=== PATIENT | male | born 1940 | race Caucasian/White ===

== ENCOUNTER → 2021-09-09 06:36 | Outpatient (CLI) | payer MEDICARE, SELFPAY ==
[2021-09-08 18:48] LABS: Basophils # 0.1 K/mm3 (0-0.2); Basophils % 1.6 % (0.1-2.0); Eosinophils # 0.3 K/mm3 (0.0-0.4); Eosinophils % 3.2 % (0.1-12.0); Lymphocytes # 2.8 K/mm3 (0.7-4.5); Lymphocytes % 32.1 % (10-50); Mean Corpuscular HGB Conc 32.6 g/dL (31.8-35.4); Mean Corpuscular Hemoglobin 31.3 pg (27.0-31.2); Mean Platelet Volume 7.9 fl (7.4-10.4); Monocytes # 0.9 K/mm3 (0.1-1.0); Monocytes % 9.8 % (1.7-9.3); Neutrophils # 4.7 K/mm3 (1.8-7.8); Neutrophils % 53.1 % (37.0-80.0); Platelet Count 384 K/mm3 (142-424); Red Blood Count 4.79 M/mm3 (4.60-6.20); Red Cell Distribution Width 13.7 % (11.5-17.5); White Blood Count 8.8 K/mm3 (4.8-10.8)
[2021-09-08 19:00] LABS: Alanine Aminotransferase 22 U/L (12-78); Albumin Level 3.9 g/dl (3.5-5.0); Albumin/Globulin Ratio 1.7 (1.1-1.8); Alkaline Phosphatase 87 U/L (38-126); Anion Gap 8.8 mEq/L (5-15); Aspartate Amino Transferase 36 U/L (17-59); Bilirubin,Total 0.4 mg/dl (0.2-1.3); Blood Urea Nitrogen 15 mg/dl (9-20); Calcium 8.6 mg/dl (8.4-10.2); Carbon Dioxide 29 mmol/L (22.0-30.0); Chloride 104 mmol/L (98-107); Chol/HDL Ratio 2.9 (1-3.5); Cholesterol 136 mg/dl (140-200); Estimated Glomerular Filt Rate 65 ml/min (>60); GFR (African American) 78 ML/MIN (>60); Globulin 2.3 g/dL (1.3-3.2); Glucose 100 mg/dl (74-100); HDL Cholesterol 47 mg/dl (40-60); Potassium 3.8 mmoL/L (3.5-5.1); Sodium 138 mmol/L (136-145); Total Protein,Serum 6.2 g/dl (6.3-8.2); Triglycerides 169 mg/dl (30-150); VLDL Cholesterol 34 mg/dL (0-40)
[2021-09-08 19:11] LABS: Direct LDL Cholesterol 52.68 mg/dL (100-129)
[2021-09-08 19:34] LABS: Prostate Specific Ag Screen 2.3 ng/ml (0.0-4.0); Thyroid Stimulating Hormone 1.28 uIU/mL (0.465-4.68)
== END ==
PROVIDERS: PCP Family Medicine; Visit Provider Family Medicine
DX: E78.5 Hyperlipidemia, unspecified (principal); Z12.5 Encounter for screening for malignant neoplasm of prostate; Z92.89 Personal history of other medical treatment
CPT/HCPCS: 80053; 80061; 84443; 85025; G0103

== ENCOUNTER → 2021-09-26 09:27 | Outpatient (CLI) | payer MEDICARE, SELFPAY ==
--- NOTE | 2021-09-26 09:28 | CT_ITS ---
FINAL REPORT TECHNIQUE: Axial CT images of the abdomen were obtained without contrast. Coronal reformatted images were also obtained.This study was performed with techniques to keep radiation doses as low as reasonably achievable (ALARA). Individualized dose reduction techniques using automated exposure control or adjustment of mA and/or kV according to the patient''s size were employed. CLINICAL HISTORY: right flank pain FINDINGS: There is moderate emphysema. There is an 8 mm nodule in the left lung base which may represent a granuloma versus neoplasm. The liver has an unremarkable appearance, without evidence of mass. There are multiple stones in the gallbladder. There is no evidence of biliary ductal dilatation. The pancreas appears normal. The spleen size is within normal limits. The patient is status post right nephrectomy. There are no left renal stones or hydronephrosis. There are several borderline sized mediastinal lymph nodes. No abnormal fluid collection is seen. There is diverticulosis with no evidence of diverticulitis. IMPRESSION: 8 mm nodule in the left lung base may represent a granuloma versus neoplasm. Further evaluation with PET-CT or [address] follow-up is recommended. Cholelithiasis. Diverticulosis with no evidence of diverticulitis. Reviewed, Interpreted and Dictated by Maximus Horton III, MD Transcribed by Blanche Miller Authenticated and . [facility]
== END ==
PROVIDERS: PCP Family Medicine; Visit Provider Family Medicine
DX: R10.9 Unspecified abdominal pain (principal)
CPT/HCPCS: 74150

== ENCOUNTER → 2021-10-20 07:34 | Outpatient (CLI) | payer MEDICARE, SELFPAY ==
--- NOTE | 2021-10-20 07:40 | US_ITS ---
FINAL REPORT CLINICAL HISTORY: RUQ pain - rt kidney surgical absent FINDINGS: Sonographic images of the right upper quadrant were obtained. The pancreas is partially obscured.The liver has an unremarkable appearance. There are gallstones without gallbladder wall thickening. There is no evidence of biliary ductal dilatation.The common duct measures 3 mm. Right kidney is absent. IMPRESSION: Cholelithiasis. Reviewed, Interpreted and Dictated by Maximus Horton III, MD Transcribed by Noreen Rodriguez Authenticated and [facility]
[2021-10-20 09:04] LABS: Basophils # 0.1 K/mm3 (0-0.2); Basophils % 0.9 % (0.1-2.0); Eosinophils # 0.3 K/mm3 (0.0-0.4); Eosinophils % 3.3 % (0.1-12.0); Hematocrit 47.5 % (42.0-52.0); Hemoglobin 14.7 g/dL (14.1-18.0); Lymphocytes # 2.5 K/mm3 (0.7-4.5); Lymphocytes % 31.1 % (10-50); Mean Corpuscular Hemoglobin 30.2 pg (27.0-31.2); Mean Corpuscular Volume 97.6 fl (80-94); Mean Platelet Volume 7.2 fl (7.4-10.4); Monocytes # 0.7 K/mm3 (0.1-1.0); Monocytes % 8.5 % (1.7-9.3); Neutrophils # 4.4 K/mm3 (1.8-7.8); Neutrophils % 56.1 % (37.0-80.0); Platelet Count 337 K/mm3 (142-424); Red Blood Count 4.87 M/mm3 (4.60-6.20); Red Cell Distribution Width 13.2 % (11.5-17.5); White Blood Count 7.9 K/mm3 (4.8-10.8)
[2021-10-20 09:36] LABS: Chloride 106 mmol/L (98-107)
[2021-10-20 09:39] LABS: Alanine Aminotransferase 18 U/L (12-78); Amylase 36 U/L (30-110); Aspartate Amino Transferase 30 U/L (17-59); Blood Urea Nitrogen 19 mg/dl (9-20); Carbon Dioxide 27 mmol/L (22.0-30.0); Estimated Glomerular Filt Rate 72 ml/min (>60); GFR (African American) 87 ML/MIN (>60); Glucose 98 mg/dl (74-100); Sodium 140 mmol/L (136-145)
[2021-10-20 09:40] LABS: Albumin/Globulin Ratio 1.7 (1.1-1.8); Alkaline Phosphatase 65 U/L (38-126); Bilirubin,Total 0.6 mg/dl (0.2-1.3); Globulin 2.3 g/dL (1.3-3.2); Lipase 35 U/L (23-300); Total Protein,Serum 6.3 g/dl (6.3-8.2)
== END ==
PROVIDERS: PCP Family Medicine; Visit Provider Surgery
DX: I25.10 Atherosclerotic heart disease of native coronary artery without angina pectoris; R10.11 Right upper quadrant pain
CPT/HCPCS: 36415; 76705; 80053; 82150; 83690; 85025

== ENCOUNTER → 2022-02-06 09:50 | Outpatient (CLI) | payer MEDICARE, SELFPAY ==
[2022-02-06 14:15] LABS: Adenovirus,PCR Not Detected (NotDetected); Bordetella Pertussis Not Detected (NotDetected); Chlamydophila Pneumoniae, PCR Not Detected (NotDetected); Coronavirus 19, PCR Not Detected (NotDetected); Coronavirus 229E Not Detected (NotDetected); Coronavirus NL63 Not Detected (NotDetected); Coronavirus OC43 Not Detected (NotDetected); Coronovirus HKU1,PCR Not Detected (NotDetected); Human Metapneumovirus Not Detected (NotDetected); Influenza A, PCR Not Detected (NotDetected); Influenza AH1, 2009 Not Detected (NotDetected); Influenza AH1, PCR Not Detected (NotDetected); Influenza AH3,PCR Not Detected (NotDetected); Influenza B, PCR Not Detected (NotDetected); Mycoplasma Pneumoniae, PCR Not Detected (NotDetected); Parainfluenza 1, PCR Not Detected (NotDetected); Parainfluenza 2, PCR Not Detected (NotDetected); Parainfluenza 3, PCR Not Detected (NotDetected); Parainfluenza 4, PCR Not Detected (NotDetected); Rhinovirus/Enterovirus Not Detected (NotDetected)
[2022-02-06 22:43] LABS: Respiratory Syncytial Virus Detected (NotDetected)
== END ==
PROVIDERS: PCP Emergency Medicine; Visit Provider Emergency Medicine
DX: R09.89 Other specified symptoms and signs involving the circulatory and respiratory systems (principal)
CPT/HCPCS: 87581; 87632; 87798; C9803; U0003; U0005

== ENCOUNTER 2022-02-06 10:41 | Emergency (ER) | payer MEDICARE, SELFPAY ==
[2022-02-06 10:43] VITALS: BP 184/90; PULSE 78; RESP 18; TEMP 36.6; O2SAT 98; BMI 24.9
--- NOTE | 2022-02-06 10:54 | PC.NURSE ---
DR. CROWDER AT BEDSIDE
--- NOTE | 2022-02-06 10:54 | PC.NURSE ---
LAM GONZALEZ at
[2022-02-06 11:01] VITALS: BP 169/82; PULSE 77; O2SAT 95
--- NOTE | 2022-02-06 11:03 | XR_ITS ---
PROCEDURE INFORMATION: Exam: XR Chest Exam date and time: 02/06/2022 11:35 AM Age: 81 years old Clinical indication: Shortness of breath; Additional info: Soa/copd TECHNIQUE: Imaging protocol: Radiologic exam of the chest. Views: 1 view. COMPARISON: CT ABDOMEN WO CON 09/26/2021 9:44 AM FINDINGS: Lungs: There are upper lobe emphysematous changes contributing to crowding of bronchovascular markings in the lower lung zones. Superimposed lower lobe airway disease (bronchitis) cannot be excluded. There are no infiltrates or overt CHF. Pleural spaces: Unremarkable. No pleural effusion. No pneumothorax. Heart/Mediastinum: Unremarkable. No cardiomegaly. Bones/joints: Patient has undergone prior median sternotomy. Mild degenerative changes noted in both shoulder joints. IMPRESSION: COPD with questionable lower lobe airway disease. Negative for pneumonia.
--- NOTE | 2022-02-06 11:08 | HMH.EDGENADL ---
Discharge Plan Disposition Patient Disposition: Home, Self-Care Condition: Good Prescriptions Prescriptions: New prednisone 50 mg tablet 50 mg PO DAILY 3 Days Qty: 3 0RF azithromycin 250 mg tablet See Rx Instructions .ROUTE .COMPLEX Qty: 6 0RF Rx Instructions: For 250 mg dose pack: take 500 mg today (day 1), then 250 mg for 4 days (days 2-5). Do not combine with other azithromycin No Action aspirin 81 mg tablet,delayed release (DR/EC) 81 mg PO DAILY amlodipine 10 mg tablet 10 mg PO DAILY Qty: 10 10RF albuterol sulfate 90 mcg/actuation HFA aerosol inhaler 2 puff inhalation QID PRN (Reason: shortness of breath or wheezing) Qty: 8.5 12RF diclofenac sodium 1 % gel 2 g topical QID Qty: 100 10RF Rx Instructions: apply to single elbow, wrist or hand; for hand includes palm/fingers/back of hand isosorbide mononitrate 30 mg tablet extended release 24 hr PO furosemide 40 mg tablet 40 mg PO Repatha SureClick 140 mg/mL pen injector SQ clopidogrel 75 mg tablet 75 mg PO potassium chloride 10 mEq tablet,ER particles/crystals PO metoprolol succinate 25 mg tablet extended release 24 hr PO losartan 100 mg tablet 100 mg PO levothyroxine 75 mcg tablet 75 mcg PO Referrals Follow up/Referrals: Saurabh Soto MD [Primary Care Provider] - See instructions Activity Restrictions/Add. Instructions Additional Instructions/Restrictions: At this time was felt you are safe to be discharged home. If new or worsening symptoms please do not hesitate to return for continued evaluation. Please take your medications as prescribed. Please use your breathing machine every 4 hours as needed for shortness of breath and wheezing. Clinical Impressions Clinical Impression: Asthma exacerbation in COPD Instructions Patient Instructions: DI for Chronic Obstructive Pulmonary Disease Discharge ED Provider: Bert Greco General Adult HPI General Chief complaint: Shortness of Breath/Dyspnea Stated complaint: SOA Time Seen by Provider: 02/06/22 11:08 Mode of Arrival: Ambulatory Limitations: No Limitations Description of Symptoms (Recalled from ER Triage Doc. by RN): PT SENT FROM DR. KOEHLER'S OFFICE. PT REPORTS SHORTNESS OF BREATH SINCE SUNDAY WITH PRODUCTIVE COUGH. PT PLACED ON O2 AT 2L/NC IN OFFICE. PT STATES SAT AT HOME WAS IN THE 70'S. DOES NOT WEAR HOME O2 History of Present Illness HPI narrative: Patient is a 81-year-old male with past medical history of COPD not on home oxygen who presents emergency department for evaluation of shortness of breath. For the last week patient has had progressive shortness of breath, cough, dyspnea on exertion. Patient has a history of a CABG and is on Lasix at home for which she has been compliant. Patient has taken 3 days of oral prednisone left over from previous prescription. Patient is 5 pounds down from his dry weight and presented to clinic today after home oxygen was in the 70s with some response to breathing treatment at home. Due to persistent hypoxia clinic patient was placed on 2 L nasal cannula with resolution was transported here for continued evaluation. Patient denies chest pain at this time. Related Data Home Medications Medication Instructions Recorded Confirmed clopidogrel 75 mg tablet 75 mg PO 10/12/21 02/06/22 evolocumab 140 mg/mL subcutaneous mg SQ 10/12/21 02/06/22 pen injector (Apollo Lr) furosemide 40 mg tablet 40 mg PO 10/12/21 02/06/22 isosorbide mononitrate 30 mg mg PO 10/12/21 02/06/22 tablet,extended release 24 hr levothyroxine 75 mcg tablet 75 mcg PO 10/12/21 02/06/22 losartan 100 mg tablet 100 mg PO 10/12/21 02/06/22 metoprolol succinate 25 mg mg PO 10/12/21 02/06/22 tablet,extended release 24 hr potassium chloride 10 mEq meq PO 10/12/21 02/06/22 tablet,extended release(part/cryst) aspirin 81 mg tablet,delayed 81 mg PO DAILY 01/30/22
[2022-02-06 11:14] LABS: Coronavirus 19, PCR Not Detected (NotDetected); Influenza A, PCR Not Detected (NotDetected); Influenza B, PCR Not Detected (NotDetected)
--- NOTE | 2022-02-06 11:17 | ECG_ITS ---
APPROVED REPORT Exam: Resting ECG HR:67 bpm ECG Measurements Heart Rate 67 AXES IN 134 P 56 QRSd 141 QRS 87 QT 461 T -11 QTc 476 Conclusion SINUS RHYTHM INTRAVENTRICULAR CONDUCTION DELAY [130+ ms QRS DURATION] ABNORMAL ECG UNCONFIRMED REPORT Electronically signed by : Jesus Garcia MD 02/07/2022 20:12:38
[2022-02-06 11:21] LABS: Chloride 95 mmol/L (98-107)
[2022-02-06 11:22] LABS: Potassium 3.3 mmoL/L (3.5-5.1); Sodium 137 mmol/L (136-145)
[2022-02-06 11:24] LABS: Alanine Aminotransferase 41 U/L (12-78); Alkaline Phosphatase 75 U/L (38-126); Aspartate Amino Transferase 60 U/L (17-59); Basophils # 0.2 K/mm3 (0-0.2); Blood Urea Nitrogen 23 mg/dl (9-20); Creatinine Clearance Estimated 59 mL/min (50-200); Eosinophils % 0.2 % (0.1-12.0); Estimated Glomerular Filt Rate 58 ml/min (>60); GFR (African American) 71 ML/MIN (>60); Hematocrit 49.6 % (42.0-52.0); Hemoglobin 16.7 g/dL (14.1-18.0); Lymphocytes # 1.5 K/mm3 (0.7-4.5); Lymphocytes % 10.3 % (10-50); Mean Corpuscular HGB Conc 33.7 g/dL (31.8-35.4); Mean Corpuscular Hemoglobin 31.5 pg (27.0-31.2); Mean Corpuscular Volume 93.4 fl (80-94); Mean Platelet Volume 7.8 fl (7.4-10.4); Monocytes # 0.5 K/mm3 (0.1-1.0); Monocytes % 3.6 % (1.7-9.3); Neutrophils # 12.1 K/mm3 (1.8-7.8); Neutrophils % 84.9 % (37.0-80.0); Platelet Count 449 K/mm3 (142-424); Red Blood Count 5.31 M/mm3 (4.60-6.20); Red Cell Distribution Width 13.1 % (11.5-17.5); White Blood Count 14.2 K/mm3 (4.8-10.8)
[2022-02-06 11:25] LABS: Albumin Level 4.5 g/dl (3.5-5.0); Albumin/Globulin Ratio 1.7 (1.1-1.8); Anion Gap 13.3 mEq/L (5-15); Calcium 8.9 mg/dl (8.4-10.2); Carbon Dioxide 32 mmol/L (22.0-30.0); Globulin 2.7 g/dL (1.3-3.2); Glucose 111 mg/dl (74-100); Lactic Acid 1.8 mmol/L (0.7-2.1); Total Protein,Serum 7.2 g/dl (6.3-8.2)
[2022-02-06 11:30] VITALS: BP 152/80; PULSE 74; O2SAT 96
[2022-02-06 11:34] LABS: NT Pro Brain Natriuretic Pep. 288 pg/mL (0-450)
[2022-02-06 11:38] LABS: Troponin I < 0.01 ng/ml (0.00-0.034)
[2022-02-06 12:00] VITALS: BP 147/88; PULSE 74; PULSE 76; O2SAT 96
--- NOTE | 2022-02-06 12:00 | PC.NURSE ---
Respiratory at BS
[2022-02-06 12:20] LABS: ABG Base Excess -0.1 mmol/L (-2.4-2.3); ABG HCO3 23.5 mmhg (22.0-26.0); ABG Oxygen Saturation 95 % (90-100); ABG PCO2 32.8 mmhg (35.0-45.0); ABG PH 7.47 mmol/L (7.35-7.45); ABG PO2 67.8 mmhg (80-100); ABG TCO2 24.5 mmhg (23-27)
[2022-02-06 12:21] LABS: Allen's Test ACCEPTABLE; Oxygen 2 lpm %
[2022-02-06 12:22] LABS: Source Left Radial
--- NOTE | 2022-02-06 13:27 | PC.NURSE ---
ROUNDED ON PT, UPDATED ON POC. FAMILY AT BEDSIDE. NO NEEDS AT THIS TIME DIETARY NOTIFIED, WILL BRING PT LUNCH TRAY
--- NOTE | 2022-02-06 13:32 | PC.NURSE ---
pt given a dietary tray
--- NOTE | 2022-02-06 13:47 | PC.NURSE ---
Oxygen d/c'd at this time.
--- NOTE | 2022-02-06 14:34 | PC.NURSE ---
PT AMBULATING TO BR WITHOUT O2
--- NOTE | 2022-02-06 14:41 | PC.NURSE ---
PT AMBULATED TO BR. O2 88-90 ON ROOM AIR
[2022-02-06 15:16] LABS: Troponin I < 0.01 ng/ml (0.00-0.034)
--- NOTE | 2022-02-06 15:29 | PC.NURSE ---
LAM GONZALEZ at for update on POC
[2022-02-06 16:04] VITALS: BP 156/90; PULSE 86; RESP 17; TEMP 36.7; O2SAT 90
== END 2022-02-06 16:05 | disposition home or self-care (01) ==
PROVIDERS: Emergency Provider Emergency Medicine; PCP Family Medicine
DX: R09.02 Hypoxemia (principal); J44.9 Chronic obstructive pulmonary disease, unspecified; R05.9 Cough, unspecified; D72.829 Elevated white blood cell count, unspecified; Z20.822 Contact with and (suspected) exposure to COVID-19; I25.10 Atherosclerotic heart disease of native coronary artery without angina pectoris; Z79.02 Long term (current) use of antithrombotics/antiplatelets; Z79.51 Long term (current) use of inhaled steroids; Z79.52 Long term (current) use of systemic steroids; Z79.82 Long term (current) use of aspirin; Z79.899 Other long term (current) drug therapy; Z88.8 Allergy status to other drugs, medicaments and biological substances; Z87.891 Personal history of nicotine dependence
CPT/HCPCS: 71045; 80053; 82803; 83605; 83880; 84484; 85025; 87581; 87632; 87798; 93005; 96374; 99285; C9803; J0456; U0003; U0005

== ENCOUNTER → 2022-03-07 10:40 | Outpatient (CLI) | payer MEDICARE, SELFPAY ==
[2022-03-07 15:25] LABS: Chol/HDL Ratio 2.2 (1-3.5); Cholesterol 165 mg/dl (140-200); HDL Cholesterol 76 mg/dl (40-60); Triglycerides 174 mg/dl (30-150); VLDL Cholesterol 35 mg/dL (0-40)
[2022-03-07 15:36] LABS: Direct LDL Cholesterol 59.67 mg/dL (100-129)
== END ==
PROVIDERS: PCP Family Medicine; Visit Provider Family Medicine
DX: I25.10 Atherosclerotic heart disease of native coronary artery without angina pectoris (principal)
CPT/HCPCS: 80061

== ENCOUNTER → 2022-06-23 15:23 | Outpatient (CLI) | payer MEDICARE, SELFPAY | PROVIDERS: PCP Family Medicine; Visit Provider Family Medicine | DX: M54.50 Low back pain, unspecified (principal); M25.551 Pain in right hip; M25.552 Pain in left hip | CPT/HCPCS: 72100; 73521 ==

== ENCOUNTER → 2022-07-05 13:07 | Outpatient (CLI) | payer MEDICARE, SELFPAY ==
[2022-07-05 14:42] LABS: Anion Gap 16.5 mEq/L (5-15); Blood Urea Nitrogen 15 mg/dl (9-20); Carbon Dioxide 26 mmol/L (22.0-30.0); Chloride 98 mmol/L (98-107); Estimated Glomerular Filt Rate 65 ml/min (>60); GFR (African American) 78 ML/MIN (>60); Glucose 174 mg/dl (74-100); Potassium 3.5 mmoL/L (3.5-5.1); Sodium 137 mmol/L (136-145)
== END ==
PROVIDERS: PCP Family Medicine; Visit Provider Family Medicine
DX: N28.9 Disorder of kidney and ureter, unspecified (principal)
CPT/HCPCS: 36415; 80048

== ENCOUNTER → 2022-07-12 15:09 | Outpatient (CLI) | payer MEDICARE, SELFPAY ==
--- NOTE | 2022-07-12 15:09 | MR_ITS ---
FINAL REPORT CLINICAL HISTORY: hip / scaitic pain right leg pain x 3-4 months FINDINGS: Multi planar MR imaging of the pelvis was obtained without contrast. There is moderate hip joint space narrowing bilaterally. Fluid and edema is seen overlying the right greater trochanter, probably due to greater trochanteric bursitis. Findings are best seen on images 20 and 21 of series 5 and 28 through 36 of series 3. The urinary bladder is distended and has an unusual lobular configuration, may be related to neurogenic bladder. There is no intrapelvic inflammation. IMPRESSION: Fluid and edema overlying the right greater trochanter, probably related to greater trochanteric bursitis. Urinary bladder is distended with an unusual lobular configuration, may be related to neurogenic bladder. Reviewed, Interpreted and Dictated by Geoffrey Carlos MD Transcribed by Cathleen Kathleen Authenticated and [facility]
== END ==
PROVIDERS: PCP Family Medicine; Visit Provider Family Medicine
DX: M25.551 Pain in right hip (principal); M79.604 Pain in right leg
CPT/HCPCS: 72195

== ENCOUNTER → 2022-11-16 16:55 | Outpatient (CLI) | payer MEDICARE, SELFPAY ==
--- NOTE | 2022-11-16 16:56 | MR_ITS ---
PROCEDURE INFORMATION: Exam: MR Lumbar Spine Without Contrast Exam date and time: 11/16/2022 4:54 PM Age: 82 years old Clinical indication: Low back pain; Additional info: Low back pain w/ rle radicular pain TECHNIQUE: Imaging protocol: Magnetic resonance imaging of the lumbar spine without contrast. COMPARISON: CR XR LUMBAR SPINE 2-3V 06/23/2022 3:30 PM FINDINGS: Bones/joints: There is 3 mm of retrolisthesis of L5 on S1 which is unchanged. Spinal alignment is otherwise near anatomic. There is mild superior endplate height loss at L2 which is chronic and unchanged. The other vertebral body heights are maintained. No suspicious marrow signal. L1 intraosseous hemangioma. Spinal cord: Visualized cord, conus medullaris and cauda equina are unremarkable without compression. T12-L1: T12-L1 minimal diffuse disc bulging is seen without stenosis. L1-L2: L1-L2 there is mild diffuse disc bulging and degenerative facet arthrosis causing mild narrowing of the spinal canal. The right neural foramina is also mildly narrowed. L2-L3: L2-L3 diffuse disc bulging and degenerative facet arthrosis is present with mild narrowing of the spinal canal and both neural foramina. L3-L4: L3-L4 diffuse disc bulging and degenerative facet arthrosis moderately narrows the spinal canal and both neural foramen. L4-L5: L4-L5 diffuse disc bulging and degenerative facet arthrosis is seen with moderate stenosis of the spinal canal. The right neural foramina is severely narrowed and the left is mildly narrowed. L5-S1: L5-S1 diffuse disc bulging eccentric to the left with degenerative facet arthrosis causes moderate narrowing of the spinal canal. There is compression of the descending left S1 nerve root as it enters the lateral recess by disc material. The left neural foramina is also moderately narrowed. Soft tissues: Unremarkable. Liver: Small cyst or hemangioma inferior right lobe of the liver. Gallbladder and bile ducts: Gallstones. Kidneys and ureters: Subcentimeter left renal cysts. Stable right nephrectomy change. IMPRESSION: Degenerative disc disease with moderate narrowing of the spinal canal L3-S1, as described. There is also severe compression of the left S1 descending nerve root in the lateral recess by disc material.
== END ==
PROVIDERS: PCP Family Medicine; Visit Provider Family Medicine
DX: M54.9 Dorsalgia, unspecified (principal); M54.50 Low back pain, unspecified; M54.10 Radiculopathy, site unspecified
CPT/HCPCS: 72148; 76376

== ENCOUNTER 2024-08-22 10:36 | Outpatient (CLI) | payer MEDICARE, SELFPAY ==
--- OUTSIDE RECORDS SUMMARY | 2024-08-13 04:35 | XMS_ITS | Continuity of Care Document ---
Author Name [facility] Organization [facility] Care Team Providers Care Police Dispatcher Name Role Phone [facility] Unavailable Unavailable Problems Combined list of problems from [facility] and [email or web address] facilities. It does not include entries that were removed or entered in error. Problem Status Onset Date Problem Type Date of Resolution Comments Source Diagnosis: ICD-10-CM Z00.00 Encntr for general adult medical exam w/o abnormal findings Active Diagnosis ANGEL YANG Medications Combined list of outpatient medications from [facility] [employer] and [email or web address] facilities.Medications provided include 1) outpatient medications from the last 15 months, and 2) patient-reported medications. Medication Details Route Status Patient Instructions Prescription Expires Prescription Number Last Dispense Date Ordering Provider Order Date Order Qty Source CICLESONIDE 160MCG/SPRA Y IN[facility],ORAL,6 .1GM INHALE 1 PUFF BY MOUTH TWICE A DAY FOR COPD RINSE MOUTH AFTER USE RESPIR ATORY (INHAL ATION) 07/02/2024 [id number] KENDALL GOMEZ E 2023 3 SIMON YANG OLODATEROL 2.5MCG/TIOT ROPIUM 2.5MCG/ACTU AT [facility]HL,ORAL,6 0D,4GM INHALE 2 PUFFS BY MOUTH ONCE DAILY FOR COPD (NOT FOR EMERGENC Y USE) RESPIR ATORY (INHAL ATION) 07/02/2024 [id number] 5 KENDALL GOMEZ E 2023 3 SIMON E [facility] Allergies, Adverse Reactions, Alerts Combined list of allergies from [facility] [employer] and [facility] facilities. It does not include entries that were removed or entered in error. Substance Category Reaction Severity Reaction type Status Date Reported Comments Source ATORVASTATIN Propensity to adverse reactions to drug (finding) active [place] LISINOPRIL Propensity to adverse reactions to drug (finding) Cough MODERATE active 4 [place] Results Combined list of recent chemistry, hematology and other laboratory results from [facility], ranging from 15 months to all on record, depending upon the facility. Order Name Results Value Reference Range Date Interpretation Specimen Comments Source COMPREHEN SIVE METABOLIC PANEL UREA NITROGEN [MASS/VOLUM E] IN SERUM OR PLASMA 16 mg/dL 9.0 - 23.0 07/01 Specimen Type: PLASMA Comment: Standardize d eGFR Interpretat ion Estimated Glomerular Filtration Rate (eGFR) calculated using the 2020 Chronic Kidney Disease-Epi demiology (CKD-EPI) Collaborati on creatinine equation; units of measure are mL/min/1.73 m2. Results are only valid for adults (?18 years) whose serum creatinine is in a steady state. eGFR calculation s are not valid for patients with acute kidney injury and for patients on dialysis. Creatinine- based estimates of kidney function may also be inaccurate in patients with reduced creatinine generation due to decreased muscle mass (e.g., malnutritio n, severe hypoalbumin emia, sarcopenia, chronic neuromuscul ar disease, amputations , severe heart failure or liver disease) and in patients with increased creatinine generation due to increased muscle mass (e.g., muscle builders, anabolic steroids) or increased dietary intake. As drug clearance is proportiona l to total GFR and not GFR indexed to body surface area (BSA), in individuals with a BSA substantial ly different than 1.73 m2, drug dosing should be based the reported eGFR value de-indexed from BSA by multiplying by the individual' s BSA and dividing by 1.73. CKD is diagnosed based on abnormaliti es of kidney structure or function, present for >3 months, with implication s for health and disease. CKD is classified and staged based on cause, eGFR and albuminuria (quantified as urine albumin to creatinine ratio). An eGFR >60 mL/min/1.73 m2 in the absence of increased urine albumin excretion or structural abnormaliti es does not represent CKD. eGFR CKD stage Interpretat ion (mL/min/1.7 3 m2) >=90 G1 Normal 60-89 G2 Mild decrease 45-59 G3A Mild to moderate decrease 30-44 G3B Moderate to severe decrease 15-29 G4 Severe decrease <15 G5 Kidney failure Ordering Provider: ABA GOMEZ Report Released Date/Time: July 02, 2023 02:34 PM Reporting Lab: [address] [address] Performing Lab: [facility] [employer] [facility] [address] [facility] Delaney [facility] METABOLIC PANEL GLUCOSE [MASS/VOLUM E] IN SERUM OR PLASMA 113 mg/dL 74 - 106 07/01 H Specimen Type: PLASMA Comment: Standardize d eGFR Interpretat ion Estimated Glomerular Filtration Rate (eGFR) calculated using the 2020 Chronic Kidney Disease-Epi demiology (CKD-EPI) Collaborati on creatinine equation; units of measure are mL/min/1.73 m2. Results are only valid for adults (?18 years) whose serum creatinine is in a steady state. eGFR calculation s are not valid for patients with acute kidney injury and for patients on dialysis. Creatinine- based estimates of kidney function may also be inaccurate in patients with reduced creatinine generation due to decreased muscle mass (e.g., malnutritio n, severe hypoalbumin emia, sarcopenia, chronic neuromuscul ar disease, amputations , severe heart failure or liver disease) and in patients with increased creatinine generation due to increased muscle mass (e.g., muscle builders, anabolic steroids) or increased dietary intake. As drug clearance is proportiona l to total GFR and not GFR indexed to body surface area (BSA), in individuals with a BSA substantial ly different than 1.73 m2, drug dosing should be based the reported eGFR value de-indexed from BSA by multiplying by the individual' s BSA and dividing by 1.73. CKD is diagnosed based on abnormaliti es of kidney structure or function, present for >3 months, with implication s for health and disease. CKD is classified and staged based on cause, eGFR and albuminuria (quantified as urine albumin to creatinine ratio). An eGFR >60 mL/min/1.73 m2 in the absence of increased urine albumin excretion or structural abnormaliti es does not represent CKD. eGFR CKD stage Interpretat ion (mL/min/1.7 3 m2) >=90 G1 Normal 60-89 G2 Mild decrease 45-59 G3A Mild to moderate decrease 30-44 G3B Moderate to severe decrease 15-29 G4 Severe decrease <15 G5 Kidney failure Ordering Provider: ABA GOMEZ Report Released Date/Time: July 02, 2023 02:34 PM Reporting Lab: [facility] [employer] [facility] [id number] Performing Lab: [facility] [employer] [facility] [address] [facility] Delaney QUEZADA METABOLIC PANEL SODIUM [MOLES/VOLU ME] IN SERUM OR PLASMA 142 mmol/L 136 - 145 07/01 Specimen Type: PLASMA Comment: Standardize d eGFR Interpretat ion Estimated Glomerular Filtration Rate (eGFR) calculated using the 2020 Chronic Kidney Disease-Epi demiology (CKD-EPI) Collaborati on creatinine equation; units of measure are mL/min/1.73 m2. Results are only valid for adults (?18 years) whose serum creatinine is in a steady state. eGFR calculation s are not valid for patients with acute kidney injury and for patients on dialysis. Creatinine- based estimates of kidney function may also be inaccurate in patients with reduced creatinine generation due to decreased muscle mass (e.g., malnutritio n, severe hypoalbumin emia, sarcopenia, chronic neuromuscul ar disease, amputations , severe heart failure or liver disease) and in patients with increased creatinine generation due to increased muscle mass (e.g., muscle builders, anabolic steroids) or increased dietary intake. As drug clearance is proportiona l to total GFR and not GFR indexed to body surface area (BSA), in individuals with a BSA substantial ly different than 1.73 m2, drug dosing should be based the reported eGFR value de-indexed from BSA by multiplying by the individual' s BSA and dividing by 1.73. CKD is diagnosed based on abnormaliti es of kidney structure or function, present for >3 months, with implication s for health and disease. CKD is classified and staged based on cause, eGFR and albuminuria (quantified as urine albumin to creatinine ratio). An eGFR >60 mL/min/1.73 m2 in the absence of increased urine albumin excretion or structural abnormaliti es does not represent CKD. eGFR CKD stage Interpretat ion (mL/min/1.7 3 m2) >=90 G1 Normal 60-89 G2 Mild decrease 45-59 G3A Mild to moderate decrease 30-44 G3B Moderate to severe decrease 15-29 G4 Severe decrease <15 G5 Kidney failure Ordering Provider: ABA GOMEZ Report Released Date/Time: July 02, 2023 02:34 PM Reporting Lab: [facility] [employer] [facility] [phone] Performing Lab: [facility] [employer] [facility] [address] [facility] GREY [employer] METABOLIC PANEL POTASSIUM [MOLES/VOLU ME] IN SERUM OR PLASMA 3.7 mmol/L 3.4 - 5.1 07/01 Specimen Type: PLASMA Comment: Standardize d eGFR Interpretat ion Estimated Glomerular Filtration Rate (eGFR) calculated using the 2020 Chronic Kidney Disease-Epi demiology (CKD-EPI) Collaborati on creatinine equation; units of measure are mL/min/1.73 m2. Results are only valid for adults (?18 years) whose serum creatinine is in a steady state. eGFR calculation s are not valid for patients with acute kidney injury and for patients on dialysis. Creatinine- based estimates of kidney function may also be inaccurate in patients with reduced creatinine generation due to decreased muscle mass (e.g., malnutritio n, severe hypoalbumin emia, sarcopenia, chronic neuromuscul ar disease, amputations , severe heart failure or liver disease) and in patients with increased creatinine generation due to increased muscle mass (e.g., muscle builders, anabolic steroids) or increased dietary intake. As drug clearance is proportiona l to total GFR and not GFR indexed to body surface area (BSA), in individuals with a BSA substantial ly different than 1.73 m2, drug dosing should be based the reported eGFR value de-indexed from BSA by multiplying by the individual' s BSA and dividing by 1.73. CKD is diagnosed based on abnormaliti es of kidney structure or function, present for >3 months, with implication s for health and disease. CKD is classified and staged based on cause, eGFR and albuminuria (quantified as urine albumin to creatinine ratio). An eGFR >60 mL/min/1.73 m2 in the absence of increased urine albumin excretion or structural abnormaliti es does not represent CKD. eGFR CKD stage Interpretat ion (mL/min/1.7 3 m2) >=90 G1 Normal 60-89 G2 Mild decrease 45-59 G3A Mild to moderate decrease 30-44 G3B Moderate to severe decrease 15-29 G4 Severe decrease <15 G5 Kidney failure Ordering Provider: ABA GOMEZ Report Released Date/Time: July 02, 2023 02:34 PM Reporting Lab: [facility] [employer] [facility] [address] Performing Lab: [facility] [employer] [facility] [address] [facility] COMPREHEN SIVE METABOLIC PANEL CHLORIDE [MOLES/VOLU ME] IN SERUM OR PLASMA 107 mmol/L 98 - 107 07/01 Specimen Type: PLASMA Comment: Standardize d eGFR Interpretat ion Estimated Glomerular Filtration Rate (eGFR) calculated using the 2020 Chronic Kidney Disease-Epi demiology (CKD-EPI) Collaborati on creatinine equation; units of measure are mL/min/1.73 m2. Results are only valid for adults (?18 years) whose serum creatinine is in a steady state. eGFR calculation s are not valid for patients with acute kidney injury and for patients on dialysis. Creatinine- based estimates of kidney function may also be inaccurate in patients with reduced creatinine generation due to decreased muscle mass (e.g., malnutritio n, severe hypoalbumin emia, sarcopenia, chronic neuromuscul ar disease, amputations , severe heart failure or liver disease) and in patients with increased creatinine generation due to increased muscle mass (e.g., muscle builders, anabolic steroids) or increased dietary intake. As drug clearance is proportiona l to total GFR and not GFR indexed to body surface area (BSA), in individuals with a BSA substantial ly different than 1.73 m2, drug dosing should be based the reported eGFR value de-indexed from BSA by multiplying by the individual' s BSA and dividing by 1.73. CKD is diagnosed based on abnormaliti es of kidney structure or function, present for >3 months, with implication s for health and disease. CKD is classified and staged based on cause, eGFR and albuminuria (quantified as urine albumin to creatinine ratio). An eGFR >60 mL/min/1.73 m2 in the absence of increased urine albumin excretion or structural abnormaliti es does not represent CKD. eGFR CKD stage Interpretat ion (mL/min/1.7 3 m2) >=90 G1 Normal 60-89 G2 Mild decrease 45-59 G3A Mild to moderate decrease 30-44 G3B Moderate to severe decrease 15-29 G4 Severe decrease <15 G5 Kidney failure Ordering Provider: ABA GOMEZ Report Released Date/Time: July 02, 2023 02:34 PM Reporting Lab: [place] [id number] [facility]AY[facility] [address] Performing Lab: [address] [address] [facility] COMPREHEN SIVE METABOLIC PANEL CARBON DIOXIDE, TOTAL [MOLES/VOLU ME] IN SERUM OR PLASMA 28 mmol/L 20 - 31 07/01 Specimen Type: PLASMA Comment: Standardize d eGFR Interpretat ion Estimated Glomerular Filtration Rate (eGFR) calculated using the 2020 Chronic Kidney Disease-Epi demiology (CKD-EPI) Collaborati on creatinine equation; units of measure are mL/min/1.73 m2. Results are only valid for adults (?18 years) whose serum creatinine is in a steady state. eGFR calculation s are not valid for patients with acute kidney injury and for patients on dialysis. Creatinine- based estimates of kidney function may also be inaccurate in patients with reduced creatinine generation due to decreased muscle mass (e.g., malnutritio n, severe hypoalbumin emia, sarcopenia, chronic neuromuscul ar disease, amputations , severe heart failure or liver disease) and in patients with increased creatinine generation due to increased muscle mass (e.g., muscle builders, anabolic steroids) or increased dietary intake. As drug clearance is proportiona l to total GFR and not GFR indexed to body surface area (BSA), in individuals with a BSA substantial ly different than 1.73 m2, drug dosing should be based the reported eGFR value de-indexed from BSA by multiplying by the individual' s BSA and dividing by 1.73. CKD is diagnosed based on abnormaliti es of kidney structure or function, present for >3 months, with implication s for health and disease. CKD is classified and staged based on cause, eGFR and albuminuria (quantified as urine albumin to creatinine ratio). An eGFR >60 mL/min/1.73 m2 in the absence of increased urine albumin excretion or structural abnormaliti es does not represent CKD. eGFR CKD stage Interpretat ion (mL/min/1.7 3 m2) >=90 G1 Normal 60-89 G2 Mild decrease 45-59 G3A Mild to moderate decrease 30-44 G3B Moderate to severe decrease 15-29 G4 Severe decrease <15 G5 Kidney failure Ordering Provider: ABA GOMEZ Report Released Date/Time: July 02, 2023 02:34 PM Reporting Lab: [facility] [employer] [facility] [phone] Performing Lab: [facility] [employer] [facility] [address] MANINDER QUEZADA METABOLIC PANEL CALCIUM [MASS/VOLUM E] IN SERUM OR PLASMA 9.1 mg/dL 8.7 - 10.4 07/01 Specimen Type: PLASMA Comment: Standardize d eGFR Interpretat ion Estimated Glomerular Filtration Rate (eGFR) calculated using the 2020 Chronic Kidney Disease-Epi demiology (CKD-EPI) Collaborati on creatinine equation; units of measure are mL/min/1.73 m2. Results are only valid for adults (?18 years) whose serum creatinine is in a steady state. eGFR calculation s are not valid for patients with acute kidney injury and for patients on dialysis. Creatinine- based estimates of kidney function may also be inaccurate in patients with reduced creatinine generation due to decreased muscle mass (e.g., malnutritio n, severe hypoalbumin emia, sarcopenia, chronic neuromuscul ar disease, amputations , severe heart failure or liver disease) and in patients with increased creatinine generation due to increased muscle mass (e.g., muscle builders, anabolic steroids) or increased dietary intake. As drug clearance is proportiona l to total GFR and not GFR indexed to body surface area (BSA), in individuals with a BSA substantial ly different than 1.73 m2, drug dosing should be based the reported eGFR value de-indexed from BSA by multiplying by the individual' s BSA and dividing by 1.73. CKD is diagnosed based on abnormaliti es of kidney structure or function, present for >3 months, with implication s for health and disease. CKD is classified and staged based on cause, eGFR and albuminuria (quantified as urine albumin to creatinine ratio). An eGFR >60 mL/min/1.73 m2 in the absence of increased urine albumin excretion or structural abnormaliti es does not represent CKD. eGFR CKD stage Interpretat ion (mL/min/1.7 3 m2) >=90 G1 Normal 60-89 G2 Mild decrease 45-59 G3A Mild to moderate decrease 30-44 G3B Moderate to severe decrease 15-29 G4 Severe decrease <15 G5 Kidney failure Ordering Provider: ABA GOMEZ Report Released Date/Time: July 02, 2023 02:34 PM Reporting Lab: [facility] [employer] [facility] [phone] Performing Lab: [facility] [employer] [facility] [address] [place] I GREYEN SIVE METABOLIC PANEL ALBUMIN [MASS/VOLUM E] IN SERUM OR PLASMA 3.6 g/dL 3.4 - 5.0 07/01 Specimen Type: PLASMA Comment: Standardize d eGFR Interpretat ion Estimated Glomerular Filtration Rate (eGFR) calculated using the 2020 Chronic Kidney Disease-Epi demiology (CKD-EPI) Collaborati on creatinine equation; units of measure are mL/min/1.73 m2. Results are only valid for adults (?18 years) whose serum creatinine is in a steady state. eGFR calculation s are not valid for patients with acute kidney injury and for patients on dialysis. Creatinine- based estimates of kidney function may also be inaccurate in patients with reduced creatinine generation due to decreased muscle mass (e.g., malnutritio n, severe hypoalbumin emia, sarcopenia, chronic neuromuscul ar disease, amputations , severe heart failure or liver disease) and in patients with increased creatinine generation due to increased muscle mass (e.g., muscle builders, anabolic steroids) or increased dietary intake. As drug clearance is proportiona l to total GFR and not GFR indexed to body surface area (BSA), in individuals with a BSA substantial ly different than 1.73 m2, drug dosing should be based the reported eGFR value de-indexed from BSA by multiplying by the individual' s BSA and dividing by 1.73. CKD is diagnosed based on abnormaliti es of kidney structure or function, present for >3 months, with implication s for health and disease. CKD is classified and staged based on cause, eGFR and albuminuria (quantified as urine albumin to creatinine ratio). An eGFR >60 mL/min/1.73 m2 in the absence of increased urine albumin excretion or structural abnormaliti es does not represent CKD. eGFR CKD stage Interpretat ion (mL/min/1.7 3 m2) >=90 G1 Normal 60-89 G2 Mild decrease 45-59 G3A Mild to moderate decrease 30-44 G3B Moderate to severe decrease 15-29 G4 Severe decrease <15 G5 Kidney failure Ordering Provider: ABA GOMEZ Report Released Date/Time: July 02, 2023 02:34 PM Reporting Lab: [facility] [employer] [facility] [address] Performing Lab: [place] [address] [facility] [address] [facility] COMPREHEN SIVE METABOLIC PANEL BILIRUBIN.T OTAL [MASS/VOLUM E] IN SERUM OR PLASMA 0.5 mg/dL 0.3 - 1.2 07/01 Specimen Type: PLASMA Comment: Standardize d eGFR Interpretat ion Estimated Glomerular Filtration Rate (eGFR) calculated using the 2020 Chronic Kidney Disease-Epi demiology (CKD-EPI) Collaborati on creatinine equation; units of measure are mL/min/1.73 m2. Results are only valid for adults (?18 years) whose serum creatinine is in a steady state. eGFR calculation s are not valid for patients with acute kidney injury and for patients on dialysis. Creatinine- based estimates of kidney function may also be inaccurate in patients with reduced creatinine generation due to decreased muscle mass (e.g., malnutritio n, severe hypoalbumin emia, sarcopenia, chronic neuromuscul ar disease, amputations , severe heart failure or liver disease) and in patients with increased creatinine generation due to increased muscle mass (e.g., muscle builders, anabolic steroids) or increased dietary intake. As drug clearance is proportiona l to total GFR and not GFR indexed to body surface area (BSA), in individuals with a BSA substantial ly different than 1.73 m2, drug dosing should be based the reported eGFR value de-indexed from BSA by multiplying by the individual' s BSA and dividing by 1.73. CKD is diagnosed based on abnormaliti es of kidney structure or function, present for >3 months, with implication s for health and disease. CKD is classified and staged based on cause, eGFR and albuminuria (quantified as urine albumin to creatinine ratio). An eGFR >60 mL/min/1.73 m2 in the absence of increased urine albumin excretion or structural abnormaliti es does not represent CKD. eGFR CKD stage Interpretat ion (mL/min/1.7 3 m2) >=90 G1 Normal 60-89 G2 Mild decrease 45-59 G3A Mild to moderate decrease 30-44 G3B Moderate to severe decrease 15-29 G4 Severe decrease <15 G5 Kidney failure Ordering Provider: ABA GOMEZ Report Released Date/Time: July 02, 2023 02:34 PM Reporting Lab: [facility] [employer] [facility] [phone] Performing Lab: [address] [address] [place] COMPREHEN SIVE METABOLIC PANEL ASPARTATE AMINOTRANSF ERASE [ENZYMATIC ACTIVITY/VO LUME] IN SERUM OR PLASMA 20 U/L 0 - 33.9 07/01 Specimen Type: PLASMA Comment: Standardize d eGFR Interpretat ion Estimated Glomerular Filtration Rate (eGFR) calculated using the 2020 Chronic Kidney Disease-Epi demiology (CKD-EPI) Collaborati on creatinine equation; units of measure are mL/min/1.73 m2. Results are only valid for adults (?18 years) whose serum creatinine is in a steady state. eGFR calculation s are not valid for patients with acute kidney injury and for patients on dialysis. Creatinine- based estimates of kidney function may also be inaccurate in patients with reduced creatinine generation due to decreased muscle mass (e.g., malnutritio n, severe hypoalbumin emia, sarcopenia, chronic neuromuscul ar disease, amputations , severe heart failure or liver disease) and in patients with increased creatinine generation due to increased muscle mass (e.g., muscle builders, anabolic steroids) or increased dietary intake. As drug clearance is proportiona l to total GFR and not GFR indexed to body surface area (BSA), in individuals with a BSA substantial ly different than 1.73 m2, drug dosing should be based the reported eGFR value de-indexed from BSA by multiplying by the individual' s BSA and dividing by 1.73. CKD is diagnosed based on abnormaliti es of kidney structure or function, present for >3 months, with implication s for health and disease. CKD is classified and staged based on cause, eGFR and albuminuria (quantified as urine albumin to creatinine ratio). An eGFR >60 mL/min/1.73 m2 in the absence of increased urine albumin excretion or structural abnormaliti es does not represent CKD. eGFR CKD stage Interpretat ion (mL/min/1.7 3 m2) >=90 G1 Normal 60-89 G2 Mild decrease 45-59 G3A Mild to moderate decrease 30-44 G3B Moderate to severe decrease 15-29 G4 Severe decrease <15 G5 Kidney failure Ordering Provider: ABA GOMEZ Report Released Date/Time: July 02, 2023 02:34 PM Reporting Lab: [facility] [employer] [facility] [phone] Performing Lab: [facility] [employer] [facility] [address] [facility] H[facility]ALSAMANTHA I GREYEN SIVE METABOLIC PANEL PROTEIN [MASS/VOLUM E] IN SERUM OR PLASMA 6.0 g/dL 6.0 - 8.0 07/01 Specimen Type: PLASMA Comment: Standardize d eGFR Interpretat ion Estimated Glomerular Filtration Rate (eGFR) calculated using the 2020 Chronic Kidney Disease-Epi demiology (CKD-EPI) Collaborati on creatinine equation; units of measure are mL/min/1.73 m2. Results are only valid for adults (?18 years) whose serum creatinine is in a steady state. eGFR calculation s are not valid for patients with acute kidney injury and for patients on dialysis. Creatinine- based estimates of kidney function may also be inaccurate in patients with reduced creatinine generation due to decreased muscle mass (e.g., malnutritio n, severe hypoalbumin emia, sarcopenia, chronic neuromuscul ar disease, amputations , severe heart failure or liver disease) and in patients with increased creatinine generation due to increased muscle mass (e.g., muscle builders, anabolic steroids) or increased dietary intake. As drug clearance is proportiona l to total GFR and not GFR indexed to body surface area (BSA), in individuals with a BSA substantial ly different than 1.73 m2, drug dosing should be based the reported eGFR value de-indexed from BSA by multiplying by the individual' s BSA and dividing by 1.73. CKD is diagnosed based on abnormaliti es of kidney structure or function, present for >3 months, with implication s for health and disease. CKD is classified and staged based on cause, eGFR and albuminuria (quantified as urine albumin to creatinine ratio). An eGFR >60 mL/min/1.73 m2 in the absence of increased urine albumin excretion or structural abnormaliti es does not represent CKD. eGFR CKD stage Interpretat ion (mL/min/1.7 3 m2) >=90 G1 Normal 60-89 G2 Mild decrease 45-59 G3A Mild to moderate decrease 30-44 G3B Moderate to severe decrease 15-29 G4 Severe decrease <15 G5 Kidney failure Ordering Provider: ABA GOMEZ Report Released Date/Time: July 02, 2023 02:34 PM Reporting Lab: [facility] [employer] [address] Performing Lab: [facility] [address] MANINDER QUEZADA METABOLIC PANEL ANION GAP IN SERUM OR PLASMA 11 mmol/L 10 - 20 07/01 Specimen Type: PLASMA Comment: Standardize d eGFR Interpretat ion Estimated Glomerular Filtration Rate (eGFR) calculated using the 2020 Chronic Kidney Disease-Epi demiology (CKD-EPI) Collaborati on creatinine equation; units of measure are mL/min/1.73 m2. Results are only valid for adults (?18 years) whose serum creatinine is in a steady state. eGFR calculation s are not valid for patients with acute kidney injury and for patients on dialysis. Creatinine- based estimates of kidney function may also be inaccurate in patients with reduced creatinine generation due to decreased muscle mass (e.g., malnutritio n, severe hypoalbumin emia, sarcopenia, chronic neuromuscul ar disease, amputations , severe heart failure or liver disease) and in patients with increased creatinine generation due to increased muscle mass (e.g., muscle builders, anabolic steroids) or increased dietary intake. As drug clearance is proportiona l to total GFR and not GFR indexed to body surface area (BSA), in individuals with a BSA substantial ly different than 1.73 m2, drug dosing should be based the reported eGFR value de-indexed from BSA by multiplying by the individual' s BSA and dividing by 1.73. CKD is diagnosed based on abnormaliti es of kidney structure or function, present for >3 months, with implication s for health and disease. CKD is classified and staged based on cause, eGFR and albuminuria (quantified as urine albumin to creatinine ratio). An eGFR >60 mL/min/1.73 m2 in the absence of increased urine albumin excretion or structural abnormaliti es does not represent CKD. eGFR CKD stage Interpretat ion (mL/min/1.7 3 m2) >=90 G1 Normal 60-89 G2 Mild decrease 45-59 G3A Mild to moderate decrease 30-44 G3B Moderate to severe decrease 15-29 G4 Severe decrease <15 G5 Kidney failure Ordering Provider: ABA GOMEZ Report Released Date/Time: July 02, 2023 02:34 PM Reporting Lab: [facility] [address] Performing Lab: [facility] [address] MANINDER QUEZADA METABOLIC PANEL ALKALINE PHOSPHATASE [ENZYMATIC ACTIVITY/VO LUME] IN SERUM OR PLASMA 60 U/L 46 - 116 07/01 Specimen Type: PLASMA Comment: Standardize d eGFR Interpretat ion Estimated Glomerular Filtration Rate (eGFR) calculated using the 2020 Chronic Kidney Disease-Epi demiology (CKD-EPI) Collaborati on creatinine equation; units of measure are mL/min/1.73 m2. Results are only valid for adults (?18 years) whose serum creatinine is in a steady state. eGFR calculation s are not valid for patients with acute kidney injury and for patients on dialysis. Creatinine- based estimates of kidney function may also be inaccurate in patients with reduced creatinine generation due to decreased muscle mass (e.g., malnutritio n, severe hypoalbumin emia, sarcopenia, chronic neuromuscul ar disease, amputations , severe heart failure or liver disease) and in patients with increased creatinine generation due to increased muscle mass (e.g., muscle builders, anabolic steroids) or increased dietary intake. As drug clearance is proportiona l to total GFR and not GFR indexed to body surface area (BSA), in individuals with a BSA substantial ly different than 1.73 m2, drug dosing should be based the reported eGFR value de-indexed from BSA by multiplying by the individual' s BSA and dividing by 1.73. CKD is diagnosed based on abnormaliti es of kidney structure or function, present for >3 months, with implication s for health and disease. CKD is classified and staged based on cause, eGFR and albuminuria (quantified as urine albumin to creatinine ratio). An eGFR >60 mL/min/1.73 m2 in the absence of increased urine albumin excretion or structural abnormaliti es does not represent CKD. eGFR CKD stage Interpretat ion (mL/min/1.7 3 m2) >=90 G1 Normal 60-89 G2 Mild decrease 45-59 G3A Mild to moderate decrease 30-44 G3B Moderate to severe decrease 15-29 G4 Severe decrease <15 G5 Kidney failure Ordering Provider: ABA GOMEZ Report Released Date/Time: July 02, 2023 02:34 PM Reporting Lab: [facility] [phone] Performing Lab: [facility] [address] [place] I COMPREHEN SIVE METABOLIC PANEL ALANINE AMINOTRANSF ERASE [ENZYMATIC ACTIVITY/VO LUME] IN SERUM OR PLASMA BY WITH P-5'-P 18 U/L 10 - 49 07/01 Specimen Type: PLASMA Comment: Standardize d eGFR Interpretat ion Estimated Glomerular Filtration Rate (eGFR) calculated using the 2020 Chronic Kidney Disease-Epi demiology (CKD-EPI) Collaborati on creatinine equation; units of measure are mL/min/1.73 m2. Results are only valid for adults (?18 years) whose serum creatinine is in a steady state. eGFR calculation s are not valid for patients with acute kidney injury and for patients on dialysis. Creatinine- based estimates of kidney function may also be inaccurate in patients with reduced creatinine generation due to decreased muscle mass (e.g., malnutritio n, severe hypoalbumin emia, sarcopenia, chronic neuromuscul ar disease, amputations , severe heart failure or liver disease) and in patients with increased creatinine generation due to increased muscle mass (e.g., muscle builders, anabolic steroids) or increased dietary intake. As drug clearance is proportiona l to total GFR and not GFR indexed to body surface area (BSA), in individuals with a BSA substantial ly different than 1.73 m2, drug dosing should be based the reported eGFR value de-indexed from BSA by multiplying by the individual' s BSA and dividing by 1.73. CKD is diagnosed based on abnormaliti es of kidney structure or function, present for >3 months, with implication s for health and disease. CKD is classified and staged based on cause, eGFR and albuminuria (quantified as urine albumin to creatinine ratio). An eGFR >60 mL/min/1.73 m2 in the absence of increased urine albumin excretion or structural abnormaliti es does not represent CKD. eGFR CKD stage Interpretat ion (mL/min/1.7 3 m2) >=90 G1 Normal 60-89 G2 Mild decrease 45-59 G3A Mild to moderate decrease 30-44 G3B Moderate to severe decrease 15-29 G4 Severe decrease <15 G5 Kidney failure Ordering Provider: ABA GOMEZ Report Released Date/Time: July 02, 2023 02:34 PM Reporting Lab: [facility] [employer] [facility] [address] Performing Lab: [facility] [address] MANINDER QUEZADA METABOLIC PANEL CREATININE [MASS/VOLUM E] IN SERUM OR PLASMA 1.16 mg/dL 0.5 - 1.10 07/01 H Specimen Type: PLASMA Comment: Standardize d eGFR Interpretat ion Estimated Glomerular Filtration Rate (eGFR) calculated using the 2020 Chronic Kidney Disease-Epi demiology (CKD-EPI) Collaborati on creatinine equation; units of measure are mL/min/1.73 m2. Results are only valid for adults (?18 years) whose serum creatinine is in a steady state. eGFR calculation s are not valid for patients with acute kidney injury and for patients on dialysis. Creatinine- based estimates of kidney function may also be inaccurate in patients with reduced creatinine generation due to decreased muscle mass (e.g., malnutritio n, severe hypoalbumin emia, sarcopenia, chronic neuromuscul ar disease, amputations , severe heart failure or liver disease) and in patients with increased creatinine generation due to increased muscle mass (e.g., muscle builders, anabolic steroids) or increased dietary intake. As drug clearance is proportiona l to total GFR and not GFR indexed to body surface area (BSA), in individuals with a BSA substantial ly different than 1.73 m2, drug dosing should be based the reported eGFR value de-indexed from BSA by multiplying by the individual' s BSA and dividing by 1.73. CKD is diagnosed based on abnormaliti es of kidney structure or function, present for >3 months, with implication s for health and disease. CKD is classified and staged based on cause, eGFR and albuminuria (quantified as urine albumin to creatinine ratio). An eGFR >60 mL/min/1.73 m2 in the absence of increased urine albumin excretion or structural abnormaliti es does not represent CKD. eGFR CKD stage Interpretat ion (mL/min/1.7 3 m2) >=90 G1 Normal 60-89 G2 Mild decrease 45-59 G3A Mild to moderate decrease 30-44 G3B Moderate to severe decrease 15-29 G4 Severe decrease <15 G5 Kidney failure Ordering Provider: ABA GOMEZ Report Released Date/Time: July 02, 2023 02:34 PM Reporting Lab: [facility] [address] Performing Lab: [facility] [address] MANINDER QUEZADA METABOLIC PANEL GLOMERULAR FILTRATION RATE/1.73 SQ M.PREDICTED [VOLUME RATE/AREA] IN SERUM, PLASMA OR BLOOD BY CREATININE- BASED FORMULA (CKD-EPI 2020) 64 90 07/01 Specimen Type: PLASMA Comment: Standardize d eGFR Interpretat ion Estimated Glomerular Filtration Rate (eGFR) calculated using the 2020 Chronic Kidney Disease-Epi demiology (CKD-EPI) Collaborati on creatinine equation; units of measure are mL/min/1.73 m2. Results are only valid for adults (?18 years) whose serum creatinine is in a steady state. eGFR calculation s are not valid for patients with acute kidney injury and for patients on dialysis. Creatinine- based estimates of kidney function may also be inaccurate in patients with reduced creatinine generation due to decreased muscle mass (e.g., malnutritio n, severe hypoalbumin emia, sarcopenia, chronic neuromuscul ar disease, amputations , severe heart failure or liver disease) and in patients with increased creatinine generation due to increased muscle mass (e.g., muscle builders, anabolic steroids) or increased dietary intake. As drug clearance is proportiona l to total GFR and not GFR indexed to body surface area (BSA), in individuals with a BSA substantial ly different than 1.73 m2, drug dosing should be based the reported eGFR value de-indexed from BSA by multiplying by the individual' s BSA and dividing by 1.73. CKD is diagnosed based on abnormaliti es of kidney structure or function, present for >3 months, with implication s for health and disease. CKD is classified and staged based on cause, eGFR and albuminuria (quantified as urine albumin to creatinine ratio). An eGFR >60 mL/min/1.73 m2 in the absence of increased urine albumin excretion or structural abnormaliti es does not represent CKD. eGFR CKD stage Interpretat ion (mL/min/1.7 3 m2) >=90 G1 Normal 60-89 G2 Mild decrease 45-59 G3A Mild to moderate decrease 30-44 G3B Moderate to severe decrease 15-29 G4 Severe decrease <15 G5 Kidney failure Ordering Provider: ABA GOMEZ Report Released Date/Time: July 02, 2023 02:34 PM Reporting Lab: [facility] [address] Performing Lab: [facility] [address] [facility] I LIPID PANEL CHOLESTEROL [MASS/VOLUM E] IN SERUM OR PLASMA 125 mg/dL 0 - 199 07/01 Specimen Type: PLASMA Comment: Standardize d eGFR Interpretat ion Estimated Glomerular Filtration Rate (eGFR) calculated using the 2020 Chronic Kidney Disease-Epi demiology (CKD-EPI) Collaborati on creatinine equation; units of measure are mL/min/1.73 m2. Results are only valid for adults (?18 years) whose serum creatinine is in a steady state. eGFR calculation s are not valid for patients with acute kidney injury and for patients on dialysis. Creatinine- based estimates of kidney function may also be inaccurate in patients with reduced creatinine generation due to decreased muscle mass (e.g., malnutritio n, severe hypoalbumin emia, sarcopenia, chronic neuromuscul ar disease, amputations , severe heart failure or liver disease) and in patients with increased creatinine generation due to increased muscle mass (e.g., muscle builders, anabolic steroids) or increased dietary intake. As drug clearance is proportiona l to total GFR and not GFR indexed to body surface area (BSA), in individuals with a BSA substantial ly different than 1.73 m2, drug dosing should be based the reported eGFR value de-indexed from BSA by multiplying by the individual' s BSA and dividing by 1.73. CKD is diagnosed based on abnormaliti es of kidney structure or function, present for >3 months, with implication s for health and disease. CKD is classified and staged based on cause, eGFR and albuminuria (quantified as urine albumin to creatinine ratio). An eGFR >60 mL/min/1.73 m2 in the absence of increased urine albumin excretion or structural abnormaliti es does not represent CKD. eGFR CKD stage Interpretat ion (mL/min/1.7 3 m2) >=90 G1 Normal 60-89 G2 Mild decrease 45-59 G3A Mild to moderate decrease 30-44 G3B Moderate to severe decrease 15-29 G4 Severe decrease <15 G5 Kidney failure Ordering Provider: ABA GOMEZ Report Released Date/Time: July 02, 2023 02:34 PM Reporting Lab: [facility] [address] Performing Lab: [facility] [address] [facility] LIPID PANEL TRIGLYCERID E [MASS/VOLUM E] IN SERUM OR PLASMA 245 mg/dL 0 - 150 07/01 H Specimen Type: PLASMA Comment: Standardize d eGFR Interpretat ion Estimated Glomerular Filtration Rate (eGFR) calculated using the 2020 Chronic Kidney Disease-Epi demiology (CKD-EPI) Collaborati on creatinine equation; units of measure are mL/min/1.73 m2. Results are only valid for adults (?18 years) whose serum creatinine is in a steady state. eGFR calculation s are not valid for patients with acute kidney injury and for patients on dialysis. Creatinine- based estimates of kidney function may also be inaccurate in patients with reduced creatinine generation due to decreased muscle mass (e.g., malnutritio n, severe hypoalbumin emia, sarcopenia, chronic neuromuscul ar disease, amputations , severe heart failure or liver disease) and in patients with increased creatinine generation due to increased muscle mass (e.g., muscle builders, anabolic steroids) or increased dietary intake. As drug clearance is proportiona l to total GFR and not GFR indexed to body surface area (BSA), in individuals with a BSA substantial ly different than 1.73 m2, drug dosing should be based the reported eGFR value de-indexed from BSA by multiplying by the individual' s BSA and dividing by 1.73. CKD is diagnosed based on abnormaliti es of kidney structure or function, present for >3 months, with implication s for health and disease. CKD is classified and staged based on cause, eGFR and albuminuria (quantified as urine albumin to creatinine ratio). An eGFR >60 mL/min/1.73 m2 in the absence of increased urine albumin excretion or structural abnormaliti es does not represent CKD. eGFR CKD stage Interpretat ion (mL/min/1.7 3 m2) >=90 G1 Normal 60-89 G2 Mild decrease 45-59 G3A Mild to moderate decrease 30-44 G3B Moderate to severe decrease 15-29 G4 Severe decrease <15 G5 Kidney failure Ordering Provider: ABA GOMEZ Report Released Date/Time: July 02, 2023 02:34 PM Reporting Lab: [facility] [address] Performing Lab: [facility] HOSPITALInotek Pharmaceuticals [facility] [address] [facility] I LIPID PANEL CHOLESTEROL IN HDL [MASS/VOLUM E] IN SERUM OR PLASMA 47 mg/dL 40 - 60 07/01 Specimen Type: PLASMA Comment: Standardize d eGFR Interpretat ion Estimated Glomerular Filtration Rate (eGFR) calculated using the 2020 Chronic Kidney Disease-Epi demiology (CKD-EPI) Collaborati on creatinine equation; units of measure are mL/min/1.73 m2. Results are only valid for adults (?18 years) whose serum creatinine is in a steady state. eGFR calculation s are not valid for patients with acute kidney injury and for patients on dialysis. Creatinine- based estimates of kidney function may also be inaccurate in patients with reduced creatinine generation due to decreased muscle mass (e.g., malnutritio n, severe hypoalbumin emia, sarcopenia, chronic neuromuscul ar disease, amputations , severe heart failure or liver disease) and in patients with increased creatinine generation due to increased muscle mass (e.g., muscle builders, anabolic steroids) or increased dietary intake. As drug clearance is proportiona l to total GFR and not GFR indexed to body surface area (BSA), in individuals with a BSA substantial ly different than 1.73 m2, drug dosing should be based the reported eGFR value de-indexed from BSA by multiplying by the individual' s BSA and dividing by 1.73. CKD is diagnosed based on abnormaliti es of kidney structure or function, present for >3 months, with implication s for health and disease. CKD is classified and staged based on cause, eGFR and albuminuria (quantified as urine albumin to creatinine ratio). An eGFR >60 mL/min/1.73 m2 in the absence of increased urine albumin excretion or structural abnormaliti es does not represent CKD. eGFR CKD stage Interpretat ion (mL/min/1.7 3 m2) >=90 G1 Normal 60-89 G2 Mild decrease 45-59 G3A Mild to moderate decrease 30-44 G3B Moderate to severe decrease 15-29 G4 Severe decrease <15 G5 Kidney failure Ordering Provider: ABA GOMEZ Report Released Date/Time: July 02, 2023 02:34 PM Reporting Lab: [facility] [employer] [facility] [phone] Performing Lab: [facility] [address] [facility] LIPID PANEL CHOLESTEROL IN LDL [MASS/VOLUM E] IN SERUM OR PLASMA BY CALCULATION cancmg /dL 07/01 Specimen Type: PLASMA Comment: Standardize d eGFR Interpretat ion Estimated Glomerular Filtration Rate (eGFR) calculated using the 2020 Chronic Kidney Disease-Epi demiology (CKD-EPI) Collaborati on creatinine equation; units of measure are mL/min/1.73 m2. Results are only valid for adults (?18 years) whose serum creatinine is in a steady state. eGFR calculation s are not valid for patients with acute kidney injury and for patients on dialysis. Creatinine- based estimates of kidney function may also be inaccurate in patients with reduced creatinine generation due to decreased muscle mass (e.g., malnutritio n, severe hypoalbumin emia, sarcopenia, chronic neuromuscul ar disease, amputations , severe heart failure or liver disease) and in patients with increased creatinine generation due to increased muscle mass (e.g., muscle builders, anabolic steroids) or increased dietary intake. As drug clearance is proportiona l to total GFR and not GFR indexed to body surface area (BSA), in individuals with a BSA substantial ly different than 1.73 m2, drug dosing should be based the reported eGFR value de-indexed from BSA by multiplying by the individual' s BSA and dividing by 1.73. CKD is diagnosed based on abnormaliti es of kidney structure or function, present for >3 months, with implication s for health and disease. CKD is classified and staged based on cause, eGFR and albuminuria (quantified as urine albumin to creatinine ratio). An eGFR >60 mL/min/1.73 m2 in the absence of increased urine albumin excretion or structural abnormaliti es does not represent CKD. eGFR CKD stage Interpretat ion (mL/min/1.7 3 m2) >=90 G1 Normal 60-89 G2 Mild decrease 45-59 G3A Mild to moderate decrease 30-44 G3B Moderate to severe decrease 15-29 G4 Severe decrease <15 G5 Kidney failure Ordering Provider: ABA GOMEZ Report Released Date/Time: July 02, 2023 02:34 PM Reporting Lab: [facility] [address] Performing Lab: [place] [id number] [facility] [address] [facility] LIPID PANEL CHOLESTEROL IN LDL [MASS/VOLUM E] IN SERUM OR PLASMA BY DIRECT ASSAY 59 mg/dL 5 - 189 07/01 Specimen Type: PLASMA Comment: Standardize d eGFR Interpretat ion Estimated Glomerular Filtration Rate (eGFR) calculated using the 2020 Chronic Kidney Disease-Epi demiology (CKD-EPI) Collaborati on creatinine equation; units of measure are mL/min/1.73 m2. Results are only valid for adults (?18 years) whose serum creatinine is in a steady state. eGFR calculation s are not valid for patients with acute kidney injury and for patients on dialysis. Creatinine- based estimates of kidney function may also be inaccurate in patients with reduced creatinine generation due to decreased muscle mass (e.g., malnutritio n, severe hypoalbumin emia, sarcopenia, chronic neuromuscul ar disease, amputations , severe heart failure or liver disease) and in patients with increased creatinine generation due to increased muscle mass (e.g., muscle builders, anabolic steroids) or increased dietary intake. As drug clearance is proportiona l to total GFR and not GFR indexed to body surface area (BSA), in individuals with a BSA substantial ly different than 1.73 m2, drug dosing should be based the reported eGFR value de-indexed from BSA by multiplying by the individual' s BSA and dividing by 1.73. CKD is diagnosed based on abnormaliti es of kidney structure or function, present for >3 months, with implication s for health and disease. CKD is classified and staged based on cause, eGFR and albuminuria (quantified as urine albumin to creatinine ratio). An eGFR >60 mL/min/1.73 m2 in the absence of increased urine albumin excretion or structural abnormaliti es does not represent CKD. eGFR CKD stage Interpretat ion (mL/min/1.7 3 m2) >=90 G1 Normal 60-89 G2 Mild decrease 45-59 G3A Mild to moderate decrease 30-44 G3B Moderate to severe decrease 15-29 G4 Severe decrease <15 G5 Kidney failure Ordering Provider: ABA GOMEZ Report Released Date/Time: July 02, 2023 02:34 PM Reporting Lab: [address] [address] Performing Lab: [address] [address] [place] TSH TSH 0.75 u[IU]/ mL 0.55 - 4.78 07/01 Specimen Type: PLASMA No comment entered. Ordering Provider: ABA GOMEZ Report Released Date/Time: July 02, 2023 02:34 PM Reporting Lab: [address] [address] Performing Lab: [address] [address] [place] PROSTATIC SPECIFIC AG PROSTATE SPECIFIC AG [MASS/VOLUM E] IN SERUM OR PLASMA 1.48 ng/mL 0 - 4.0 07/01 Specimen Type: SERUM No comment entered. Ordering Provider: ABA GOMEZ Report Released Date/Time: July 02, 2023 02:34 PM Reporting Lab: [place] [address] Performing Lab: [address] CBC WITH DIFF LEUKOCYTES [#/VOLUME] CORRECTED FOR NUCLEATED ERYTHROCYTE S IN BLOOD BY AUTOMATED COUNT 9.0 10*3/u L 4.7 - 11 07/01 Specimen Type: BLOOD No comment entered. Ordering Provider: ABA GOMEZ Report Released Date/Time: July 02, 2023 02:34 PM Reporting Lab: [place] [address] Performing Lab: [address] CBC WITH DIFF ERYTHROCYTE S [#/VOLUME] IN BLOOD BY AUTOMATED COUNT 4.61 10*6/u L 4.5 - 6 07/01 Specimen Type: BLOOD No comment entered. Ordering Provider: ABA GOMEZ Report Released Date/Time: July 02, 2023 02:34 PM Reporting Lab: [place] [address] Performing Lab: [address] CBC WITH DIFF HEMOGLOBIN [MASS/VOLUM E] IN BLOOD 14.6 g/dL 13.5 - 17.5 07/01 Specimen Type: BLOOD No comment entered. Ordering Provider: ABA GOMEZ Report Released Date/Time: July 02, 2023 02:34 PM Reporting Lab: [place] [address] Performing Lab: [address] [place] WITH DIFF HEMATOCRIT [VOLUME FRACTION] OF BLOOD BY AUTOMATED COUNT 42.6 42 - 52 07/01 Specimen Type: BLOOD No comment entered. Ordering Provider: ABA GOMEZ Report Released Date/Time: July 02, 2023 02:34 PM Reporting Lab: [place] [phone] Performing Lab: [place] [phone] [place] WITH DIFF MCV [ENTITIC VOLUME] BY AUTOMATED COUNT 92.4 fL 82 - 98 07/01 Specimen Type: BLOOD No comment entered. Ordering Provider: ABA GOMEZ Report Released Date/Time: July 02, 2023 02:34 PM Reporting Lab: [place] [phone] Performing Lab: [address] [address] [place] WITH DIFF MCH [ENTITIC MASS] BY AUTOMATED COUNT 31.6 pg 27 - 31 07/01 H Specimen Type: BLOOD No comment entered. Ordering Provider: ABA GOMEZ Report Released Date/Time: July 02, 2023 02:34 PM Reporting Lab: [place] [phone] Performing Lab: [address] [address] [facility] WITH DIFF MCHC [MASS/VOLUM E] BY AUTOMATED COUNT 34.2 g/dL 30 - 37 07/01 Specimen Type: BLOOD No comment entered. Ordering Provider: ABA GOMEZ Report Released Date/Time: July 02, 2023 02:34 PM Reporting Lab: [place] [phone] Performing Lab: [place] [phone] [place] WITH DIFF PLATELETS [#/VOLUME] IN BLOOD BY AUTOMATED COUNT 339 10*3/u L 140 - 400 07/01 Specimen Type: BLOOD No comment entered. Ordering Provider: ABA GOMEZ Report Released Date/Time: July 02, 2023 02:34 PM Reporting Lab: [address] [address] Performing Lab: [address] [address] [place] WITH DIFF PLATELET MEAN VOLUME [ENTITIC VOLUME] IN BLOOD BY AUTOMATED COUNT 8.7 fL 8 - 13 07/01 Specimen Type: BLOOD No comment entered. Ordering Provider: ABA GOMEZ Report Released Date/Time: July 02, 2023 02:34 PM Reporting Lab: [place] [phone] Performing Lab: [place] [phone] [place] WITH DIFF ERYTHROCYTE DISTRIBUTIO N WIDTH [RATIO] BY AUTOMATED COUNT 14.5 11 - 15 07/01 Specimen Type: BLOOD No comment entered. Ordering Provider: ABA GOMEZ Report Released Date/Time: July 02, 2023 02:34 PM Reporting Lab: [place] [phone] Performing Lab: [place] [phone] [facility] WITH DIFF NEUTROPHILS /100 LEUKOCYTES IN BLOOD BY AUTOMATED COUNT 62.6 45 - 72 07/01 Specimen Type: BLOOD No comment entered. Ordering Provider: ABA GOMEZ Report Released Date/Time: July 02, 2023 02:34 PM Reporting Lab: [place] [phone] Performing Lab: [place] [phone] [facility] WITH DIFF MONOCYTES/1 00 LEUKOCYTES IN BLOOD BY AUTOMATED COUNT 9.8 3 - 11 07/01 Specimen Type: BLOOD No comment entered. Ordering Provider: ABA GOMEZ Report Released Date/Time: July 02, 2023 02:34 PM Reporting Lab: [address] [address] Performing Lab: [address] [address] [place] WITH DIFF LYMPHOCYTES /100 LEUKOCYTES IN BLOOD BY AUTOMATED COUNT 22.8 17 - 45.0 07/01 Specimen Type: BLOOD No comment entered. Ordering Provider: ABA GOMEZ Report Released Date/Time: July 02, 2023 02:34 PM Reporting Lab: [address] [address] Performing Lab: [place] [phone] [place] WITH DIFF EOSINOPHILS /100 LEUKOCYTES IN BLOOD BY AUTOMATED COUNT 3.7 0 - 5 07/01 Specimen Type: BLOOD No comment entered. Ordering Provider: ABA GOMEZ Report Released Date/Time: July 02, 2023 02:34 PM Reporting Lab: [place] [id number] Performing Lab: [place] [phone] [facility] WITH DIFF BASOPHILS/1 00 LEUKOCYTES IN BLOOD BY AUTOMATED COUNT 1.1 0 - 2.0 07/01 Specimen Type: BLOOD No comment entered. Ordering Provider: ABA GOMEZ Report Released Date/Time: July 02, 2023 02:34 PM Reporting Lab: [place] [address] Performing Lab: [place] [address] [facility] WITH DIFF NEUTROPHILS [#/VOLUME] IN BLOOD BY AUTOMATED COUNT 5.6 10*3/u L 1.8 - 7.8 07/01 Specimen Type: BLOOD No comment entered. Ordering Provider: ABA GOMEZ Report Released Date/Time: July 02, 2023 02:34 PM Reporting Lab: [place] [address] Performing Lab: [place] [address] [facility] WITH DIFF EOSINOPHILS [#/VOLUME] IN BLOOD BY AUTOMATED COUNT 0.3 10*3/u L 0.00 - 0.50 07/01 Specimen Type: BLOOD No comment entered. Ordering Provider: ABA GOMEZ Report Released Date/Time: July 02, 2023 02:34 PM Reporting Lab: [place] [id number] Performing Lab: [place] [phone] [place] WITH DIFF BASOPHILS [#/VOLUME] IN BLOOD BY AUTOMATED COUNT 0.1 10*3/u L 0.0 - 0.20 07/01 Specimen Type: BLOOD No comment entered. Ordering Provider: ABA GOMEZ Report Released Date/Time: July 02, 2023 02:34 PM Reporting Lab: [address] Performing Lab: [address] CBC WITH DIFF MONOCYTES [#/VOLUME] IN BLOOD BY AUTOMATED COUNT 0.9 10*3/u L 0.20 - 0.80 07/01 H Specimen Type: BLOOD No comment entered. Ordering Provider: ABA GOMEZ Report Released Date/Time: July 02, 2023 02:34 PM Reporting Lab: [address] Performing Lab: [address] CBC WITH DIFF LYMPHOCYTES [#/VOLUME] IN BLOOD BY AUTOMATED COUNT 2.1 10*3/u L 1.00 - 4.00 07/01 Specimen Type: BLOOD No comment entered. Ordering Provider: ABA GOMEZ Report Released Date/Time: July 02, 2023 02:34 PM Reporting Lab: [place] [address] Performing Lab: [address] Encounters Combined list of: 1) Encounters from Department of Veterans Affairs facilities going backup to the last 18 months, not all VA inpatient encounters are included; 2) Encounters from the Department of Defense facilities going backup to 280 months. Location Location Details Encounter Type Encounter Number Reason For Visit Attending Provider ADM Date DC Date Status Disposition Source [facility] Outpatient Encounter [id number] Diagnos is: ICD-10- CM Z00.00 Encntr for general adult medical exam w/o abnorma l finding s KIZZY GOMEZ 07/01 SIMON [facility] En[facility] [id number] 10/07 [place]OME[place] [id number] [facility] Social History Combined list of available smoking, tobacco, and other social history from Department of Defense and Veterans Affairs facilities. 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
[2024-08-22 19:16] LABS: Anion Gap 17.6 mEq/L (5-15); Blood Urea Nitrogen 18 mg/dl (9-20); Calcium 8.8 mg/dl (8.4-10.2); Carbon Dioxide 25 mmol/L (22.0-30.0); Chloride 99 mmol/L (98-107); Creatinine,Serum 1.10 mg/dl (0.66-1.25); Estimated Glomerular Filt Rate 64 ml/min (>60); GFR (African American) 78 ML/MIN (>60); Glucose 107 mg/dl (74-100); Potassium 3.6 mmoL/L (3.5-5.1); Sodium 138 mmol/L (136-145)
--- OUTSIDE RECORDS SUMMARY | 2024-08-25 10:42 | XMS_ITS | Encounter Summary ---
Author Organization [place] [address] Care Team Providers Care Contact Representative Name Role Phone Saurabh Soto MD Primary Care Provider [phone] Encounter Details Date Type Department Care Team (Late st Contact Info) Description 08/20/2024 Orders Only [facility] [address] [place] [phone] Mahad Chavez MD [address] [place] [address] Vector Remote Device Social History Tobacco Use Types Packs/Day Years Used Date Smoking Tobacco: Former Cigarettes 2 30 0 [birth year]/12/1949 - 02/12/1979 Smokeless Tobacco: Never Comments:quite smoking in Alcohol Use Standard Drinks/Week Comments Yes 14 (1 standard drink = 0.6 oz pu re alcohol) couple of beers daily [facility] Utilities Answer Date Recorded In the past 12 months has e electric, gas, oil, or water company threatened to shut off services in your home? No 08/22/2023 Overall Financial Resource Strain (CARDIA) Answe r Date Recorded How hard is it for you to pa y for the very basics like food, housing, medical care, and heating? Not very hard 08/22/2023 PHQ-2 Answer Date Recorded PHQ-2 Total Score 0 08/22/2023 [facility] [place] [facility] Occupat ional [facility] - Occupational Stress Questionnaire Answer Date Recorded Do you feel stress - tense, restless, nervous, or anxious, or unable to sleep at night because your mind is troubled all the time - these days? Only a little 08/22/2023 Exercise Vital Sign Answer Date Recorde d On average, how many days pe r week do you engage in moderate to strenuous exercise (like a brisk walk)? 0 days 08/22/2023 On average, how many minutes do you engage in exercise at this level? 0 min 08/22/2023 Hunger Vital Sign Answer Date Recorded Within the past 12 months, y ou worried that your food would run out before you got the money to buy more. Never true 08/22/19 24 Within the past 12 months, t he food you bought just didn't last and you didn't have money to get more. Never true 08/22/2023 [facility] IP Transportation Answer D ate Recorded In the past 12 months, has l ack of reliable transportation kept you from medical appointments, meetings, work or from getting things needed for daily living? No 08/22/2023 Sexually Active Control Partners Comments Not Currently Sex and Gender Information Value Date Recorded Sex Assigned at Not on file Legal Sex Male 9:59 AM EDT Gender Identity Not on file Sexual Orientation Not on file documented as of this encounter Functional Status * Is the person deaf or does he/she have serious difficulty hearing? Answer Date of Assessment Author No 02/09/2015 3:53 PM Rahel Cerda RN * Is the person blind or does he/she have serious difficulty seeing even when wearing glasses? Answer Date of Assessment Author No 02/09/2015 3:53 PM Rahel Cerda RN * Does this person have serious difficulty walking or climbing stairs? Answer Date of Assessment Author No 02/09/2015 3:53 PM Rahel Cerda RN * Does this person have difficulty dressing or bathing? Answer Date of Assessment Author No 02/09/2015 3:53 PM Rahel Cerda RN * Because of a physical, mental or emotional condition, does this person have difficulty doing errands alone such as visiting a doctor's office or shopping? Answer Date of Assessment Author No 02/09/2015 3:53 PM Rahel Cerda RN documented as of this encounter Mental Status * Because of a physical, mental or emotional condition, does this person have serious difficulty concentrating, remembering or making decisions? Answer Entry Date Author No 02/09/2015 3:53 PM Rahel Cerda RN documented in this encounter Plan of Treatment Upcoming Encounters Date Type Department Care Team (Late st Contact Info) Description 08/25/2024 3:30 PM EDT Office Visit [facility] [address] [address] Khadijah West MD [address] [place] [id number] 12/22/2024 2:30 PM EST Office Visit [facility] [address] [place] [phone] 12/22/2024 3:00 PM EST Office Visit [facility] [address] [place] [phone] Emily Toscano APRN [address] [place] [phone] documented as of this encounter Procedures Procedure Name Priority Date/Time Associated Diagnosis Comments [place] REM INTERROG PM/LDLS PM <90 D PHYS/QHP Routine 08/20/2024 12:00 AM EDT Vector Remote Device documented in this encounter Results * VECTOR REMOTE DEVICE (08/20/2024 12:00 AM EDT) 08/20/[address] [facility] - 08/20/2024 12:00 AM EDT No significant episodes. Atrial Episodes: 4. AT/AF [place]: 1%. Longest atrial episode: 7h:33m:46s. Patient on AC. Mode: DDDR. AP: 34%. [facility] CONSULTANT: 36%. Normal device function. us Mahad Chavez MD [facility] C[facility] ORDERABLES Nancy l Result [facility] [address] [place] [address] documented in this encounter Visit Diagnoses Diagnosis Vector Remote Device documented in this encounter Additional Health Concerns Assessment Noted Time A fall risk assessment has been complete d for the patient 07/04/2023 11:16 AM EDT documented as of this encounter Care Teams Contact Representative Relationship Specialty Start Date End Date Saurabh Soto MD PCP - General Family Medicine 03/23/11 documented as of this encounter
--- OUTSIDE RECORDS SUMMARY | 2024-08-25 10:42 | XMS_ITS | Clinical Summary ---
Author Organization [facility] Address [address] [place] [address] Care Team Providers Care Inspector [employer]ies [employer] Installations Name Role Phone Saurabh Soto MD Primary Care Provider [phone] Allergies No known active allergies Medications hydrochlorothia zide (HYDRODIURIL) 25 mg PO tablet Take 25 mg by mouth daily. Active verapamil (VERELAN) 240 mg PO C24P Take by mouth daily. Active levothyroxine (SYNTHROID) 100 mcg PO tablet Take 100 mcg by mouth daily. Active lisinopril (PRINIVIL, ZESTRIL) 40 mg PO tablet Take 40 mg by mouth daily. Active potassium chloride (POTASSIUM CHLORIDE) 10 mEq PO tablet Take 10 mEq by mouth daily. Active pravastatin (PRAVACHOL) 40 mg PO tablet Take 40 mg by mouth every evening. Active lorazepam (ATIVAN) 2 mg PO tablet Take 2 mg by mouth give at bedtime as needed. Active Social History Tobacco Use Types Packs/Day Years Used Date Smoking Tobacco: Former Cigarettes 2 20 0 02/12/1961 - 02/12/1981 Alcohol Use Standard Drinks/Week Comments Yes 0 (1 standard drink = 0.6 oz pur e alcohol) states 2 drinks per day Sex and Gender Information Value Date Recorded Sex Assigned at Not on file Legal Sex Male 7:18 PM EST Gender Identity Not on file Sexual Orientation Not on file Last Filed Vital Signs Vital Sign Reading Time Taken Comments Blood Pressure 164/89 04/16/2012 1:13 PM EST Pulse 73 04/16/2012 1:13 PM EST Temperature 36.6 C (97.8 F) 04/16/2012 1:13 PM EST Respiratory Rate 18 04/16/2012 1:13 PM EST Oxygen Saturation - - Inhaled Oxygen Concentration - - Weight 86.4 kg (190 lb 6.4 oz) 04/16/2012 1:13 P M EST Height 181.6 cm (5' 11.5 ) 04/16/2012 1:13 PM ES T Body Mass Index 26.19 04/16/2012 1:13 PM EST Plan of Treatment Not on file Insurance [employer] MED[employer] Care Teams Inspector [employer]semblies [employer] Installations Relationship Specialty Start Date End Date Saurabh Soto MD PCP - General Family Medicine 05/12/11
--- OUTSIDE RECORDS SUMMARY | 2024-08-25 10:42 | XMS_ITS | Continuity of Care Document ---
Author Organization [facility] Address 20 [facility] [address] [place] [address] Phone Care Team Providers Care Civil Engineering Project Manager Name Role Phone Saurabh Soto MD Primary Care Provider Encounters Date Type Department Care Team Description 5 Orders Only [facility] [address] [facility] [place] [address] hSani Chavez MD Vector Remote Device 5 Telephone [facility] [address] [place] [address] Adriana Frank RN Results ([place] results) 5 Orders Only [facility] [place] [address] Shani Chavez MD Vector Remote Device 5 Refill [facility] [place] 711 [place], [place] [id number] Khadijah West MD Medication Refill 5 Orders Only [facility] 606 [facility] [place] [address] Shani Chavez MD Vector Remote Device 5 Orders Only [facility] [place] [address] Shani Chavez MD Vector Remote Device 4 Orders [place] [address] Vane Morrison MA 4 Orders Only [facility] [address] [place] [address] Shani Chavez MD Vector Remote Device 4 Telephone [facility] [address] [place] [phone] Smitha Enrique (ABT D PPM. Saman. 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 Please advise pt) 4 3:30 PM EDT Office Visit [facility] [address] [address] Khadijah West MD Mixed hyperlipidemia (Primary Dx); Hyperlipidemia, unspecified hyperlipidemia type; Dyslipidemia; LBBB (left bundle branch block); Hx of CABG 4 Orders Only [facility] [address] [place] [address] Shani Chavez MD Vector Remote Device 4 2:30 PM EDT Office Visit [facility] [address] [place] [address] Li Crisostomo MA PAF (paroxysmal atrial fibrillation) (HCC) (Primary Dx); dual chamber pacemaker; Mobitz type 2 second degree atrioventricular block; LBBB (left bundle branch block); Encounter for postoperative wound check; Adjustment and management of cardiac pacemaker 4 2:58 PM EDT - 4 12:29 PM EDT Hospital Encounter [facility] [place] [address] Dao Godinez MD Julien, Patricia, MD Bradycardia (Primary Dx) Discharge Disposition: Home or Self Care 4 12:58 PM EDT Anesthesia Event [facility] [place] [address] Sulaiman Lopez MD Trog, Lynnsey, SULEMAN 4 12:55 PM EDT - 4 2:15 PM EDT Surgery [facility] [place] [address] Shani Chavez MD PACEMAKER IMPLANT-MURAL ARTIST ONLY 4 Telephone [place] [address] Khadijah West MD Other 4 Orders [place] [address] Snow, Patrica Mixed hyperlipidemia; Hx of CABG 4 11:15 AM EDT Office Visit [facility] Pulmonology [facility] 651 [facility] [address] [place] [phone] Lebron Murguia MD Uncomplicated asthma, unspecified asthma severity, unspecified whether persistent (Primary Dx); Simple chronic bronchitis (HCC); Bronchiectasis without complication (HCC); Apical lung nodule 4 1:45 PM EDT Office Visit [facility] [address] Khadijah West MD Hx of CABG (Primary Dx); LBBB (left bundle branch block); Hyperlipidemia, unspecified hyperlipidemia type; Shortness of breath; 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); Essential hypertension; Dyslipidemia; LBBB (left bundle branch block); LV dysfunction Discharge Disposition: Home or Self Care 3 Refill [facility] [address] [address] Khadijah West MD Medication Refill 3 Refill [facility] [address] [address] Khadijah West MD Medication Refill 3 Refill [facility] [place] [address] [place] [address] Khadijah West MD Medication Refill 3 Refill [facility] [address] Khadijah West MD Medication Refill 3 Refill [facility] [address] Khadijah West MD Medication Refill 3 Refill [facility] [address] Khadijah West MD Medication Refill 3 3:15 PM EDT Office Visit [facility] [place] [phone] Lebron Murguia MD Bronchiectasis without complication (HCC) (Primary Dx); ORR (dyspnea on exertion); Lung nodule; Centrilobular emphysema (HCC) 3 Refill [facility] [address] Khadijah West MD Medication Refill 3 Telephone [facility] [address] Khadijah West MD Results 3 Telephone [facility] [address] Khadijah West MD Medication Refill 3 Refill [facility] [address] Khadijah West MD Medication Refill 3 Telephone [facility] [address] Khadijah West MD Patient Question 3 1:00 PM EST Office Visit [facility] [address] Khadijah West MD 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 Mixed hyperlipidemia; Hx of CABG 2 [place] [address] Khadijah West MD Medication Refill 2 Refill [facility] [place] [address] [place] [address] Khadijah West MD Medication Refill 2 Orders [place] [address] Tino Franco CCMA Mixed hyperlipidemia; Hx of CABG 2 Telephone [facility] [place] [address] [facility] [address] [place] [address] Khadijah West MD Prior Authorization (Oleg called has the pt had lab work done for the PA for Repatha call [phone]) 2 Refill [facility] [address] [address] Khadijah West MD Medication Refill 2 Telephone [facility] [place] [address] [facility] [address] [place] [address] Khadijah West MD Prior Authorization (Labs needed for PA renewal) 2 Specialty Pharmacy [facility] [address] [id number] Ernie Alvarado, [facility] Pharmacy Hyperlipidemia Management (Repatha) 2 Orders Only [facility] [address] [address] Tino Franco CCMA Hyperlipidemia, unspecified hyperlipidemia type 2 Orders Only [facility] [address] [address] Tino Franco CCMA Mixed hyperlipidemia; Hx of CABG 2 Refill [facility] [address] [id number] Khadijah West MD Medication Refill; Results ([facility] needs pts last office note lipids to approve pt taking Repatha call [phone] fax [phone]) 2 Orders Only [facility] [address] [id number] Tino Franco CCMA Mixed hyperlipidemia; Hx of CABG 2 Telephone [facility] [place] [address] [facility] [address] [place] [address] Khadijah West MD Medication Refill (Refill on Repatha 140 mg[facility] call [phone]) 2 Refill [facility] [address] [address] Khadijah West MD Medication Refill 2 [place] [address] Robin Nava MD Cardiology Clearance (gallbladder) 2 Telephone [facility] [address] [address] Lebron Murguia MD Paperwork/forms 2 [place] [address] Khadijah West MD Medication Refill 2 10:45 AM EDT Office Visit [facility] [address] [address] Lebron Murguia MD ORR (dyspnea on exertion) (Primary Dx); Lung nodule 2 [place] [address] Khadijah West MD Medication Refill 2 Telephone [facility] [address] [place] [address] Khadijah West MD Medication Refill (Refill 90 day supply on Evolocumab 140 mg pen [facility] needs a new RX call [phone]) 2 Orders [place] [address] [address] [facility] 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); Essential hypertension; Pure hypercholesterolemia; Carotid artery disease, unspecified laterality, unspecified type; Unsteadiness on feet Discharge Disposition: Home or Self Care 2 1:30 PM EDT Office Visit [facility] [place] [address] [place] [address] Smitha Martinez APRN 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 [address] Khadijah West MD RIGHT HEART CATHETERIZATION 2 10:40 AM EST - 2 6:27 PM EST Hospital Encounter [facility] CARD CATH REC [facility] 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); SOBOE (shortness of breath on exertion); Fatigue, unspecified type; Essential hypertension; LV dysfunction Discharge Disposition: Home or Self Care 2 Travel 2 9:29 AM EST - 2 11:59 PM EST Hospital Encounter [facility] [place] [address] Covid19, [facility] Pre-op testing; Encounter for laboratory testing for COVID-19 virus Discharge Disposition: Home or Self Care 2 Travel 2 10:00 AM EST Office Visit [facility] [place] [address] [place], [place] [phone] Khadijah West MD 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) (Primary Dx); SOBOE (shortness of breath on exertion); Fatigue, unspecified type; Essential hypertension; LV dysfunction 2 Refill [facility] [address] [place] [address] Khadijah West MD Medication Refill 1 Refill [facility] [address] [place] [address] Khadijah West MD Medication Refill 1 Travel 1 1:30 PM EDT Office Visit [facility] [address] [place] [address] Smitha Martinez APRN Coronary artery disease involving coronary bypass graft 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 angina pectoris (Primary Dx); Essential hypertension; Pure hypercholesterolemia; Fatigue, unspecified type; LV dysfunction 1 Travel 1 1:41 PM EDT - 1 11:59 PM EDT Hospital Encounter [facility] [address] [place] [address] Khadijah West MD Fatigue, unspecified type; SOBOE (shortness of breath on exertion); Coronary artery disease involving coronary bypass graft 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 angina pectoris; Essential hypertension; Pure hypercholesterolemia Discharge Disposition: Home or Self Care 1 Travel 1 9:50 AM EDT - 1 11:59 PM EDT Hospital Encounter [facility] [place] [address] Fatigue, unspecified type; SOBOE (shortness of breath on exertion); Coronary artery disease involving coronary bypass graft 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 angina pectoris; Essential hypertension; Pure hypercholesterolemia Discharge Disposition: Home or Self Care 1 Travel 1 1:00 PM EDT Office Visit [facility] [address] [place] [address] Khadijah West MD Fatigue, unspecified type (Primary Dx); SOBOE (shortness of breath on exertion); Coronary artery disease involving coronary bypass graft 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 angina pectoris; Essential hypertension; Pure hypercholesterolemia 1 Refill [facility] [address] [place] [address] Khadijah West MD Medication Refill 1 Refill [facility] [address] [place] [address] Khadijah West MD Medication Refill 1 Travel 1 7:30 AM EDT Office Visit [facility] [address] [address] Lebron Murguia MD Apical lung nodule (Primary Dx); Centrilobular emphysema (HCC); Simple chronic bronchitis (HCC); Gastroesophageal reflux disease without esophagitis 1 Travel 1 10:00 AM EDT - 1 11:59 PM EDT Hospital Encounter [facility] [place] [address] Lebron Murguia MD Bronchiectasis without complication (HCC) Discharge Disposition: Home or Self Care 1 Telephone [facility] [address] [address] Lebron Murguia MD Other 1 Orders Only [facility] [place] [address] [place] [address] Lacey Gonzales MA Bronchiectasis without complication (HCC) (Primary Dx) 1 Telephone [facility] 651 [facility] [place] [address] [place] [address] Lebron Murguia MD Other 1 Travel 1 3:15 PM EDT Office Visit [facility] 651 [facility] [place] [address] [place] [address] Lebron Murguia MD Bronchiectasis without complication (HCC) (Primary Dx); Simple chronic bronchitis (HCC); Uncomplicated asthma, unspecified asthma severity, unspecified whether persistent; Coronary artery disease involving sleetmute coronary artery 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 angina pectoris 1 Abstract [facility] [address] [place] [address] Lenore Almeida LPN 1 Refill [facility] [address] [place] [address] Khadijah West MD Medication Refill 1 Orders Only [facility] [address] [phone] Lenore Almeida, [place] Mixed hyperlipidemia; Hx of CABG 1 Travel 1 2:00 PM EST Office Visit [facility] [address] [place] [address] Khadijah West MD Coronary artery disease involving sleetmute coronary artery 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 angina pectoris (Primary Dx); PVC (premature ventricular contraction); Essential hypertension; Pure hypercholesterolemia; LBBB (left bundle branch block); LV dysfunction 1 Refill [facility] [address] [place] [address] Khadijah West MD Medication Refill 0 Refill [facility] [address] [place] [address] Khadijah West MD Medication Refill (Toprol XL 25 mg ) 0 9:05 AM EDT - 0 11:59 PM EDT Hospital Encounter [facility] [address] [place] [id number] Mixed hyperlipidemia; Coronary artery disease involving sleetmute coronary artery 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 angina pectoris; PVC (premature ventricular contraction); S/P CABG (coronary artery bypass graft); SOBOE (shortness of breath on exertion); Dyslipidemia Discharge Disposition: Home or Self Care 0 Travel 0 Travel 0 3:30 PM EDT Office Visit [facility] [address] [place] [address] Khadijah West MD Mixed hyperlipidemia (Primary Dx); Hx of CABG; Coronary artery disease involving sleetmute coronary artery 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 angina pectoris; PVC (premature ventricular contraction); S/P CABG (coronary artery bypass graft); SOBOE (shortness of breath on exertion); Dyslipidemia 0 Orders Only [facility] [address] [address] Lenore Almeida, 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 Mixed hyperlipidemia (Primary Dx); Hx of CABG 0 Telephone [facility] [place] [address] [facility] [address] [place] [address] Khadijah West MD Medication Refill (Please a new RX for Repatha to [facility] [phone]) 0 Refill [facility] [address] [place] [address] Khadijah West MD Medication Refill 0 Orders Only [facility] [place] [phone] Lenore Almeida LPN Coronary artery disease involving sleetmute coronary artery 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 angina pectoris 0 Refill [facility] [address] [place] [address] Khadijah West MD Medication Refill (Furosemide) 0 Travel 0 8:42 AM EST - 0 11:59 PM EST Hospital Encounter [facility] [address] [place] [address] Khadijah West MD Coronary artery disease involving sleetmute coronary artery 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 angina pectoris; PVC (premature ventricular contraction); LBBB (left bundle branch block); Chest pain due to myocardial ischemia, unspecified ischemic chest pain type Discharge Disposition: Home or Self Care 0 8:41 AM EST Hospital Encounter [facility] [address] [place] [address] Khadijah West MD Coronary artery disease involving sleetmute coronary artery 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 angina pectoris; PVC (premature ventricular contraction); LBBB (left bundle branch block); Encounter for screening for cardiovascular disorders; Chest pain due to myocardial ischemia, unspecified ischemic chest pain type Discharge Disposition: Home or Self Care 0 Telephone [facility] [address] [place] [address] Khadijah West MD Other 0 Orders Only [facility] [address] [address] Lenore Almeida LPN 0 1:30 PM EST - 0 11:59 PM EST Hospital Encounter [facility] [address], [place] [address] Coronary artery disease involving sleetmute coronary artery 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 angina pectoris; PVC (premature ventricular contraction); LBBB (left bundle branch block); Chest pain due to myocardial ischemia, unspecified ischemic chest pain type Discharge Disposition: Home or Self Care 0 11:45 AM EST Office Visit [facility] [address] [place] [address] Khadijah West MD Coronary artery disease involving sleetmute coronary artery 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 angina pectoris (Primary Dx); PVC (premature ventricular contraction); LBBB (left bundle branch block); Encounter for screening for cardiovascular disorders; Chest pain due to myocardial ischemia, unspecified ischemic chest pain type 0 Telephone [facility] [address] [place] [address] Khadijah West MD Other 9 Telephone [facility] [address] [address] Khadijah West MD Cardiology Clearance 9 Telephone [facility] [address] [place] [address] Khadijah West MD Other (blood work results ) 9 Telephone [facility] [address] [place] [address] Tyler Myers RMA Other (FAX ) 9 4:00 PM EDT Office Visit [facility] [address] [place] [address] Khadijah West MD LBBB (left bundle branch block) (Primary Dx); Angina pectoris (HCC); Essential hypertension; S/P CABG (coronary artery bypass graft); LV dysfunction; SOBOE (shortness of breath on exertion) 9 Refill [facility] [address] [place] [address] Khadijah West MD Medication Refill 9 Telephone [facility] [address] [place] [address] Khadijah West MD Medication Problem 9 Orders Only [facility] [address] [place] [id number] Khadijah West MD Mixed hyperlipidemia (Primary Dx); Coronary artery disease involving sleetmute coronary artery 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 angina pectoris; Angina pectoris (HCC); Hx of CABG 9 Telephone [facility] [address] [place] [address] Khadijah West MD Results 9 Telephone [facility] [address] [place] [address] Naldo West (Lab orders completed at [facility] last week, results should be available, please call patient at [phone].) 9 4:00 PM EDT Office Visit [facility] [address] [place] [address] Khadijah West MD Mixed hyperlipidemia (Primary Dx); Essential hypertension; Hx of CABG; Angina pectoris (HCC); Coronary artery disease involving sleetmute coronary artery 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 angina pectoris 9 Refill [facility] [address] [place] [address] Khadijah West MD Medication Refill 8 Refill [facility] [address] [place] [address] Khadijah West MD Medication Refill 8 Refill [facility] [address] [place] [address] Khadijah West MD Medication Refill 8 Telephone [facility] [address] [place] [address] Khadijah West MD Results 8 Orders Only [facility] [address] [place] [address] Khadijah West MD Hyperlipidemia, unspecified hyperlipidemia type (Primary Dx); Muscle cramps 8 Telephone [facility] [address] [place] [address] Khadijah West MD Spasms 8 Telephone [facility] [address] [place] [address] Khadijah West MD Other 8 3:45 PM EDT Office Visit [facility] [address] [place] [address] Khadijah West MD PVC (premature ventricular contraction) (Primary Dx); Hyperlipidemia, unspecified hyperlipidemia type; Essential hypertension; Raynaud's disease without gangrene; Angina pectoris (HCC); Coronary artery disease involving sleetmute coronary artery 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 angina pectoris; Hx of CABG; Simple chronic bronchitis (HCC) 8 9:00 AM EDT - 8 10:00 AM EDT Surgery [facility] [place] [address] Khadijah West MD RIGHT AND LEFT HEART CATHETERIZATION 8 7:02 AM EDT - 8 3:50 PM EDT Hospital Encounter [facility] CARD CATH [place] [facility] [place] [address] Khadijah West MD Shortness of breath; Abnormal EKG Discharge Disposition: Home or Self Care 8 3:30 PM EDT Office Visit [facility] [address] [place] [address] Khadijah West MD Essential hypertension (Primary Dx); Coronary artery disease involving sleetmute coronary artery 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 angina pectoris; LBBB (left bundle branch block); Angina pectoris (HCC); PVC (premature ventricular contraction) 8 Refill [facility] [address] [place] [address] Khadijah West MD Medication Refill 8 Telephone [facility] [address] [place] [address] Khadijah West MD Medication Question 8 3:45 PM EDT Office Visit [facility] [address] [place] [address] Khadijah West MD Essential hypertension (Primary Dx); Shortness of breath; Hyperlipidemia, unspecified hyperlipidemia type; Angina pectoris (HCC); Hx of CABG 8 Abstract [facility] [address] [place] [address] Khadijah West MD 8 Telephone [facility] [address] [place] [address] Khadijah West MD Results (labs -- BMP -- 04/04/17) 8 Telephone [facility] [address] [place] [address] Khadijah West MD Other (other) 8 Orders Only [facility]V [address] [address] Khadijah West MD Hyperlipidemia, unspecified hyperlipidemia type (Primary Dx) 8 2:45 PM EST Office [place] [facility] [place] [facility] [address] [address] Lebron Murguia MD Simple chronic bronchitis (HCC) (Primary Dx); Uncomplicated asthma, unspecified asthma severity, unspecified whether persistent; Essential hypertension; Raynaud's disease without gangrene; Pulmonary nodule; Lung nodule < 6cm on CT; Lung nodule 8 Orders Only [facility] [place] [address] [facility] [address] [place] [address] Khadijah West MD Essential hypertension (Primary Dx); Hypokalemia 8 4:40 PM EST - 8 11:59 PM EST Hospital Encounter [facility] [place] [address] Shortness of breath; Pulmonary nodule; COPD, moderate (HCC) Discharge Disposition: Home or Self Care 8 4:35 PM EST - 8 4:39 PM EST Hospital Encounter [facility] D-WING XRAY [facility] [place] [address] Pulmonary nodule; COPD, moderate (HCC) Discharge Disposition: Home or Self Care 8 3:45 PM EST Office [place] [facility] [place] [facility] [address] [address] Lebron Murguia MD COPD, moderate (HCC) (Primary Dx); S/p nephrectomy; Pulmonary nodule; Hypokalemia; High anion gap metabolic acidosis; PVC (premature ventricular contraction); Angina pectoris (HCC); Arthritis; Simple chronic bronchitis (HCC); Hyperlipidemia, unspecified hyperlipidemia type; Essential hypertension; Hypothyroidism, unspecified type; half-way current use of aspirin 8 3:00 PM EST Office Visit [facility]V [address] [address] Khadijah West MD Shortness of breath (Primary Dx) 7 6:12 PM EST - 7 5:13 PM EST Hospital Encounter [facility] 2[place] [address] Iam Mott MD Bentley, Shannon, MD COPD exacerbation (HCC) (Primary Dx); Bronchitis; Elevated lactic acid level; Lung mass; Hypokalemia Discharge Disposition: Home or Self Care 7 Telephone [facility] H[facility]V [facility] [address] [place] [address] Khadijah West MD Results 7 Telephone [facility] H&V CV [facility] [address] [place] [address] Khadijah West MD Other 7 2:22 PM EST - 7 11:59 PM EST Hospital Encounter [facility] [address] [place] [address] Khadijah West MD PVC (premature ventricular contraction); Hyperlipidemia, unspecified hyperlipidemia type; Essential hypertension; Angina pectoris (HCC); Coronary artery disease involving sleetmute coronary artery 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 angina pectoris; Hx of CABG; Chest heaviness; SOB (shortness of breath); Simple chronic bronchitis (HCC) Discharge Disposition: Home or Self Care 7 3:00 PM EST Office Visit [facility] [address] [place] [address] Khadijah West MD PVC (premature ventricular contraction) (Primary Dx); Hyperlipidemia, unspecified hyperlipidemia type; Essential hypertension; Angina pectoris (HCC); Coronary artery disease involving sleetmute coronary artery 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 angina pectoris; Hx of CABG; Chest heaviness; SOB (shortness of breath); Simple chronic bronchitis (HCC) 7 Refill [facility] H[facility]V [address] [address] Khadijah West MD Medication Refill 7 Telephone SEP H&V CV [facility] [address] [place] [address] Khadijah West MD Medication Problem (Amlodipine 5mg) 7 Telephone [facility] [address] [place] [address] Khadijah West MD Hypertension 7 Telephone [facility] More [address] [place] [address] Khadijah West MD Edema (lower legs); Fatigue; Other (BP and medication questions ) 7 Refill [facility] [address] [place] [address] Khadijah West MD Medication Refill 7 3:30 PM EDT Office Visit [facility] [address] [place] [address] Khadijah West MD Hyperlipidemia, unspecified hyperlipidemia type (Primary Dx); Essential hypertension; Coronary artery disease involving sleetmute coronary artery 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 angina pectoris 7 Abstract [facility] [place] [address] [facility] [address] [place] [address] Harriet Charles, [facility] 7 Telephone [facility] [address] [place] [address] Khadijah West MD Medication Question; Edema; Shortness of Breath 6 Abstract [facility] More [address] [place] [address] Khadijah West MD 6 3:15 PM EDT Office Visit [facility] [address] [place] [address] Khadijah West MD Essential hypertension (Primary Dx); 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 [address] Melissa Lang MD Abnormal auditory perception, bilateral (Primary Dx); Impacted cerumen of left ear; Sensorineural hearing loss of both ears; Dizziness; Hearing loss, sensorineural, asymmetrical 6 9:26 AM EDT - 6 11:59 PM EDT Hospital Encounter [facility] [address] [place] [address] Saurabh Soto MD Dizziness Discharge Disposition: Home or Self Care 6 [facility] [address] [place] [address] Khadijah West MD Results 6 3:52 PM EDT - 6 11:59 PM EDT Hospital Encounter [facility] [address] [place] [address] Khadijah West MD Hx of CABG; LBBB (left bundle branch block); PVC (premature ventricular contraction) Discharge Disposition: Home or Self Care 6 3:00 PM EDT Office Visit [facility]P H[facility]V [facility] [address] [place] [address] Khadijah West MD Hyperlipidemia (Primary Dx); Angina pectoris (HCC); Essential hypertension; Hx of CABG; LBBB (left bundle branch block); Simple chronic bronchitis (HCC); PVC (premature ventricular contraction) 6 5:07 PM EDT - 6 6:49 PM EDT Emergency [facility] [place] [address] Toan Thurman MD Sorethroat (Primary Dx); History of bradycardia Discharge Disposition: Home or Self Care 6 9:10 AM EST Office Visit [facility] [address] [place] [address] Jolie Lee MD Post-operative state (Primary Dx) 6 9:00 AM EST Office Visit [facility] [address] [place] [address] Jolie Lee MD Post-operative state (Primary Dx) 5 9:24 AM EST - 5 6:02 PM EST Hospital Encounter [facility] 4 [facility] [address] [place] [address] Richardson Long MD Yelich, Susan, MD Discharge Disposition: Home or Self Care 5 11:15 AM EST - 5 1:00 PM EST Surgery [facility] PERIOP [address] [place] [address] Jolie Lee MD DAVINCI ROBOTIC REPAIR OF UNILATERAL INGUINAL HERNIA 5 12:52 PM EST Anesthesia Event [facility]IOP [address] [place] [address] Kailash Harrison MD Collins, Angela, TECHNICAL OPERATIONS VICE PRESIDENT 5 Telephone SEP Gen Surg [facility] [address] [place] [address] [place] [address] Richardson Long MD Follow-up 5 Telephone SEP H&V [address] [address] Khadijah West MD Other 5 9:57 AM EST - 5 11:59 PM EST Hospital Encounter [facility] [address] [id number] Pat, Domingo Discharge Disposition: Home or Self Care 5 Telephone SEP Gen Surg [facility] [address] [facility] [place] [address] Marina Guzman RMA Advice Only 5 10:00 AM EST - 5 10:45 AM EST Surgery [facility] ENDOSCOPY [facility] [place] [address] Reed Bull MD ESOPHAGOGASTRODUODENOSCOPY 5 10:08 AM EST Anesthesia Event [facility] [place] [address] Broderick Elder MD Merkle Serey, Jennifer L, NP 5 9:03 AM EST - 5 12:15 PM EST Hospital Encounter [facility] ENDOS[facility] [place] [address] Reed Bull MD Discharge Disposition: Home or Self Care 5 Telephone SEP Gen Surg [facility] [address] [place] [address] Taylor Fuentes [facility] Surgery; Visit Follow Up 5 2:20 PM EST - 5 11:59 PM EST Hospital Encounter [facility] LAB[facility]AT[facility] [address] [facility] [place] [address] Gall stones Discharge Disposition: Home or Self Care 5 1:50 PM EST Office Visit [facility] [address] [place] [address] Richardson Long MD Gall stones (Primary Dx); Bilateral inguinal hernia without obstruction or gangrene, recurrence not specified 5 3:55 PM EST - 5 11:59 PM EST Hospital Encounter [facility] [place] [address] Saurabh Soto MD Right upper quadrant pain Discharge Disposition: Home or Self Care 5 2:45 PM EST Office Visit [facility] H[facility]V [address] [address] Khadijah West MD Hyperlipidemia (Primary Dx); Essential hypertension; Angina pectoris (HCC); Hx of CABG; LBBB (left bundle branch block); Simple chronic bronchitis (HCC); SOB (shortness of breath) 5 Telephone [facility] H&V [facility] [address] [facility] [address] [place] [address] Khadijah West MD Other 5 7:43 PM EST - 5 12:55 PM EST Hospital Encounter [facility] T[facility] [address]A [address] [place] [address] Mehrdad Slater MD Wagner, Robert J, MD Near syncope (Primary Dx); Ataxia Discharge Disposition: Home or Self Care 5 9:19 AM EDT - 5 11:59 PM EDT Hospital Encounter [facility] ECHO [address] [address] Khadijah West MD Hyperlipidemia; Angina pectoris (HCC); Coronary artery disease involving sleetmute coronary artery without angina pectoris Discharge Disposition: Home or Self Care 5 2:00 PM EDT Office Visit [facility] [address] Khadijah West MD Hyperlipidemia (Primary Dx); Essential hypertension; Angina pectoris (HCC); Hx of CABG; Coronary artery disease involving sleetmute coronary artery without angina pectoris; LBBB (left bundle branch block); COPD (chronic obstructive pulmonary disease) (HCC); SOB (shortness of breath) 5 10:28 AM EDT - 5 11:59 PM EDT Hospital Encounter [facility] [address] [place] [address] Migel Fajardo MD Displacement of cervical intervertebral disc without myelopathy Discharge Disposition: Home or Self Care 4 3:30 PM EDT Office Visit [facility] [address] Khadijah West MD Hyperlipidemia (Primary Dx); Hypertension; COPD (chronic obstructive pulmonary disease) (HCC); Chest heaviness; SOB (shortness of breath); CAD (coronary artery disease); Hx of CABG; HTN (hypertension) 4 3:15 PM EDT Office Visit [facility] [address] Keith De La Rosa MD Hyperlipidemia (Primary Dx); Hypertension; COPD (chronic obstructive pulmonary disease) (HCC); Chest heaviness 4 Telephone SE[facility] H&V [address] [address] Keith De La Rosa MD Other 4 10:00 AM EDT Office Visit [facility] H[facility]V [address] [address] Keith De La Rosa MD CAD (coronary artery disease) (Primary Dx); PVC's (premature ventricular contractions); Chronotropic incompetence 4 Telephone [facility] H[facility]V [address] [address] Khadijah West MD Results 4 Telephone [facility] H[facility] [address] [address] Khadijah West MD Results 4 2:05 PM EDT - 4 11:59 PM EDT Hospital Encounter [place] [address] [facility] [place] [place] [address] Irregular heartbeat; Hyperlipidemia; Hx of CABG Discharge Disposition: Home or Self Care 4 1:40 PM EDT - 4 2:04 PM EDT [facility] [address] [address] Khadijah West MD Irregular heartbeat; Angina pectoris (HCC) Discharge Disposition: Home or Self Care 4 1:00 PM EDT Office Visit SEP H&[address] [address] Khadijah West MD Irregular heartbeat (Primary Dx); COPD (chronic obstructive pulmonary disease) (HCC); Hyperlipidemia; Hypertension; SOB (shortness of breath); CAD (coronary artery disease); Hx of CABG; HTN (hypertension); Angina pectoris (HCC) 4 7:34 PM EDT - 4 11:14 PM EDT Emergency [facility] [place] [address] Mehrdad Slater MD Constipation (Primary Dx); Bradycardia; PVC's (premature ventricular contractions); Hypokalemia Discharge Disposition: Home or Self Care 4 Telephone [facility] H[facility] [place] [address] [facility] [address] [place] [address] Melania Olson David Visit Follow Up 4 10:30 AM EST Office Visit [facility] H&V [address] [address] Khadijah West MD COPD (chronic obstructive pulmonary disease) (HCC) (Primary Dx); Hyperlipidemia; Hypertension; Raynaud's disease; SOB (shortness of breath); Diabetes mellitus, type 2 (HCC); CAD (coronary artery disease); ED (erectile dysfunction); Hx of CABG; HTN (hypertension); Chest heaviness; Angina pectoris (HCC) 4 11:00 AM EST - 4 12:00 PM EST Surgery Khadijah West MD CARDIAC PROCEDURE-MURAL ARTIST ONLY 4 8:55 AM EST - 4 5:51 PM EST Hospital Encounter [facility] CARD CATH REC [facility] [place] [address] Khadijah West MD Discharge Disposition: Home or Self Care 4 9:15 AM EST - 4 11:59 PM EST Hospital Encounter [facility] [address] [facility] [place] [place] [address] COPD (chronic obstructive pulmonary disease) (HCC) (Primary Dx); Hyperlipidemia; Hypertension; SOB (shortness of breath); Diabetes mellitus, type 2 (HCC); CAD (coronary artery disease); Hx of CABG; Chest heaviness; Fatigue Discharge Disposition: Home or Self Care 4 3:15 PM EST Office Visit [facility] H&V [address] [address] Khadijah West MD COPD (chronic obstructive pulmonary disease) (HCC) (Primary Dx); Hyperlipidemia; Hypertension; SOB (shortness of breath); Diabetes mellitus, type 2 (HCC); CAD (coronary artery disease); Hx of CABG; Chest heaviness; Fatigue 3 11:00 AM EST Office Visit [facility]&[address] [address] Khadijah West MD Angina pectoris (HCC) (Primary Dx); COPD (chronic obstructive pulmonary disease) (HCC); SOB (shortness of breath); Diabetes mellitus, type 2 (HCC) 3 Refill [facility] [address] [place] [address] Khadijah West MD Medication Refill (Plavix) 3 1:04 PM EDT - 3 11:59 PM EDT Hospital Encounter [facility] [address] [place] [address] Khadijah West MD CAD (coronary artery disease); SOB (shortness of breath); HTN (hypertension) Discharge Disposition: Home or Self Care 3 2:00 PM EDT Office Visit [facility] [address] Khadijah West MD CAD (coronary artery disease) (Primary Dx); COPD (chronic obstructive pulmonary disease) (HCC); Hyperlipidemia; Hypertension; Raynaud's disease; SOB (shortness of breath); Diabetes mellitus, type 2 (HCC); Hx of CABG; HTN (hypertension) 3 1:17 PM EST - 3 11:59 PM EST Hospital Encounter [facility] [address] [place] [id number] Geovany Dugan MD Malignant neoplasm of kidney, except pelvis (HCC) Discharge Disposition: Home or Self Care 2 4:19 PM EDT - 2 11:59 PM EDT Hospital Encounter [place] [facility] [place] [address] Geovany Dugan MD Malignant neoplasm of kidney, except pelvis (HCC) Discharge Disposition: Home or Self Care 2 9:41 AM EDT - 2 11:59 PM EDT Hospital Encounter [facility] PET [facility] [place] [address] Geovany Dugan MD Renal cell carcinoma (HCC) Discharge Disposition: Home or Self Care 2 8:48 PM EST - 2 12:09 AM EST Emergency [place] [facility] [place] [address] Yovani Pina DO Degenerative joint disease of cervical spine; Radiculopathy of cervical spine; Syncope; Facial contusion Discharge Disposition: Home or Self Care 2 4:15 PM EST - 2 8:30 PM EST Hospital Encounter [facility] TCU 1A [facility] [place] [address] Iam Mott MD Lierl, Jerry J, MD Chest pain; Renal mass, right Discharge Disposition: Home or Self Care 2 7:30 AM EST - 2 8:30 AM EST Surgery Deyvi Dixon MD CARDIAC PROCEDURE-MURAL ARTIST ONLY 2 1:30 PM EST Office Visit [facility] [place] [address] [place] [address] Lebron Murguia MD Arthritis; COPD (chronic obstructive pulmonary disease) (HCC); Hyperlipidemia; Hypertension; Hypothyroidism; Raynaud's disease; SOB (shortness of breath); Diabetes mellitus, type 2 (HCC); CAD (coronary artery disease); Hypoxemia; Dyspnea; Bronchiectasis (HCC) 1 Abstract [facility] [place] [address] [place] [id number] Deyvi Dixon MD Arthritis; COPD (chronic obstructive pulmonary disease) (HCC); Hyperlipidemia; Hypertension; Hypothyroidism; half-way current use of aspirin; Raynaud's disease; SOB (shortness of breath) 1 Abstract [facility]P [place] [facility] [address] [place] [address] [facility], Test [employer] Diabetes mellitus, type 2 (HCC); CAD (coronary artery disease); ED (erectile dysfunction); Asthma 9 2:34 PM EST - 9 11:59 PM EST Hospital Encounter [facility] EPIC CON UNK EDG Hansa Rivera 9 4:20 PM EDT - 9 2:33 PM EDT Hospital Encounter [facility] Deyvi Dixon MD 8 4:27 PM EST - 8 11:38 AM EST Hospital Encounter [facility] Jude Franklin MD 6 6:38 PM EST - 6 2:41 PM EST Hospital Encounter [facility] Joe Carrion MD Martin, K. Andrew, MD 6 1:06 PM EDT - 6 11:59 PM EDT Hospital Encounter [facility] LAB EDG Lebron Murguia MD 6 12:01 AM EDT - 6 11:59 PM EDT Hospital Encounter [facility] WAREHOUSE ADMINISTRATOR [facility] Lebron Murguia MD 6 7:34 PM EDT - 6 9:07 PM EDT Hospital Encounter [facility] TCB Stan Melchor MD Barnes, Mary Ann, MD 6 3:14 PM EDT - 6 12:32 PM EDT Hospital Encounter [facility] Deyvi Dixon MD 6 5:11 PM EDT - 6 11:59 PM EDT Hospital Encounter [facility] LAB [facility] Deyvi Dixon MD 5 6:07 AM EST - 5 11:59 PM EST Hospital Encounter [facility] RADIOLOGY EDG Betzy Patterson MD 5 9:40 AM EST - 5 1:04 PM EST Hospital Encounter HST 7D Sohail Wiseman MD 4 5:13 PM EST - 4 11:29 AM EST Hospital Encounter [facility] TCA Deyvi Dixon MD 4 11:18 AM EST - 4 6:30 PM EST Hospital Encounter HST 4C2 Deyvi Dixon MD 4 7:49 AM EST - 4 11:59 PM EST Hospital Encounter [facility] CARDIOLOGY EDG Deyvi Dixon MD 3 10:34 PM EDT - 3 2:40 PM EDT Hospital Encounter [facility] TCB Stan Yarbrough MD Lierl, Jerry J, MD 3 Hospital Encounter [facility] MEDICINE FTT Generic, Historical Provider 3 Hospital Encounter [facility] UNKNFTT Generic, Historical Provider 1 Hospital Encounter [facility] UNKNFTT Generic, Historical Provider 1 9:36 PM EST - 1 11:18 PM EST Emergency [facility] MINOR ER EDG Joe Carrion MD 9 9:45 AM EST - 9 11:59 PM EST Hospital Encounter [facility] LAB EDG Efrain Leon MD 9 5:49 AM EDT - 9 11:59 PM EDT Hospital Encounter [facility] RADIOLOGY EDG Shani Lee MD 9 3:33 AM EDT - 9 5:00 AM EDT Emergency [facility] MAJOR ER EDG Geoffrey Montiel MD 8 5:53 AM EDT - 8 11:59 PM EDT Hospital Encounter [facility] RADIOLOGY EDG Peyman Soto MD 8 2:29 PM EDT - 8 11:59 PM EDT Hospital Encounter [facility] LAB EDG Heraclio Soto MD 7 10:03 AM EDT - 7 11:59 PM EDT Emergency [facility] MAJOR ER EDG Shani Sorto MD 7 12:44 PM EST - 7 11:59 PM EST Hospital Encounter [facility] EPIC CON UNK COV Bj Mi MD 7 12:00 PM EST - 7 11:59 PM EST Emergency [facility] EPIC CON UNK EDG Yossi Kearney MD 5 6:37 AM EST - 5 11:59 PM EST Hospital Encounter [facility] EPIC CON UNK [place] Broderick Dotson MD 5 7:15 PM EST - 5 11:59 PM EST Emergency [facility] EPIC CON UNK EDG David Reyna MD 4 6:08 PM EDT - 4 11:59 PM EDT Emergency [facility] EPIC CON UNK EDG Reed Lee MD 2 1:23 PM EST - 2 11:59 PM EST Hospital Encounter [facility] EPIC CON UNK [facility] Bj Mi MD Allergies Active Allergy Reactions Criticality Noted Date Comments Atorvastatin 01/24/2011 Pt. States that he has no allergies to Lipitor. Jittery , intolerance Lisinopril 03/28/2011 cough Medications nitroGLYCERIN (NITROSTAT) 0.4 mg SL Tablet, Sublingual Place 1 Tab under the tongue every 5 minutes as needed. 50 Tab 6 5 Active albuterol (PROVENTIL HFA;VENTOLIN HFA) 90 mcg/actuation Inhl HFA Aerosol Inhaler Inhale 2 Puffs into the lungs every 6 hours as needed for Wheezing. Active allopurinoL (ZYLOPRIM) 300 mg Oral Tablet Take 300 mg by mouth as needed. Active LEVOthyroxine (SYNTHROID) 75 mcg Oral Tablet Take 1 Tablet by mouth before breakfast. Pt unsure of dose at this current time 90 Tablet 1 2 Active amLODIPine (NORVASC) 10 mg Oral Tablet TAKE 1 TABLET EVERY DAY 90 Tablet 3 3 Active clopidogreL (PLAVIX) 75 mg Oral TabletIndications :Coronary artery disease involving sleetmute coronary artery 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 angina pectoris TAKE 1 TABLET EVERY DAY 90 Tablet 1 3 Active potassium chloride SA (KLOR-CON M) 10 mEq Oral Tab Sust.Rel. Particle/Crystal TAKE 1 TABLET TWICE DAILY 180 Tablet 1 3 Active isosorbide mononitrate (IMDUR) 30 mg Oral Tablet Sustained Release 24 hr TAKE 1 TABLET EVERY MORNING 90 Tablet 1 3 Active fUROsemide (LASIX) 40 mg Oral TabletIndications :Shortness of breath TAKE 1 TABLET EVERY DAY 90 Tablet 1 3 Active losartan (COZAAR) 100 mg Oral TabletIndications :CAD (coronary artery disease) TAKE 1 TABLET EVERY DAY 90 Tablet 1 3 Active HYDROcodone-aceta minophen (NORCO) 5-325 mg Oral Tablet Take 2 Tablets by mouth every 6 hours. 3 Active potassium bicarbonate (EFFER-K) 10 mEq Oral Tablet, Effervescent 1 Tablet. Active aspirin 81 mg Oral Tablet, Delayed Release (E.C.) 1 Tablet. Active Ciclesonide 160 mcg/actuation Inhl HFA Aerosol Inhaler INHALE 1 PUFF BY MOUTH TWICE A DAY FOR COPD RINSE MOUTH AFTER USE 4 Active tiotropium-olodat Lesvia (STIOLTO RESPIMAT) 2.5-2.5 mcg/actuation Inhl Mist INHALE 2 PUFFS BY MOUTH ONCE DAILY FOR COPD (NOT FOR EMERGENCY USE) 4 Active metoprolol succinate (TOPROL-XL) 25 mg Oral Tablet Sustained Release 24 hr Take 1 Tablet by mouth 2 times daily. 180 Tablet 3 4 Active apixaban (ELIQUIS) 5 mg Oral Tablet Take 1 Tablet by mouth 2 times daily. 28 Tablet 4 Active REPATHA SURECLICK 140 mg/mL SubQ Pen InjectorIndicatio ns:Mixed hyperlipidemia,Hx of CABG ADMINISTER 1 ML UNDER THE SKIN EVERY 14 DAYS 6 mL 3 5 Active Active Problems Problem Noted Date Diagnosed Date PAF (paroxysmal atrial fibrillation) 09/06/2023 Bradycardia 08/22/2023 dual chamber pacemaker 08/22/2023 Overview (08/22/2023): Jose GARCIA - Dr. Chavez 08/22/23 Mobitz type 2 second degree atrioventricular blo ck 08/21/2023 Acquired absence of other left toe(s) 05/25/2023 Overview (05/25/2023): Noted by CATRINA Galindo MD last documented on [id number] History of adenomatous polyp of colon 05/25/2023 Apical lung nodule 08/24/2020 S/p nephrectomy 02/08/2017 Overview (02/08/2017): Hx Renal cell carcinoma S/p right nephrectomy Assessment & Plan (02/08/2017 2:13 AM EST): CrCl 65.6 mL/min Cr 1.18, baseline appears ~1.2 Lung nodule < 6cm on CT 02/08/2017 Overview (02/09/2017): CT angiogram shows small noncalcified nodule in the left posterior costophrenic sulcus which measures about 5 mm (02/07/17), previously about 3 mm(04/10/2012) suspicious for slow growing neoplasm. Patient and family are aware of existing nodule. Patient has a 60 pack-year smoking history. Quit smoking ~34 years ago. Brother was recently diagnosed with stage 4 adenocarcinoma of the lung with metastases. Assessment & Plan (02/09/2017 6:41 AM EST): Will arrange for outpatient follow up. Hypokalemia 02/08/2017 Overview (02/08/2017): Potassium 3.1 on admission Patient takes Lasix every 48 hours as needed for LE edema, last dose today. He does take potassium supplements for this at home. Assessment & Plan (02/09/2017 6:40 AM EST): Following CMP today High anion gap metabolic acidosis 02/08/2017 Overview (02/08/2017): Elevated anion gap of 17 with lactic acid elevation at 3.0, 3.5 on admission. Elevated anion gap almost certainly due elevated lactic acid. Blood glucose 158 on admission. No reported recent ingestion of substances or overuse of acetaminophen/ASA. Assessment & Plan (02/08/2017 3:41 AM EST): Received IV fluid bolus, will give additional 500 mL (careful fluid resuscitation with new decreased LVEF) Recent use of albuterol breathing treatments could potentially contribute to lactic acidosis. Could also be 2/2 to sepsis with possible source of PNA. Started abx. Trend lactic acid Hold on further HAGMA workup at this time with probable source identified. PVC (premature ventricular contraction) 05/04/19 16 Near syncope 12/16/2014 Overview (12/16/2014): 12/16 Acute episode of near syncope yesterday. Had new ataxic sxs all day yest as well Blood sugar [address] head neg, EKG unchanged, Trops neg so far He does have cardiac hx Last saw Dr west in June Is on plavix chronically Check for orthostasis Echo MRI brain to r/o cerebellar CVA Consult neuro Ataxia 12/16/2014 LBBB (left bundle branch block) 06/26/2014 Fatigue 03/14/2013 Angina pectoris 01/30/2013 Hx of CABG 07/19/2012 Bronchiectasis 03/23/2011 Arthritis 01/24/2011 COPD (chronic obstructive pulmonary disease) Overview (02/08/2017): Hx of COPD. Patient cites his last PFTs were done a while ago and is managed by his PCP who is in [facility]. States his PCP has prescribed him Advair but he does not take it due to affordability issues. He also has a rescue inhaler at home but states he never uses it. He does have a chronic cough at baseline with minimal production of white sputum. Assessment & Plan (02/09/2017 6:31 AM EST): Likely poorly controlled COPD and given patient is currently prescribed Advair and unable to reasonably afford medication, will need to learn what ICS/LABA inhaler that he will be able to afford with Sarmad Mr( symbicort, dulera?) Currently being managed for a COPD exacerbation so will treat with SUDHEER/JANET q4hr PRN with prednisone 40 mg x 5 days. 1. Likely D/C today 2. Will look for most affordable home inhaler regiment for better compliance and control of COPD 3. Will write for outpateint prednisone (complete 5 day course) 4. Switch to keflex and likely D/C doxy Hyperlipidemia 01/24/2011 Overview (02/08/2017): Last LDL 06/13/16 with LDL of 88. With known CAD s/p stents, CABG, LDL goal is <70. Assessment & Plan (02/09/2017 6:32 AM EST): -Continue pravastatin 40 mg for now Essential hypertension 01/24/2011 Overview (02/08/2017): 155/64 on admission. Goal BP <150/90 Per chart review, has been uncontrolled lately. Education Nurse recently increased his norvasc due to this. Home medications include Norvasc 10 mg, HCTZ 12.5 mg, losartan 100 mg, Metoprolol XL 25 mg, Assessment & Plan (02/08/2017 2:19 AM EST): Continue Norvasc, HCTZ, Losartan, Metoprolol-XL. Hypothyroidism 01/24/2011 Overview (02/08/2017): Hx of thyroidectomy(2/3) due to benign mass that was causing airflow obstruction. 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 Patent left circumflex artery stents. 2. LAD with minimal irregularities. 3. Occluded right coronary artery with occluded saphenous vein graft to the right coronary artery with bridging and R ro R Collaterals 4. Patent saphenous vein graft to the diagonal branch and the obtuse marginal branch. Follows with Dr. West. Had echocardiogram recently (03/19/16)with following results: Mild LV dysfunction of 40-45% Previous EF 50% in 2015 Patient learned of these results today and was instructed to schedule an appointment to see Dr. West for further management of this. Currently on ARB, BB , ASA, statin. Nitroglycerin as needed. Lasix every 48 hours as needed for LE edema (patient states 2/2 to increased Norvasc dose) Noted by CATRINA Galindo MD last documented on [id number] Assessment & Plan (02/08/2017 2:37 AM EST): EKG on admission without acute ST changes when compared to prior study Troponin negative x 3. I do not believe his presenting problem to be cardiovascular in nature and believe he can follow up with senior net application developer as scheduled in an outpatient setting. -continue home medications ED (erectile dysfunction) 06/13/2010 Asthma 06/13/2010 Resolved Problems Problem Noted Date Diagnosed Date Resolved Date COPD exacerbation vs. Pneumonia 02/08/2017 02/09/2017 Overview (02/08/2017): Patient presenting with cough, SOB, and dyspnea that began last night. Known history of COPD. Went to PCP today who ordered CXR and was concerned for pneumonia or COPD exacerbation. Was given dose of IV solumedrol and breathing treatments and then sent to [place]. During my examination, patient afebrile, mildly tachypneic, with elevated WBC. CXR at PCP was reportedly suspicious for pneumonia but CXR here with COPD changes but no acute infiltrate appreciated. By the time he arrived in [place], he had significantly improved breath sounds. I was unable to appreciate any wheezes, rhonchi, rales, or crackles. He did have slightly diminished breath sounds bilaterally and was requiring 3 L nasal cannula to maintain an O2 saturation in the low 90s. He did have an elevated D-Dimer, tachycardia, tachypnea, and increased O2 requirement so a CT angiogram was obtained which did not reveal a PE and also did not indicate a pneumonia. WBC was elevated at 15.9 on admission, along with tachypnea and tachycardia, qualifying for SIRS 3/4 with a source of pneumonia indicating possible sepsis. Lactic acid was also elevated at 3.0. Repeat lactic acid was 3.5 Patient received 1 L bolus and will get another 500 mL bolus on arrival to floor, blood cultures drawn. Differential diagnosis includes acute COPD exacerbation, pneumonia, acute CHF exacerbation. Recent Echo does show a decrease in LVEF of about 5-10% from prior study, but patient does not appear fluid overloaded on exam. No HJR or JVD appreciable. No displaced PMI and no gallop heard. Also with baseline COPD (likely uncontrolled COPD 2/2 to medication noncompliance) and a increase intensity of cough and change in sputum color, a pulmonary etiology is more likely. Believe the main differential is COPD exacerbation vs pneumonia. With increased lactic acid 3.0, 3.5 and possible sepsis, pneumonia is a concern. Reportedly, PCP x-ray indicated pneumonia, but CXR here and chest CT angiogram were both negative for infiltrate suggestive of pneumonia. Patient does not look toxic and is resting comfortably during my examination. Patient did receive dose of IV solumedrol at his PCP office which possibly could contribute to a leukocytosis. Multiple beta agonist breathing treatments could potentially elevate lactic acid. Clinically suspect that COPD exacerbation is the true diagnosis but will cover for CAP and trend lactic acid. Assessment & Plan (02/08/2017 3:21 AM EST): -Wean supplemental oxygen as tolerated -Received IV solumedrol at PCP, will start prednisone 40 mg x 5 days. -SUDHEER/JANET Q4-6 with transition to intermediate card tender management (see COPD problem list) -Received dose of Ceftriaxone in ER with dose of Levaquin. Due to patient prolonged QT interval, will d/c Levaquin and start doxycycline. As previously stated, lower suspicion for pneumonia at this point, but due to SIRS criteria and elevated lactic acid, will continue to cover for CAP and reassess in the AM . -Telemetry to monitor for arrhthymias -Sputum culture -Urine strep and legionella antigen -Influenza antigens -Received 1 L fluid bolus, will give an additional 500 mL on arrival to floor, will need to be careful with fluid balance given recent decrease in LVEF. -Check procalcitonin -Trend lactic acid Bilateral inguinal hernia wi thout obstruction or gangrene 02/08/2015 02/18/2015 COPD (chronic obstructive pulmonary disease) 5 02/08/2017 SOB (shortness of breath) 06/26/2014 Chest heaviness 03/14/2013 02/08/2017 SOB (shortness of breath) 03/14/2013 CAD (coronary artery disease) 07/19/2012 07/24/2013 SOB (shortness of breath) 07/19/2012 HTN (hypertension) 07/19/2012 7 Diabetes mellitus, type 2 06/13/2010 Overview (02/08/2017): Patient denies any history of DM and states he takes no medications for this. Last HgbA1c was 5.8% on 12/16/14. Unable to access PCP notes No polyuria, polydipsia, change in vision recently. Assessment & Plan (02/09/2017 6:26 AM EST): HgbA1c= 6.3 Immunizations Immunization Administration Dates Next Due Influenza High Dose 11/14/2018,12/21/2015 Influenza Patient Reported 10/13/2014 Influenza Seasonal Injectable PF 11/30/2011 Influenza Vaccine Quadrivalent Adjuvanted 2021 Influenza Vaccine Trivalent Adjuvanted PF 2016 Influenza Vaccine, Unspecified Formulation 12/13 Pneumococcal Conjugate Vaccine 13 Valent 020 Pneumococcal Polysaccharide 23 Valent 10/13/2016 Quadrivalent Influenza High Dose 12/03/2022,10/14,10/23/2019 RSV Recombinant PF (Arexvy) 12/27/2022 Tdap 10/13/2016 Zoster 01/22/2009 Family History Medical History Relation Name Comments Arthritis Brother 1 Heart Disease Brother 1 myocardial inf arction High Blood Pressure Brother 1 Heart Disease Brother 2 myocardial inf arction Heart Disease Father myocardial inf arction Heart Disease Mother CHF Relation Name Status Comments Brother 1 Alive Brother 2 Alive Father (Age 73) Mother (Age 70) Social History Smoking Status as of 08/25/2024 Tobacco Use Types Packs/Day Years Used Date Smoking Tobacco: Never Assessed [facility] Utilities Answer Date Recorded In the past 12 months has th e electric, gas, oil, or water [employer] threatened to shut off services in your home? No 08/22/2023 Overall Financial Resource Strain (CARDIA) Answe r Date Recorded How hard is it for you to pa y for the very basics like food, housing, medical care, and heating? Not very hard 08/22/2023 PHQ-2 Answer Date Recorded PHQ-2 Total Score 0 08/22/2023 [facility] - Occupational Stress [...] money to get more. Never true 08/22/2023 [facility] IP Transportation Answer D ate Recorded In the past 12 months, has l ack of reliable transportation kept you from medical appointments, meetings, work or from getting things needed for daily living? No 08/22/2023 Sex and Gender Information Value Date Recorded Sex Assigned at Not on file Legal Sex Male 9:59 AM EDT Gender Identity Not on file Sexual Orientation Not on file Last Filed Vital Signs Vital Sign Reading Time Taken Comments Blood Pressure 138/66 12/17/2023 3:29 PM EST Pulse 64 12/17/2023 3:29 PM EST Temperature 36.6 C (97.9 F) 09/05/2023 2:47 PM EDT Respiratory Rate 18 08/23/2023 11:50 AM EDT Oxygen Saturation 96% 12/17/2023 3:29 PM EST Inhaled Oxygen Concentration - - Weight 83 kg (183 lb) 12/17/2023 3:29 PM EST Height 182.9 cm (6') 11/26/2023 3:16 PM EDT Body Mass Index 24.82 11/26/2023 3:16 PM EDT Plan of Treatment Upcoming Encounters Date Type Department Care Team (Late st Contact Info) Description 08/25/2024 3:30 PM EDT Office Visit [facility] [place] [phone] Khadijah West MD [address] [place] [address] 12/22/2024 2:30 PM EST Office Visit [facility] [address] [place] [address] [place] [phone] 12/22/2024 3:00 PM EST Office Visit [facility] [address] [place] [phone] Emily Toscano APRN [address] [place] [phone] Medical Devices Implanted Type Area Machine Filler Shredder Device Identifier Shelf Expiration Date Model / Serial / Lot Lead Pcng [id number] Tendril Sts Impl Biplr Str Dwayne Act Scr In - [id number] Implanted:Qt y: 1 on 08/22/2023 by Shani Chavez MD at [facility] Lead [facility] [employer] MED:CARDIAC RHYM MGMT [id number] 07/12/20262087TC/52 / [id number] / Lead Pcng 58cm 6fr Hlx Ecrdm Is-1 Cnct Actfx Bp Sft Rtrct - [id number] Implanted:Qt y: 1 on 08/22/2023 by Shani Chavez MD at [facility] Lead [employer] MED:CARDIAC RHYM MGMT [id number] 07/12/20262087TC/58 / [id number] / Pacemaker Assurity Mri 2chmbr Impl [id number] 6mm Is-1 Conn - [id number] Implanted:Qt y: 1 on 08/22/2023 by Shani Chavez MD at [facility] Pacemaker [employer] MED:DAIG DIV [id number] 01/11/2025 [id number] / [id number] / Mesh 3d Right Large [id number] - [id number] Implanted:Qt y: 1 on 02/08/2015 by Jolie Lee MD at [facility] Right: Groin CR BARD:DAVOL 11/10/2019 [id number] / / [id number] Mesh 3d Left Large [id number] - [id number] Implanted:Qt y: 1 on 02/08/2015 by Jolie Lee MD at [facility] Left: Groin CR BARD:DAVOL 10/10/2019 [id number] / / [id number] Procedures Procedure Name Priority Date/Time Associated Diagnosis Comments NJ REM INTERROG PM/LDLS PM <90 D PHYS/QHP Routine 08/20/2024 12:00 AM EDT Vector Remote Device NJ REM INTERROG PM/LDLS PM <90 D PHYS/QHP Routine 05/21/2024 12:00 AM EDT Vector Remote Device VECTOR REMOTE DEVICE Routine 03/08/2024 12:00 AM EST Vector Remote Device NJ REM INTERROG PM/LDLS PM <90 D PHYS/QHP Routine 02/20/2024 12:00 AM EST Vector Remote Device VECTOR REMOTE DEVICE Routine 01/30/2024 12:00 AM EST Vector Remote Device PACEART REPORT Routine 12/17/2023 9:03 PM EST NJ REM INTERROG PM/LDLS PM <90 D PHYS/QHP Routine 11/21/2023 12:00 AM EDT Vector Remote Device PACEART REPORT Routine 09/05/2023 8:04 PM EDT CARDIAC INTERROGATION DEVICE 08/24/2023 6:21 PM EDT CARDIAC INTERROGATION DEVICE 08/23/2023 10:36 AM EDT BASIC METABOLIC PANEL Early AM 08/23/2023 10:26 AM EDT EC ECHOCARDIOGRAM COMPLETE W DOPPLER AND COLOR FLOW MAPPING STAT 08/23/2023 9:36 AM EDT ECG AND WAVEFORMS - TELEMETRY Routine 08/23/2023 7:02 AM EDT XR CHEST PA AND LATERAL MARCI 08/23/2023 5:18 AM EDT ECG AND WAVEFORMS - TELEMETRY Routine 08/23/2023 3:22 AM EDT ECG AND WAVEFORMS - TELEMETRY Routine 08/22/2023 8:32 PM EDT ECG AND WAVEFORMS - TELEMETRY Routine 08/22/2023 3:48 PM EDT XR CHEST AP PORTABLE STAT 08/22/2023 2:43 PM EDT EK EKG 12 LEAD Routine 08/22/2023 2:27 PM EDT ELECTROPHYSIOLOGY PROCEDURE Routine 08/22/2023 2:13 PM EDT Bradycardia INTRAOP AIRWAY PLACEMENT Routine 08/22/2023 1:00 PM EDT ADMIT Routine 08/22/2023 11:35 AM EDT SCANNED EKG 08/22/2023 11:12 AM EDT SCANNED EKG 08/22/2023 11:12 AM EDT ECG AND WAVEFORMS - TELEMETRY Routine 08/22/2023 10:49 AM EDT ECG AND WAVEFORMS - TELEMETRY Routine 08/22/2023 10:43 AM EDT ECG AND WAVEFORMS - TELEMETRY Routine 08/22/2023 8:27 AM EDT ECG AND WAVEFORMS - TELEMETRY Routine 08/22/2023 7:10 AM EDT BASIC METABOLIC PANEL Early AM 08/22/2023 4:59 AM EDT ECG AND WAVEFORMS - TELEMETRY Routine 08/21/2023 7:28 PM EDT TROPONIN-T HIGH SENSITIVITY 2HR Timed 08/21/2023 5:50 PM EDT EK EKG 12 LEAD STAT 08/21/2023 4:50 PM EDT ADMIT Routine 08/21/2023 4:34 PM EDT XR CHEST AP PORTABLE STAT 08/21/2023 4:02 PM EDT BLOOD GAS, VENOUS STAT 08/21/2023 3:46 PM EDT PHOSPHORUS LEVEL STAT 08/21/2023 3:46 PM EDT MAGNESIUM LEVEL STAT 08/21/2023 3:46 PM EDT TROPONIN-T HIGH SENSITIVITY BASELINE W/ REFLEX STAT 08/21/2023 3:46 PM EDT COMPREHENSIVE METABOLIC PANEL STAT 08/21/2023 3:46 PM EDT CBC WITH DIFF STAT 08/21/2023 3:46 PM EDT IP CONSULT TO ELECTROPHYSIOLOGY Routine 08/21/2023 3:42 PM EDT Procedure Note - Shani Chavez MD - 08/21/2023 3:46 PM EDTThis note is in progress. ADMISSION: 08/21/2023 PATIENT: Wilfred Sharma 12/23 PCP: Saurabh Soto MD I would like to thank Dao Godinez MD for requesting me to see yourpatient, Wilfred Sharma in consultation for Bradycardia. Patient is a pleasant 82-year-old male who started having an increase inshortness of breath and fatigue since Sunday. He states with minimalactivity he began getting short of breath. Patient states progressivelygetting worse. He took prednison 20 mg sometime during the night and took(2) 4 mg prednisones this AM. He did state that he gets really short ofbreath when he lays down at night and when that happens his heart willrace. Patient and his family states he has had premature beats for a longtime. Patient denies any chest pain, pressure, dizziness, presyncope,syncope or PND. He does have some edema which he says he takes a pillfor. PMHX: COPD, CAD w/CABG x 3 (2002) & stents ([id number]), Right kidney CAwith surgical removal (2011), HLD, HTN, hypothyroidism, Raynauds, LBBB andarrhythmias (PVC/PAC by 2015). Labs: WBC 6.3, HGB 13.8, HCT 41.8, PLT 268, K 3.9, CR 1.06, MG 2.3, trop14. 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 kdney removed surgically COPD (chronic obstructive pulmonary disease) ([facility]) 01/24/2011 Diabetes mellitus ([facility]) Heartburn High anion gap metabolic acidosis 02/08/2017 Elevated anion gap of 17 with lactic acid elevation at 3.0, 3.5 onadmission. Elevated anion gap almost certainly due elevated lactic acid.Blood glucose 158 on admission. No reported recent ingestion ofsubstances or overuse of acetaminophen/ASA. Hyperlipidemia 01/24/2011 Hypertension 01/24/2011 Hypothyroidism 01/24/2011 Kidney tumor r. kidney removed 2011 half-way current use of aspirin 01/24/2011 NJ (myocardial infarction) ([facility]) Raynaud's disease 01/24/2011 SOB (shortness of breath) 01/24/2011 Medication No current facility-administered medications on file prior to encounter. Current Outpatient Medications on File Prior to Encounter Medication Sig Dispense Refill albuterol (PROVENTIL HFA;VENTOLIN HFA) 90 mcg/actuation Inhl HFA AerosolInhaler Inhale 2 Puffs into the lungs every 6 hours as needed forWheezing. allopurinoL (ZYLOPRIM) 300 mg Oral Tablet Take 300 mg by mouth as needed. amLODIPine (NORVASC) 10 mg Oral Tablet TAKE 1 TABLET EVERY DAY 90 Tablet3 aspirin 81 mg Oral Tablet, Delayed Release (E.C.) 1 Tablet. aspirin 81 mg tablet Take 81 mg by mouth daily. azithromycin (ZITHROMAX) 500 mg Oral Tablet Take 1 Tablet by mouth daily.Take 1 tab daily x 3 days 3 Tablet 0 azithromycin (ZITHROMAX) 500 mg Oral Tablet Take 500 mg by mouth daily. Ciclesonide 160 mcg/actuation Inhl HFA Aerosol Inhaler INHALE 1 PUFF BYMOUTH TWICE A DAY FOR COPD RINSE MOUTH AFTER USE clopidogreL (PLAVIX) 75 mg Oral Tablet TAKE 1 TABLET EVERY DAY 90 Tablet1 diclofenac (VOLTAREN) 1 % Top Gel as directed Externally evolocumab 140 mg/mL SubQ Pen Injector Subcutaneous (Inject under theskin) 1 mL every 14 days. 6 mL 3 fUROsemide (LASIX) 40 mg Oral Tablet TAKE 1 TABLET EVERY DAY 90 Tablet 1 gabapentin (NEURONTIN) 100 mg Oral Capsule 1 Capsule. HYDROcodone-acetaminophen (NORCO) 5-325 mg Oral Tablet Take 2 Tablets bymouth every 6 hours. isosorbide mononitrate (IMDUR) 30 mg Oral Tablet Sustained Release 24 hrTAKE 1 TABLET EVERY MORNING 90 Tablet 1 LEVOthyroxine (SYNTHROID) 75 mcg Oral Tablet Take 1 Tablet by mouthbefore breakfast. Pt unsure of dose at this current time 90 Tablet 1 losartan (COZAAR) 100 mg Oral Tablet TAKE 1 TABLET EVERY DAY 90 Tablet 1 metoprolol succinate (TOPROL-XL) 50 mg Oral Tablet Sustained Release 24hr Take 1 Tablet by mouth daily. 90 Tablet 3 nitroGLYCERIN (NITROSTAT) 0.4 mg SL Tablet, Sublingual Place 1 Tab underthe tongue every 5 minutes as needed. 50 Tab 6 potassium bicarbonate (EFFER-K) 10 mEq Oral Tablet, Effervescent 1Tablet. potassium chloride SA (KLOR-CON M) 10 mEq Oral Tab Sust.Rel.Particle/Crystal TAKE 1 TABLET TWICE DAILY 180 Tablet 1 predniSONE (DELTASONE) 20 mg Oral Tablet Take 1 Tablet by mouth 2 timesdaily. 14 Tablet 2 tiotropium-olodateroL (STIOLTO RESPIMAT) 2.5-2.5 mcg/actuation Inhl MistINHALE 2 PUFFS BY MOUTH ONCE DAILY FOR COPD (NOT FOR EMERGENCY USE) Scheduled Meds: Continuous Infusions: Past Surgical History Past Surgical History: Procedure Laterality Date CARDIAC CATHETERIZATION 2002, 2003 x 2, 2006, 2009 COLONOSCOPY COLONOSCOPY N/A 02/01/2015 Surgeon: Reed Bull MD; Location: [facility] ENDOSCOPY; Service:Endoscopy CORONARY ARTERY BYPASS GRAFT 10/2002 SSVG DX + OM, SVG RCA INGUINAL HERNIA REPAIR Bilateral 02/08/2015 Davinci robotic BILATERAL INGUINAL HERNIA REPAIR with mesh; Surgeon:Jolie Lee MD; Location: [facility]; Service: General KIDNEY REMOVAL 04/2012 lap hand assist - right KNEE SURGERY l. knee scope THYROID SURGERY 03/17 removed TOE AMPUTATION traumatic/ left foot UPPER GASTROINTESTINAL ENDOSCOPY UPPER GASTROINTESTINAL ENDOSCOPY N/A 02/01/2015 ESOPHAGOGASTRODUODENOSCOPY with biopsy and bernard dilation; COLONOSCOPYwith snare polypectomy and biopsy; Surgeon: Reed Bull MD;Location: [facility]; Service: Endoscopy Allergy Allergies Allergen Reactions Lipitor [Atorvastatin] Pt. States that he has no allergies to Lipitor. Jittery , intolerance Lisinopril cough Family History Family History Problem Relation Age of Onset Heart Disease Mother CHF Heart Disease Father myocardial infarction High Blood Pressure Brother Arthritis Brother Heart Disease Brother myocardial infarction Heart Disease Brother myocardial infarction Social History Social History Tobacco Use Smoking status: Former Current packs/day: 0.00 Average packs/day: 2.0 packs/day for 30.0 years (60.0 ttl pk-yrs) Types: Cigarettes Start date: 02/12/1949 Quit date: 02/12/1979 Years since quittin.5 Smokeless tobacco: Never Tobacco comments: quite smoking in the Substance Use Topics Alcohol use: Yes Alcohol/week: 8.4 oz Types: 7 Glasses of wine, 7 Cans of beer per week Comment: couple of beers daily Review of Systems Fatigue and shortness of breath Objective: BP (!) 172/83 Pulse 57 Temp 98 F (36.7 C) (Oral) Resp 20 Ht6' (1.829 m) Wt 185 lb (83.9 kg) SpO2 98% BMI 25.09 kg/m General: alert, appears stated age, and cooperative Neck: nontender Lung: coarse LLL Heart: Regular rhythm with freq systolic extra beats, bradycardia Abdomen: soft and nontender Extremities: no edema BLE Pulses: 2+ and symmetric BLE Skin: warm and dry Neuro: normal without focal findings, YARON, and mental status, speechnormal, alert and oriented x iii Diagnostic tests Lab Results Component Value Date WBC 6.3 08/21/2023 HGB 13.8 08/21/2023 HCT 41.8 08/21/2023 PLT 268 08/21/2023 Lab Results Component Value Date CREATININE 1.06 08/21/2023 BUN 18 08/21/2023 NA 141 08/21/2023 K 3.9 08/21/2023 CL 106 08/21/2023 CO2 22 08/21/2023 Lab Results Component Value Date CHOLESTEROL 153 11/09/2022 TRIG 107 11/09/2022 HDL 68 11/09/2022 LDLCALC 66 11/09/2022 Lab Results Component Value Date ALT 20 08/21/2023 AST 15 08/21/2023 Lab Results Component Value Date TSH 1.420 06/13/2016 Lab Results Component Value Date INR 1.03 04/05/2021 Lab Results Component Value Date TROPONINI <0.01 03/28/2011 TROPONINI <0.01 03/28/2011 TROPONINI <0.01 03/27/2011 Chest X-Ray: 08/20 IMPRESSION: Emphysema. Increased lung markings in lung bases likely vascularcrowding EC/8 Mobitz type II with bigeminy PVCs 55, LBBB Telemetry: Mobitz type II, bradycardia, Bigeminy PVCs, 3 beats NSVT,couplets, MF PVCs Echocardiogram: 10/20/2020 CONCLUSIONS Left Ventricular ejection fraction is estimated at 55%. Left Ventricular ejection fraction is estimated at 55%. Interatrial septum appears aneurysmal. . Mild subvalvular mitral valve calcification. Mild mitralregurgitation. Diffuse thickening (sclerosis) of the aortic valve cusps without reducedexcursion. No aortic valve stenosis or regurgitation. Ischemic Evaluation: [facility] 06/03/2021 Result status: Final result Inf Sept lesion is 100% stenosed. Prox Cx to Dist Cx lesion is 10% stenosed. LPAV lesion is 10% stenosed. 2nd LPL lesion is 60% stenosed. 3rd Mrg lesion is 100% stenosed. 2nd Diag lesion is 70% stenosed. Ost RCA to Prox RCA lesion is 100% stenosed. Origin to Prox Graft lesion is 100% stenosed. Final Impression: 1. Coronary artery disease as described above 2. Minimal coronary artery disease involving the LAD and patent stent inthe left circumflex artery. A distal branch of the dominant circumflexartery with previous stent is occluded. Patent saphenous vein graft tothe diagonal branch and circumflex artery. Occluded seventh vein graft tothe right coronary artery. 3. Normal filling pressures. 4. Left ventricular systolic function is normal 5. Angina with patent large branches of the coronary artery and saphenousvein graft to the diagonal and obtuse marginal branch. Holter Monitor 05/21/15 48 hrs - 5637 PVCs & 8591 PACs - Couplets, bigeminy, trigeminy The most recent cardiovascular imaging studies availabe in [facility] EMR werereviewed at time of consultation Assessment: There are no active hospital problems to display for this patient. Plan: Patient is a pleasant 82-year-old male who presented to the ED due toincrease in shortness of breath and weakness. He has a past medicalhistory of CAD with CABG x 3/stents, HTN, HLD, R Kidney Cancer, LBBB,COPD, Raynauds and hypothyrodism. 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 PPM Freq PVCs - If PPM placed tx with BB? vs ablation based on % PVCs? NPO at midnight Stat Echocardiogram Plan for PPM possibly tomorrow Further recommendations per Dr. Chavez. Krissy Parisi, SULEMAN Mobitz II AVB. Rec ppm. The risks, benefits and alternatives of theprocedure were discussed with the patient. The risks including, but notlimited to, the risks of bleeding, infection, pain, device malfunction,lead dislodgement, radiation exposure, injury to cardiac and surroundingstructures (including pneumothorax), stroke, cardiac perforation,tamponade, need for emergent heart surgery, myocardial infarction anddeath were discussed in detail. The patient opted to proceed with thedevice implantation. Written informed consent was signed and placed in thechart. Shani Chavez MD, PhD Electrophysiology SALINE LOCK IV STAT 08/21/2023 3:36 PM EDT EK EKG 12 LEAD STAT 08/21/2023 2:49 PM EDT POCT EKG Routine 05/25/2023 1:29 PM EDT Hx of CABG LBBB (left bundle branch block) LIPID SCREEN Routine 11/09/2022 9:07 AM EDT 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) Essential hypertension Dyslipidemia LBBB (left bundle branch block) LV dysfunction [facility] CAROTID DUPLEX BILATERAL Routine 05/25/2021 2:55 PM EDT 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) Essential hypertension Pure hypercholesterolemia Carotid artery disease, unspecified laterality, unspecified type Unsteadiness on feet LEFT VENTRICULOGRAM Routine 04/05/2021 2:52 PM EST Status post coronary artery bypass graft Shortness of breath Other chest pain CARDIAC PROCEDURE Routine 04/05/2021 2:52 PM EST Status post coronary artery bypass graft Shortness of breath Other chest pain CARDIAC PROCEDURE Routine 04/05/2021 2:52 PM EST Status post coronary artery bypass graft Shortness of breath Other chest pain POCT CO-OXIMETRY Routine 04/05/2021 2:38 PM EST POCT CO-OXIMETRY Routine 04/05/2021 2:37 PM EST POCT CO-OXIMETRY Routine 04/05/2021 2:36 PM EST MURAL ARTIST HEMODYNAMIC WAVEFORMS Routine 04/05/2021 2:21 PM EST PT / INR Routine 04/05/2021 11:31 AM EST 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) SOBOE (shortness of breath on exertion) Fatigue, unspecified type Essential hypertension LV dysfunction CBC WITH DIFF Routine 04/05/2021 11:31 AM EST 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) SOBOE (shortness of breath on exertion) Fatigue, unspecified type Essential hypertension LV dysfunction BASIC METABOLIC PANEL Routine 04/05/2021 11:30 AM EST 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) SOBOE (shortness of breath on exertion) Fatigue, unspecified type Essential hypertension LV dysfunction CORONAVIRUS 2019 Routine 04/01/2021 9:27 AM EST Pre-op testing Encounter for laboratory testing for COVID-19 virus POCT EKG Routine 03/28/2021 10:07 AM EST 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) EC ECHOCARDIOGRAM COMPLETE W DOPPLER AND COLOR FLOW MAPPING Routine 10/20/2020 4:54 PM EDT Fatigue, unspecified type SOBOE (shortness of breath on exertion) Coronary artery disease involving coronary bypass graft 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 angina pectoris Essential hypertension Pure hypercholesterolemia HEPATIC FUNCTION PANEL Routine 9:58 AM EDT Fatigue, unspecified type SOBOE (shortness of breath on exertion) Coronary artery disease involving coronary bypass graft 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 angina pectoris Essential hypertension Pure hypercholesterolemia LIPID SCREEN Routine 10/19/2020 9:58 AM EDT Fatigue, unspecified type SOBOE (shortness of breath on exertion) Coronary artery disease involving coronary bypass graft 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 angina pectoris Essential hypertension Pure hypercholesterolemia CT CHEST WO CONTRAST Routine 08/22/2020 10:18 AM EDT Bronchiectasis without complication (HCC) POCT EKG Routine 03/02/2020 2:05 PM EST Coronary artery disease involving sleetmute coronary artery 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 angina pectoris PVC (premature ventricular contraction) CBC Routine 11/11/2019 9:18 AM EDT Mixed hyperlipidemia Coronary artery disease involving sleetmute coronary artery 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 angina pectoris PVC (premature ventricular contraction) S/P CABG (coronary artery bypass graft) SOBOE (shortness of breath on exertion) Dyslipidemia BASIC METABOLIC PANEL Routine 11/11/2019 9:18 AM EDT Mixed hyperlipidemia Coronary artery disease involving sleetmute coronary artery 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 angina pectoris PVC (premature ventricular contraction) S/P CABG (coronary artery bypass graft) SOBOE (shortness of breath on exertion) Dyslipidemia HEPATIC FUNCTION PANEL Routine 0 9:18 AM EDT Mixed hyperlipidemia Coronary artery disease involving sleetmute coronary artery 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 angina pectoris PVC (premature ventricular contraction) S/P CABG (coronary artery bypass graft) SOBOE (shortness of breath on exertion) Dyslipidemia LIPID SCREEN Routine 11/11/2019 9:18 AM EDT Mixed hyperlipidemia Coronary artery disease involving sleetmute coronary artery 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 angina pectoris PVC (premature ventricular contraction) S/P CABG (coronary artery bypass graft) SOBOE (shortness of breath on exertion) Dyslipidemia SCANNED LABS 09/16/2019 12:57 PM EDT NM MYOCARDIAL PERFUSION SPECT STRESS AND REST Routine 03/20/2019 12:10 PM EST Coronary artery disease involving sleetmute coronary artery 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 angina pectoris PVC (premature ventricular contraction) LBBB (left bundle branch block) Encounter for screening for cardiovascular disorders Chest pain due to myocardial ischemia, unspecified ischemic chest pain type SCANNED RADIOLOGY REPORT 03/20/2019 11:[address] STRESS TEST LEXISCAN Routine 03/20/2019 11:19 AM EST Coronary artery disease involving sleetmute coronary artery 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 angina pectoris PVC (premature ventricular contraction) LBBB (left bundle branch block) Chest pain due to myocardial ischemia, unspecified ischemic chest pain type CBC Routine 03/04/2019 1:39 PM EST Coronary artery disease involving sleetmute coronary artery 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 angina pectoris PVC (premature ventricular contraction) LBBB (left bundle branch block) Chest pain due to myocardial ischemia, unspecified ischemic chest pain type BASIC METABOLIC PANEL Routine 03/04/2019 1:39 PM EST Coronary artery disease involving sleetmute coronary artery 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 angina pectoris PVC (premature ventricular contraction) LBBB (left bundle branch block) Chest pain due to myocardial ischemia, unspecified ischemic chest pain type HEPATIC FUNCTION PANEL Routine 0 1:39 PM EST Coronary artery disease involving sleetmute coronary artery 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 angina pectoris PVC (premature ventricular contraction) LBBB (left bundle branch block) Chest pain due to myocardial ischemia, unspecified ischemic chest pain type LIPID SCREEN Routine 03/04/2019 1:39 PM EST Coronary artery disease involving sleetmute coronary artery 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 angina pectoris PVC (premature ventricular contraction) LBBB (left bundle branch block) Chest pain due to myocardial ischemia, unspecified ischemic chest pain type POCT EKG Routine 12/03/2018 5:00 AM EDT LBBB (left bundle branch block) SCANNED LABS 06/06/2018 3:50 PM EDT SCANNED LABS 02/22/2018 1:49 PM EST POCT EKG Routine 11/13/2017 4:18 PM EDT PVC (premature ventricular contraction) SCANNED RHYTHM STRIPS 08/08/2017 10:19 AM EDT LEFT VENTRICULOGRAM Routine 08/08/2017 9:42 AM EDT Shortness of breath Abnormal EKG CARDIAC PROCEDURE Routine 08/08/2017 9:42 AM EDT Shortness of breath Abnormal EKG CARDIAC PROCEDURE Routine 08/08/2017 9:42 AM EDT Shortness of breath Abnormal EKG MURAL ARTIST HEMODYNAMIC WAVEFORMS Routine 08/08/2017 9:03 AM EDT BASIC METABOLIC PANEL STAT 08/08/2017 7:32 AM EDT CBC WITH DIFF STAT 08/08/2017 7:32 AM EDT POCT EKG Routine 07/24/2017 3:29 PM EDT Essential hypertension Coronary artery disease involving sleetmute coronary artery 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 angina pectoris LBBB (left bundle branch block) BASIC METABOLIC PANEL Routine 04/04/2017 10:23 AM EST SCANNED LABS 03/23/2017 9:32 AM EST POCT BRENDA FLOW VOLUME LOOP Routine 03/01/2017 3:23 PM EST Simple chronic bronchitis (HCC) XR CHEST PA AND LATERAL Routine 02/22/2017 5:23 PM EST Pulmonary nodule COPD, moderate (HCC) CBC WITH DIFF Routine 02/22/2017 4:44 PM EST Pulmonary nodule COPD, moderate (HCC) BASIC METABOLIC PANEL Routine 02/22/2017 4:44 PM EST Shortness of breath SCANNED EKG 02/11/2017 11:16 PM EST SCANNED RHYTHM STRIPS 02/11/2017 11:16 PM EST IP CONSULT TO DURABLE MEDICAL EQUIPMENT Routine 02/09/2017 12:01 PM EST LOWER RESPIRATORY CULTURE (STAIN INCLUDED) Routine 02/09/2017 10:41 AM EST BLOOD GAS ARTERIAL Routine 02/09/2017 6:22 AM EST BASIC METABOLIC PANEL Early AM 02/09/2017 6:15 AM EST CBC WITH DIFF Early AM 02/09/2017 6:15 AM EST RAST - REF LAB Routine 02/08/2017 8:14 PM EST ALLERGEN, REGION 5 RESPIRATORY PANEL-REF LAB Routine 02/08/2017 8:14 PM EST [id number]-3-[id number] -REF LAB Routine 02/08/2017 8:14 PM EST SCANNED RHYTHM STRIPS 02/08/2017 7:08 PM EST LACTIC ACID Timed 02/08/2017 11:57 AM EST IP CONSULT TO PULMONOLOGY Routine 02/08/2017 10:12 AM EST Procedure Note - Lebron Murguia MD - 02/08/2017 10:32 AM ESTThis note is in progress. Images from the original note were not included. Initial Hospital Care 02/08/2017 Lebron Murguia MD [facility] Room [id number] MEDICAL DECISION MAKING Assessment & Plan Very small and possibly very slow growing pulmonary nodule in aninaccessible space. Nodule is small enough that accurate measures anddifficult and biopsy attempts would be very low yield with increasedrisk Symptoms are primarily obstructive lung disease continue bronchodilatorsand obtain pft's and check IgE panel BiApical emphysema check Alpha One AT levels Repeat ct chest in 6 mos Nodule is below the threshold where PET scanning would add anyinformation Discussed c family at the bedside LVEF depressed contributing to ORR Check sputum gram stain and culture Diagnoses Wilfred Sharma is a 76 y.o. male who is currently hospitalized due toPrincipal Problem: COPD exacerbation vs. PneumoniaActive HospitalProblems: Present on Admission: CAD (coronary artery disease) COPD (chronic obstructive pulmonary disease) (HCC) Diabetes mellitus, type 2 (HCC) Hyperlipidemia Hypertension Hypothyroidism COPD exacerbation vs. Pneumonia Pulmonary nodule S/p nephrectomy Hypokalemia High anion gap metabolic acidosis Risk of Fazjlptehqss-Ifjshbeki-Jneoutghb Wilfred has been in the hospital for LOS: 1 day . He is currentlyunstable, is at high risk due to illness which poses threat to life orbodily function, is receiving an IV controlled substance, has had asignificant new problem and/or decision to de-escalate care/DNR Code Status Full Code HISTORY of PRESENT ILLNESS Chief Complaint Wilfred Sharma is a 76 y.o. male admitted with a ChiefComplaint of Dyspnea Present Illness Wilfred presented to the hospital for several days with increasingshortness of breath coughing wheezing. [facility] was found to be inrespiratory distress. He has had yellow-green thick sputum over the lastseveral days but denies any hemoptysis. Slightly less short of breathwith corticosteroids and antibiotics administered since admissionhospital. He describes dyspnea on exertion now approximately 30-40 feetand with usual activities of daily living. Initial chest x-ray revealed asmall pulmonary nodule which is followed up and confirmed by CT scan ofthe chest. Patient was unaware of the nodule was present in his chest. Past Medical History: Diagnosis Date Arthritis 01/24/2011 CAD (coronary artery disease) cabg x 3v, 3 stents Cancer (HCC) r. 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 knee scope THYROID SURGERY 03/17 removed TOE AMPUTATION traumatic/ left foot UPPER GASTROINTESTINAL ENDOSCOPY UPPER GASTROINTESTINAL ENDOSCOPY N/A 02/01/2015 ESOPHAGOGASTRODUODENOSCOPY with biopsy and bernard dilation; COLONOSCOPYwith snare polypectomy and biopsy; Surgeon: Reed Bull MD;Location: [facility]; Service: Endoscopy Allergies Allergen Reactions Lipitor [Atorvastatin] Pt. States that he has no allergies to Lipitor. Jittery , intolerance Lisinopril cough Current Meds albuterol-ipratropium 3 mL Nebulization RESP QID amLODIPine 10 mg Oral Daily aspirin 81 mg Oral Daily cefTRIAXone (ROCEPHIN) IVPB (Orderable) 2 g Intravenous Daily cetirizine 10 mg Oral Daily clopidogrel 75 mg Oral Daily doxycycline (VIBRAMYCIN) IVPB 100 mg Intravenous 2 times per day fluticasone 1 Emmalena Each Nare Daily fUROsemide 20 mg Oral Q48H hydroCHLOROthiazide 12.5 mg Oral Daily isosorbide mononitrate 30 mg Oral QAM levothyroxine 75 mcg Oral AC BREAKFAST losartan 100 mg Oral Daily metoprolol succinate 25 mg Oral Daily potassium chloride 10 mEq Oral Daily pravastatin 40 mg Oral Nightly predniSONE 40 mg Oral Daily WM PRN Meds albuterol-ipratropium AND albuterol, nitroGLYCERIN Infusions Prior to Admission medications Medication Sig Start Date End Date Taking? Authorizing Provider albuterol (PROVENTIL HFA;VENTOLIN HFA) 90 mcg/actuation Inhl HFA AerosolInhaler Inhale 2 Puffs into the lungs every 6 hours as needed forWheezing. Yes Provider, Historical albuterol sulfate (ACCUNEB) 2.5 mg/0.5 mL Nebu Take 2.5 mg by nebulizationas needed. Yes Provider, Historical amLODIPine (NORVASC) 10 mg Oral Tablet Take 1 Tab by mouth daily. 01/16/17Yes Khadijah West MD aspirin 81 mg tablet Take 81 mg by mouth daily. Yes Provider, Historical cetirizine (ZYRTEC) 10 mg Oral Tablet Take 10 mg by mouth 2 times daily.Yes Provider, Historical clopidogrel (PLAVIX) 75 mg tablet Take 1 Tab by mouth daily. 11/05/12 YesKhadijah West MD fluticasone (FLONASE) 50 mcg/actuation Nasl Emmalena, Suspension by Nasalroute daily. Yes Provider, Historical fUROsemide (LASIX) 20 mg Oral Tablet Take 1 Tab by mouth every 48 hours asneeded. 01/16/17 Yes Khadijah West MD hydrochlorothiazide (MICROZIDE) 12.5 mg Oral Capsule Take 1 Cap by mouthdaily. Take 1/2 of your 25 mg tablet every morning ( new decreased dose) Patient taking differently: Take 25 mg by mouth daily. Take 1/2 of your 25mg tablet every morning ( new decreased dose) 12/17/14 Yes Tatiana Apodaca MD isosorbide mononitrate (IMDUR) 30 mg CR tablet Take 1 Tab by mouth everymorning. 01/30/13 Yes Khadijah West MD LEVOTHYROXINE SODIUM (SYNTHROID ORAL) Take 75 mcg by mouth beforebreakfast. Pt unsure of dose at this current time Yes Provider, Historical losartan (COZAAR) 100 mg tablet Take 100 mg by mouth daily. YesProvider, Historical metoprolol succinate (TOPROL-XL) 25 mg Oral Tablet Sustained Release 24 hrTake 1 Tab by mouth daily. 06/22/16 Yes Khadijah West MD nitroGLYCERIN (NITROSTAT) 0.4 mg SL Tablet, Sublingual Place 1 Tab underthe tongue every 5 minutes as needed. 12/30/14 Yes Khadijah West MD potassium chloride (K-DUR) 10 mEq Oral Tablet Sustained Release Take 1 Tabby mouth daily. This is reduced dose from twice A day Patient taking differently: Take 10 mEq by mouth daily. 12/17/14 Tatiana Garcia MD pravastatin (PRAVACHOL) 40 mg tablet Take 40 mg by mouth nightly. YesProvider, Historical Family History Problem Relation Age of Onset Heart Disease Mother CHF Heart Disease Father myocardial infarction High Blood Pressure Brother Arthritis Brother Heart Disease Brother myocardial infarction Heart Disease Brother myocardial infarction Otherwise, no family history of pulmonary disease. Social History Wilfred reports that he quit smoking about 38 years ago.His smoking use included Cigarettes. He has a 60.00 pack-year smokinghistory. He has never used smokeless tobacco. He reports that he drinksabout 8.4 oz of alcohol per week . He reports that he does not currentlyengage in sexual activity. He reports that he does not use drugs. Review of Systems He has had no chronic constitutional symptoms of fevers, chills or nightsweats. All other systems are negative except as outlined above. Review of Systems - History obtained from the patient General ROS: negative Psychological ROS: negative Ophthalmic ROS: negative ENT ROS: negative Allergy and Immunology ROS: negative Endocrine ROS: negative Breast ROS: negative Respiratory ROS: positive for - shortness of breath Cardiovascular ROS: negative Gastrointestinal ROS: negative Genito-Urinary ROS: negative Musculoskeletal ROS: negative Neurological ROS: negative Dermatological ROS: negative EXAMINATION Vital Blood Pressure: 118/53 Temp: 98.4 F (36.9 C) Signs Pulse: 79 Resp: 16 SpO2: 98 % Constitutional Wilfred is alert, well developed, well nourished, in noacute distress [id number] normocephalic, atraumatic, sclera and conjunctiva clear,PERRL, EOMI, oropharynx clear, good dental/gum hygiene and normal nose Neck supple with midline trachea, no tenderness, no JVD Respiratory symmetrical chest expansion, wheezes bilaterally and clear topercussion and palpation Cardiac S1, S2 normal; no murmur, rub or gallop; regular rate and rhythm Abdomen soft, non-tender; bowel sounds normal; no masses, noorganomegaly Lymphatic no cervical adenopathy Musculoskeletal- NeuroPsych no focal neurological deficits, affect appropriate and alert,oriented x3 Extremities no cyanosis, clubbing or edema Skin no rashes or suspicious lesions, no evidence of bleeding or bruising DATAREVIEWED (I have reviewed all data listed below) HEMODYNAMIC DATA BP Min: 102/89 Max: 155/64 Pulse Av.6 Min: 75 Max: 96 I/O last 3 completed shifts: In: 1846 [P.O.:240; IV Piggyback:1606] Out: 375 [Urine:375] Wt Readings from Last 2 Encounters: 02/07/17 186 lb (84.4 kg) 01/16/17 186 lb 12.8 oz (84.7 kg) Wt Reading from Admission: 02/07/2017 186 lb (84.4 kg) Lab Results Component Value Date/Time BNP 764 (H) 02/07/2017 06:39 PM SPECGRAV 1.041 (H) 02/08/2017 04:18 AM SUPPLEMENTAL O2 & NIV (last filed) O2 Device: Nasal cannula O2 Flow Rate (L/min): 2 lpm MECHANICAL VENTILATION (last filed) BLOOD GAS & ACID BASE DATA SpO2 Av.5 % Min: 85 % Max: 100 % Lab Results Component Value Date/Time ANIONGAP 15 02/08/2017 06:28 AM LACTA 3.5 (H) 02/08/2017 09:02 AM KETONESU Negative 02/08/2017 04:18 AM RENAL & METABOLIC DATA Lab Results Component Value Date/Time GLU 137 (H) 02/08/2017 06:28 AM BUN 23 02/08/2017 06:28 AM CREATININE 1.22 02/08/2017 06:28 AM NA 137 02/08/2017 06:28 AM K 3.2 (L) 02/08/2017 06:28 AM CL 95 (L) 02/08/2017 06:28 AM CO2 27 02/08/2017 06:28 AM CALCIUM 8.3 (L) 02/08/2017 06:28 AM GFRAFRAM 67 02/08/2017 06:28 AM HEMATOLOGY & COAGULATION DATA Recent Labs 02/07/17 18302/[id number]/[id number] WBC 15.9* 13.9* HGB 16.2 14.0 HCT 47.2 41.2 PLT 306 301 Recent Labs 02/07/171838 DDIMER 366* INFECTION DATA Temp (24hrs), Av.3 F (36.8 C), Min:97.7 F (36.5 C), Max:98.7 F(37.1 C) Lab Results Component Value Date/Time STREPPNEUMAG Not Detected 02/08/2017 04:19 AM LEGIONELLAAG Not Detected 02/08/2017 04:18 AM RAPFLUA Not Detected 02/08/2017 04:18 AM RAPFLUB Not Detected 02/08/2017 04:18 AM RBCUA 2 02/08/2017 04:18 AM WBCUA 1 02/08/2017 04:18 AM NITRITE Negative 02/08/2017 04:18 AM Results for orders placed or performed during the hospital encounter of02/07/17 (from the past 336 hour(s)) BLOOD CULTURE (NO STAIN) Collection Time: 02/07/17 6:39 PM Result Value Ref Range Culture Result Blood culture received for processing in the laboratory. Positives willbe reported immediately. BLOOD CULTURE (NO STAIN) Collection Time: 02/07/17 6:39 PM Result Value Ref Range Culture Result Blood culture received for processing in the laboratory. Positives willbe reported immediately. LEGIONELLA ANTIGEN URINE Collection Time: 02/08/17 4:18 AM Result Value Ref Range Legionella Ag Not Detected Not Detected INFLUENZA A/B ANTIGENS Collection Time: 02/08/17 4:18 AM Result Value Ref Range Influ A Ag Not Detected Not Detected Influ B Ag Not Detected Not Detected STREP PNEUMO ANTIGEN Collection Time: 02/08/17 4:19 AM Result Value Ref Range Strep Pneum Ag Not Detected Not Detected GI & NUTRITION DATA Diet CARDIAC DIET IMAGING DATA Ct Angiogram Chest W Contrast Result Date: 02/07/2017 CT ANGIOGRAM CHEST WITH CONTRAST, 02/07/2017 9:02 PM CLINICAL HISTORY:-Chest pain, acute, PE suspected, intermed prob, positive [id number] OF BREATH COMPARISON: Chest CT from 04/10/2012. TECHNIQUE: CTangiogram of the chest with 50 mL Isovue 370 intravenous contrast materialwith 2-D multiplanar reconstructions and 3-D MIP reconstructions.Automated exposure control for dose reduction was used. CTDIvol: .6 - 8.7mGy. DLP: 375 mGy-cm. FINDINGS: Good opacification of the pulmonaryarterial tree without filling defect to suggest PE. Wdbw-em-hkgamrmo mixedatherosclerotic plaque thoracic aorta without aneurysm or dissection.Prior CABG. Prominent emphysematous changes greatest at the lung apicesredemonstrated as is mild scarring at the lung apices and within thelingula. There is a small noncalcified nodule in the left posteriorcostophrenic sulcus which measures about 5 mm, previously about 3 mmsuspicious for slow growing neoplasm. Small calcified granulomaposteriorly in the left upper lung. No infiltrate, mass, or adenopathy. Nopleural or pericardial effusion. Couple small ovoid densities in theproximal stomach consistent with pills. Few tiny calcified splenicgranulomas. Few tiny dependent densities in the gallbladder consistentwith gallstones. No CT evidence of cholecystitis. Fatty atrophy of thepancreas. Included subdiaphragmatic viscera otherwise unremarkable. Mildlyenlarged, heterogeneous right thyroid lobe appearing similar likely due togoiter. Prior left thyroidectomy. No PE or infiltrate. Emphysema. Small, slowly enlarging noncalcifiednodule left posterior costophrenic sulcus suspicious for slow growingneoplasm. Cholelithiasis. Xr Chest Ap Portable Result Date: 02/07/2017 XR CHEST AP PORTABLE 02/07/2017 7:12 PM HISTORY: -SHORTNESS OF BREATHCOMPARE: 12/15/2014. Prior sternotomy. Heart size normal. COPD changes areagain noted, with decreased upper lung markings and slight crowding oflower lung markings, similar prior. No localized infiltrate, fluid, orfailure. COPD. No acute disease identified. The Ek Ekg 12 Lead Result Date: 02/07/2017 NOTICE: Preliminary tracing available for review; Final Interpretation byphysician to follow. Stationary ECG StudySt. Beatriz GarayInterpretive Statements SINUSRHYTHM INTRAVENTRICULAR CONDUCTION DELAY ANTEROSEPTAL MYOCARDIALINFARCTION, OF INDETERMINATE AGE WARNING: DATA QUALITY MAY AFFECTINTERPRETATION Medical Comorbidity Pulmonary Functions Testing Results: No results found for: FEV1, FVC, [id number], TLC, DLCO (FEV1 < 60% predicted= moderate or severe pulmonary disease) No results found for this or any previous visit. ABG No results found for: PCO2, HCO3 (pCO2 > 45 or HCO3 > 29 indicateshypoventilation) Echocardiogram Results for orders placed during the hospital encounter of 01/23/17 EC ECHOCARDIOGRAM COMPLETE W DOPPLER AND COLOR FLOW MAPPING Impression CONCLUSIONS Left ventricular ejection fraction is mildly reduced. [id number] mitral regurgitation by color flow doppler. No aortic valve stenosis or regurgitation. Data obtained from chart nursing consultants family and patientinterview Lebron Murguia MD [facility] REPEAT LACTIC ACID Routine 02/08/2017 9:02 AM EST LOWER RESPIRATORY CULTURE (STAIN INCLUDED) Routine 02/08/2017 6:41 AM EST LACTIC ACID Timed 02/08/2017 6:28 AM EST BASIC METABOLIC PANEL Early AM 02/08/2017 6:28 AM EST CBC WITH DIFF Early AM 02/08/2017 6:28 AM EST LIPID SCREEN Routine 02/08/2017 6:28 AM EST MICROALBUMIN/CREATININ E RATIO URINE Routine 02/08/2017 4:19 AM EST STREP PNEUMO ANTIGEN Routine 02/08/2017 4:19 AM EST URINALYSIS Routine 02/08/2017 4:18 AM EST INFLUENZA A/B ANTIGENS Routine 7 4:18 AM EST URINE CULTURE (NO STAIN) Routine 02/08/2017 4:18 AM EST LEGIONELLA ANTIGEN URINE Routine 02/08/2017 4:18 AM EST TROPONIN-T Timed 02/08/2017 12:20 AM EST HEMOGLOBIN A1C Routine 02/08/2017 12:20 AM EST TSH REFLEX TO FT4 Routine 02/08/2017 12:20 AM EST PROCALCITONIN Routine 02/08/2017 12:20 AM EST REPEAT LACTIC ACID Routine 02/08/2017 12:[address] ANGIOGRAM CHEST W CONTRAST STAT 02/07/2017 9:02 PM EST TROPONIN-T Timed 02/07/2017 8:41 PM EST XR CHEST AP PORTABLE MARCI 02/07/2017 7:12 PM EST NT PROBNP STAT 02/07/2017 6:39 PM EST D-DIMER STAT 02/07/2017 6:39 PM EST LACTIC ACID STAT 02/07/2017 6:39 PM EST TROPONIN-T STAT 02/07/2017 6:39 PM EST BASIC METABOLIC PANEL STAT 02/07/2017 6:39 PM EST CBC WITH DIFF STAT 02/07/2017 6:39 PM EST BLOOD CULTURE (NO STAIN) STAT 02/07/2017 6:39 PM EST BLOOD CULTURE (NO STAIN) STAT 02/07/2017 6:39 PM EST EK EKG 12 LEAD STAT 02/07/2017 6:15 PM EST EC ECHOCARDIOGRAM COMPLETE W DOPPLER AND COLOR FLOW MAPPING Routine 01/23/2017 3:23 PM EST PVC (premature ventricular contraction) Hyperlipidemia, unspecified hyperlipidemia type Essential hypertension Angina pectoris (HCC) Coronary artery disease involving [place] coronary artery 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 angina pectoris Hx of CABG Chest heaviness SOB (shortness of breath) Simple chronic bronchitis (HCC) TSH REFLEX TO FT4 Routine 06/13/2016 PROSTATE SPECIFIC ANTIGEN (SCREENING) Routine 06/13/2016 LIPID PANEL REFLEX Routine 06/13/2016 COMPREHENSIVE METABOLIC PANEL Routine 06/13/2016 CBC WITH DIFF Routine 06/13/2016 VA US CAROTID DUPLEX BILATERAL Routine 10/05/2015 9:55 AM EDT Dizziness SCANNED HOLTER MONITOR 04/07/201 6 4:08 PM EDT SCANNED EKG 05/05/2015 7:13 AM EDT HM HOLTER MONITOR RECORDING AND ANALYSIS Routine 05/04/2015 5:09 PM EDT Hx of CABG LBBB (left bundle branch block) PVC (premature ventricular contraction) STREP A DNA STAT 05/03/2015 5:45 PM EDT STREP SCREEN STAT 05/03/2015 5:45 PM EDT DIFFERENTIAL STAT 05/03/2015 3:56 PM EDT TROPONIN-T STAT 05/03/2015 3:56 PM EDT BASIC METABOLIC PANEL STAT 05/03/2015 3:56 PM EDT CBC WITH DIFF STAT 05/03/2015 3:56 PM EDT EK EKG 12 LEAD STAT 05/03/2015 3:31 PM EDT SALINE LOCK IV STAT 05/03/2015 3:22 PM EDT SCANNED RHYTHM STRIPS 02/11/2015 2:28 PM EST GLUCOSE METER POC Routine 02/09/2015 1:56 PM EST GLUCOSE METER POC Routine 02/09/2015 9:12 AM EST GLUCOSE METER POC Routine 02/08/2015 9:32 PM EST GLUCOSE METER POC Routine 02/08/2015 5:59 PM EST DAVINCI ROBOTIC REPAIR OF UNILATERAL INGUINAL HERNIA 02/08/2015 12:52 PM EST Bilateral inguinal hernia without obstruction or gangrene, recurrence not specified Gall stones Special Needs LINNEA03/31/14 @ 1400 Left message for pre-op appoinment JCREV;DATE CHG FROM 02/22 PER LINNEA LAGUNAS 01/26MD WOULD LIKE EARLIER START PER LINNEA LAGUNAS 01/26REV;DELETED LAPAROSCOPIC CHOLECYSTECTOMY PER LUDY LAGUNAS 02/03 PATHOLOGY TISSUE REPORT Routine 02/01/2015 10:28 AM EST COLONOSCOPY 02/01/2015 10:09 AM EST Altered bowel function Loss of weight Nausea Special Needs THERESAREV;DATE CHG FROM 02/16 PER HOLLY LAGUNAS 15NA 01/27 01/28 DTDATABASE ESOPHAGOGASTRODUODENOS COPY 02/01/2015 10:09 AM EST Altered bowel function Loss of weight Nausea Special Needs THERESAREV;DATE CHG FROM 02/16 PER HOLLY LAGUNAS 15NA 01/27 01/28 DTDATABASE GMED EGD-COLONOSCOPY Routine 02/01/2015 10:00 AM EST HEPATIC FUNCTION PANEL Routine 5 2:44 PM EST Gall stones CBC Routine 01/25/2015 2:44 PM EST Gall stones US RIGHT UPPER QUADRANT STAT 01/15/2015 4:18 PM EST Right upper quadrant pain CT ABDOMEN PELVIS W WO CONTRAST Routine 01/12/2015 11:08 AM EST Abdominal pain, generalized SCANNED EKG 12/21/2014 1:44 AM EST SCANNED RHYTHM STRIPS 12/21/2014 1:44 AM EST SCANNED RHYTHM STRIPS 12/17/2014 9:42 AM EST SCANNED RHYTHM STRIPS 12/16/2014 11:00 PM EST GLUCOSE METER POC Routine 12/16/2014 9:38 PM EST MRI ANGIOGRAM EXTRACRANIAL WO CONTRAST Routine 12/16/2014 8:56 PM EST MRI ANGIOGRAM INTRACRANIAL WO CONTRAST MARCI 12/16/2014 8:46 PM EST GLUCOSE METER POC Routine 12/16/2014 6:21 PM EST IP CONSULT TO CARDIOLOGY Routine 12/16/2014 4:45 PM EST Procedure Note - Khadijah West MD - 12/17/2014 9:28 AM ESTThis note is in progress. Cardiology Consult [facility]hadijah West MD, [facility] Name: Wilfred Sharma : 1940 Consulting Physician Tatiana Apodaca MD Chief Complaint: Chief Complaint Patient presents with Near Syncope Pt states was cooking in kitchen and began to feel lightheaded. Sat downand daughter brought him here. CPTA- none HPI 74 yo male Pt of Dr. West CAD s/p CABG 2002, 3 stents [id number] LBBB HTN HLD DM2 COPD, Asthma This admission: Pt states that he just felt a little lightheaded all day . Was fryingfish and drinking wine when he felt like he was going to faint. Sat downand felt better. Got up to turn off oven and immediatly felt faint again.States he was near syncope. Denies cp, sob, palps, orthopnea, PND,edema. Active lifestyle, still works, makes sure to drink a lot of water eachday. Hx of vertigo but this was different from vertigo episodes.Former smoker, ETOH 2/day Pt has lost 10 lbs by diet but was still surprised recently at how much helost. Takes daily HCTZ. BP is labile; this am 94/67. Does not check athome. At one point he had Found to have bradycardia and hyokalemia - LowK causing PVC causing erronious HR . --Echo: Left Ventricular ejection fraction is estimated at 50%. Mild mitral regurgitation. Trace to mild tricuspid regurgitation. --EKG: SR with IVCD and possible anterior [place], old. Unchanged fromprior --MRI Extracranial: 1. Normal extracranial MRA --MRI Angiogram Intracranial: Normal intracranial MRA without contrast. --MRI Brain: No Acute Findings. --CT Head: Unremarkable noncontrast head CT. --CXR: COPD. No acute infiltrate. Signed report Past Medical History Diagnosis Date Arthritis 01/24/2011 COPD (chronic obstructive pulmonary disease) (HCC) 01/24/2011 Hyperlipidemia 01/24/2011 Hypertension 01/24/2011 Hypothyroidism 01/24/2011 half-way current use of aspirin 01/24/2011 Raynaud's disease 01/24/2011 SOB (shortness of breath) 01/24/2011 CAD (coronary artery disease) Kidney tumor due for surgery April 26 NJ (myocardial infarction) (HCC) HOME MEDICATIONS: Prior to Admission medications Medication Sig Start Date End Date Taking? Authorizing Provider metoprolol succinate (TOPROL-XL) 25 mg Oral Tablet Sustained Release 24 hrTake 1 tablet by mouth daily. 11/21/13 Yes Khadijah West MD nitroGLYCERIN (NITROSTAT) 0.4 mg SL Tablet, Sublingual Place 1 tabletunder the tongue every 5 minutes as needed. 11/21/13 Yes Khadijah West MD isosorbide mononitrate (IMDUR) 30 mg CR tablet Take 1 Tab by mouth everymorning. 01/30/13 Yes Khadijah West MD clopidogrel (PLAVIX) 75 mg tablet Take 1 Tab by mouth daily. 11/05/12 YesKhadijah West MD losartan (COZAAR) 100 mg tablet Take 100 mg by mouth daily. YesProvider, Historical LORazepam (ATIVAN) 2 mg tablet Take 2 mg by mouth nightly. Yes Provider,Historical LEVOTHYROXINE SODIUM (SYNTHROID ORAL) Take 100 mcg by mouth beforebreakfast. Pt unsure of dose at this current time Yes Provider, Historical potassium chloride (K-DUR) 10 mEq tablet Take 10 mEq by mouth 2 timesdaily. Yes Provider, Historical pravastatin (PRAVACHOL) 40 mg tablet Take 40 mg by mouth nightly. YesProvider, Historical aspirin 81 mg tablet Take 81 mg by mouth daily. Yes Provider, Historical hydrochlorothiazide (MICROZIDE) 12.5 mg capsule Take 25 mg by mouth daily.Yes Provider, Historical albuterol sulfate (ACCUNEB) 2.5 mg/0.5 mL Nebu Take 2.5 mg by nebulizationas needed. Provider, Historical aclidinium bromide (TUDORZA PRESSAIR) 400 mcg/actuation AePB inhalationpowder Inhale 400 mcg into the lungs 2 times daily. Provider,Historical ibuprofen (ADVIL;MOTRIN) 200 mg tablet Take 200 mg by mouth every 8 hours.Take with meals. Provider, Historical Inhalational Spacing Device (AEROCHAMBER MV) Spcr 1 Each byMisc.(Non-Drug; Combo Route) route 2 times daily. 03/23/11 Lebron Murguia MD No current outpatient prescriptions on file. HOSPITAL MEDICATIONS: Scheduled Meds: insulin aspart 1-10 Units Subcutaneous QID WM levothyroxine 100 mcg Oral AC BREAKFAST losartan 100 mg Oral Daily metoprolol succinate 25 mg Oral Daily sodium chloride 0.9% Intravenous 3 times per day aspirin 81 mg Oral Daily clopidogrel 75 mg Oral Daily isosorbide mononitrate 30 mg Oral QAM pravastatin 40 mg Oral Nightly hydrochlorothiazide 25 mg Oral Daily potassium chloride 10 mEq Oral Daily LORazepam 2 mg Oral Nightly Continuous Infusions: PRN Meds:dextrose, glucagon (human recombinant), albuterol-ipratropiumAND albuterol, sodium chloride 0.9%, sodium chloride 0.9%, ondansetronOR ondansetron, acetaminophen OR acetaminophen, nitroGLYCERIN SOCIAL HISTORY: History Social History Marital Status: Spouse Name: N/A Number of Children: N/A Years of Education: N/A Occupational History Not on file. Social History Main Topics Smoking status: Former Smoker -- 2.00 packs/day for 30 years Types: Cigarettes Quit date: 02/12/1979 Smokeless tobacco: Not on file Comment: quite smoking in the Alcohol Use: 8.4 oz/week 14 Glasses of wine per week Drug Use: No Sexual Activity: Not Currently Comment: Other Topics Concern Not on file Social History Narrative FAMILY HISTORY: Family History Problem Relation Age of Onset Heart Disease Mother CHF Heart Disease Father myocardial infarction High Blood Pressure Brother Arthritis Brother Heart Disease Brother myocardial infarction Heart Disease Brother myocardial infarction History Social History Marital Status: Spouse Name: N/A Number of Children: N/A Years of Education: N/A Occupational History Not on file. Social History Main Topics Smoking status: Former Smoker -- 2.00 packs/day for 30 years Types: Cigarettes Quit date: 02/12/1979 Smokeless tobacco: Not on file Comment: quite smoking in the Alcohol Use: 8.4 oz/week 14 Glasses of wine per week Drug Use: No Sexual Activity: Not Currently Comment: Other Topics Concern Not on file Social History Narrative Allergies Allergen Reactions Lipitor [Atorvastatin] Pt. States that he has no allergies to Lipitor. Jittery , intolerance Lisinopril cough Family History Problem Relation Age of Onset Heart Disease Mother CHF Heart Disease Father myocardial infarction High Blood Pressure Brother Arthritis Brother Heart Disease Brother myocardial infarction Heart Disease Brother myocardial infarction ROS: Constitutional: No fever or chills- No weight loss or gain- Some fatigue-weakness Head: Ear, Nose: No visual changes, No headache, no ear discharge Neck: No sore throat, or neck pain CVS: As mentioned in the HPI- No edema, orthopnea or PND Pulmonary: No cough or sputum production, No wheezing. No NICOLE Abdomen: No pain,Dysphagia,Heart burn, No hematemesis/ hematochezia . : No frequency, polyuria or hemturia Endocrine: No thyroid disease- Polyuria or polydipsia Musculoskelatal: Has Arthralgias and Mylagias- Back pain SIDE PANEL PADDER: No TIA - Stroke - No balance abnormalities- No dysarthria Skin: No rash or eruptions Hematological: No easy bruisability or chronic infections or anemia Psychiatric: No hallucinations- anxiety Objective Filed Vitals: 12/17/14 0759 BP: 94/67 Pulse: 88 Temp: Resp: SpO2: Exam: GENERAL APPEARANCE: Alert- Appears at the stated age-In no acute distres HEENT: Normocephalic, Atraumatic YARON NECK: No JVD No Bruit -No cervical lymph nodes ENDOCRINE: No Thyromegaly RESPIRATORY: Normal breath sounds bilateral - No Rhonch or Rale HEART: Normal S1 S2- No S3, S4 -No Murmur, rub or sheppard VASCULAR: Normal pulses, equal, bilateral-No ischemic ulcers ABDOMEN: Soft, nontender, no organomegaly, no distension NEUROLOGIC: Alert, oriented X 3- Grossly intact, nonfocal SKIN: No rash - No cynosis EXTREMITIES: No edema @THISVISIT@ Labs Lab Results Component Value Date CHOLESTEROL 128 12/16/2014 CHOLESTEROL 168 03/28/2011 Lab Results Component Value Date HDL 42 12/16/2014 HDL 77 03/28/2011 Lab Results Component Value Date LDLCALC 59 12/16/2014 LDLCALC 75 03/28/2011 Lab Results Component Value Date TRIG 133 12/16/2014 TRIG 79 03/28/2011 Lab Results Component Value Date CREATININE 1.27 12/15/2014 BUN 17 12/15/2014 NA 140 12/15/2014 K 3.6 12/15/2014 CL 98 12/15/2014 CO2 27 12/15/2014 Lab Results Component Value Date ALT 30 03/28/2011 AST 22 03/28/2011 ALKPHOS 62 03/28/2011 Lab Results Component Value Date WBC 10.3 12/15/2014 HGB 15.3 12/15/2014 HCT 46.5 12/15/2014 MCV 90.9 12/15/2014 PLT 358 12/15/2014 Lab Results Component Value Date HGBA1C 5.8 12/16/2014 IMAGING: Mri Angiogram Intracranial Wo Contrast 12/16/2014 MRI INTRACRANIAL CIRCULATION, WITHOUT CONTRAST, 12/16/2014INDICATIONS: Ataxia, TIA. Intracranial MRI without contrast performed. Nocomparison available. There is normal flow within the distal internalcarotid arteries including the intracavernous and supraclinoid portions.The BETINA and MCA distributions bilaterally are normal. There is normalflow within the vertebral arteries. The basilar system is normal inappearance. The APPROVER take normal origin. 12/16/2014 IMPRESSION: 1. Normal intracranial MRA without contrast. Mri Brain Wo Contrast 12/16/2014 MRI BRAIN WO CONTRAST 12/16/2014 2:00 PM HISTORY: -pt onlyhas 1 kidney cerebellar cva or lesion. Dizzy Compare: CT head 12/15/2014.Cerebellar tonsils within normal limits in position. Expected signal voidseen in vertebral, basilar, and internal carotid arteries. Atrophy andischemic leukoencephalopathy noted. Mild paranasal sinus diseaseDiffusion weighted images show no acute findings. 12/16/2014 Impression: No Acute Findings. Mri Angiogram Extracranial Wo Contrast 12/16/2014 MRI EXTRACRANIAL CIRCULATION, WITHOUT CONTRAST, 12/16/2014INDICATIONS: Ataxia, TIA. Extracranial MRI with images obtained. Nocomparison available. There is normal flow within the common carotidarteries bilaterally. The carotid bulb is normal bilaterally. The internalcarotid artery is normal on both sides. There is normal flow within thevertebral arteries. 12/16/2014 IMPRESSION: 1. Normal extracranial MRA. Ec Echocardiogram Complete W Doppler And Color Flow Mapping 12/16/2014 CONCLUSIONS Left Ventricular ejection fraction isestimated at 50%. Mild mitral regurgitation. Trace to mild tricuspidregurgitation. Scanned Rhythm Strips 12/16/2014 Ordered by an unspecified provider. Scanned Rhythm Strips 12/16/2014 Ordered by an unspecified provider. IMPRESSION: Patient Active Problem List Diagnosis Date Noted Near syncope 12/16/201412/16 Acute episode of near syncope yesterday. Had new ataxic sxs jh yest as well Blood sugar [address] head neg, EKG unchanged, Trops neg so far He does have cardiac hxLast saw Dr west in June Is on plavix chronically Check for orthostasis Echo MRI brain to r/o cerebellar CVA Consult neuro Ataxia 12/16/2014 LBBB (left bundle branch block) 06/26/2014 COPD (chronic obstructive pulmonary disease) ([facility]) 06/26/2014 SOB (shortness of breath) 06/26/2014 Chest heaviness 03/14/2013 Fatigue 03/14/2013 Angina pectoris ([facility]) 01/30/2013 Hx of CABG 07/19/2012 HTN (hypertension) 07/19/2012 Bronchiectasis ([facility]) 03/23/2011 Arthritis 01/24/2011 COPD (chronic obstructive pulmonary disease) ([facility]) 01/24/2011 Hyperlipidemia 01/24/2011 Hypertension 01/24/2011 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 Near syncope: --Echo: Left Ventricular ejection fraction is estimated at 50%. Mild mitral regurgitation. Trace to mild tricuspid regurgitation. --EKG: SR with IVCD and possible anterior [place], old. Unchanged fromprior --MRI Extracranial: 1. Normal extracranial MRA --MRI Angiogram Intracranial: Normal intracranial MRA without contrast. --MRI Brain: No Acute Findings. --CT Head: Unremarkable noncontrast head CT. --CXR: COPD. No acute infiltrate. Signed report Decrease HCTZ to 12.5 daily Decrease KCl to 10 mEq daily OP CMP before next cards visit There is no objective evidence suggesting cardiac origin of near syncopalevent and echo is nl. BP is labile with this am reading 94/67. With recent weight loss this maysuggest some dehydration that was exacerbated by drinking wine. Willadjust medications, outpatient FU with Dr. West in 1-2 weeks. Further input from Dr. West to follow. Pt exmained Neuro symptoms: Echo: Nl EF May d/c F/u with me in 2 weeks ATTENDING PHYSICIAN ATTESTATION: The patient was seen in collaboration with the [employer] I have reviewed all pertinent history, laboratory and radiology studies. I have taken a history and performed a physical examination of thispatient. I agree with the history, physical, assessment and plan as outlined byFREDO West MD, FAC, [facility] Interventional Cardiology Heart & Vascular [place] [facility] SCANNED RHYTHM STRIPS 12/16/2014 3:01 PM EST GLUCOSE METER POC Routine 12/16/2014 2:17 PM EST MRI BRAIN WO CONTRAST Routine 12/16/2014 2:00 PM EST IP CONSULT TO NUTRITION Routine 12/16/2014 12:18 PM EST EC ECHOCARDIOGRAM COMPLETE W DOPPLER AND COLOR FLOW MAPPING Routine 12/16/2014 11:46 AM EST LIPID SCREEN Routine 12/16/2014 8:16 AM EST HEMOGLOBIN A1C Routine 12/16/2014 8:16 AM EST THYROID STIMULATING HORMONE Routine 12/16/2014 8:16 AM EST TROPONIN-T STAT 12/16/2014 8:16 AM EST IP CONSULT TO NEUROLOGY Routine 12/16/2014 8:08 AM EST Procedure Note - Jeanette Alegria MD - 12/16/2014 6:31 PM ESTThis note is in progress. Dictated Assessment: history of transient off balance in the past, yesterday, was feelingslight off balance, then episode of severe dizziness/ataxia, nearfall/syncope without loc or confusion. Exam: nl MRI brain nl ECHO: wnl History of HTN/kidney CA/CAD Plan: MRA head and neck to rule out VBI, if normal, continue Plavix and ASA,outpt ENT eval TROPONIN-T STAT 12/15/2014 10:[address] HEAD WO CONTRAST STAT 12/15/2014 8:43 PM EST XR CHEST PA AND LATERAL MARCI 12/15/2014 8:32 PM EST DIFFERENTIAL STAT 12/15/2014 8:08 PM EST TROPONIN-T STAT 12/15/2014 8:08 PM EST BASIC METABOLIC PANEL Routine 12/15/2014 8:08 PM EST CBC WITH DIFF STAT 12/15/2014 8:08 PM EST SALINE LOCK IV Routine 12/15/2014 7:58 PM EST EK EKG 12 LEAD STAT 12/15/2014 7:18 PM EST EC ECHOCARDIOGRAM COMPLETE W DOPPLER AND COLOR FLOW MAPPING Routine 07/07/2014 10:12 AM EDT Hyperlipidemia Angina pectoris (HCC) Coronary artery disease involving [place] coronary artery without angina pectoris POCT EKG Routine 06/26/2014 2:09 PM EDT Hyperlipidemia Essential hypertension MRI CERVICAL SPINE WO CONTRAST Routine 04/22/2014 11:14 AM EDT Displacement of cervical intervertebral disc without myelopathy SCANNED LABS 09/30/2013 2:39 PM EDT SCANNED EKG 09/30/2013 2:38 PM EDT SCANNED LABS 09/30/2013 2:26 PM EDT SCANNED HOLTER MONITOR 4 4:00 PM EDT BASIC METABOLIC PANEL Routine 05/09/2013 2:09 PM EDT Irregular heartbeat Hyperlipidemia Hx of CABG HOLTER MONITOR RECORDING AND ANALYSIS Routine 05/09/2013 2:06 PM EDT Irregular heartbeat Angina pectoris (HCC) POCT EKG Routine 05/09/2013 1:01 PM EDT Irregular heartbeat EK EKG 12 LEAD STAT 05/05/2013 10:36 PM EDT TROPONIN-T Timed 05/05/2013 9:41 PM EDT XR ABDOMEN AP MARCI 05/05/2013 8:29 PM EDT EK EKG 12 LEAD Routine 05/05/2013 7:56 PM EDT DIFFERENTIAL STAT 05/05/2013 7:12 PM EDT TROPONIN-T STAT 05/05/2013 7:12 PM EDT BASIC METABOLIC PANEL STAT 05/05/2013 7:12 PM EDT CBC WITH DIFF STAT 05/05/2013 7:12 PM EDT CARDIAC PROCEDURE-MURAL ARTIST ONLY 04/02/2013 11:24 AM EST Chest pain, unspecified Special Needs SABINA CPT: 67193 MURAL ARTIST PROCEDURE LOG Routine 12:00 AM EST CBC Routine 03/28/2013 9:20 AM EST COPD (chronic obstructive pulmonary disease) (HCC) Hyperlipidemia Hypertension SOB (shortness of breath) Diabetes mellitus, type 2 (HCC) CAD (coronary artery disease) Hx of CABG Chest heaviness Fatigue BASIC METABOLIC PANEL Routine 03/28/2013 9:20 AM EST COPD (chronic obstructive pulmonary disease) (HCC) Hyperlipidemia Hypertension SOB (shortness of breath) Diabetes mellitus, type 2 (HCC) CAD (coronary artery disease) Hx of CABG Chest heaviness Fatigue SCANNED LABS 09/18/2012 1:12 PM EDT EC ECHOCARDIOGRAM COMPLETE W DOPPLER AND COLOR FLOW MAPPING Routine 08/08/2012 2:04 PM EDT CAD (coronary artery disease) SOB (shortness of breath) HTN (hypertension) POCT EKG Routine 07/19/2012 1:49 PM EDT CAD (coronary artery disease) CT CHEST ABDOMEN PELVIS WO CONTRAST Routine 04/10/2012 2:53 PM EST Malignant neoplasm of kidney, except pelvis (HCC) CT CHEST ABDOMEN PELVIS W CONTRAST Routine 10/03/2011 4:41 PM EDT Malignant neoplasm of kidney, except pelvis (HCC) POCT CREATININE Routine 10/03/2011 4:[address] SKULL BASE TO MID THIGH Routine 05/31/2011 11:00 AM EDT Renal cell carcinoma (HCC) POCT GLUCOSE Routine 05/31/2011 10:22 AM EDT SCANNED EKG 04/15/2011 12:00 AM EST DIFFERENTIAL STAT 04/14/2011 10:32 PM EST BASIC METABOLIC PANEL STAT 04/14/2011 10:32 PM EST CBC WITH DIFF STAT 04/14/2011 10:32 PM EST XR NASAL BONES MARCI 04/14/2011 10:[address] CERVICAL SPINE WO CONTRAST STAT 04/14/2011 10:[address] HEAD WO CONTRAST STAT 04/14/2011 10:18 PM EST EK EKG 12 LEAD STAT 04/14/2011 10:15 PM EST SCANNED CARDIAC MURAL ARTIST 04/03/2011 4:42 PM EST MRI THORACIC SPINE WO CONTRAST MARCI 03/29/2011 8:12 PM EST MRI CERVICAL SPINE WO CONTRAST MARCI 03/29/2011 7:41 PM EST EMG Routine 03/29/2011 2:32 PM EST EK EKG 12 LEAD Routine 03/29/2011 8:50 AM EST HEPARIN ANTI-XA, UNF Early AM 03/29/2011 6:34 AM EST NON-SOCIOLOGY PROFESSOR CYTOLOGY REPORT Routine 03/28/2011 6:00 PM EST SCANNED CARDIAC MURAL ARTIST 03/28/2011 9:16 AM EST CARDIAC PROCEDURE-MURAL ARTIST ONLY 03/28/2011 7:49 AM EST cad EK EKG 12 LEAD Routine 03/28/2011 7:35 AM EST CBC Timed 03/28/2011 5:22 AM EST HEPARIN ANTI-XA, UNF Timed 03/28/2011 5:22 AM EST LIPID SCREEN Routine 03/28/2011 5:22 AM EST TROPONIN-I Timed 03/28/2011 5:22 AM EST THYROID STIMULATING HORMONE Routine 03/28/2011 5:22 AM EST MAGNESIUM LEVEL Routine 03/28/2011 5:22 AM EST HEPATIC FUNCTION PANEL Routine 2 5:22 AM EST TROPONIN-I Timed 03/28/2011 12:18 AM EST IP CONSULT TO PHARMACY Routine 2 10:06 PM EST EK EKG 12 LEAD STAT 03/27/2011 8:[address] ANGIOGRAM CHEST ABDOMEN W CONTRAST STAT 03/27/2011 6:07 PM EST DIFFERENTIAL STAT 03/27/2011 4:46 PM EST D-DIMER STAT 03/27/2011 4:46 PM EST PT / INR STAT 03/27/2011 4:46 PM EST PARTIAL THROMBOPLASTIN TIME STAT 03/27/2011 4:46 PM EST TROPONIN-I STAT 03/27/2011 4:46 PM EST BASIC METABOLIC PANEL STAT 03/27/2011 4:46 PM EST CBC WITH DIFF STAT 03/27/2011 4:46 PM EST XR CHEST AP PORTABLE STAT 03/27/2011 4:45 PM EST EK EKG 12 LEAD STAT 03/27/2011 4:30 PM EST SCANNED LABS 03/23/2011 12:00 AM EST SCANNED LABS 03/23/2011 12:00 AM EST SCANNED LABS 03/21/2011 12:00 AM EST SCANNED LABS 03/21/2011 12:00 AM EST SCANNED RADIOLOGY REPORT 03/21/2011 12:00 AM EST SCANNED RADIOLOGY REPORT 03/21/2011 12:00 AM EST SCANNED OR REPORT 09/27/2009 12:00 AM EDT KA MRI SHOULDER W/O Routine 01/02/2009 3:00 PM EST CC CARDIAC PROCEDURE Routine 08/10/2008 10:16 AM EDT EK EKG REG Routine 08/10/2008 8:35 AM EDT EK EKG REG Routine 08/09/2008 2:56 PM EDT XX CHEST PORTABLE Routine 08/09/2008 2:52 PM EDT EK EKG REG Routine 02/15/2007 8:30 AM EST EC ECHO COMPLETE PANEL Routine 1:23 PM EST EK EKG REG Routine 02/14/2007 8:28 AM EST XX CHEST PA & LATERAL Routine 02/13/2007 2:48 PM EST EK EKG REG Routine 02/13/2007 1:59 PM EST EK EKG REG Routine 01/19/2006 7:55 AM EST EK EKG REG Routine 01/18/2006 7:32 AM EST EK EKG REG Routine 01/17/2006 7:49 AM EST EK EKG REG Routine 01/16/2006 5:10 PM EST XX CHEST PORTABLE Routine 01/16/2006 4:[address] CHEST BOOSTER PLANT OPERATOR Routine 07/06/2005 12:23 PM EDT EK EKG REG Routine 06/15/2005 7:32 AM EDT EK EKG REG Routine 06/14/2005 7:34 AM EDT XX CHEST PA & LATERAL Routine 06/13/2005 3:45 PM EDT EK EKG REG Routine 06/13/2005 3:29 PM EDT EK EKG REG Routine 05/19/2005 9:49 AM EDT CC CARDIAC PROCEDURE Routine 05/19/2005 8:22 AM EDT XX CHEST PA & LATERAL Routine 01/27/2005 8:47 AM EST US ABDOMEN BOOSTER PLANT OPERATOR Routine 01/27/2005 8:22 AM EST Results * VECTOR REMOTE DEVICE (08/20/2024 12:00 AM EDT) Only the most recent of6 resultswithin the time period is included. 08/20/2024 Narrative [facility] - 08/20/2024 12:00 AM EDT No significant episodes. Atrial Episodes: 4. AT/AF [place]: 1%. Longest atrial episode: 7h:33m:46s. Patient on AC. Mode: DDDR. AP: 34%. 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 Normal device function. us Shani Chavez MD [facility] CARDIAC CATH ORDERABLES Nancy cary Result [facility] [address] [facility] [place] [address] * PACEART REPORT (12/17/2023 9:03 PM EST) Only the most recent of2 resultswithin the time period is included. 12/17/2023 9:03 PM EST Narrative [facility] - 12/17/2023 4:06 PM EST See JEROD TECHNICAL OPERATIONS VICE PRESIDENT OV notes for details. TAC us Shani Chavez MD [facility] CATH ORDERABLES Nancy l Result [facility] [address] [place] [address] * CARDIAC INTERROGATION DEVICE (08/24/2023 6:21 PM EDT) Only the most recent of2 resultswithin the time period is included. Anatomical Region Laterality Modality Other 08/24/2023 6:21 PM EDT us Unknown Provider IMG ECG ORDERABLES Final Result * (ABNORMAL) BASIC METABOLIC PANEL (08/23/2023 10:26 AM EDT) Only the most recent of18 resultswithin the time period is included. Sodium 139 136 - 145 mmol/L 08/23/2023 12:35 PM EDT [facility] Potassium 3.2(L) 3.5 - 5.0 mmol/L 08/23/2023 12:35 PM EDT [facility] Chloride 103 98 - 107 mmol/L 08/23/2023 12:35 PM EDT [facility] Total CO2 25 22 - 29 mmol/L 08/23/2023 12:35 PM EDT [facility] Anion Gap 11 7 - 16 mmol/L 08/23/2023 12:35 PM EDT [facility] Calcium 8.5(L) 8.8 - 10.4 mg/dL 08/23/2023 12:35 PM EDT [facility] Glucose Lvl 116(H) 70 - 99 mg/dL 08/23/2023 12:35 PM EDT [facility] BUN 16 8 - 23 mg/dL 08/23/2023 12:35 PM EDT [facility] Creatinine 1.15 0.67 - 1.30 mg/dL 08/23/2023 12:35 PM EDT [facility] eGFR (CKD-EPIcr 2020) 64 >=60 mL/min/1.7 3 m2 08/23/2023 12:35 PM EDT [facility] Comment:Estimated GFR was ca lculated using the CKD-EPIcr (2020) equation refit without race. The equation is recommended by the National Kid[employer] - [place] [employer] of Nephrology Task Force. Blood VENOUS BLOOD / Unknown Venipuncture / Unknown 08/23/2023 10:26 AM EDT 08/23/2023 11:48 AM EDT us Jenni Lemus MD CHEMISTRY ORDERABLES Nancy townsend Result [address] , [place] [address] [facility] [address] [place], [place] [id number] * EC ECHOCARDIOGRAM COMPLETE W DOPPLER AND COLOR FLOW MAPPING (08/23/2023 9:36 AM EDT) Only the most recent of6 resultswithin the time period is included. LV DIASTOLIC PLAX 5.874 cm PYRAMIS Ejection Fraction 50-55% PYRAMIS MITRAL REGURGITATION moderate PYRAMIS AORTIC STENOSIS no PYRAMIS Anatomical Region Laterality Modality Electrocardiogra phy 08/23/2023 8:48 AM EDT Impressions 08/23/2023 10:04 AM EDT Conclusions * Left ventricular chamber dimension is normal. * Left ventricular function is normal with an estimated ejection fraction of 50-55%. * The basal inferior wall is hypokinetic. * The left ventricular diastolic function is normal. * Right ventricular systolic function is normal. * Estimated pulmonary artery systolic pressure is 38 mmHg. Narrative Procedure Note Avelino Loza MD - 08/23/2023 IMPRESSION Conclusions * Left ventricular chamber dimension is normal. * Left ventricular function is normal with an estimated ejectionfraction of 50-55%. * The basal inferior wall is hypokinetic. * The left ventricular diastolic function is normal. * Right ventricular systolic function is normal. * Estimated pulmonary artery systolic pressure is 38 mmHg. Emily Toscano TECHNICAL OPERATIONS VICE PRESIDENT IMG ECHO ORDERABLES Final R esult * XR CHEST PA AND LATERAL (08/23/2023 5:18 AM EDT) Only the most recent of3 resultswithin the time period is included. Anatomical Region Laterality Modality Chest Radiographic Gwendolyn ging 08/23/2023 5:18 AM EDT Impressions 08/23/2023 5:33 AM EDT No visible pneumothorax. Small RIGHT pleural effusion with RIGHT lower lobe atelectasis versus pneumonia. - Note: Radiology results need to be interpreted within a comprehensive clinical context. If you have questions about the radiology report, please contact the office of the ordering clinician. Narrative 08/23/2023 5:33 AM EDT PA AND LATERAL CHEST X-RAY, 08/23/2023 5:18 AM CLINICAL HISTORY: -Evaluate lead placement COMPARISON: August 22, 2023 PROCEDURE COMMENTS: Frontal and lateral views of the chest. FINDINGS: Electrocardiogram leads and electrodes overlie the chest. Intracardiac lead positioning is stable. Heart size is stable. No active failure. No visible pneumothorax. There is blunting of the RIGHT costophrenic sulcus. Hazy RIGHT lower lobe parenchymal opacity is present. There is mild LEFT base atelectasis. Procedure Note Shani Liz MD - 08/23/2023 PA AND LATERAL CHEST X-RAY, 08/23/2023 5:18 AM CLINICAL HISTORY: -Evaluate lead placement COMPARISON: August 22, 2023 PROCEDURE COMMENTS: Frontal and lateral views of the chest. FINDINGS: Electrocardiogram leads and electrodes overlie the chest.Intracardiac lead positioning is stable. Heart size is stable. No active failure. No visible pneumothorax. There is blunting of the RIGHT costophrenic sulcus. Hazy RIGHT lowerlobe parenchymal opacity is present. There is mild LEFT base atelectasis. IMPRESSION: No visible pneumothorax. Small RIGHT pleural effusion with RIGHT lowerlobe atelectasis versus pneumonia. - Note: Radiology results need to be interpreted within a comprehensiveclinical context. If you have questions about the radiology report, please contactthe office of the ordering clinician. us Shani Chavez MD IMG DIAGNOSTIC IMAGING ORDERABLE S Final Result * ECG AND WAVEFORMS - TELEMETRY (08/22/2023 8:32 PM EDT) Only the most recent of2 resultswithin the time period is included. ECG INTERPRET Ventricular Paced [facility] 08/22/2023 8:32 PM EDT Narrative [facility] - 08/22/2023 8:43 PM EDT TW/ROUTINE/PVC QRS 0.18 QT 0.46 See Clinical Report link for waveform capture us Unknown Provider POINT OF CARE CARDIOLOGY Final Result Performing Organization Address City/State/[facility] Co de Phone Number [facility] [address] [place] [address] * XR CHEST AP PORTABLE (08/22/2023 2:43 PM EDT) Only the most recent of4 resultswithin the time period is included. Anatomical Region Laterality Modality Chest Radiographic Gwendolyn ging 08/22/2023 2:43 PM EDT Impressions 08/22/2023 2:56 PM EDT Mild bibasilar bandlike parenchymal opacities, likely atelectasis. Otherwise no acute abnormality status post left chest wall cardiac conduction device placement. No pneumothorax. - Note: Radiology results need to be interpreted within a comprehensive clinical context. If you have questions about the radiology report, please contact the office of the ordering clinician. Narrative 08/22/2023 2:56 PM EDT XR CHEST AP PORTABLE, 08/22/2023 2:43 PM CLINICAL HISTORY: -rule out pneumothorax post Pacemaker/ICD COMPARISON: 08/21/2023 PROCEDURE COMMENTS: AP portable technique. FINDINGS: Support devices: Left chest wall cardiac conduction device lead tips project over the right atrium and right ventricle. Status post CABG. Minimal bibasilar bandlike parenchymal opacities. No sizable pleural effusion or evidence of pneumothorax. Procedure Note Reed Sanchez MD - 08/22/2023 XR CHEST AP PORTABLE, 08/22/2023 2:43 PM CLINICAL HISTORY: -rule out pneumothorax post Pacemaker/ICD COMPARISON: 08/21/2023 PROCEDURE COMMENTS: AP portable technique. FINDINGS: Support devices: Left chest wall cardiac conduction device lead tipsproject over the right atrium and right ventricle. Status post CABG. Minimal bibasilar bandlike parenchymal opacities. No sizable pleuraleffusion or evidence of pneumothorax. IMPRESSION: Mild bibasilar bandlike parenchymal opacities, likely atelectasis. Otherwise no acute abnormality status post left chest wall cardiacconduction device placement. No pneumothorax. - Note: Radiology results need to be interpreted within a comprehensiveclinical context. If you have questions about the radiology report, please contactthe office of the ordering clinician. us Shani Chavez MD IMG DIAGNOSTIC IMAGING ORDERABLE S Final Result * EK EKG 12 LEAD (08/22/2023 2:27 PM EDT) Only the most recent of13 resultswithin the time period is included. Anatomical Region Laterality Modality Electrocardiogra phy 08/22/2023 2:34 PM EDT Impressions 08/22/2023 9:20 PM EDT [facility] Date: 2023-08-22 Pat Name: WILFRED SHARMA Department: DEPID Room: 64 Gender: Male Clerk Stenographer: [email or web address] : 1940 Requested By: SHANI Murdock Order Number: [id number] Reading MD: Khadijah West MD Measurements Intervals [place] Rate: 62 P: 116 [place]: 222 QRS: -72 QRSD: 184 T: 87 QT: 558 QTc: 568 Interpretive Statements ELECTRONIC ATRIAL PACEMAKER ELECTRONIC VENTRICULAR PACEMAKER ABNORMAL RHYTHM ECG Electronically Signed On 08-22-2023 21:20:28 EDT by Khadijah West MD Narrative Procedure Note Khadijah West MD - 08/22/2023 IMPRESSION [facility] Test Date: 2023-08-22 [facility] Department[facility] Room: 6420 Gender: Male Clerk Stenographer: [email or web address] : 1940 Requested By: SHANI Murdock Order Number: [id number] Reading MD: Khadijah West MD Measurements Intervals [place] Rate: 62 P: 116 [place]: 222 QRS: -72 QRSD: 184 T: 87 QT: 558 QTc: 568 Interpretive Statements ELECTRONIC ATRIAL PACEMAKER ELECTRONIC VENTRICULAR PACEMAKER ABNORMAL RHYTHM ECG Electronically Signed On 08-22-2023 21:20:28 EDT by Khadijah West MD us Shani Chavez MD IMG ECG ORDERABLES Final Result * PACEMAKER IMPLANT (08/22/2023 2:13 PM EDT) Narrative [facility] - 08/24/2023 9:24 AM EDT Successful implantation of dual chamber ppm Procedure Details [place] [facility] Electrophysiology Procedure Note Date of Procedure: 08/24/2023 Patient's Name: Wilfred Sharma Date of : 1940 Procedure Performed by: Shani Chavez MD Procedures performed: Insertion of MRI compatible right ventricular pacing lead under fluoroscopy. Insertion of MRI compatible right atrial lead under fluoroscopy Insertion of a MRI compatible dual chamber Pacemaker. Electronic analysis of lead and device. Indication of the procedure: Wilfred Sharma is a 82 y.o. male with symptomatic CHB. Referred for pacemaker implantation. Details of procedure: The patient was brought to the electrophysiology laboratory in stable condition. The patient was in a fasting and non-sedated state. The risks, benefits and alternatives of the procedure were discussed with the patient. The risks including, but not limited to, the risks of vascular injury, bleeding, infection, device malfunction, lead dislodgement, radiation exposure, injury to cardiac and surrounding structures (including pneumothorax), stroke, myocardial infarction and were discussed in detail. The patient opted to proceed with the device implantation. Written informed consent was signed and placed in the chart. Prophylactic antibiotic was given. The patient was prepped and draped in a sterile fashion. A timeout protocol was completed to identify the patient and the procedure being performed. IV sedation was provided by the anesthesia team. An incision was made in the left pectoral area after administration of lidocaine. Using electrocautery and blunt dissection, a pocket was created. Central venous access into the left axillary vein was obtained using the modified Seldinger technique. After central venous access was obtained, a sheath was placed in the axillary vein. A right ventricular lead was advanced into position in the apex under fluoroscopic guidance and using a series of curved stylets. The lead was actively fixated. After confirming appropriate function, the sheath was split and removed. The lead was secured to the underlying tissue using suture material. A new sheath was advanced over a second previously placed wire into the vein. The atrial lead was advanced to the right atrial appendage and actively fixated under fluoroscopic guidance. After confirming appropriate function, the sheath was split and removed. The lead was secured to the underlying tissue using suture. The pocket was irrigated with an antibiotic solution. The leads were then connected to the new pulse generator which was then placed into the cleaned pocket. The pocket was then closed in two separate subcutaneous layers using 3-0 & 3-0 Vicryl and subcuticular layer using 4-0 Vicryl. The skin was covered with Steri-Strips and pressure dressing. All sponge and needle counts were reported as correct at the end of the procedure. The patient tolerated the procedure well and there were no complications. Patient was transported to the holding area in stable condition. Emily Toscano APRN ELECTROPHYSIOLOGY ORDERABLE S Final Result Performing Organization Address City/[facility]/ZIP Co de Phone Number [facility] * INTRAOP AIRWAY PLACEMENT (08/22/2023 1:00 PM EDT) Narrative [facility] - 08/22/2023 1:00 PM EDT Kiki, Savanna, INSURANCE WRITER 08/22/2023 1:11 PM Intraop Airway Placement: Date/Time: 08/22/2023 1:00 PM Airway type: Nasal cannula salter Sulaiman Lopez MD [place] ANESTHESIA Final Result Performing Organization Address City/[facility]/ZIP Co de Phone Number [facility] [address] [facility] [place] [address] * SCANNED EKG (08/22/2023 11:12 AM EDT) Only the most recent of7 resultswithin the time period is included. Anatomical Region Laterality Modality Other 08/22/2023 11:1 2 AM EDT us Unknown Provider IMG ECG ORDERABLES Final Result * TROPONIN-T HIGH SENSITIVITY 2HR (08/21/2023 5:50 PM EDT) cf-[id number]-[id number] 2HR 16 <22 ng/L 08/21/2023 6:10 PM EDT [facility] Comment:See the website [employer] for rule out [place] care pathway, conditions other than AMI that can cause elevated hs cTnT, and comparison of values from the 4th and 5th generation Jonathan tests. https://Edifilm.[email or web address]/topic/clinical-answers/[email or web address]/[email or web address] hs-cTnT 2Hr Delta from Baseline 2 <4 ng/L 08/21/2023 6:10 PM EDT [facility] Blood VENOUS BLOOD / Unknown Venipuncture / Unknown 08/21/2023 5:50 PM EDT 08/21/2023 5:52 PM EDT Narrative [facility] - 08/21/2023 6:10 PM EDT Ingestion of elizabet doses of biotin (>5 mg/day) taken within 8 hours of drawing blood sample can interfere with this immunoassay test. us Dao Godinez MD CHEMISTRY ORDERABLES Final Resul t [facility] [address] [place] [address] * TROPONIN-T HIGH SENSITIVITY BASELINE W/ REFLEX (08/21/2023 3:46 PM EDT) [id number]-[id number]-[id number] 14 <22 ng/L 08/21/2023 4:17 PM EDT [facility] Comment:See the website [employer]OMOTICS for rule out [place] care pathway, conditions other than AMI that can cause elevated hs cTnT, and comparison of values from the 4th and 5th generation Jonathan tests. https://Edifilm.[email or web address]/topic/clinical-answers/[email or web address]/[email or web address] Blood VENOUS BLOOD / Unknown Venipuncture / Unknown 08/21/2023 3:46 PM EDT 08/21/2023 3:56 PM EDT Narrative [facility] - 08/21/2023 4:17 PM EDT Ingestion of elizabet doses of biotin (>5 mg/day) taken within 8 hours of drawing blood sample can interfere with this immunoassay test. Dao Godinez MD CHEMISTRY ORDERABLES Final Resul t [facility] [address] [place] [address] * (ABNORMAL) BLOOD GAS, VENOUS (08/21/2023 3:46 PM EDT) pH Venous 7.38 7.32 - 7.42 pH 08/21/2023 4:05 PM EDT [facility] pCO2 Venous 35(L) 41 - 51 mmHg 08/21/2023 4:05 PM EDT [facility] pO2 Venous <42(H) 25 - 40 mmHg 08/21/2023 4:05 PM EDT [facility] Comment:Interpret with cauti on. Not recommended to evaluate patient's oxygenation status. Base Excess Luther -3.9 mmol/L 4:05 PM EDT [facility] Hco3 Venous 20.0(L) 24.0 - 28.0 mmol/L 08/21/2023 4:05 PM EDT [facility] CO2 Total Luther 18(L) 25 - 29 mmol/L 08/21/2023 4:05 PM EDT [facility] O2 Sat. Venous 24.9(L) 40.0 - 70.0 % 08/21/2023 4:05 PM EDT [facility] Inspired O2 RA 08/21/2023 4:05 PM EDT [facility] Blood VENOUS BLOOD / Unknown Venipuncture / Unknown 08/21/2023 3:46 PM EDT 08/21/2023 4:00 PM EDT Dao Godinez MD CHEMISTRY ORDERABLES Final Resul t [facility] Locality, [facility] [address] [facility], [place] [address] * (ABNORMAL) CBC WITH DIFF (08/21/2023 3:46 PM EDT) Only the most recent of13 resultswithin the time period is included. WBC 6.3 3.7 - 10.3 x10(3)/mcL 08/21/2023 3:59 PM EDT [facility] RBC 4.41(L) 4.60 - 6.10 x10(6)/mcL 08/21/2023 3:59 PM EDT [facility] Hgb 13.8 13.7 - 17.5 g/dL 08/21/2023 3:59 PM EDT [facility] Hct 41.8 40.0 - 51.0 % 08/21/2023 3:59 PM EDT [facility] MCV 94.8 80.0 - 100.0 fL 08/21/2023 3:59 PM EDT [facility] MCH 31.3 26.0 - 34.0 pg 08/21/2023 3:59 PM EDT [facility] MCHC 33.0 30.7 - 35.5 g/dL 08/21/2023 3:59 PM EDT [facility] RDW 13.1 <=14.9 % 08/21/2023 3:59 PM EDT [facility] Platelet 268 155 - 369 x10(3)/mcL 08/21/2023 3:59 PM EDT [facility] MPV 10.8 8.8 - 12.5 fL 08/21/2023 3:59 PM EDT [facility] Neut Percent 82.4 % 08/21/2023 3:59 PM EDT [facility] Comment:Neutrophils equals s egs plus bands Imm Gran% 0.2 % 08/21/2023 3:59 PM EDT [facility] Comment:Automated count of m etamyelocytes, myelocytes and promyelocytes. Lymph Percent 13.9 % 08/21/2023 3:59 PM EDT [facility] [place] Percent 3.2 % 08/21/2023 3:59 PM EDT [facility] Eos Percent 0.0 % 08/21/2023 3:59 PM EDT [facility] Baso Percent 0.3 % 08/21/2023 3:59 PM EDT [facility] Neut # 5.2 1.6 - 6.1 x10(3)/[facility] 08/21/2023 3:59 PM EDT [facility] Comment:Neutrophils equals s egs plus bands IMMGRAN# 0.0 0.0 - 0.1 x10(3)/[facility] 08/21/2023 3:59 PM EDT [facility] Comment:Automated count of m etamyelocytes, myelocytes and promyelocytes. An absolute IG <0.1 is reported as 0.0. Lymph # 0.9(L) 1.2 - 3.9 x10(3)/[facility] 08/21/2023 3:59 PM EDT [facility] [place] # 0.2(L) 0.3 - 0.9 x10(3)/[facility] 08/21/2023 3:59 PM EDT [facility] Eos# 0.0 0.0 - 0.5 x10(3)/[facility] 08/21/2023 3:59 PM EDT [facility] Baso # 0.0 0.0 - 0.1 x10(3)/[facility] 08/21/2023 3:59 PM EDT [facility] Blood VENOUS BLOOD / Unknown Venipuncture / Unknown 08/21/2023 3:46 PM EDT 08/21/2023 3:56 PM EDT us Dao Godinez MD HEMATOLOGY ORDERABLES Final Resu lt [facility] [address] [facility] [place] [address] * PHOSPHORUS LEVEL (08/21/2023 3:46 PM EDT) [facility] Signature Phosphorus 2.8 2.5 - 4.5 mg/dL 08/21/2023 4:15 PM EDT [facility] Blood VENOUS BLOOD / Unknown Venipuncture / Unknown 08/21/2023 3:46 PM EDT 08/21/2023 3:56 PM EDT Dao Godinez MD CHEMISTRY ORDERABLES Final Resul t Performing Organization Address [facility] [place] [address] * MAGNESIUM LEVEL (08/21/2023 3:46 PM EDT) Only the most recent of2 resultswithin the time period is included. Magnesium 2.3 1.6 - 2.4 mg/dL 08/21/2023 4:15 PM EDT [facility] Blood VENOUS BLOOD / Unknown Venipuncture / Unknown 08/21/2023 3:46 PM EDT 08/21/2023 3:56 PM EDT Dao Godinez MD CHEMISTRY ORDERABLES Final Resul t Performing Organization Address [facility] [place] [address] * (ABNORMAL) COMPREHENSIVE METABOLIC PANEL (08/21/2023 3:46 PM EDT) Only the most recent of2 resultswithin the time period is included. Sodium 141 136 - 145 mmol/L 08/21/2023 4:15 PM EDT [facility] Potassium 3.9 3.5 - 5.0 mmol/L 08/21/2023 4:15 PM EDT [facility] Chloride 106 98 - 107 mmol/L 08/21/2023 4:15 PM EDT [facility] Total CO2 22 22 - 29 mmol/L 08/21/2023 4:15 PM EDT [facility] Anion Gap 13 7 - 16 mmol/L 08/21/2023 4:15 PM EDT [facility] Calcium 8.5(L) 8.8 - 10.4 mg/dL 08/21/2023 4:15 PM EDT [facility] Glucose Lvl 140(H) 70 - 99 mg/dL 08/21/2023 4:15 PM EDT [facility] BUN 18 8 - 23 mg/dL 08/21/2023 4:15 PM EDT [facility] Creatinine 1.06 0.67 - 1.30 mg/dL 08/21/2023 4:15 PM EDT [facility] Albumin 4.1 3.2 - 4.6 gm/dL 08/21/2023 4:15 PM EDT [facility] Total Protein 6.6 6.4 - 8.3 gm/dL 08/21/2023 4:15 PM EDT [facility] Bili Total 0.6 0.2 - 1.4 mg/dL 08/21/2023 4:15 PM EDT [facility] ALT 20 <=41 U/L 08/21/2023 4:15 PM EDT [facility] AST 15 <=40 U/L 08/21/2023 4:15 PM EDT [facility] Alk Phos 68 40 - 129 U/L 08/21/2023 4:15 PM EDT [facility] eGFR (CKD-EPIcr 2020) 71 >=60 mL/min/1.7 3 m2 08/21/2023 4:15 PM EDT [facility] Comment:Estimated GFR was ca lculated using the CKD-EPIcr (2020) equation refit without race. The equation is recommended by the National Kid[employer] Foundation - [place] [employer] of Nephrology Task Force. Blood VENOUS BLOOD / Unknown Venipuncture / Unknown 08/21/2023 3:46 PM EDT 08/21/2023 3:56 PM EDT us Dao Godinez MD CHEMISTRY ORDERABLES Final Resul t [facility] [address] [place] [place] [address] * POCT EKG (05/25/2023 1:29 PM EDT) Only the most recent of9 resultswithin the time period is included. 05/25/2023 1:29 PM EDT us Khadijah West MD POINT OF CARE CARDIOLOGY Final R esult SEP OFFICE * LIPID SCREEN (11/09/2022 9:07 AM EDT) Only the most recent of7 resultswithin the time period is included. [facility] Signature Cholesterol 153 <200 mg/dL 11/09/2022 8:18 PM EDT [facility] Comment: < 200 Desirable 200 - 239 Borderline High >= 240 High Triglyceride 107 <150 mg/dL 11/09/2022 8:18 PM EDT [facility] Comment: < 150 Normal 150 - 199 Borderline High 200 - 499 High >= 500 Very High HDL 68 >=40 mg/dL 11/09/2022 8:18 PM EDT [facility] Comment: > 60 Optimal 40 - 60 Acceptable < 40 Low LDL Calculated 66 <100 mg/dL 11/09/2022 8:18 PM EDT [facility] Comment: < 100 Optimal 100 - 129 Near or above optimal 130 - 159 Borderline High 160 - 189 High >= 190 Very High Non-HDL-C Calculated 85 <=129 mg/dL 11/09/2022 8:18 PM EDT [facility] Comment: <130 Desirable 130-159 Above Desirable 160-189 Borderline High 190-219 High >= 220 Very High Fasting Specimen? Yes None 023 8:18 PM EDT [facility] Blood VENOUS BLOOD / Unknown Venipuncture / Unknown 11/09/2022 9:07 AM EDT 11/09/2022 9:07 AM EDT us Khadijah West MD CHEMISTRY ORDERABLES Final Resul t [facility] [address] [facility], [place] [address] [facility] [address] [place] [address] * [facility] CAROTID DUPLEX BILATERAL (05/25/2021 2:55 PM EDT) Only the most recent of2 resultswithin the time period is included. Anatomical Region Laterality Modality Vascular, Head, Neck Vascular Im aging 05/25/2021 2:44 PM EDT Impressions 05/26/2021 1:13 PM EDT Conclusions * Bilateral 1-39% stenosis internal carotid arteries. * Vertebral flow is antegrade bilaterally. Narrative Procedure Note Lemuel Powers MD - 05/26/2021 IMPRESSION Conclusions * Bilateral 1-39% stenosis internal carotid arteries. * Vertebral flow is antegrade bilaterally. us Smitha Martinez TECHNICAL OPERATIONS VICE PRESIDENT IMG VASCULAR ORDERABLES F inal Result * RIGHT HEART CATH (RHC), CORONARY ANGIOGRAM WITH GRAFTS, LEFT VENTRICULOGRAM (04/05/2021 2:52 PM EST) Only the most recent of2 resultswithin the time period is included. Cath EF Estimated 50 % [facility] Narrative [facility] - 04/06/2021 8:26 AM EST Inf Sept lesion is 100% stenosed. Prox Cx to Dist Cx lesion is 10% stenosed. LPAV lesion is 10% stenosed. 2nd LPL lesion is 60% stenosed. 3rd Mrg lesion is 100% stenosed. 2nd Diag lesion is 70% stenosed. Ost RCA to Prox RCA lesion is 100% stenosed. Origin to Prox Graft lesion is 100% stenosed. Final Impression: 1. Coronary artery disease as described above 2. Minimal coronary artery disease involving the LAD and patent stent in the left circumflex artery. A distal branch of the dominant circumflex artery with previous stent is occluded. Patent saphenous vein graft to the diagonal branch and circumflex artery. Occluded seventh vein graft to the right coronary artery. 3. Normal filling pressures. 4. Left ventricular systolic function is normal 5. Angina with patent large branches of the coronary artery and saphenous vein graft to the diagonal and obtuse marginal branch. Plan: 1. Optimize medical therapy. 2. Daily aspirin indefinitely 3. Standard secondary preventative medical therapy (statin, beta burton, ACEI if needed) Khadijah West MD, [facility] Coronary Findings Diagnostic Dominance: Left Left Anterior Descending: The vessel is large. The vessel exhibits minimal luminal irregularities. This vessel is mildly tortuous. This vessel is mildly calcified. Second Diagonal Branch: 2nd Diag lesion is 70% stenosed. Left Circumflex: Prox Cx to Dist Cx lesion is 10% stenosed. The lesion was previously treated using a stent of unknown type. Third Obtuse Marginal Branch: 3rd Mrg lesion is 100% stenosed. Second Left Posterolateral Branch: The vessel is small. There is mild diffuse disease throughout the vessel. 2nd LPL lesion is 60% stenosed. Left Posterior Atrioventricular Artery: LPAV lesion is 10% stenosed. The lesion was previously treated using a stent of unknown type. Inferior Septal: Inf Sept lesion is 100% stenosed. The lesion was previously treated using a stent of unknown type. Right Coronary Artery: Ost RCA to Prox RCA lesion is 100% stenosed. Sequential Graft To 2nd Diag, 3rd Mrg Graft To Prox RCA: Origin to Prox Graft lesion is 100% stenosed. Intervention No interventions have been documented. Left Ventricle The ejection fraction is 50-55% by visual estimate. Aortic Valve There is no aortic valve stenosis. Right Heart [place]-Chelsie catheter inserted via the right femoral vein and advanced through right heart into pulmonary artery. Cardiac output was obtained through Hussein method. Right atrial pressure is decreased. There was no Pulmonary Hypertension. RA 1 Sats 73% RV 25/0 PA 20/5 ~ 10 Sats 71% EDP 5 Wall Motion All segments of the heart are normal. us Khadijah West MD CARDIAC CATH ORDERABLES Final Re sult [facility] * POCT CO-OXIMETRY (04/05/2021 2:38 PM EST) Only the most recent of3 resultswithin the time period is included. %HBO2 94.5 94.0 - 98.0 % 04/05/2021 2:39 PM EST [facility] Site FA 04/05/2021 2:39 PM EST [facility] Blood BLOOD SPECIMEN / Unknown 04/05/2021 2:38 PM EST 04/05/2021 2:39 PM EST us Khadijah West MD POINT OF CARE TEST ORDERABLES Fi nal Result Performing Organization Address [facility] de Phone Number [facility] [address] [place] [address] * MURAL ARTIST HEMODYNAMIC WAVEFORMS (04/05/2021 2:21 PM EST) Only the most recent of2 resultswithin the time period is included. 04/05/2021 2:21 PM EST us Khadijah West MD CARDIAC CATH ORDERABLES Final Re sult Performing Organization Address [facility] Co de Phone Number [facility] [address] [place] [address] * PT / INR (04/05/2021 11:31 AM EST) Only the most recent of2 resultswithin the time period is included. PT 11.6 10.0 - 13.1 second(s) 04/05/2021 11:50 AM EST [facility] INR 1.03 0.89 - 1.17 no units 04/05/2021 11:50 AM EST [facility] Comment: Level of Therapy Indications Target INR Range Standard Dose Treatment and prophylaxis of venous 2.0 - 3.0 thrombosis, pulmonary embolism High Dose High risk patients with mechanical 2.5 - 3.5 heart valves Blood BLOOD SAMPLE TAKEN FROM CENTRAL LINE / Unknown Venipuncture / Unknown 04/05/2021 11:31 AM EST 04/05/2021 11:31 AM EST us Khadijah West MD HEMATOLOGY ORDERABLES Final Resu lt Performing Organization Address City/[facility] Co de Phone Number [facility] [address] [facility], [place] [address] * CORONAVIRUS 2019 (04/01/2021 9:27 AM EST) CORONAVIRUS [id number] Not Detected Not Detected 04/01/2021 5:32 PM EST [facility] Comment: Caution should be exercised when interpreting a result of 'Not Detected'. A result of 'Not Detected' does not rule out COVID-19 and cannot be used as sole basis for treatment or patient management decisions. If COVID-19 is still suspected following a 'Not Detected' result, re-testing should be considered. This test is a nucleic acid amplification test intended for the qualitative detection of nucleic acid from the SARS-CoV-2 in upper respiratory samples collected from individuals suspected of COVID-19. Test is performed on the Vital Metrix platform under the FDA's Emergency Use Authorization (EUA). [facility] Provider Fact Sheet: https://www.fda.gov/media/338676/download [facility] Patient Fact Sheet: https://www.fda.gov/media/365689/download Performed at [facility] [address] [place] [address] CLIA [id number] Swab BOTH ANTERIOR NARES / Unknown 04/01/2021 9:27 AM EST 04/01/2021 9:27 AM EST us Saurabh Soto MD MICROBIOLOGY - GENERAL ORDERABLE S Final Result [facility] [address], [place] [address] * HEPATIC FUNCTION PANEL (10/19/2020 9:58 AM EDT) Only the most recent of5 resultswithin the time period is included. Total Protein 6.4 6.4 - 8.3 gm/dL 10/19/2020 10:59 AM EDT [facility] Albumin 4.2 3.2 - 4.6 gm/dL 10/19/2020 10:59 AM EDT [facility] Bili Direct 0.2 0.0 - 0.3 mg/dL 10/19/2020 10:59 AM EDT [facility], [facility] Bili Total 0.5 0.1 - 1.4 mg/dL 10/19/2020 10:59 AM EDT [facility] AST 18 <=40 U/L 10/19/2020 10:59 AM EDT [facility] ALT 15 <=41 U/L 10/19/2020 10:59 AM EDT [facility] Alk Phos 69 40 - 129 U/L 10/19/2020 10:59 AM EDT [facility] Blood VENOUS BLOOD / Unknown Venipuncture / Unknown 10/19/2020 9:58 AM EDT 10/19/2020 9:59 AM EDT us Khadijah West MD CHEMISTRY ORDERABLES Final Resul t [facility] 1 [facility] , [place] [address] * CT CHEST WO CONTRAST (08/22/2020 10:18 AM EDT) Anatomical Region Laterality Modality Chest Computed Tomogra phy 08/22/2020 10:1 8 AM EDT Impressions 08/22/2020 12:07 PM EDT 1. Interval progressed advanced bilateral upper lung emphysema. Stable nodular scarring both apices. No acute pulmonary process. - Note: Radiology results need to be interpreted within a comprehensive clinical context. If you have questions about the radiology report, please contact the office of the ordering clinician. Narrative 08/22/2020 12:[address] CHEST WITHOUT CONTRAST, 08/22/2020 10:18 AM CLINICAL HISTORY: 79-year-old with J47.9-Bronchiectasis, uncomplicated (HCC)-ICD-10-CM. COMPARISON: 02/07/2017 CT pulmonary angiogram chest. PROCEDURE COMMENTS: Multi-detector CT of the chest with multiplanar reconstructions per protocol. No contrast given. FINDINGS: Trachea and proximal bronchial airways are patent. No notable bronchiectasis There is advanced bilateral upper lobe centrilobular emphysema with mild to moderate involvement of superior segments left lower lobe. Few tiny areas of nodular scarring and calcification in superior and posterior left upper lobe redemonstrated. Right apex has a single dominant irregular area of nodular scarring measuring 1.0 cm axial dimension. Its appearance is similar to prior. No new or suspicious pulmonary nodules. No acute infiltrates or interstitial prominence. No mediastinal or hilar lymphadenopathy. 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 No pericardial or pleural effusion. Left thyroid lobe is absent. Enlarged right thyroid lobe has chronic heterogeneous attenuation. Included images through upper abdomen are unremarkable. Suspicious thoracic osseous abnormality. Multilevel moderate to large right anterolateral endplate hypertrophy. Procedure Note Virgen Davies MD - 08/22/2020 CT CHEST WITHOUT CONTRAST, 08/22/2020 10:18 AM CLINICAL HISTORY: 79-year-old with J47.9-Bronchiectasis, uncomplicated (HCC)-ICD-10-CM. COMPARISON: 02/07/2017 CT pulmonary angiogram chest. PROCEDURE COMMENTS: Multi-detector CT of the chest with multiplanar reconstructions per protocol. No contrast given. FINDINGS: Trachea and proximal bronchial airways are patent. No notablebronchiectasis There is advanced bilateral upper lobe centrilobular emphysema with mildto moderate involvement of superior segments left lower lobe. Few tiny areasof nodular scarring and calcification in superior and posterior left upperlobe redemonstrated. Right apex has a single dominant irregular area ofnodular scarring measuring 1.0 cm axial dimension. Its appearance is similar toprior. No new or suspicious pulmonary nodules. No acute infiltrates orinterstitial prominence. No mediastinal or hilar lymphadenopathy. There has been prior sternotomyand CABG. No pericardial or pleural effusion. Left thyroid lobe is absent. Enlarged right thyroid lobe has chronic heterogeneous attenuation. Included images through upper abdomen are unremarkable. Suspicious thoracic osseous abnormality. Multilevel moderate to largeright anterolateral endplate hypertrophy. IMPRESSION: 1. Interval progressed advanced bilateral upper lung emphysema. Stablenodular scarring both apices. No acute pulmonary process. - Note: Radiology results need to be interpreted within a comprehensiveclinical context. If you have questions about the radiology report, please contactthe office of the ordering clinician. us Lebron Murguia MD IMG CT ORDERABLES Final Result * CBC (11/11/2019 9:18 AM EDT) Only the most recent of5 resultswithin the time period is included. WBC 8.4 3.7 - 10.3 x10(3)/mcL 11/11/2019 9:35 AM EDT [facility] RBC 4.95 4.60 - 6.10 x10(6)/mcL 11/11/2019 9:35 AM EDT [facility] Hgb 15.1 13.7 - 17.5 g/dL 11/11/2019 9:35 AM EDT [facility] Hct 45.9 40.0 - 51.0 % 11/11/2019 9:35 AM EDT [facility] MCV 92.7 80.0 - 100.0 fL 11/11/2019 9:35 AM EDT [facility] MCH 30.5 26.0 - 34.0 pg 11/11/2019 9:35 AM EDT [facility] MCHC 32.9 30.7 - 35.5 g/dL 11/11/2019 9:35 AM EDT [facility] RDW 14.1 <=14.9 % 11/11/2019 9:35 AM EDT [facility] Platelet 342 155 - 369 x10(3)/mcL 11/11/2019 9:35 AM EDT [facility] MPV 9.7 8.8 - 12.5 fL 11/11/2019 9:35 AM EDT [facility], [facility] Blood Venipuncture / Unknown 11/11/2019 9:18 AM EDT 11/11/2019 9:18 AM EDT us Khadijah West MD HEMATOLOGY ORDERABLES Final Resu lt [facility], [facility] [address] [facility], [place] [address] * SCANNED LABS (09/16/2019 12:57 PM EDT) Only the most recent of11 resultswithin the time period is included. 09/16/2019 12:5 7 PM EDT us Unknown Unknown HEMATOLOGY ORDERABLES Final Resu lt * NM MYOCARDIAL PERFUSION SPECT STRESS AND REST (03/20/2019 12:10 PM EST) Anatomical Region Laterality Modality Nuclear Medicine 03/20/2019 10:0 6 AM EST Impressions 03/20/2019 2:15 PM EST IMPRESSIONS Nondiagnostic ST changes with Lexiscan. Fixed large inferior wall defect noted with normal wall motion thus most likely secondary to diaphragmatic artifact. No ischemia. Normal LV wall motion and function with EF approximately 67%. Narrative Procedure Note Reed Lawrence MD - 03/20/[address] changes with Lexiscan. Fixed large inferior wall defect noted with normal wall motion thus mostlikely secondary to diaphragmatic artifact. No ischemia. Normal LV wall motion and function with EF approximately 67%. us Khadijah West MD IMG NM CARDIAC ORDERABLES Final Result * SCANNED RADIOLOGY REPORT (03/20/2019 11:33 AM EST) Only the most recent of3 resultswithin the time period is included. Anatomical Region Laterality Modality Cardiac Stress T esting 03/20/2019 11:3 3 AM EST us Unknown Unknown IMG DIAGNOSTIC IMAGING ORDERABLE S Final Result * ST STRESS TEST LEXISCAN (03/20/2019 11:19 AM EST) Anatomical Region Laterality Modality Cardiac Stress T esting 03/20/2019 10:3 0 AM EST Impressions 03/20/2019 11:[address] [facility] Test Date: 2019-03-20 Pat Name: WILFRED SHARMA Department: DEPID Room: Gender: Male Clerk Stenographer: Dianna WILSON RN, : 1940 Requested By: KHADIJAH WEST Order Number: [id number] Reading MD: Mariama Valverde MD Interpretive Statements Stress Test Lexiscan Ordering Diagnosis: CAD Resting HR: 63 Peak HR: 84 Resting B/P: 145/79 Peak B/P: 161/82 1. Lexiscan 0.4 mg was given IV push at 60 seconds into protocol. 2. Lexiscan injection was done ____without low level exercise. 3. Termination of test due to protocol completion. 4. Symptoms: NONE 5. Aminophylline given____no 6. Nuclear Imaging reported separately. Physician Interpretation NONDIAGNOSTIC ST CHANGES WITH LEXISCAN NUCLEAR PENDING Electronically Signed On 03-20-2019 11:44:34 EST by Mariama Valverde MD Narrative Procedure Note Krystyna Valverde MD - 03/20/[address] [facility] Test Date: 2019-03-20 Pat Name: WILFRED SHARMA Department: DEPID Room: Gender: Male Clerk Stenographer: Dianna WILSON RN, : 1940 Requested By: KHADIJAH WEST Order Number: [id number] Reading MD: Mariama Valverde MD Interpretive Statements Stress Test Lexiscan Ordering Diagnosis: CAD Resting HR: 63 Peak HR: 84 Resting B/P: 145/79 Peak B/P: 161/82 1. Lexiscan 0.4 mg was given IV push at 60 seconds into protocol. 2. Lexiscan injection was done ____without low level exercise. 3. Termination of test due to protocol completion. 4. Symptoms: NONE 5. Aminophylline given____no 6. Nuclear Imaging reported separately. PhysicianInterpretation NONDIAGNOSTIC ST CHANGES WITH LEXISCAN NUCLEAR PENDING Electronically Signed On 03-20-2019 11:44:34 EST by Mariama Valverde MD us Khadijah West MD IMG STRESS ORDERABLES Final Resu lt * SCANNED RHYTHM STRIPS (08/08/2017 10:19 AM EDT) Only the most recent of8 resultswithin the time period is included. Anatomical Region Laterality Modality Other 08/08/2017 10:1 9 AM EDT us Unknown Unknown IMG ECG ORDERABLES Final Result * (ABNORMAL) POCT BRENDA FLOW VOLUME LOOP (03/01/2017 3:23 PM EST) FEV1 PRE % PREDICTED 44 % SEP OFFICE FVC PRE % PREDICTED 71 % SEP OFFICE FEV1/FVC ACTUAL 48 % SEP OFFICE 03/01/2017 3:23 PM EST Impressions SEP OFFICE - 03/01/2017 3:23 PM EST Severe airway obstruction, with low vital capacity. Lebron Murguia MD POINT OF CARE BRENDA ORDERABLES F inal Result Performing Organization Address City/[facility]/ZIP Co de Phone Number [facility] * LOWER RESPIRATORY CULTURE (STAIN INCLUDED) (02/09/2017 10:41 AM EST) Only the most recent of2 resultswithin the time period is included. Culture Sparse growth of Normal oral lee 02/11/2017 7:45 AM EST [facility] Stain Group 4: >25 WBC and 10-25 epithelial cells/lpf 02/11/2017 7:45 AM EST [facility] Stain Rare Mixed lee 02/11/2017 7:45 AM EST [facility] Sputum LUNG STRUCTURE / Unknown 02/09/2017 10:41 AM EST 02/09/2017 10:56 AM EST Lebron Murguia MD MICROBIOLOGY - GENERAL ORDERABLE S Final Result Performing Organization Address City/[facility]/ZIP Co de Phone Number [facility] [address] [place] [address] * (ABNORMAL) BLOOD GAS ARTERIAL (02/09/2017 6:22 AM EST) pH 7.47(H) 7.35 - 7.45 pH 02/09/2017 6:37 AM EST [facility] pCO2 41 35 - 45 mmHg 02/09/2017 6:37 AM EST [facility] pO2 58(L) 80 - 100 mmHg 02/09/2017 6:37 AM EST [facility] HCO3 29.3(H) 22.0 - 26.0 mmol/L 02/09/2017 6:37 AM EST [facility] TCO2 26 22 - 29 mmol/L 02/09/2017 6:37 AM EST [facility] Base Excess 5.5(H) -2.0 - 3.0 mmol/L 02/09/2017 6:37 AM EST [facility] O2 Sat 90.8(L) 95.0 - 98.0 % 02/09/2017 6:37 AM EST [facility] Inspired O2 RA 02/09/2017 6:37 AM EST [facility] P/F Ratio 300 - 500 mmHg 02/09/2017 6:37 AM EST [facility] Comment: P/F ratio alone cannot diagnose ARDS. However, the following scale may be used to help classify Adult Respiratory Distress Syndrome (ARDS) severity: 200-300: Mild ARDS 100-199: Moderate ARDS <100: Severe ARDS Blood 02/09/2017 6:22 AM EST 02/09/2017 6:31 AM EST us Lebron Murguia MD CHEMISTRY ORDERABLES Final Resul t [facility] [address] [place] [address] * RAST - REF LAB (02/08/2017 8:14 PM EST) Immcap Score See Note 02/10/2017 9:50 PM EST [facility] Comment: REFERENCE INTERVAL: Allergen, Interpretation Less than 0.10 kU/L......Class 0.....No significant level detected 0.10-0.34 kU/L...........Class 0/1...Clinical relevance undetermined 0.35-0.70 kU/L...........Class 1.....Low 0.71-3.50 kU/L...........Class 2.....Moderate 3.51-17.50 kU/L..........Class 3.....High 17.51-50.00 kU/L.........Class 4.....Very High 50.01-100.00 kU/L........Class 5.....Very High Greater than 100.00kU/L..Class 6.....Very High Allergen results of 0.10-0.34 kU/L are intended for specialist use as the clinical relevance is undetermined. Even though increasing ranges are reflective of increasing concentrations of allergen-specific IgE, these concentrations may not correlate with the degree of clinical response or skin testing results when challenged with a specific allergen. The correlation of allergy laboratory results with clinical history and in vivo reactivity to specific allergens is essential. A negative test may not rule out clinical allergy or even anaphylaxis. Performed by [facility], [address] [place] [address] [email or web address], Pierce Carrera MD, Lab. Director Blood VENOUS BLOOD / Unknown Venipuncture / Unknown 02/08/2017 8:14 PM EST 02/08/2017 8:18 PM EST us Lebron Murguia MD IMMUNOLOGY ORDERABLES Final Resu lt [facility] [address] [place] [address] * ALLERGEN, REGION 5 RESPIRATORY PANEL-REF LAB (02/08/2017 8:14 PM EST) Common Ragweed <0.10 <=0.34 kU/L 02/10/2017 9:45 PM EST [facility] CockroachGerman <0.10 <=0.34 kU/L 02/10/2017 9:45 PM EST [facility] [place] Tree <0.10 <=0.34 kU/L 02/10/2017 9:45 PM EST [facility] [place] Tree <0.10 <=0.34 kU/L 02/10/2017 9:45 PM EST [facility] Pecan Tree <0.10 <=0.34 kU/L 02/10/2017 9:45 PM EST [facility] Mouse Epi <0.10 <=0.34 kU/L 02/10/2017 9:45 PM EST [facility] M. racemosus <0.10 <=0.34 kU/L 02/10/2017 9:45 PM EST [facility] [place] Tree <0.10 <=0.34 kU/L 02/10/2017 9:45 PM EST [facility] Dog Dander <0.10 <=0.34 kU/L 02/10/2017 9:45 PM EST [facility] Sheep [place] <0.10 <=0.34 kU/L 02/10/2017 9:45 PM EST [facility] IgE 38 <=214 kU/L 02/10/2017 9:45 PM EST [facility] Comment: REFERENCE INTERVAL: Immunoglobulin E, Serum Access complete set of age- and/or gender-specific reference intervals for this test in the [place] acquired by [facility] [facility] Test [facility] ([facility]). Alternaria alt <0.10 <=0.34 kU/L 02/10/2017 9:45 PM EST [facility] Ethel/Maple <0.10 <=0.34 kU/L 02/10/2017 9:45 PM EST [facility] Cat Epi/Dander <0.10 <=0.34 kU/L 02/10/2017 9:45 PM EST [facility] [place] Tree <0.10 <=0.34 kU/L 02/10/2017 9:45 PM EST [facility] [place] Tree <0.10 <=0.34 kU/L 02/10/2017 9:45 PM EST [facility] Milk <0.10 <=0.34 kU/L 02/10/2017 9:45 PM EST [facility] Comment: Performed by [facility], [address] [place] [address] [email or web address], Pierce Carrera MD, Lab. Director Peanut <0.10 <=0.34 kU/L 02/10/2017 9:45 PM EST [facility] Pigweed <0.10 <=0.34 kU/L 02/10/2017 9:45 PM EST [facility] Marshallese Thistle <0.10 <=0.34 kU/L 02/10/2017 9:45 PM EST [facility] Gelacio Grass <0.10 <=0.34 kU/L 02/10/2017 9:45 PM EST [facility] Allergen, Fungi/Mold, Hormodendrum IgE <0.10 <=0.34 kU/L 02/10/2017 9:45 PM EST [facility] Elm Tree <0.10 <=0.34 kU/L 02/10/2017 9:45 PM EST [facility] [place] Tree <0.10 <=0.34 kU/L 02/10/2017 9:45 PM EST [facility] [place] <0.10 <=0.34 kU/L 02/10/2017 9:45 PM EST [facility] Allergen, Fungi/Mold, A. fumigatus IgE <0.10 <=0.34 kU/L 02/10/2017 9:45 PM EST [facility] D pteronyssinus <0.10 <=0.34 kU/L 02/10/2017 9:45 PM EST [facility] D farinae <0.10 <=0.34 kU/L 02/10/2017 9:45 PM EST [facility] [place] Grass <0.10 <=0.34 kU/L 02/10/2017 9:45 PM EST [facility] [place] Tree <0.10 <=0.34 kU/L 02/10/2017 9:45 PM EST [facility] P.Notatum <0.10 <=0.34 kU/L 02/10/2017 9:45 PM EST [facility] Blood VENOUS BLOOD / Unknown Venipuncture / Unknown 02/08/2017 8:14 PM EST 02/08/2017 8:18 PM EST us Lebron Murguia MD IMMUNOLOGY ORDERABLES Final Resu lt [facility] [address] [place] [address] * [id number] -REF LAB (02/08/2017 8:14 PM EST) Enmmk-0-Phofkrf psin 158 90 - 200 mg/dL 02/09/2017 6:14 PM EST [employer] Comment: To convert to umol/L, multiply mg/dL by 0.185 Performed by [facility], [address] [place] [id number] [email or web address], Pierce Carrera MD, Lab. Director Blood VENOUS BLOOD / Unknown Venipuncture / Unknown 02/08/2017 8:14 PM EST 02/08/2017 8:18 PM EST us Lebron Murguia MD CHEMISTRY ORDERABLES Final Resul t Performing Organization Address City/[facility]/ZIP Co de Phone Number [employer] [address] [place] [address] * (ABNORMAL) LACTIC ACID (02/08/2017 11:57 AM EST) Only the most recent of3 resultswithin the time period is included. Lactic Acid 2.6(H) 0.5 - 2.2 mmol/L 02/08/2017 12:24 PM EST [facility] Blood VENOUS BLOOD / Unknown Venipuncture / Unknown 02/08/2017 11:57 AM EST 02/08/2017 12:02 PM EST us Joseph Cartwright DO CHEMISTRY ORDERABLES Final Resu lt Performing Organization Address City/[facility]/ZIP Co de Phone Number [facility] [address] [place] [address] * (ABNORMAL) REPEAT LACTIC ACID (02/08/2017 9:02 AM EST) Only the most recent of2 resultswithin the time period is included. Lactic Acid 3.5(H) 0.5 - 2.2 mmol/L 02/08/2017 9:41 AM EST [facility] Blood VENOUS BLOOD / Unknown Venipuncture / Unknown 02/08/2017 9:02 AM EST 02/08/2017 9:08 AM EST us Joseph Cartwright DO CHEMISTRY ORDERABLES Final Resu lt [facility] [address] [place] [address] * STREP PNEUMO ANTIGEN (02/08/2017 4:19 AM EST) Strep Pneum Ag Not Detected Not Detected 02/08/2017 8:18 AM EST [facility] Urine STRUCTURE OF URINARY TRACT PROPER / Unknown Collection / Unknown 02/08/2017 4:19 AM EST 02/08/2017 4:29 AM EST us Salma Alvarez DO MICROBIOLOGY - GENERAL ORDERABL ES Final Result Performing Organization Address [facility] Co de Phone Number [facility] [address] [place] [address] * MICROALBUMIN/CREATININE RATIO URINE (02/08/2017 4:19 AM EST) Urine Microalb 37.9 mg/L 02/08/2017 5:11 AM EST [facility] Urine Creatinine 136.8 mg/dL 02/08/2017 5:11 AM EST [facility] Ur Microalb/Creat 28 0 - 30 mg/gm 02/08/2017 5:11 AM EST [facility] Urine STRUCTURE OF URINARY TRACT PROPER / Unknown Collection / Unknown 02/08/2017 4:19 AM EST 02/08/2017 4:29 AM EST us Joseph Cartwright DO URINE ORDERABLES Final Result Performing Organization Address [facility] Co de Phone Number [facility] [address] [place] [address] * LEGIONELLA ANTIGEN URINE (02/08/2017 4:18 AM EST) Legionella Ag Not Detected Not Detected 017 8:17 AM EST [facility] Urine URINE SPECIMEN COLLECTION, CLEAN CATCH / Unknown Collection / Unknown 02/08/2017 4:18 AM EST 02/08/2017 4:28 AM EST us Salma Alvarez DO MICROBIOLOGY - GENERAL ORDERABL ES Final Result Performing Organization Address City/[facility]/ZIP Co de Phone Number [facility] [address] [place] [address] * (ABNORMAL) URINALYSIS (02/08/2017 4:18 AM EST) UA Color Yellow 02/08/2017 4:45 AM EST [facility] UA Appear Clear Clear 02/08/2017 4:45 AM EST [facility] UA Glucose 50(A) Negative mg/dL 02/08/2017 4:45 AM EST [facility] UA Ketones Negative Negative mg/dL 02/08/2017 4:45 AM EST [facility] UA Blood Small(A) Negative 02/08/2017 4:45 AM EST [facility] UA pH 6.0 5.0 - 8.0 pH 02/08/2017 4:45 AM EST [facility] UA Protein 30(A) Negative mg/dL 02/08/2017 4:45 AM EST [facility] UA Urobilinogen Normal <=1 E.U./dL 02/09/20 17 4:45 AM EST [facility] UA Nitrite Negative Negative 02/08/2017 4:45 AM EST [facility] UA Leuk Est Negative Negative 02/08/2017 4:45 AM EST [facility] UA Spec Grav 1.041(H) 1.001 - 1.035 no units 02/08/2017 4:45 AM EST [facility] Comment: Reference range valid for random specimens only. UA WBC 1 0 - 4 /HPF 02/08/2017 4:45 AM EST [facility] UA RBC 2 0 - 3 /HPF 02/08/2017 4:45 AM EST [facility] UA Mucus Trace /LPF 02/08/2017 4:45 AM EST [facility] UA Hyal Cast 1 0 - 2 /LPF 02/08/2017 4:45 AM EST [facility] Urine URINE SPECIMEN COLLECTION, CLEAN CATCH / Unknown Collection / Unknown 02/08/2017 4:18 AM EST 02/08/2017 4:28 AM EST us Salma Alvarez DO URINE ORDERABLES Final Result [facility] [address] [place] [address] * INFLUENZA A/B ANTIGENS (02/08/2017 4:18 AM EST) [facility] Influ A Ag Not Detected Not Detected 02/08/2017 4:49 AM EST [facility] Influ B Ag Not Detected Not Detected 02/08/2017 4:49 AM EST [facility] Swab NASOPHARYNGEAL STRUCTURE / Unknown Collection / Unknown 02/08/2017 4:18 AM EST 02/08/2017 4:28 AM EST Narrative [facility] - 02/08/2017 4:49 AM EST Negative or Invalid results in patients with high clinical suspicion should be verified with RT-PCR, available as Respiratory Viral Mini Panel ([id number]) in [facility]. The WHO recommends molecular testing (Respiratory Viral DNA Test) during periods of low influenza activity instead of rapid tests. Should rapid tests be used, then both positive and negative test results should be confirmed by a molecular method. The WHO also recommends confirmatory testing by a molecular method (Respiratory Viral DNA Test) for all negative rapid test results during seasonal occurrence of influenza. us Joseph Cartwright DO MICROBIOLOGY - GENERAL ORDERABL ES Final Result Performing Organization Address City/[facility] [place] [address] * URINE CULTURE (NO STAIN) (02/08/2017 4:18 AM EST) [facility] Culture No growth at 30 hours. 02/09/2017 1:53 PM EST [facility] Urine URINE SPECIMEN COLLECTION, CLEAN CATCH / Unknown Collection / Unknown 02/08/2017 4:18 AM EST 02/08/2017 4:28 AM EST us Salma Alvarez DO MICROBIOLOGY - GENERAL ORDERABL ES Final Result Performing Organization Address [facility] [place] [address] * TROPONIN-T (02/08/2017 12:20 AM EST) Only the most recent of9 resultswithin the time period is included. [facility] Troponin-T <0.01 <0.01 ng/mL 02/08/2017 1:12 AM EST [facility] Blood VENOUS BLOOD / Unknown Venipuncture / Unknown 02/08/2017 12:20 AM EST 02/08/2017 12:32 AM EST Narrative [facility] - 02/08/2017 1:12 AM EST Values > or = 0.01 ng/mL have been shown to have prognostic value. us Iam Mott MD CHEMISTRY ORDERABLES Final R esult Performing Organization Address City/[facility] [place] [address] * TSH REFLEX (02/08/2017 12:20 AM EST) Only the most recent of2 resultswithin the time period is included. TSH Reflex 0.411 0.270 - 4.200 mcIU/mL 02/08/2017 1:12 AM EST [facility] Blood VENOUS BLOOD / Unknown Venipuncture / Unknown 02/08/2017 12:20 AM EST 02/08/2017 12:32 AM EST Joseph Cartwright DO CHEMISTRY ORDERABLES Final Resu lt Performing Organization Address [facility] de Phone Number [facility] [address] [place] [address] * PROCALCITONIN (02/08/2017 12:20 AM EST) Procalcitonin 0.17 <=0.49 ng/mL 02/08/2017 1:13 AM EST [facility] Blood VENOUS BLOOD / Unknown Venipuncture / Unknown 02/08/2017 12:20 AM EST 02/08/2017 12:32 AM EST Narrative [facility] - 02/08/2017 1:13 AM EST Procalcitonin <0.50 ng/mL: Procalcitonin levels below 0.50 ng/mL on the first day of ICU admission represent a low risk for progression to severe sepsis and/or septic shock Procalcitonin >=0.50 ng/mL and <=2.00 ng/mL: If the procalcitonin measurement is performed shortly after the systemic infection process has started (usually less than 6 hours), this value may still be low. As various non-infectious conditions are known to induce procalcitonin as well, procalcitonin levels between 0.50 ng/mL and 2.00 ng/mL should be reviewed carefully to take into account the specific clinical background and condition(s) of the patient. Procalcitonin >2.00 ng/mL: Procalcitonin levels above 2.00 ng/mL on the first day of ICU admission represent a high risk for progression to severe sepsis and/or septic shock. [employer] CHEMISTRY ORDERABLES Final [facility] Performing Organization Address [facility] [place] [address] * HEMOGLOBIN A1C (02/08/2017 12:20 AM EST) Only the most recent of2 resultswithin the time period is included. Hgb A1C 6.3 <=7.0 % 02/08/2017 9:41 AM EST [facility] Blood VENOUS BLOOD / Unknown Venipuncture / Unknown 02/08/2017 12:20 AM EST 02/08/2017 12:33 AM EST Narrative [facility] - 02/08/2017 9:41 AM EST Reference Interval for Hgb A1c Hgb A1c Interpretation < 6.0 Non-Diabetic Range 6.0 - 7.0 ADA Therapeutic Target > 7.0 Action suggested [employer] CHEMISTRY ORDERABLES Final Resu Performing Organization Address [facility] de Phone Number [facility] [address] [place] [address] * CT ANGIOGRAM CHEST W CONTRAST (02/07/2017 9:02 PM EST) Anatomical Region Laterality Modality Chest Computed Tomogra phy 02/07/2017 9:02 PM EST Impressions 02/07/2017 9:43 PM EST No PE or infiltrate. Emphysema. Small, slowly enlarging noncalcified nodule left posterior costophrenic sulcus suspicious for slow growing neoplasm. Cholelithiasis. Narrative 02/07/2017 9:[address] ANGIOGRAM CHEST WITH CONTRAST, 02/07/2017 9:02 PM CLINICAL HISTORY: -Chest pain, acute, PE suspected, intermed prob, positive D-dimer -SHORTNESS OF BREATH COMPARISON: Chest CT from 04/10/2012. TECHNIQUE: CT angiogram of the chest with 50 mL Isovue 370 intravenous contrast material with 2-D multiplanar reconstructions and 3-D MIP reconstructions. Automated exposure control for dose reduction was used. CTDIvol: .6 - 8.7 mGy. DLP: 375 mGy-cm. FINDINGS: Good opacification of the pulmonary arterial tree without filling defect to suggest PE. Jfmu-cr-gvexzkpo mixed atherosclerotic plaque thoracic aorta without aneurysm or dissection. Prior CABG. Prominent emphysematous changes greatest at the lung apices redemonstrated as is mild scarring at the lung apices and within the lingula. There is a small noncalcified nodule in the left posterior costophrenic sulcus which measures about 5 mm, previously about 3 mm suspicious for slow growing neoplasm. Small calcified granuloma posteriorly in the left upper lung. No infiltrate, mass, or adenopathy. No pleural or pericardial effusion. Couple small ovoid densities in the proximal stomach consistent with pills. Few tiny calcified splenic granulomas. Few tiny dependent densities in the gallbladder consistent with gallstones. No CT evidence of cholecystitis. Fatty atrophy of the pancreas. Included subdiaphragmatic viscera otherwise unremarkable. Mildly enlarged, heterogeneous right thyroid lobe appearing similar likely due to goiter. Prior left thyroidectomy. Procedure Note Joseph Amaro MD - 02/07/2017 CT ANGIOGRAM CHEST WITH CONTRAST, 02/07/2017 9:02 PM CLINICAL HISTORY: -Chest pain, acute, PE suspected, intermed prob,positive D-dimer -SHORTNESS OF BREATH COMPARISON: Chest CT from 04/10/2012. TECHNIQUE: CT angiogram of the chest with 50 mL Isovue 370 intravenouscontrast material with 2-D multiplanar reconstructions and 3-D MIPreconstructions. Automated exposure control for dose reduction was used. CTDIvol: .6 - 8.7mGy. DLP: 375 mGy-cm. FINDINGS: Good opacification of the pulmonary arterial tree withoutfilling defect to suggest PE. Kfer-po-sefggvpq mixed atherosclerotic plaquethoracic aorta without aneurysm or dissection. Prior CABG. Prominentemphysematous changes greatest at the lung apices redemonstrated as is mild scarring atthe lung apices and within the lingula. There is a small noncalcified nodulein the left posterior costophrenic sulcus which measures about 5 mm, previouslyabout 3 mm suspicious for slow growing neoplasm. Small calcified granulomaposteriorly in the left upper lung. No infiltrate, mass, or adenopathy. No pleuralor pericardial effusion. Couple small ovoid densities in the proximalstomach consistent with pills. Few tiny calcified splenic granulomas. Few tinydependent densities in the gallbladder consistent with gallstones. No CT evidenceof cholecystitis. Fatty atrophy of the pancreas. Included subdiaphragmaticviscera otherwise unremarkable. Mildly enlarged, heterogeneous right thyroidlobe appearing similar likely due to goiter. Prior left thyroidectomy. IMPRESSION: No PE or infiltrate. Emphysema. Small, slowly enlarging noncalcified nodule left posterior costophrenic sulcus suspicious for slow growingneoplasm. Cholelithiasis. Iam Mott MD IMG CT ORDERABLES Final Resu lt * BLOOD CULTURE (NO STAIN) (02/07/2017 6:39 PM EST) Only the most recent of2 resultswithin the time period is included. Culture Result No Growth at 120 hours. BLOOD CULTURE (NO STAIN) 02/12/2017 8:00 PM EST [facility] Blood VENOUS BLOOD / Unknown Venipuncture / Unknown 02/07/2017 6:39 PM EST 02/07/2017 6:54 PM EST Iam Mott MD MICROBIOLOGY - GENERAL ORDER BRYANNA Final Result [facility] [address] [place] [address] * (ABNORMAL) D-DIMER (02/07/2017 6:39 PM EST) Only the most recent of2 resultswithin the time period is included. D-Dimer 366(H) <=230 ng/mL D-DU 02/07/2017 7:07 PM EST [facility] Comment: This test has been clinically validated by the boardinghouse keeper and approved by the FDA for exclusion of pulmonary embolism (PE) or deep vein thrombosis (DVT) in patients with a low clinical risk assessment. The cutoff for exclusion of PE and DVT is < 230 ng/mL D-Dimer Units. Increased levels of D-dimer are associated with PE, DVT, disseminated intravascular coagulation, malignancies, inflammation, sepsis, surgery, trauma, , and advanced patient age. Blood VENOUS BLOOD / Unknown Venipuncture / Unknown 02/07/2017 6:39 PM EST 02/07/2017 6:54 PM EST Iam Mott MD HEMATOLOGY ORDERABLES Final Result Performing Organization Address [facility] [place] [address] * (ABNORMAL) NT PROBNP (02/07/2017 6:39 PM EST) [facility] NT Pro-BNP 764(H) <=319 pg/mL 02/07/2017 7:23 PM EST [facility] Blood VENOUS BLOOD / Unknown Venipuncture / Unknown 02/07/2017 6:39 PM EST 02/07/2017 6:52 PM EST Narrative [facility] - 02/07/2017 7:23 PM EST An NT pro-BNP level less than 300 pg/mL in any patient, regardless of age, effectively rules out acute CHF with a 99% negative predictive value. Iam Mott MD CHEMISTRY ORDERABLES Final R esult Performing Organization Address [facility] [place] [address] * LIPID PANEL REFLEX (06/13/2016) Pathologist [facility] Cholesterol, Total 173 SEP OFFICE Triglycerides 121 MG/DL SEP OFFICE HDL Cholesterol 61 MG/DL SEP OFFICE VLDL Cholesterol Bashir 24 SEP OFFICE LDL Cholesterol 88 MG/DL SEP OFFICE Blood specimen (specimen) UPPER LIMB STRUCTURE / Unknown 06/13/2016 us Khadijah West MD CHEMISTRY ORDERABLES Final Resul t SEP OFFICE * PROSTATE SPECIFIC ANTIGEN (SCREENING) (06/13/2016) PSA, Ultrasensitive 1.6 SEP OFFICE Blood specimen (specimen) UPPER LIMB STRUCTURE / Unknown 06/13/2016 us Khadijah West MD CHEMISTRY ORDERABLES Final Resul t SEP OFFICE * SCANNED HOLTER MONITOR (05/20/2015 4:08 PM EDT) Only the most recent of2 resultswithin the time period is included. Anatomical Region Laterality Modality Other 05/20/2015 4:08 PM EDT us Unknown Unknown IMG HOLTER MONITOR ORDERABLES Fi nal Result * HM HOLTER MONITOR RECORDING AND ANALYSIS (05/04/2015 5:09 PM EDT) Only the most recent of2 resultswithin the time period is included. Anatomical Region Laterality Modality Holter/Event Mon itoring Impressions 05/28/2015 3:05 PM EDT : Rhythm was sinus with BBB and episodes of PAT observed. Frequent SVE was observed which includes couplets. Frequent VE was observed which includes bigeminy, trigeminy, couplets and one triplet. Patient marker was not activated. No diary. LAST 24 HOURS OF A 48 HOUR HOLTER MONITOR INDICATIONS: DURATION 24 HRS MEDICATION: SLOWEST RATE 55 FASTEST RATE 102 AVERAGE RATE 72 TOTAL PVC'S 717 TOTAL PAC'S 4624 VENTRICULAR TACHYCARDIA SUPRAVENTRICULAR TACHYCARDIA Number of episodes 0 Number of episodes 0 Longest run Beats Longest run Beats Fastest rate Fastest rate OTHER ARRHYTHMIAS: See below. ST & T WAVE CHANGES: See below. 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 Frequent SVE was observed which includes couplets. Rare VE was observed which includes bigeminy, trigeminy, and couplets. Patient marker was not activated. No diary. Narrative 05/28/2015 3:05 PM EDT FIRST 24 HOURS OF A 48 HOUR HOLTER MONITOR INDICATIONS: DURATION 24 HRS MEDICATION: SLOWEST RATE 54 FASTEST RATE 113 AVERAGE RATE 76 TOTAL PVC'S 4920 TOTAL PAC'S 3967 VENTRICULAR TACHYCARDIA SUPRAVENTRICULAR TACHYCARDIA Number of episodes 0 Number of episodes 0 Longest run Beats Longest run Beats Fastest rate Fastest rate OTHER ARRHYTHMIAS: See below. ST & T WAVE CHANGES: See below. SYMPTOMS: See below us Khadijah West MD IMG HOLTER MONITOR ORDERABLES Fi nal Result * STREP A DNA (05/03/2015 5:45 PM EDT) Strep A DNA Negative [facility] Comment: Test methodology by DNA probe. The performance characteristics of this test were validated by [facility]. A negative result does not rule out the presence of Group A Streptococcus DNA in concentrations below the level of detection of the assay. This laboratory is authorized under the Clinical Laboratory Improvement Amendments (CLIA) as qualified to perform high complexity testing. Compliance statement is available in the Laboratory. Specimen from throat (specimen) 05/03/2015 5:45 PM EDT 05/03/2015 5:58 PM EDT us Toan Thurman MD MICROBIOLOGY - GENERAL ORDER BRYANNA Final Result [facility] [address] [place] [address] * STREP SCREEN (05/03/2015 5:45 PM EDT) Strep Screen Negative [facility] Specimen from throat (specimen) MOUTH REGION STRUCTURE / Unknown 05/03/2015 5:45 PM EDT 05/03/2015 5:58 PM EDT us Toan Thurman MD MICROBIOLOGY - GENERAL ORDER BRYANNA Final Result [facility] [address] [place] [address] * DIFFERENTIAL (05/03/2015 3:56 PM EDT) Only the most recent of5 resultswithin the time period is included. Neut Percent 58.4 % [facility] Lymph Percent 26.5 % [facility] [place] Percent 10.8 % [facility] Eos Percent 3.6 % [facility] Baso Percent 0.7 % [facility] Neut# 5.7 1.8 - 7.7 x10(3)/[facility] Lymph# 2.6 0.6 - 4.8 x10(3)/[facility] [place]# 1.0 0.0 - 1.3 x10(3)/[facility] Eos# 0.3 0.0 - 0.5 x10(3)/[facility] Baso# 0.1 0.0 - 0.2 x10(3)/[facility] Blood specimen (specimen) 05/03/2015 3:56 PM EDT 05/03/2015 4:08 PM EDT [facility] HEMATOLOGY ORDERABL ES Final Result Performing Organization Address City/[facility] [place] [address] * (ABNORMAL) GLUCOSE METER POC (02/09/2015 1:56 PM EST) Only the most recent of7 resultswithin the time period is included. [facility] Glucose Meter POC 123(H) 70 - 100 mg/dL [facility] Blood specimen (specimen) 02/09/2015 1:56 PM EST 02/09/2015 1:56 PM EST Jolie Lee MD POINT OF CARE TEST ORDERABLES Fi nal Result Performing Organization Address City/[facility]/ZIP Co de Phone Number [facility] [address] [place] [id number] * PATHOLOGY TISSUE REPORT (02/01/2015 10:28 AM EST) Pathologist [facility] Surgical Pathology Report PATIENT NAME:WILFRED SHARMA Surgical Pathology Report Accession Number Collected Date/Time Received Date/Time [id number] 02/01/15 10:28 EST 02/01/15 13:56 EST Diagnosis 1) Duodenal biopsy: - Duodenal mucosa without significant pathologic change. 2) Gastric biopsy: - H. pylori positive, marked chronic active gastritis (immunohistochemical stain reviewed). - Negative for dysplasia or malignancy. 3) Esophageal biopsy: - Gastroesophageal junction mucosa with features consistent with reflux. - Negative for intestinal metaplasia, dysplasia or malignancy. 4) Rectal biopsy: - Colonic and anal mucosa with hyperplastic change and patchy submucosal hemorrhage. - Negative for dysplasia or malignancy. 5) Descending colon polyps, polypectomy: - Tubular adenoma. Taryn Washburn (Electronically signed by) Verified: 02/02/2015 FTT Lab Clinical Information Altered bowel function, Loss of weight, diarrhea, dysphagia esophageal stricture, hiatal hernia, hemorrhoids, diverticulosis, two colon polyps Routine Gross Description The specimen arrives in formalin in 5 parts. Part 1) Labeled duodenal biopsy and consists of 8 irregular fragments of cook-pink soft tissue ranging in size from 0.2 to 0.5 cm in greatest dimension. The tissues are entirely submitted in one cassette labeled 1A. /MLR Part 2) Labeled gastric biopsy and consists of 7 irregular fragments of cook-pink soft tissue ranging in size from 0.3 to 0.6 cm in greatest dimension. The tissues are entirely submitted in one cassette labeled 2A. /MLR Part 3) Labeled esophageal biopsy and consists of multiple irregular fragments of cook-pink soft tissue ranging in size from 0.3 to 0.7 cm in greatest dimension. The tissues are entirely submitted in one cassette labeled 3A. /MLR Part 4) Labeled rectal biopsy and consists of 6 irregular fragments of cook-pink soft tissue ranging in size from 0.2 to 0.3 cm in greatest dimension. The tissues are entirely submitted in one cassette labeled 4A. /MLR Part 5) Labeled descending colon polyp and consists of 2 irregular fragments of cook-pink soft tissue ranging in size from 0.2 to 0.5 cm in greatest dimension. The tissues are entirely submitted in one cassette labeled 5A. /MLR DO /EH Microscopic Description Microscopic examination is performed and the findings corroborate the diagnosis. An H. pylori immunohistochemical stain is performed to detect subtle organisms and is positive for rare organisms. All control stain appropriately. [facility] 02/01/2015 10:2 8 AM EST us Reed Bull MD PATHOLOGY ORDERABLES Final Res ult Performing Organization Address City/[facility] [place] [address] * GMED EGD-COLONOSCOPY (02/01/2015 10:00 AM EST) 02/01/2015 10:0 0 AM EST Impressions [facility] - 02/01/2015 11:21 AM EST Plan: Await pathology results Continue current medication for acid suppression 30 minutes before a meal. Continue current GI medications Resume all usual medications High Fiber Diet Begin a daily fiber supplement as directed Resume all usual medications This section is an excerpt of the full report. us Reed Bull MD GI PROCEDURE ORDERABLES Final Result Performing Organization Address [facility] [place] [address] * US RIGHT UPPER QUADRANT (01/15/2015 4:18 PM EST) Anatomical Region Laterality Modality Abdomen Ultrasound 01/15/2015 4:18 PM EST Impressions 01/15/2015 4:37 PM EST IMPRESSION: Probable small faintly shadowing gallstones with gallbladder sludge or polyps less likely Positive sonographic Henderson sign. No ductal dilatation. Narrative 01/15/2015 4:37 PM EST US RIGHT UPPER QUADRANT 01/15/2015 4:18 PM HISTORY: R10.11-Right upper quadrant [id number]. COMPARE: None available. I do compare with outside CT report from January 01, 2015 questioning dependent material in the gallbladder FINDINGS: There is dependent echogenic material with faint posterior acoustic shadowing in the gallbladder probably small gallstones. These were not clearly mobile. Common duct measures 2 mm and is normal. No gallbladder wall thickening. The patient was tender to scanning over the gallbladder There are no focal liver lesions. There is no ascites. Limited views of the pancreas and right kidney are normal Procedure Note Shani Tolbert MD - 01/15/2015 US RIGHT UPPER QUADRANT 01/15/2015 4:18 PM HISTORY: R10.11-Right upper quadrant [id number]. COMPARE: None available. I do compare with outside CT report from 2014 questioning dependent material in the gallbladder FINDINGS: There is dependent echogenic material with faint posterior acousticshadowing in the gallbladder probably small gallstones. These were not clearlymobile. Common duct measures 2 mm and is normal. No gallbladder wall thickening. The patient was tender to scanning over the gallbladder There are no focal liver lesions. There is no ascites. Limited views ofthe pancreas and right kidney are normal IMPRESSION: Probable small faintly shadowing gallstones with gallbladder sludge orpolyps less likely Positive sonographic Henderson sign. No ductal dilatation. us Saurabh Soto MD IMG US ORDERABLES Final Result * CT ABDOMEN PELVIS W WO CONTRAST (01/12/2015 11:08 AM EST) Anatomical Region Laterality Modality Abdomen, Chest, Pelvis, Hip Comp uted Tomography Impressions 01/13/2015 9:12 AM EST : 1. No acute abnormalities are identified in the abdomen or pelvis. 2. Colonic diverticulosis. No evidence of diverticulitis. 3. Right nephrectomy, for cancer per the provided history. No evidence of metastatic disease in the abdomen or pelvis. 4. Small amount of hyperdense material in dependent aspect of the gallbladder, either gallbladder sludge or gallstones. If needed, right upper quadrant ultrasound would better assess. 5. Prominent prostate gland with several bladder diverticula, suggesting some degree of chronic bladder outlet obstruction. No left hydronephrosis. 6. Moderate emphysema of the partially visualized lung bases with a 5-mm nodular density in the left lower lobe superimposed on dependent atelectasis, either a pulmonary nodule or focal atelectasis. Follow up CT chest in six months is recommended to show stability. Chilango Ratliff M.D. Narrative 01/13/2015 9:12 AM EST EXAMINATION: CT Abdomen/Pelvis Dated 01/12/2015. CLINICAL HISTORY: 74-year-old male with pelvic pain. 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 TECHNIQUE: After the administration of oral contrast, [address] images were obtained through the abdomen. Then, after the administration of intravenous contrast, [address] images were obtained through the abdomen and pelvis during the portal venous phase followed by excretion phase images through the kidneys. Coronal images were created from the axial data. COMPARISON: No prior studies are available for comparison. FINDINGS: The visualized portions of the lower chest included in this examination of the abdomen and pelvis reveal moderate emphysema. Mild dependent atelectasis in both lower lobes. 0.5-cm nodular density superimposed on the dependent atelectasis of the left lower lobe. Mild subsegmental atelectasis/focal fibrosis of the right middle lobe and lingula medially. The patient is status post sternotomy and CABG, only partially imaged. Tiny low density lesion of the liver right lobe posterior segment inferior tip, too small to characterize but of doubtful clinical significance. Small amount of hyperdensity within dependent aspect of the gallbladder. Mild fatty infiltration of the pancreas. Calcified granulomas of the spleen. The adrenal glands have a normal appearance. Patient is status post right nephrectomy. No visible mass or adenopathy in the surgical bed. The left kidney enhances normally. Normal excretion by the left kidney. 0.7-cm cyst of the left kidney lower pole. No hydronephrosis. The prostate gland is prominent in size, measuring 4.5 x 3.4-cm in cross-section. Several diverticula of the bladder. Colonic diverticulosis. No evidence of diverticulitis. Normal appendix. Small fat only containing bilateral inguinal hernias. No free air or free fluid. No enlarged lymph nodes are identified. Bone window images reveal no aggressive lytic or sclerotic bone lesions. us Saurabh Soto MD IMG CT ORDERABLES Final Result * MRI ANGIOGRAM EXTRACRANIAL WO CONTRAST (12/16/2014 8:56 PM EST) Anatomical Region Laterality Modality Head Magnetic Resonan ce 12/16/2014 8:56 PM EST Impressions 12/16/2014 8:59 PM EST IMPRESSION: 1. Normal extracranial MRA. Narrative 12/16/2014 8:59 PM EST MRI EXTRACRANIAL CIRCULATION, WITHOUT CONTRAST, 12/16/2014 INDICATIONS: Ataxia, TIA. Extracranial MRI with images obtained. No comparison available. There is normal flow within the common carotid arteries bilaterally. The carotid bulb is normal bilaterally. The internal carotid artery is normal on both sides. There is normal flow within the vertebral arteries. Procedure Note Pepe Willard MD - 12/16/2014 MRI EXTRACRANIAL CIRCULATION, WITHOUT CONTRAST, 12/16/2014 INDICATIONS: Ataxia, TIA. Extracranial MRI with images obtained. No comparison available. There is normal flow within the common carotid arteries bilaterally. Thecarotid bulb is normal bilaterally. The internal carotid artery is normal on bothsides. There is normal flow within the vertebral arteries. IMPRESSION: 1. Normal extracranial MRA. us Jeanette Alegria MD [facility] MRI ORDERABLES Final Result * MRI ANGIOGRAM INTRACRANIAL WO CONTRAST (12/16/2014 8:46 PM EST) Anatomical Region Laterality Modality Head Magnetic Resonan ce 12/16/2014 8:46 PM EST Impressions 12/16/2014 8:58 PM EST IMPRESSION: 1. Normal intracranial MRA without contrast. Narrative 12/16/2014 8:58 PM EST MRI INTRACRANIAL CIRCULATION, WITHOUT CONTRAST, 12/16/2014 INDICATIONS: Ataxia, TIA. Intracranial MRI without contrast performed. No comparison available. There is normal flow within the distal internal carotid arteries including the intracavernous and supraclinoid portions. The BETINA and MCA distributions bilaterally are normal. There is normal flow within the vertebral arteries. The basilar system is normal in appearance. The APPROVER take normal origin. Procedure Note Pepe Willard MD - 12/16/2014 MRI INTRACRANIAL CIRCULATION, WITHOUT CONTRAST, 12/16/2014 INDICATIONS: Ataxia, TIA. Intracranial MRI without contrast performed. No comparison available. There is normal flow within the distal internal carotid arteries includingthe intracavernous and supraclinoid portions. The BETINA and MCA distributions bilaterally are normal. There is normal flow within the vertebral arteries. The basilar system isnormal in appearance. The APPROVER take normal origin. IMPRESSION: 1. Normal intracranial MRA without contrast. us Jeanette Alegria MD [facility] MRI ORDERABLES Final Result * MRI BRAIN WO CONTRAST (12/16/2014 2:00 PM EST) Anatomical Region Laterality Modality Head Magnetic Resonan ce 12/16/2014 2:00 PM EST Impressions 12/16/2014 2:14 PM EST Impression: No Acute Findings. 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 Dizzy Compare: CT head 12/15/2014. Cerebellar tonsils within normal limits in position. Expected signal void seen in vertebral, basilar, and internal carotid arteries. Atrophy and ischemic leukoencephalopathy noted. Mild paranasal sinus disease Diffusion weighted images show no acute findings. 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 Dizzy Compare: CT head 12/15/2014. Cerebellar tonsils within normal limits in position. Expected signal voidseen in vertebral, basilar, and internal carotid arteries. Atrophy and ischemic leukoencephalopathy noted. Mild paranasal sinus disease Diffusion weighted images show no acute findings. Impression: No Acute Findings. us Tatiana Apodaca MD IMG MRI ORDERABLES Final Result * THYROID STIMULATING HORMONE (12/16/2014 8:16 AM EST) Only the most recent of2 resultswithin the time period is included. TSH 1.490 0.270 - 4.200 mcIU/mL [facility] Blood specimen (specimen) 12/16/2014 8:16 AM EST 12/16/2014 8:19 AM EST us Tatiana Apodaca MD CHEMISTRY ORDERABLES Final Resul t Performing Organization Address City/State/[facility] Co de Phone Number [facility] [address] [place] [address] * CT HEAD WO CONTRAST (12/15/2014 8:43 PM EST) Only the most recent of2 resultswithin the time period is included. Anatomical Region Laterality Modality Head Computed Tomogra phy Impressions 12/15/2014 8:28 PM EST Impression: Unremarkable noncontrast head CT. Narrative 12/15/2014 8:28 PM EST 12/15/2014 time 2012 Exam: Noncontrast head CT History: Lightheaded. Dizzy. Comparison 04/14/2011 Findings: The ventricles are normal. The brain parenchyma is normal in morphology and attenuation. There is no hemorrhage, cortical infarct or mass identified. There are no extra-axial fluid collections identified. Procedure Note Bert Bernabe III, MD - 12/15/2014 12/15/2014 time 2012 Exam: Noncontrast head CT History: Lightheaded. Dizzy. Comparison 04/14/2011 Findings: The ventricles are normal. The brain parenchyma is normal in morphology and attenuation. There is no hemorrhage, cortical infarct ormass identified. There are no extra-axial fluid collections identified. Impression: Unremarkable noncontrast head CT. Mehrdad Slater MD IMG CT ORDERABLES Final Result * MRI CERVICAL SPINE WO CONTRAST (04/22/2014 11:14 AM EDT) Only the most recent of2 resultswithin the time period is included. Anatomical Region Laterality Modality C-spine Magnetic Resonan ce 04/22/2014 10:2 8 AM EDT Impressions 04/22/2014 11:39 AM EDT IMPRESSION: 1. Stable multifocal minimal or mild degenerative disc disease with mild central canal narrowing at C5-C6 and C6-C7. 2. Stable neural foraminal narrowing, with most significant stenosis right C6- C7. Moderate stenosis left C5-C6 and C6-C7 neural foramen. Narrative 04/22/2014 11:39 AM EDT MRI CERVICAL SPINE WITHOUT CONTRAST 04/22/2014 COMPARISON: Cervical spine CT without contrast 04/14/2011 and MRI cervical spine 03/29/2011. INDICATION: 73-year-old with neck pain radiating down left arm with tingling for 4 to 5 months. Steroid injections did improve pain. History of renal cell carcinoma. TECHNICAL FACTORS: Sagittal and axial T1 and T2 weighted sequences obtained on 1.5 Nayeli magnet. Sagittal STIR sequence also obtained. FINDINGS: Cervical lordosis is mildly exaggerated. Vertebral bodies demonstrate normal height, alignment and marrow signal. No focal edema. Disc space dimensions remain preserved. Craniovertebral junction and cervical cord normal in configuration and signal. C2-C3 disc level is normal. At C3-C4, there is minimal diffuse disc bulge and bilateral uncovertebral hypertrophic change. Mild left neural foraminal narrowing. At C4-C5, there is minimal diffuse disc bulge. Facet joints are mildly hypertrophic. Both neural foramen are mildly narrowed, left greater than right. At C5-C6, there is subtle asymmetric far right lateral hypertrophic discogenic change. With mild ligamentum flavum, central canal is mildly narrowed. Facet joints are hypertrophic, especially left side. Right neural foramen is mild to moderately narrowed. Left neural foramen is moderately narrowed. At C6-C7, there is mild diffuse disc bulge with mild far right lateral and proximal foraminal prominence. Bilateral uncovertebral joints are hypertrophic. Central canal is mildly narrowed. Mild facet hypertrophy contributes to moderate to significant right and moderate left neural foraminal stenosis. C7-T1 disc level is normal. No significant interval change in degree of degenerative disc disease or central canal or neural foraminal narrowing from prior MRI. Procedure Note Virgen Davies MD - 04/22/2014 MRI CERVICAL SPINE WITHOUT CONTRAST 04/22/2014 COMPARISON: Cervical spine CT without contrast 04/14/2011 and MRI cervicalspine 03/29/2011. INDICATION: 73-year-old with neck pain radiating down left arm withtingling for 4 to 5 months. Steroid injections did improve pain. History of renal cell carcinoma. TECHNICAL FACTORS: Sagittal and axial T1 and T2 weighted sequencesobtained on 1.5 Nayeli magnet. Sagittal STIR sequence also obtained. FINDINGS: Cervical lordosis is mildly exaggerated. Vertebral bodies demonstratenormal height, alignment and marrow signal. No focal edema. Disc space dimensions remain preserved.Craniovertebral junction and cervical cord normal in configuration and signal. C2-C3 disc level is normal. At C3-C4, there is minimal diffuse disc bulge and bilateral uncovertebralhypertrophic change. Mild left neural foraminal narrowing. At C4-C5, there is minimal diffuse disc bulge. Facet joints are mildlyhypertrophic. Both neural foramen are mildly narrowed, left greater than right. At C5-C6, there is subtle asymmetric far right lateral hypertrophicdiscogenic change. With mild ligamentum flavum, central canal is mildly narrowed. Facet joints arehypertrophic, especially left side. Right neural foramen is mild to moderately narrowed.Left neural foramen is moderately narrowed. At C6-C7, there is mild diffuse disc bulge with mild far right lateral andproximal foraminal prominence. Bilateral uncovertebral joints are hypertrophic. Central canalis mildly narrowed. Mild facet hypertrophy contributes to moderate to significant right andmoderate left neural foraminal stenosis. C7-T1 disc level is normal. No significant interval change in degree of degenerative disc disease orcentral canal or neural foraminal narrowing from prior MRI. IMPRESSION: 1. Stable multifocal minimal or mild degenerative disc disease with mildcentral canal narrowing at C5-C6 and C6-C7. 2. Stable neural foraminal narrowing, with most significant stenosis rightC6-C7. Moderate stenosis left C5-C6 and C6-C7 neural foramen. Migel Fajardo MD IM MRI ORDERABLES Final Result * XR ABDOMEN AP (05/05/2013 8:29 PM EDT) Anatomical Region Laterality Modality Abdomen Radiographic Gwendolyn ging 05/05/2013 7:57 PM EDT Impressions 05/05/2013 8:39 PM EDT Impression: No acute Findings of the abdomen. Findings compatible with constipation Narrative 05/05/2013 8:39 PM EDT Two views XR ABDOMEN AP May 05, 2013 08:30:07 PM HISTORY: -PALPITATIONS. Constipation Compare: surgical clips noted Rounded areas of increased density left upper quadrant consistent with bowel content Moderate degenerative changes of the spine with spurring Moderate to large amount of stool in the colon. No free air or dilated bowel loops. Procedure Note Pepe Rosas MD - 05/05/2013 Two views XR ABDOMEN AP May 05, 2013 08:30:07 PM HISTORY: -PALPITATIONS. Constipation Compare: surgical clips noted Rounded areas of increased density left upper quadrant consistent withbowel content Moderate degenerative changes of the spine with spurring Moderate to large amount of stool in the colon. No free air or dilatedbowel loops. Impression: No acute Findings of the abdomen. Findings compatible withconstipation Mehrdad [facility] ORDERABLE S Final Result * MURAL ARTIST PROCEDURE LOG (04/02/2013 12:00 AM EST) Khadijah West MD [facility] ORDERABLES Edit ed Result - Final [facility] [address] [place] [address] * CT CHEST ABDOMEN PELVIS WO CONTRAST (04/10/2012 2:53 PM EST) Anatomical Region Laterality Modality Abdomen, Chest, Pelvis Computed Tomography 04/10/2012 Impressions 04/10/2012 9:40 PM EST IMPRESSION: 1. A 3 mm noncalcified subpleural nodule may have been previously obscured by minimal dependent atelectasis in this region. It is indeterminant in CT appearance. It is too small for PET evaluation or biopsy and continued CT surveillance is warranted. Otherwise stable CT chest, abdomen and pelvis now without IV enhancement and with no findings to suggest metastatic disease otherwise. Narrative 04/10/2012 9:[address] CHEST, ABDOMEN AND PELVIS 04/10/2012: HISTORY: Follow-up renal cell cancer. COMPARISON: CT chest, abdomen and pelvis with contrast 10/03/2011. SPIRAL CT CHEST, ABDOMEN AND PELVIS UTILIZING ORAL CONTRAST WITHOUT IV ENHANCEMENT PER REQUEST: CHEST: A 3 mm subpleural noncalcified nodule in deep posterior left costophrenic angle may have been previously obscured by dependent atelectasis. Linear scarring at the right apex is stable. Advanced centrilobular emphysema changes of lungs redemonstrated. Lungs otherwise clear. No pleural effusion. No pathologically enlarged nodes identified. 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 Changes for prior median sternotomy and coronary artery bypass are stable. Degenerative spondylosis of thoracic spine redemonstrated. No suspicious osseous lesion seen. ABDOMEN: Post right nephrectomy appearance is stable. No recurrent nephrectomy bed mass. No pathologically enlarged nodes. Solid viscera otherwise unremarkable now without IV enhancement. Visualized gastrointestinal tract is unremarkable. No suspicious osseous lesion seen. Degenerative spondylosis of lumbar spine redemonstrated. PELVIS: No pathologically enlarged nodes seen. Diverticulosis again is most notable in the sigmoid colon. Visualized gastrointestinal tract otherwise unremarkable. Fat-containing patulous inguinal rings greater on the left redemonstrated. No bowel hernia. Slight enlargement of prostate deforms base of urinary bladder. Urinary bladder is increasingly distended but otherwise unremarkable. No suspicious osseous lesion seen. No ascites. Procedure Note Avelino Cee MD - 04/10/2012 CT CHEST, ABDOMEN AND PELVIS 04/10/2012: HISTORY: Follow-up renal cell cancer. COMPARISON: CT chest, abdomen and pelvis with contrast 10/03/2011. SPIRAL CT CHEST, ABDOMEN AND PELVIS UTILIZING ORAL CONTRAST WITHOUT IVENHANCEMENT PER REQUEST: CHEST: A 3 mm subpleural noncalcified nodule in deep posterior left costophrenicangle may have been previously obscured by dependent atelectasis. Linear scarring at the rightapex is stable. Advanced centrilobular emphysema changes of lungs redemonstrated. Lungsotherwise clear. No pleural effusion. 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 Changes for prior mediansternotomy and coronary artery bypass are stable. Degenerative spondylosis of thoracic spineredemonstrated. No suspicious osseous lesion seen. ABDOMEN: Post right nephrectomy appearance is stable. No recurrent nephrectomy bedmass. No pathologically enlarged nodes. Solid viscera otherwise unremarkable nowwithout IV enhancement. Visualized gastrointestinal tract is unremarkable. No suspicious osseouslesion seen. Degenerative spondylosis of lumbar spine redemonstrated. PELVIS: No pathologically enlarged nodes seen. Diverticulosis again is mostnotable in the sigmoid colon. Visualized gastrointestinal tract otherwise unremarkable.Fat-containing patulous inguinal rings greater on the left redemonstrated. No bowel hernia. Slightenlargement of prostate deforms base of urinary bladder. Urinary bladder is increasinglydistended but otherwise unremarkable. No suspicious osseous lesion seen. No ascites. IMPRESSION: 1. A 3 mm noncalcified subpleural nodule may have been previously obscuredby minimal dependent atelectasis in this region. It is indeterminant in CT appearance. It istoo small for PET evaluation or biopsy and continued CT surveillance is warranted. Otherwisestable CT chest, abdomen and pelvis now without IV enhancement and with no findings tosuggest metastatic disease otherwise. Geovany Dugan MD IM CT ORDERABLES Final Resul t * CT CHEST ABDOMEN PELVIS W CONTRAST (10/03/2011 4:41 PM EDT) Anatomical Region Laterality Modality Abdomen, Chest, Pelvis Computed Tomography 10/03/2011 Impressions 10/03/2011 5:14 PM EDT IMPRESSION: Status post right nephrectomy. No evidence of distal metastatic disease. Central lobar emphysema. Narrative 10/03/2011 5:[address] CHEST ABDOMEN PELVIS W CONTRAST Oct 03, 2011 04:41:57 PM HISTORY: 189.0-Malignant neoplasm of kidney, except [id number]. 75 mL of Isovue-370 administered. Oral contrast was given.. There's been coronary bypass. No abnormal mediastinal mass or adenopathy is seen. There are extensive changes of central lobar emphysema with some sparing of the lung bases. No endobronchial lesions or focal infiltrates are seen. Abdomen and pelvis: There's been a right nephrectomy. The left kidney liver and spleen are unremarkable. Pancreas is normal. The appendix is normal. No abnormal retroperitoneal mass or adenopathy is present. Scattered diverticulitis sigmoid colon are present. Procedure Note Heraclio Elizondo MD - 10/03/2011 CT CHEST ABDOMEN PELVIS W CONTRAST Oct 03, 2011 04:41:57 PM HISTORY: 189.0-Malignant neoplasm of kidney, except [id number]. 75 mL of Isovue-370 administered. Oral contrast was given.. There's been coronary bypass. No abnormal mediastinal mass or adenopathyis seen. There are extensive changes of central lobar emphysema with some sparing of the lungbases. No endobronchial lesions or focal infiltrates are seen. Abdomen and pelvis: There's been a right nephrectomy. The left kidney liver and spleen areunremarkable. Pancreas is normal. The appendix is normal. No abnormal retroperitoneal mass oradenopathy is present. Scattered diverticulitis sigmoid colon are present. IMPRESSION: Status post right nephrectomy. No evidence of distalmetastatic disease. Central lobar emphysema. us Geovany Dugan MD IMG CT ORDERABLES Final Resul t * (ABNORMAL) POCT CREATININE (10/03/2011 4:41 PM EDT) Creatinine 1.4(A) 0.6 - 1.3 mg/dL [facility] i-Stat ID# [facility] Blood specimen (specimen) 10/03/2011 4:41 PM EDT us Geovany Dugan MD POINT OF CARE TEST ORDERABLES Final Result [facility] * PET CT SKULL BASE TO MID THIGH (05/31/2011 11:00 AM EDT) Anatomical Region Laterality Modality Positron Emissio n Tomography (PET) 05/31/2011 Impressions 05/31/2011 12:08 PM EDT IMPRESSION: Unremarkable PET scan Narrative 05/31/2011 12:[address] SKULL BASE TO MID THIGH 05/31/2011 HISTORY: Renal cell carcinoma, initial staging TECHNIQUE: 12.9 mCi 18 F-FDG IV via right antecubital injection with a blood glucose of 109 There has been interval right nephrectomy when compared with March 27, 2011 CT. There is normal distribution of radiopharmaceutical. No abnormal FDG activity seen from the mid skull to the mid thighs to suggest metastatic disease. Procedure Note Napoleon Lawton - 05/31/[address] SKULL BASE TO MID THIGH 05/31/2011 HISTORY: Renal cell carcinoma, initial staging TECHNIQUE: 12.9 mCi 18 F-FDG IV via right antecubital injection with ablood glucose of 109 There has been interval right nephrectomy when compared with March CT. There is normal distribution of radiopharmaceutical. No abnormal FDG activity seenfrom the mid skull to the mid thighs to suggest metastatic disease. IMPRESSION: Unremarkable PET scan us Geovany Dugan MD IMG PET ORDERABLES Final Resu lt * POCT GLUCOSE (05/31/2011 10:22 AM EDT) Glucose 109 60 - 200 mg/dL [facility] Lot Number [facility] Expiration Date [facility] SeriAl # [facility] Meter [facility] 05/31/2011 10:2 2 AM EDT us Geovany Dugan MD POINT OF CARE TEST ORDERABLES Final Result [facility] * XR NASAL BONES (04/14/2011 10:26 PM EST) Anatomical Region Laterality Modality Head Radiographic Gwendolyn ging 04/14/2011 10:1 3 PM EST Impressions 04/14/2011 10:34 PM EST IMPRESSION: 1. Normal nasal bones. Narrative 04/14/2011 10:34 PM EST Nasal bones, 3 views, Apr 14, 2011 10:27:54 PM INDICATIONS: Trauma, pain. Three views of the nasal bones are normal. Osseous structures intact. Procedure Note Pepe Willard MD - 04/14/2011 Nasal bones, 3 views, Apr 14, 2011 10:27:54 PM INDICATIONS: Trauma, pain. Three views of the nasal bones are normal. Osseous structures intact. IMPRESSION: 1. Normal nasal bones. us Yovani Pina DO IMG DIAGNOSTIC IMAGING ORDERA BLES Final Result * CT CERVICAL SPINE WO CONTRAST (04/14/2011 10:20 PM EST) Anatomical Region Laterality Modality C-spine Computed Tomogra phy 04/14/2011 10:1 2 PM EST Impressions 04/14/2011 10:47 PM EST IMPRESSION: 1. Multilevel cervical degenerative change. No acute fracture. Narrative 04/14/2011 10:[address] CERVICAL SPINE WO CONTRAST Apr 14, 2011 10:21:04 PM HISTORY: Trauma, pain. Axial images of the cervical spine with sagittal and coronal multiplanar reconstructions. There is scattered degenerative change present with disc osteophyte complex formation at C3-C4, C4-C5, C5-C6, and most pronouncedly at C6-C7. Facet arthropathy is mild. No overt foraminal narrowing. No acute fracture or prevertebral soft tissue edema or swelling identified. Procedure Note Pepe Willard MD - 04/14/2011 CT CERVICAL SPINE WO CONTRAST Apr 14, 2011 10:21:04 PM HISTORY: Trauma, pain. Axial images of the cervical spine with sagittal and coronal multiplanarreconstructions. There is scattered degenerative change present with disc osteophytecomplex formation at C3-C4, C4-C5, C5-C6, and most pronouncedly at C6-C7. Facet arthropathy is mild. No overt foraminal narrowing. No acute fractureor prevertebral soft tissue edema or swelling identified. IMPRESSION: 1. Multilevel cervical degenerative change. No acute fracture. Yovani Goldy Yovani [facility] CT ORDERABLES Final Resul t * SCANNED CARDIAC MURAL ARTIST (04/03/2011 4:42 PM EST) Only the most recent of2 resultswithin the time period is included. Narrative Transcriptions Unknown, Unknown - 04/03/2011 4:42 PM EST Unknown Unknown [facility] CATH ORDERABLES Nancy l Result * MRI THORACIC SPINE WO CONTRAST (03/29/2011 8:12 PM EST) Anatomical Region Laterality Modality T-spine Magnetic Resonan ce 03/29/2011 7:57 AM EST Impressions 03/29/2011 8:25 PM EST IMPRESSION: Unremarkable MRI thoracic spine. Narrative 03/29/2011 8:25 PM EST MRI THORACIC SPINE WO CONTRAST 03/29/2011. HISTORY: Back pain Routine imaging performed of the thoracic spine. Alignment is normal. Marrow signal normal. No intrinsic abnormality of the cord seen. No disc herniation or protrusion. No mass. Procedure Note Monisha Lawtonar - 03/29/2011 MRI THORACIC SPINE WO CONTRAST 03/29/2011. HISTORY: Back pain Routine imaging performed of the thoracic spine. Alignment is normal. Marrow signal normal. No intrinsic abnormality of thecord seen. No disc herniation or protrusion. No mass. IMPRESSION: Unremarkable MRI thoracic spine. Result [facility] Deyvi Dixon MD [facility] MRI ORDERABLES Final Result * (ABNORMAL) HEPARIN ANTI-XA, UNF (03/29/2011 6:34 AM EST) Only the most recent of2 resultswithin the time period is included. Heparin Level UNF <0.04(L) 0.30 - 0.70 IU/mL [facility] Comment: The therapeutic range for heparinized patients monitored by the Heparin Lvl UF is 0.30-0.70 IU/mL. Blood specimen (specimen) 03/29/2011 6:34 AM EST 03/29/2011 6:44 AM EST Deyvi Dixon MD HEMATOLOGY ORDERABLES Final Res ult Performing Organization Address [facility] Co de Phone Number [facility] [address] [place] [address] * NON-SOCIOLOGY PROFESSOR CYTOLOGY REPORT (03/28/2011 6:00 PM EST) Non-Swager Operator Cytology Report PATIENT NAME:WILFRED SHARMA Non-Swager Operator Cytology Report Accession Number Collected Date/Time Received Date/Time [id number] 03/28/11 18:00 EST 03/29/11 09:04 EST Specimen Source Urine Fluid Diagnosis Negative for Malignancy. Comment Scant urothelial cells with no malignant cells identified. Cytotechnologi st:JOYCE BENZ 03/29/2011 Completed by: TOÑO TORRES MD (Electronically signed by) 03/29/2011 [facility] Gross Description Received 60 ml of yellow fluid. 1 ThinPrep Slide made. [facility] 03/28/2011 6:00 PM EST Deyvi Dixon MD CYTOLOGY ORDERABLES Final Resul t Performing Organization Address [facility] Co de Phone Number [facility] [address] [place] [address] * TROPONIN-I (03/28/2011 5:22 AM EST) Only the most recent of3 resultswithin the time period is included. Pathologist [facility] Troponin-I <0.01 <=0.06 ng/mL [facility] Comment:Reference range revi sed 11/17/10. Blood specimen (specimen) UPPER LIMB STRUCTURE / Unknown 03/28/2011 5:22 AM EST 03/28/2011 5:55 AM EST Deyvi Dixon MD CHEMISTRY ORDERABLES Final Resu lt Performing Organization Address [facility] Co de Phone Number [facility] [address] [place] [address] * CT ANGIOGRAM CHEST ABDOMEN W CONTRAST (03/27/2011 6:07 PM EST) Anatomical Region Laterality Modality Abdomen, Chest Computed Tomogra phy 03/27/2011 5:32 PM EST Impressions 03/27/2011 6:53 PM EST IMPRESSION: 1. No CT evidence of aortic dissection or aneurysm. 2. 8 cm right renal mass most consistent with renal cell carcinoma. 3. Moderate to advanced centrilobular emphysema. 4. Enlarged right thyroid lobe with low-density lesions. This likely represents goiter. Thyroid ultrasound could be performed for further evaluation if clinically indicated. Narrative 03/27/2011 6:[address] ANGIOGRAPHY CHEST AND ABDOMEN, 03/27/2011 HISTORY: Chest pain, evaluate for dissection. FINDINGS: Thin section scanning performed through the chest and abdomen during administration of 75 mL Isovue-370. For optimization of anatomic evaluation, advanced 3-D off-line post processing was performed. This included 3-D images, multiplanar reconstructions and MIP projections. Comparison chest CT 07/06/2005. The thoracic aorta is normal in course and caliber. No aneurysm or dissection seen. Great vessels are widely patent. The abdominal aorta is also normal in course and caliber. No aneurysm or dissection. Mesenteric vessels are patent. Single main renal arteries present bilaterally without stenosis. There are is moderate to advanced change of centrilobular emphysema. Dependent atelectasis noted. No infiltrate or mass. No pericardial or pleural effusion. Patient has had prior CABG. Coronary calcifications are noted. Low attenuation in the left brachycephalic vein and SVC is felt to represent unopacified blood mixing with contrast injected on the left. Multiple low-density areas are seen in the right thyroid lobe. This extends into a substernal location. There is an 8.2 x 4.7 x 4.6 cm solid mass inferior pole of the right kidney. This is consistent with renal cell carcinoma. Left kidney is unremarkable. The liver, spleen and pancreas are normal. The gallbladder is unremarkable. Adrenals are normal. No adenopathy or ascites present. Visualized gastrointestinal structures unremarkable. Degenerative change noted of the spine. No destructive lesions. Procedure Note Ariel Worrell - 03/27/2011 CT ANGIOGRAPHY CHEST AND ABDOMEN, 03/27/2011 HISTORY: Chest pain, evaluate for dissection. FINDINGS: Thin section scanning performed through the chest and abdomen duringadministration of 75 mL Isovue-370. For optimization of anatomic evaluation, advanced 3-D off-linepost processing was performed. This included 3-D images, multiplanar reconstructions and MIPprojections. Comparison chest CT 07/06/2005. The thoracic aorta is normal in course and caliber. No aneurysm ordissection seen. Great vessels are widely patent. The abdominal aorta is also normal in courseand caliber. No aneurysm or dissection. Mesenteric vessels are patent. Single main renalarteries present bilaterally without stenosis. There are is moderate to advanced change of centrilobular emphysema.Dependent atelectasis noted. No infiltrate or mass. No pericardial or pleural effusion. Patienthas had prior CABG. Coronary calcifications are noted. Low attenuation in the leftbrachycephalic vein and SVC is felt to represent unopacified blood mixing with contrast injected on theleft. Multiple low-density areas are seen in the right thyroid lobe. This extends into asubsternal location. There is an 8.2 x 4.7 x 4.6 cm solid mass inferior pole of the rightkidney. This is consistent with renal cell carcinoma. Left kidney is unremarkable. The liver, spleenand pancreas are normal. The gallbladder is unremarkable. Adrenals are normal. No adenopathy or ascites present. Visualized gastrointestinal structuresunremarkable. Degenerative change noted of the spine. No destructive lesions. IMPRESSION: 1. No CT evidence of aortic dissection or aneurysm. 2. 8 cm right renal mass most consistent with renal cell carcinoma. 3. Moderate to advanced centrilobular emphysema. 4. Enlarged right thyroid lobe with low-density lesions. This likelyrepresents goiter. Thyroid ultrasound could be performed for further evaluation if clinicallyindicated. Iam Mott MD [facility] [place] ORDERABLES Final Resu lt * PARTIAL THROMBOPLASTIN TIME (03/27/2011 4:46 PM EST) [facility] PTT 26.8 24.4 - 35.0 second(s) [facility] Comment: The aPTT is no longer the appropriate test to monitor unfractionated heparin anticoagulation. Therapeutic range for direct thrombin inhibitors: Argatroban is 1.5 to 3 times the aPTT baseline. Lepirudin is 1.5 to 2 times the aPTT baseline. The aPTT should not exceed 100 seconds. The dosage of Argatroban should be decreased in patients with hepatic impairment. The dosage of Lepirudin should be decreased in renal insufficiency. Blood specimen (specimen) UPPER LIMB STRUCTURE / Unknown 03/27/2011 4:46 PM EST 03/27/2011 4:49 PM EST us Iam Mott MD HEMATOLOGY ORDERABLES Final Result [facility] [address] [place] [address] * SCANNED OR REPORT (09/27/2009 12:00 AM EDT) Narrative 09/27/2009 5:45 PM EDT Ordered by an unspecified provider. Transcriptions Unknown, U - 09/27/2009 5:33 PM EDT us U Unknown PROCEDURE/MINOR SURGICAL ORDERAB LES Final Result * MR SHOULDER W/O KA MRI (01/02/2009 3:00 PM EST) Anatomical Region Laterality Modality Other 01/02/2009 3:00 PM EST Narrative 01/04/2009 7:42 AM EST MRI of the right shoulder, 8 series, 1505, 02 January 2009, [id number] Pain, no contrast, no priors The tendon for the long head of bicep is normally situated in the intertubercular groove. There is excess fluid in the tendon sheath for this tendon and there is a joint effusion. The subscapularis muscle and tendon and the transverse ligament are intact. There is high signal projecting into both anterior and posterior glenoid labrum. This is suspicious for a labral tear. There are degenerative subchondral cysts in the humeral head. There is acromioclavicular osteoarthritis which is producing mild mass-effect upon supraspinatus. The anchor for the long head of bicep on the superior glenoid is intact. Infraspinatus and teres minor are within normal limits. The coracoclavicular and coracoacromial ligaments are intact. The inferior surface of acromion shows mild hooking on its anterior margin. There is some increased signal on the humeral surface of the supraspinatus tendon. There is no retraction of the supraspinatus tendon. There is no full thickness tear of supraspinatus. This likely represents mild humeral surface fraying of the supraspinatus tendon. 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 Probable tear of the glenoid labrum. This could be confirmed by gadolinium arthrography if clinically appropriate. There is some fraying of the humeral surface of the supraspinatus tendon but there is no full thickness tear. Osei Feather Duster Winder- LURDES DANIEL MD Reading Physician- LURDES DANIEL MD Released Date Time- 01/04/09 0743 Procedure Note Lurdes Daniel W - 04/23/2009 MRI of the right shoulder, 8 series, 1505, 02 January 2009, [id number] Pain, no contrast, no priors The tendon for the long head of bicep is normally situated in the intertubercular groove. There is excess fluid in the tendon sheath for this tendon and there is a joint effusion. The subscapularis muscle and tendon and the transverse ligament are intact. There is high signal projecting into both anterior and posterior glenoid labrum. This is suspicious for a labral tear. There are degenerative subchondral cysts in the humeral head. There is acromioclavicular osteoarthritis which is producing mild mass-effect upon supraspinatus. The anchor for the long head of bicep on the superior glenoid is intact. Infraspinatus and teres minor are within normal limits. The coracoclavicular and coracoacromial ligaments are intact. The inferior surface of acromion shows mild hooking on its anterior margin. There is some increased signal on the humeral surface of the supraspinatus tendon. There is no retraction of the supraspinatus tendon. There is no full thickness tear of supraspinatus. This likely represents mild humeral surface fraying of the supraspinatus tendon. 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 Probable tear of the glenoid labrum. This could be confirmed by gadolinium arthrography if clinically appropriate. There is some fraying of the humeral surface of the supraspinatus tendon but there is no full thickness tear. Osei Feather Duster Winder- LURDES DANIEL MD Reading Physician- LURDES DANIEL MD Released Date Time- 01/04/09 0743 Hansa Rivera IMG [facility] RAD HISTORICAL F inal Result * CC CARDIAC PROCEDURE (08/10/2008 10:16 AM EDT) Only the most recent of2 resultswithin the time period is included. Anatomical Region Laterality Modality Other 08/10/2008 10:1 6 AM EDT Narrative 08/10/2008 12:50 PM EDT CARDIAC CATHETERIZATION PROCEDURE- PROCEDURE- 1. Right iliac nonselective angiogram. 2. Left heart cath, LV-gram. 3. Coronary angiogram. 4. Saphenous vein graft angiogram. INDICATIONS- 1. Unstable angina. 2. Coronary disease status post CABG. 3. Status post multiple PCI procedures. PROCEDURE- The right groin was sterilely prepped and draped and anesthetized in routine fashion. Percutaneous entry was made in the femoral artery on the right. A pigtail catheter was placed in the left ventricle. The LVEDP was 5. The left ventricular pressure was 100/5, aortic pressure 100/56. The pigtail catheter was used to power inject the left ventricle and this demonstrated normal contractility without any segmental deficits appreciated. The pigtail catheter was removed and replaced with a 3DRC catheter. This catheter was not properly fitting for the right coronary artery. It did inject the graft to the right coronary artery which was known to be occluded and it was again occluded. This catheter also injected the graft to the left coronary branches. This is a healthy appearing graft that fills the diagonal #1 and the obtuse marginal largest. The 3DRC catheter was removed and replaced with a Mindi 4-curve 4 Haitian left Mindi catheter. The left main gives rise to the LAD and circumflex. The LAD has one large diagonal branch. This branch has a 70-80% stenosis. There is still competitive flow to this diagonal branch. The graft then goes on and supplies the obtuse marginal. The 3DRC catheter was changed for an Amplatz right. This catheter was unable to enter the sleetmute right. It was changed out for an Amplatz left AL1. This catheter was used to inject the sleetmute left main and demonstrated widely patent stents in the circumflex, jailing two obtuse marginals but not impeding flow to either one. The LAD was widely patent and the diagonal had the stenosis noted previously. This catheter eventually was used to inject the sleetmute right and the sleetmute right demonstrated total occlusion in the proximal third with atbti-lw-vmvwr collaterals reconstituting two main branches. These two branches are both contributing to the PDA flow. The distal right coronary artery is filled almost exclusively by ytzuv-zw-mnzxx collaterals, having been filled by ddaj-he-drvdn collaterals in years past. Another view of the sleetmute left coronary artery was taken to assess for possible reasons for this shifting of the collateral flow, and the anatomy was still the same, i.e., widely open LAD vessel and widely open stented vessel, with backflow to the saphenous vein grafted vessels. The patient tolerated the procedure well and should be able to go home this afternoon. Right iliac angiogram demonstrated appropriate placement and a closure device was used successfully. Feather Duster Winder- GHAZAL Vasquez Physician- DEYVI DIXON MD Released Date Time- 08/12/08 1335 Procedure Note Deyvi Dixon - 04/22/2009 CARDIAC CATHETERIZATION PROCEDURE- PROCEDURE- 1. Right iliac nonselective angiogram. 2. Left heart cath, LV-gram. 3. Coronary angiogram. 4. Saphenous vein graft angiogram. INDICATIONS- 1. Unstable angina. 2. Coronary disease status post CABG. 3. Status post multiple PCI procedures. PROCEDURE- The right groin was sterilely prepped and draped and anesthetized in routine fashion. Percutaneous entry was made in the femoral artery on the right. A pigtail catheter was placed in the left ventricle. The LVEDP was 5. The left ventricular pressure was 100/5, aortic pressure 100/56. The pigtail catheter was used to power inject the left ventricle and this demonstrated normal contractility without any segmental deficits appreciated. The pigtail catheter was removed and replaced with a 3DRC catheter. This catheter was not properly fitting for the right coronary artery. It did inject the graft to the right coronary artery which was known to be occluded and it was again occluded. This catheter also injected the graft to the left coronary branches. This is a healthy appearing graft that fills the diagonal #1 and the obtuse marginal largest. The 3DRC catheter was removed and replaced with a Mindi 4-curve 4 Haitian left Mindi catheter. The left main gives rise to the LAD and circumflex. The LAD has one large diagonal branch. This branch has a 70-80% stenosis. There is still competitive flow to this diagonal branch. The graft then goes on and supplies the obtuse marginal. The 3DRC catheter was changed for an Amplatz right. This catheter was unable to enter the sleetmute right. It was changed out for an Amplatz left AL1. This catheter was used to inject the sleetmute left main and demonstrated widely patent stents in the circumflex, jailing two obtuse marginals but not impeding flow to either one. The LAD was widely patent and the diagonal had the stenosis noted previously. This catheter eventually was used to inject the sleetmute right and the sleetmute right demonstrated total occlusion in the proximal third with eezmc-wp-zetps collaterals reconstituting two main branches. These two branches are both contributing to the PDA flow. The distal right coronary artery is filled almost exclusively by iowku-rv-tvwis collaterals, having been filled by pvqw-li-ncgpd collaterals in years past. Another view of the sleetmute left coronary artery was taken to assess for possible reasons for this shifting of the collateral flow, and the anatomy was still the same, i.e., widely open LAD vessel and widely open stented vessel, with backflow to the saphenous vein grafted vessels. The patient tolerated the procedure well and should be able to go home this afternoon. Right iliac angiogram demonstrated appropriate placement and a closure device was used successfully. Feather Duster Winder- GHAZAL DIXON MD Released Date Time- 08/12/08 1335 Deyvi Dixon MD REPLACED BY [facility] [employer] CARD HISTORICAL Fi nal Result * EK EKG REG (08/10/2008 8:35 AM EDT) Only the most recent of13 resultswithin the time period is included. Anatomical Region Laterality Modality Other 08/10/2008 8:35 AM EDT Narrative 08/10/2008 6:06 PM EDT Sinus rhythm Anterolateral T wave changes are nonspecific Borderline ECG Jhon HAYES M.D. Released Date Time- 08/10/08 180 Procedure Note Sathish Hayes - 04/22/2009 Sinus rhythm Anterolateral T wave changes are nonspecific Borderline ECG Feather Duster Windermanjit HAYES M.D. Released Date Time- 08/10/081805 Deyvi [facility] [employer] CARD HISTORICAL Fi nal Result * XR CHEST PORTABLE (08/09/2008 2:52 PM EDT) Only the most recent of2 resultswithin the time period is included. Anatomical Region Laterality Modality Other 08/09/2008 2:52 PM EDT Narrative 08/10/2008 8:04 AM EDT Portable chest, one view, 1501, 09 August 2008, [id number] Pain, comparison January 2006 There is atherosclerosis and there has been a CABG. There is evidence of obstructive lung disease in the apices. There is no failure mass or pneumonia and there has been no change. Impression, No acute disease Osei DANIEL MD Reading PhysicianHarley DANIEL MD Released Date Time- 08/10/08804 Procedure Note Lurdes Daniel W - 04/22/2009 Portable chest, one view, 1501, 09 August 2008, [id number] Pain, comparison January 2006 There is atherosclerosis and there has been a CABG. There is evidence of obstructive lung disease in the apices. There is no failure mass or pneumonia and there has been no change. Impression, No acute disease Osei Feather Duster Windermanjit DANIEL MD Reading Physician- LURDES DANIEL MD Released Date Time- 08/10/08804 Naldo Caruso MD REPLACED BY [facility] [employer] RAD HISTORICAL Final Result * EC ECHO COMPLETE PANEL (02/14/2007 1:23 PM EST) Anatomical Region Laterality Modality Other 02/14/2007 1:23 PM EST Narrative 02/18/2007 12:16 AM EST HISTORY- STUDY QUALITY- RECORDED MEASUREMENTS (cm) Normal Adult Values Aortic root dimension 3.0 (2.0-3.6) Left atrial dimension 4.1 (1.9-4.0) Left ventricle diastolic dimension (3.5-5.6) Left ventricle systolic dimension (2.5-4.0) Interventricular septal thickness (0.6-1.1) LV posterior wall thickness (0.6-1.1) Right ventricular dimension (0.7-2.3) COMMENTS- 1. Limited echo. 2. Left atrial enlargement. 3. Annular calcification of the mitral valve, with thickened mitral valve leaflets. Trace mitral insufficiency is noted on color-flow Doppler. 4. The two-dimensional echo is suggestive of concentric LVH. Ejection fraction is clearly within the normal limits. 5. There is no pericardial effusion. 6. Relative to previous studies, the left ventricular function on this study appears completely normal, without any appreciated segmental wall motion abnormality. Feather Duster Winder- IVAN MILLER Reading Radiologist- DEYVI DIXON MD Released Date Time- 02/19/07 0750 Procedure Note Deyvi Dixon - 04/22/2009 HISTORY- STUDY QUALITY- RECORDED MEASUREMENTS (cm) Normal Adult Values Aortic root dimension 3.0 (2.0-3.6) Left atrial dimension 4.1 (1.9-4.0) Left ventricle diastolic dimension (3.5-5.6) Left ventricle systolic dimension (2.5-4.0) Interventricular septal thickness (0.6-1.1) LV posterior wall thickness (0.6-1.1) Right ventricular dimension (0.7-2.3) COMMENTS- 1. Limited echo. 2. Left atrial enlargement. 3. Annular calcification of the mitral valve, with thickened mitral valve leaflets. Trace mitral insufficiency is noted on color-flow Doppler. 4. The two-dimensional echo is suggestive of concentric LVH. Ejection fraction is clearly within the normal limits. 5. There is no pericardial effusion. 6. Relative to previous studies, the left ventricular function on this study appears completely normal, without any appreciated segmental wall motion abnormality. Feather Duster Winder- IVAN MILLER Reading Radiologist- DEYVI DIXON MD Released Date Time- 02/19/07 0750 us Jude Franklin MD [facility] Final Result * XR CHEST PA & LATERAL (02/13/2007 2:48 PM EST) Only the most recent of3 resultswithin the time period is included. Anatomical Region Laterality Modality Other 02/13/2007 2:48 PM EST Narrative 02/13/2007 4:14 PM EST 1 PA and lateral chest x-ray Exam date- 02/13/07. History- Shortness of breath. Comparison- 01/16/06. Findings- There is diffuse increased lucency of the lungs in the upper lobes. The lower lobes are clear, although there is crowding of the pulmonary vasculature. There is no pleural fluid. There are sternotomy wires and surgical clips. Impression- Apical emphysema. No new findings. Feather Duster Winder- JEN LANDON Reading Radiologist- REGINA KEITH MD Released Date Time- 02/13/07 1630 Procedure Note Regina Keith - 04/22/2009 1 PA and lateral chest x-ray Exam date- 02/13/07. History- Shortness of breath. Comparison- 01/16/06. Findings- There is diffuse increased lucency of the lungs in the upper lobes. The lower lobes are clear, although there is crowding of the pulmonary vasculature. There is no pleural fluid. There are sternotomy wires and surgical clips. Impression- Apical emphysema. No new findings. Feather Duster Winder- JEN LANDON Reading Radiologist- REGINA KEITH MD Released Date Time- 02/13/07 1630 [facility] STORICAL Final Result * CT CHEST BOOSTER PLANT OPERATOR (07/06/2005 12:23 PM EDT) Anatomical Region Laterality Modality Other 07/06/2005 12:2 3 PM EDT Narrative 07/06/2005 3:05 PM EDT -PT IN TV ROOM CT chest with contrast and high-resolution imaging, 07/06/2005- History- Shortness of breath. Conventional contrast-enhanced CT is performed utilizing 100 mL Optiray-320 administered intravenously and supplemented by high resolution images. Conventional CT reveals no definite evidence of a pulmonary mass or malignancy. There is no infiltrate, atelectasis or pleural fluid. Mediastinal windows reveal no definite evidence of adenopathy. There has been previous coronary bypass. No pericardial fluid detected. Cardiac chambers and upper abdomen are normal. Conventional and high-resolution images reveal advanced centrilobular emphysema with multiple dilated cystic airspaces. Dominant blebs not identified, however. There are mild bronchiectasis changes noted in the lingula. Tracheobronchial tree is normal. Impression- Severe centrilobular emphysema. Mild bronchiectasis changes in the lingula. No evidence of malignancy. No prior studies available for review. Feather Duster Winder- WALE AGUILA Reading Radiologist- HEIDI YI MD Released Date Time- 07/06/05 1750 Procedure Note Heidi Yi - 04/21/2009 -PT IN TV ROOM CT chest with contrast and high-resolution imaging, 07/06/2005- History- Shortness of breath. Conventional contrast-enhanced CT is performed utilizing 100 mL Optiray-320 administered intravenously and supplemented by high resolution images. Conventional CT reveals no definite evidence of a pulmonary mass or malignancy. There is no infiltrate, atelectasis or pleural fluid. Mediastinal windows reveal no definite evidence of adenopathy. There has been previous coronary bypass. No pericardial fluid detected. Cardiac chambers and upper abdomen are normal. Conventional and high-resolution images reveal advanced centrilobular emphysema with multiple dilated cystic airspaces. Dominant blebs not identified, however. There are mild bronchiectasis changes noted in the lingula. Tracheobronchial tree is normal. Impression- Severe centrilobular emphysema. Mild bronchiectasis changes in the lingula. No evidence of malignancy. No prior studies available for review. Feather Duster Winder- WALE Vasquez Radiologist- HEIDI YI MD Released Date Time- 07/06/05 1750 us Lebron Murguia MD REPLACED BY [facility] Nancy l Result * US ABDOMEN [employer]ER PLANT OPERATOR (01/27/2005 8:22 AM EST) Anatomical Region Laterality Modality Other 01/27/2005 8:22 AM EST Narrative 01/27/2005 9:26 AM EST PT FOR CHEST XRAY ALSO Right upper quadrant ultrasound, 01/27/05. History- Right upper quadrant pain. Discussion- Previous study of 11/26/1998 is not available for direct comparison at this time, through was reportedly normal. No cholelithiasis, gallbladder wall thickening or pericholecystic fluid. No intrahepatic or extrahepatic biliary dilatation. Common duct measures approximately 3.7 mm in diameter. Liver appears somewhat echogenic suggesting fatty infiltration. There is a small bandlike area of relatively decreased echogenicity within the liver adjacent to the gallbladder, consistent with focal fatty sparing. No focal hepatic mass is seen. The visualized portions of the right kidney appear normal. Pancreas is largely obscured by overlying bowel gas and not well evaluated. Impression- 1. Probable fatty infiltration of the liver. 2. Otherwise, unremarkable exam. Feather Duster Winder- SMITHA MEDINA Reading Radiologist- JOSEPH AMARO MD Released Date Time- 01/27/05 1629 Procedure Note Joseph Amaro - 04/20/2009 PT FOR CHEST XRAY ALSO Right upper quadrant ultrasound, 01/27/05. History- Right upper quadrant pain. Discussion- Previous study of 11/26/1998 is not available for direct comparison at this time, through was reportedly normal. No cholelithiasis, gallbladder wall thickening or pericholecystic fluid. No intrahepatic or extrahepatic biliary dilatation. Common duct measures approximately 3.7 mm in diameter. Liver appears somewhat echogenic suggesting fatty infiltration. There is a small bandlike area of relatively decreased echogenicity within the liver adjacent to the gallbladder, consistent with focal fatty sparing. No focal hepatic mass is seen. The visualized portions of the right kidney appear normal. Pancreas is largely obscured by overlying bowel gas and not well evaluated. Impression- 1. Probable fatty infiltration of the liver. 2. Otherwise, unremarkable exam. Feather Duster Winder- SMITHA MEDINA Reading Radiologist- JOSEPH AMARO MD Released Date Time- 01/27/05 1629 Betzy Patterson MD REPLACED BY [facility] F inal Result Visit Diagnoses Diagnosis Start Date Diabetes mellitus, type 2 (HCC) Type II or unspecified type diabetes mellitus without mention of complication, not stated as uncontrolled 06/13/2010 CAD (coronary artery disease) Coronary atherosclerosis of unspecified type of vessel, [place]etm[place] or graft 06/13/2010 ED (erectile dysfunction) Impotence of organic origin 06/13/2010 Asthma Unspecified asthma 06/13/2010 Arthritis Arthropathy, unspecified, site unspecified 01/24/2011 COPD (chronic obstructive pulmonary disease) (HCC) Chronic airway obstruction, not elsewhere classified 01/24/2011 Hyperlipidemia Other and unspecified hyperlipidemia 01/24/2011 Hypertension Unspecified essential hypertension 01/24/2011 Hypothyroidism Unspecified hypothyroidism 01/24/2011 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 Encounter for long-term (current) use of aspirin 01/24/2011 Raynaud's disease Raynaud's syndrome 01/24/2011 SOB (shortness of breath) Shortness of breath 01/24/2011 Arthritis Arthropathy, unspecified, site unspecified 03/23/2011 COPD (chronic obstructive pulmonary disease) (HCC) Chronic airway obstruction, not elsewhere classified 03/23/2011 Hyperlipidemia Other and unspecified hyperlipidemia 03/23/2011 Hypertension Unspecified essential hypertension 03/23/2011 Hypothyroidism Unspecified hypothyroidism 03/23/2011 Raynaud's disease Raynaud's syndrome 03/23/2011 SOB (shortness of breath) Shortness of breath 03/23/2011 Diabetes mellitus, type 2 (HCC) Type II or unspecified type diabetes mellitus without mention of complication, not stated as uncontrolled 03/23/2011 CAD (coronary artery disease) Coronary atherosclerosis of unspecified type of vessel, [place] or graft 03/23/2011 Hypoxemia 03/23/2011 Dyspnea Other dyspnea and respiratory abnormality 03/23/2011 Bronchiectasis (HCC) Bronchiectasis without acute exacerbation 03/23/2011 Chest pain Chest pain, unspecified 03/27/2011 Renal mass, right Unspecified disorder of kidney and ureter 03/27/2011 Degenerative joint disease of cervical spine Cervical spondylosis without myelopathy 04/14/2011 Radiculopathy of cervical spine Brachial neuritis or radiculitis nos 04/14/2011 Syncope Syncope and collapse 04/14/2011 Facial contusion Contusion of face, scalp, and neck except eye(s) 04/14/2011 Renal cell carcinoma (HCC) Malignant neoplasm of kidney, except pelvis 05/31/2011 Malignant neoplasm of kidney, except pelvis 10/03/2011 Malignant neoplasm of kidney, except pelvis 04/10/2012 CAD (coronary artery disease) Coronary atherosclerosis of unspecified type of vessel, [place] or graft 07/19/2012 COPD (chronic obstructive pulmonary disease) (HCC) Chronic airway obstruction, not elsewhere classified 07/19/2012 Hyperlipidemia Other and unspecified hyperlipidemia 07/19/2012 Hypertension Unspecified essential hypertension 07/19/2012 Raynaud's disease Raynaud's syndrome 07/19/2012 SOB (shortness of breath) Shortness of breath 07/19/2012 Diabetes mellitus, type 2 (HCC) Type II or unspecified type diabetes mellitus without mention of complication, not stated as uncontrolled 07/19/2012 Hx of CABG Postsurgical aortocoronary bypass status 07/19/2012 HTN (hypertension) Unspecified essential hypertension 07/19/2012 CAD (coronary artery disease) Coronary atherosclerosis of unspecified type of vessel, [place] or graft 08/08/2012 SOB (shortness of breath) Shortness of breath 08/08/2012 HTN (hypertension) Unspecified essential hypertension 08/08/2012 CAD (coronary artery disease) Coronary atherosclerosis of unspecified type of vessel, [place] or graft 11/05/2012 Angina pectoris Other and unspecified angina pectoris 01/30/2013 COPD (chronic obstructive pulmonary disease) (HCC) Chronic airway obstruction, not elsewhere classified 01/30/2013 SOB (shortness of breath) Shortness of breath 01/30/2013 Diabetes mellitus, type 2 (HCC) Type II or unspecified type diabetes mellitus without mention of complication, not stated as uncontrolled 01/30/2013 COPD (chronic obstructive pulmonary disease) (HCC) Chronic airway obstruction, not elsewhere classified 03/14/2013 Hyperlipidemia Other and unspecified hyperlipidemia 03/14/2013 Hypertension Unspecified essential hypertension 03/14/2013 SOB (shortness of breath) Shortness of breath 03/14/2013 Diabetes mellitus, type 2 (HCC) Type II or unspecified type diabetes mellitus without mention of complication, not stated as uncontrolled 03/14/2013 CAD (coronary artery disease) Coronary atherosclerosis of unspecified type of vessel, [place]etm[place] or graft 03/14/2013 Hx of CABG Postsurgical aortocoronary bypass status 03/14/2013 Chest heaviness Other chest pain 03/14/2013 Fatigue Other malaise and fatigue 03/14/2013 COPD (chronic obstructive pulmonary disease) (HCC) Chronic airway obstruction, not elsewhere classified 03/28/2013 Hyperlipidemia Other and unspecified hyperlipidemia 03/28/2013 Hypertension Unspecified essential hypertension 03/28/2013 SOB (shortness of breath) Shortness of breath 03/28/2013 Diabetes mellitus, type 2 (HCC) Type II or unspecified type diabetes mellitus without mention of complication, not stated as uncontrolled 03/28/2013 CAD (coronary artery disease) Coronary atherosclerosis of unspecified type of vessel, [place]etm[place] or graft 03/28/2013 Hx of CABG Postsurgical aortocoronary bypass status 03/28/2013 Chest heaviness Other chest pain 03/28/2013 Fatigue Other malaise and fatigue 03/28/2013 Chest pain, unspecified 04/02/2013 COPD (chronic obstructive pulmonary disease) (HCC) Chronic airway obstruction, not elsewhere classified 04/18/2013 Hyperlipidemia Other and unspecified hyperlipidemia 04/18/2013 Hypertension Unspecified essential hypertension 04/18/2013 Raynaud's disease Raynaud's syndrome 04/18/2013 SOB (shortness of breath) Shortness of breath 04/18/2013 Diabetes mellitus, type 2 (HCC) Type II or unspecified type diabetes mellitus without mention of complication, not stated as uncontrolled 04/18/2013 CAD (coronary artery disease) Coronary atherosclerosis of unspecified type of vessel, [place] or graft 04/18/2013 ED (erectile dysfunction) Impotence of organic origin 04/18/2013 Hx of CABG Postsurgical aortocoronary bypass status 04/18/2013 HTN (hypertension) Unspecified essential hypertension 04/18/2013 Chest heaviness Other chest pain 04/18/2013 Angina pectoris Other and unspecified angina pectoris 04/18/2013 Constipation Unspecified constipation 05/05/2013 Bradycardia Other specified cardiac dysrhythmias 05/05/2013 PVC's (premature ventricular contractions) Other premature beats 05/05/2013 Hypokalemia Hypopotassemia 05/05/2013 Other specified cardiac dysrhythmias(427.89) Other specified cardiac dysrhythmias 05/05/2013 Other premature beats 05/05/2013 Hypopotassemia 05/05/2013 Unspecified constipation 05/05/2013 Irregular heartbeat Cardiac dysrhythmia, unspecified 05/09/2013 Hyperlipidemia Other and unspecified hyperlipidemia 05/09/2013 Hx of CABG Postsurgical aortocoronary bypass status 05/09/2013 Irregular heartbeat Cardiac dysrhythmia, unspecified 05/09/2013 Angina pectoris Other and unspecified angina pectoris 05/09/2013 Irregular heartbeat Cardiac dysrhythmia, unspecified 05/09/2013 COPD (chronic obstructive pulmonary disease) (HCC) Chronic airway obstruction, not elsewhere classified 05/09/2013 Hyperlipidemia Other and unspecified hyperlipidemia 05/09/2013 Hypertension Unspecified essential hypertension 05/09/2013 SOB (shortness of breath) Shortness of breath 05/09/2013 CAD (coronary artery disease) Coronary atherosclerosis of unspecified type of vessel, [place]etm[place] or graft 05/09/2013 Hx of CABG Postsurgical aortocoronary bypass status 05/09/2013 HTN (hypertension) Unspecified essential hypertension 05/09/2013 Angina pectoris Other and unspecified angina pectoris 05/09/2013 CAD (coronary artery disease) Coronary atherosclerosis of unspecified type of vessel, [place] or graft 07/24/2013 PVC's (premature ventricular contractions) Other premature beats 07/24/2013 Chronotropic incompetence Other specified conduction disorder 07/24/2013 Hyperlipidemia Other and unspecified hyperlipidemia 08/27/2013 Hypertension Unspecified essential hypertension 08/27/2013 COPD (chronic obstructive pulmonary disease) (HCC) Chronic airway obstruction, not elsewhere classified 08/27/2013 Chest heaviness Other chest pain 08/27/2013 Hyperlipidemia Other and unspecified hyperlipidemia 11/21/2013 Hypertension Unspecified essential hypertension 11/21/2013 COPD (chronic obstructive pulmonary disease) (HCC) Chronic airway obstruction, not elsewhere classified 11/21/2013 Chest heaviness Other chest pain 11/21/2013 SOB (shortness of breath) Shortness of breath 11/21/2013 CAD (coronary artery disease) Coronary atherosclerosis of unspecified type of vessel, [place]etm[place] or graft 11/21/2013 Hx of CABG Postsurgical aortocoronary bypass status 11/21/2013 HTN (hypertension) Unspecified essential hypertension 11/21/2013 Displacement of cervical intervertebral disc without myelopathy 04/22/2014 Hyperlipidemia Other and unspecified hyperlipidemia 06/26/2014 Essential hypertension Unspecified essential hypertension 06/26/2014 Angina pectoris Other and unspecified angina pectoris 06/26/2014 Hx of CABG Postsurgical aortocoronary bypass status 06/26/2014 Coronary artery disease involving sleetmute coronary artery without angina pectoris 06/26/2014 LBBB (left bundle branch block) Other left bundle branch block 06/26/2014 COPD (chronic obstructive pulmonary disease) (HCC) Chronic airway obstruction, not elsewhere classified 06/26/2014 SOB (shortness of breath) Shortness of breath 06/26/2014 Hyperlipidemia Other and unspecified hyperlipidemia 07/07/2014 Angina pectoris Other and unspecified angina pectoris 07/07/2014 Coronary artery disease involving sleetm[place] coronary artery without angina pectoris 07/07/2014 Near syncope Syncope and collapse 12/15/2014 Ataxia Lack of coordination 12/15/2014 Hyperlipidemia Other and unspecified hyperlipidemia 12/30/2014 Essential hypertension Unspecified essential hypertension 12/30/2014 Angina pectoris Other and unspecified angina pectoris 12/30/2014 Hx of CABG Postsurgical aortocoronary bypass status 12/30/2014 LBBB (left bundle branch block) Other left bundle branch block 12/30/2014 Simple chronic bronchitis (HCC) Simple chronic bronchitis 12/30/2014 SOB (shortness of breath) Shortness of breath 12/30/2014 Right upper quadrant pain Abdominal pain, right upper quadrant 01/15/2015 Gall stones Calculus of gallbladder without mention of cholecystitis or obstruction 01/25/2015 Gall stones Calculus of gallbladder without mention of cholecystitis or obstruction 01/25/2015 Bilateral inguinal hernia without obstruction or gangrene, recurrence not specified 01/25/2015 Altered bowel function Other symptoms involving digestive system 02/01/2015 Loss of weight 02/01/2015 Nausea Nausea alone 02/01/2015 Bilateral inguinal hernia without obstruction or gangrene, recurrence not specified 02/08/2015 Gall stones Calculus of gallbladder without mention of cholecystitis or obstruction 02/08/2015 Post-operative state Other postprocedural status 02/18/2015 Post-operative state Other postprocedural status 03/23/2015 Sorethroat Acute pharyngitis 05/03/2015 History of bradycardia 05/03/2015 Hx of CABG Postsurgical aortocoronary bypass status 05/04/2015 LBBB (left bundle branch block) Other left bundle branch block 05/04/2015 PVC (premature ventricular contraction) Other premature beats 05/04/2015 Hyperlipidemia Other and unspecified hyperlipidemia 05/04/2015 Angina pectoris Other and unspecified angina pectoris 05/04/2015 Essential hypertension Unspecified essential hypertension 05/04/2015 Hx of CABG Postsurgical aortocoronary bypass status 05/04/2015 LBBB (left bundle branch block) Other left bundle branch block 05/04/2015 Simple chronic bronchitis (HCC) Simple chronic bronchitis 05/04/2015 PVC (premature ventricular contraction) Other premature beats 05/04/2015 Hyperlipidemia Other and unspecified hyperlipidemia 05/21/2015 Dizziness Dizziness and giddiness 10/05/2015 Abnormal auditory perception, bilateral 10/28/2015 Impacted cerumen of left ear Impacted cerumen 10/28/2015 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 hearing loss, bilateral 10/28/2015 Dizziness Dizziness and giddiness 10/28/2015 Hearing loss, sensorineural, asymmetrical Sensorineural hearing loss, asymmetrical 10/28/2015 Essential hypertension Unspecified essential hypertension 12/14/2015 Coronary artery disease involving sleetmute coronary artery 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 angina pectoris 12/14/2015 Hx of CABG Postsurgical aortocoronary bypass status 12/14/2015 LBBB (left bundle branch block) Other left bundle branch block 12/14/2015 PVC (premature ventricular contraction) Other premature beats 12/14/2015 Hyperlipidemia, unspecified hyperlipidemia type 06/20/2016 Essential hypertension Unspecified essential hypertension 06/20/2016 Coronary artery disease involving sleetmute coronary artery 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 angina pectoris 06/20/2016 Hyperlipidemia, unspecified hyperlipidemia type 06/22/2016 PVC (premature ventricular contraction) Other premature beats 01/16/2017 Hyperlipidemia, unspecified hyperlipidemia type 01/16/2017 Essential hypertension Unspecified essential hypertension 01/16/2017 Angina pectoris Other and unspecified angina pectoris 01/16/2017 Coronary artery disease involving sleetmute coronary artery 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 angina pectoris 01/16/2017 Hx of CABG Postsurgical aortocoronary bypass status 01/16/2017 Chest heaviness Other chest pain 01/16/2017 SOB (shortness of breath) Shortness of breath 01/16/2017 Simple chronic bronchitis (HCC) Simple chronic bronchitis 01/16/2017 PVC (premature ventricular contraction) Other premature beats 01/23/2017 Hyperlipidemia, unspecified hyperlipidemia type 01/23/2017 Essential hypertension Unspecified essential hypertension 01/23/2017 Angina pectoris Other and unspecified angina pectoris 01/23/2017 Coronary artery disease involving sleetmute coronary artery 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 angina pectoris 01/23/2017 Hx of CABG Postsurgical aortocoronary bypass status 01/23/2017 Chest heaviness Other chest pain 01/23/2017 SOB (shortness of breath) Shortness of breath 01/23/2017 Simple chronic bronchitis (HCC) Simple chronic bronchitis 01/23/2017 COPD exacerbation (HCC) Obstructive chronic bronchitis with exacerbation 02/07/2017 Bronchitis Bronchitis, not specified as acute or chronic 02/07/2017 Elevated lactic acid level Other nonspecific abnormal serum enzyme levels 02/07/2017 Lung mass Swelling, mass, or lump in chest 02/07/2017 Hypokalemia Hypopotassemia 02/07/2017 Shortness of breath 02/16/2017 Shortness of breath 02/22/2017 Pulmonary nodule Solitary pulmonary nodule 02/22/2017 COPD, moderate (HCC) Chronic airway obstruction, not elsewhere classified 02/22/2017 Pulmonary nodule Solitary pulmonary nodule 02/22/2017 COPD, moderate (HCC) Chronic airway obstruction, not elsewhere classified 02/22/2017 S/p nephrectomy Acquired absence of kidney 02/22/2017 Pulmonary nodule Solitary pulmonary nodule 02/22/2017 Hypokalemia Hypopotassemia 02/22/2017 High anion gap metabolic acidosis Acidosis 02/22/2017 PVC (premature ventricular contraction) Other premature beats 02/22/2017 Angina pectoris Other and unspecified angina pectoris 02/22/2017 Arthritis Arthropathy, unspecified, site unspecified 02/22/2017 Simple chronic bronchitis (HCC) Simple chronic bronchitis 02/22/2017 Hyperlipidemia, unspecified hyperlipidemia type 02/22/2017 Essential hypertension Unspecified essential hypertension 02/22/2017 Hypothyroidism, unspecified type 02/22/2017 half-way current use of aspirin Encounter for long-term (current) use of aspirin 02/22/2017 COPD, moderate (HCC) Chronic airway obstruction, not elsewhere classified 02/22/2017 Essential hypertension Unspecified essential hypertension 02/26/2017 Hypokalemia Hypopotassemia 02/26/2017 Simple chronic bronchitis (HCC) Simple chronic bronchitis 03/01/2017 Uncomplicated asthma, unspecified asthma severity, unspecified whether persistent 03/01/2017 Essential hypertension Unspecified essential hypertension 03/01/2017 Raynaud's disease without gangrene 03/01/2017 Pulmonary nodule Solitary pulmonary nodule 03/01/2017 Lung nodule < 6cm on CT 03/01/2017 Lung nodule Solitary pulmonary nodule 03/01/2017 Hyperlipidemia, unspecified hyperlipidemia type 03/27/2017 Shortness of breath 05/22/2017 Essential hypertension Unspecified essential hypertension 05/22/2017 Hyperlipidemia, unspecified hyperlipidemia type 05/22/2017 Angina pectoris Other and unspecified angina pectoris 05/22/2017 Hx of CABG Postsurgical aortocoronary bypass status 05/22/2017 Hyperlipidemia, unspecified hyperlipidemia type 07/18/2017 Essential hypertension Unspecified essential hypertension 07/24/2017 Coronary artery disease involving sleetmute coronary artery 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 angina pectoris 07/24/2017 LBBB (left bundle branch block) Other left bundle branch block 07/24/2017 Angina pectoris Other and unspecified angina pectoris 07/24/2017 PVC (premature ventricular contraction) Other premature beats 07/24/2017 Shortness of breath 08/08/2017 Abnormal EKG Nonspecific abnormal electrocardiogram (ECG) (EKG) 08/08/2017 Shortness of breath 08/08/2017 Abnormal EKG Nonspecific abnormal electrocardiogram (ECG) (EKG) 08/08/2017 PVC (premature ventricular contraction) Other premature beats 11/13/2017 Hyperlipidemia, unspecified hyperlipidemia type 11/13/2017 Essential hypertension Unspecified essential hypertension 11/13/2017 Raynaud's disease without gangrene 11/13/2017 Angina pectoris Other and unspecified angina pectoris 11/13/2017 Coronary artery disease involving sleetmute coronary artery 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 angina pectoris 11/13/2017 Hx of CABG Postsurgical aortocoronary bypass status 11/13/2017 Simple chronic bronchitis (HCC) Simple chronic bronchitis 11/13/2017 Hyperlipidemia, unspecified hyperlipidemia type 01/08/2018 Muscle cramps Cramp of limb 01/08/2018 Shortness of breath 04/22/2018 Mixed hyperlipidemia 05/14/2018 Essential hypertension Unspecified essential hypertension 05/14/2018 Hx of CABG Postsurgical aortocoronary bypass status 05/14/2018 Angina pectoris Other and unspecified angina pectoris 05/14/2018 Coronary artery disease involving sleetm[place] coronary artery 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 angina pectoris 05/14/2018 Mixed hyperlipidemia 06/06/2018 Coronary artery disease involving sleetm[place] coronary artery 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 angina pectoris 06/06/2018 Angina pectoris Other and unspecified angina pectoris 06/06/2018 Hx of CABG Postsurgical aortocoronary bypass status 06/06/2018 Shortness of breath 08/14/2018 LBBB (left bundle branch block) Other left bundle branch block 12/03/2018 Angina pectoris Other and unspecified angina pectoris 12/03/2018 Essential hypertension Unspecified essential hypertension 12/03/2018 S/P CABG (coronary artery bypass graft) Postsurgical aortocoronary bypass status 12/03/2018 LV dysfunction Heart disease, unspecified 12/03/2018 SOBOE (shortness of breath on exertion) Shortness of breath 12/03/2018 Coronary artery disease involving sleetmute coronary artery 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 angina pectoris 03/04/2019 PVC (premature ventricular contraction) Other premature beats 03/04/2019 LBBB (left bundle branch block) Other left bundle branch block 03/04/2019 Chest pain due to myocardial ischemia, unspecified ischemic chest pain type 03/04/2019 Coronary artery disease involving sleetm[place] coronary artery 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 angina pectoris 03/04/2019 PVC (premature ventricular contraction) Other premature beats 03/04/2019 LBBB (left bundle branch block) Other left bundle branch block 03/04/2019 Encounter for screening for cardiovascular disorders Screening for other and unspecified cardiovascular conditions 03/04/2019 Chest pain due to myocardial ischemia, unspecified ischemic chest pain type 03/04/2019 Coronary artery disease involving sleetmute coronary artery 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 angina pectoris 03/20/2019 PVC (premature ventricular contraction) Other premature beats 03/20/2019 LBBB (left bundle branch block) Other left bundle branch block 03/20/2019 Chest pain due to myocardial ischemia, unspecified ischemic chest pain type 03/20/2019 Coronary artery disease involving sleetmute coronary artery 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 angina pectoris 03/20/2019 PVC (premature ventricular contraction) Other premature beats 03/20/2019 LBBB (left bundle branch block) Other left bundle branch block 03/20/2019 Encounter for screening for cardiovascular disorders Screening for other and unspecified cardiovascular conditions 03/20/2019 Chest pain due to myocardial ischemia, unspecified ischemic chest pain type 03/20/2019 Shortness of breath 03/24/2019 Coronary artery disease involving sleetmute coronary artery 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 angina pectoris 03/28/2019 Mixed hyperlipidemia 06/25/2019 Hx of CABG Postsurgical aortocoronary bypass status 06/25/2019 Mixed hyperlipidemia 09/02/2019 Hx of CABG Postsurgical aortocoronary bypass status 09/02/2019 Coronary artery disease involving sleetmute coronary artery 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 angina pectoris 09/02/2019 PVC (premature ventricular contraction) Other premature beats 09/02/2019 S/P CABG (coronary artery bypass graft) Postsurgical aortocoronary bypass status 09/02/2019 SOBOE (shortness of breath on exertion) Shortness of breath 09/02/2019 Dyslipidemia Other and unspecified hyperlipidemia 09/02/2019 Mixed hyperlipidemia 11/11/2019 Coronary artery disease involving sleetm[place] coronary artery 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 angina pectoris 11/11/2019 PVC (premature ventricular contraction) Other premature beats 11/11/2019 S/P CABG (coronary artery bypass graft) Postsurgical aortocoronary bypass status 11/11/2019 SOBOE (shortness of breath on exertion) Shortness of breath 11/11/2019 Dyslipidemia Other and unspecified hyperlipidemia 11/11/2019 Hyperlipidemia, unspecified hyperlipidemia type 01/14/2020 Shortness of breath 02/23/2020 Coronary artery disease involving sleetmute coronary artery 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 angina pectoris 03/02/2020 PVC (premature ventricular contraction) Other premature beats 03/02/2020 Essential hypertension Unspecified essential hypertension 03/02/2020 Pure hypercholesterolemia 03/02/2020 LBBB (left bundle branch block) Other left bundle branch block 03/02/2020 LV dysfunction Heart disease, unspecified 03/02/2020 Mixed hyperlipidemia 03/19/2020 Hx of CABG Postsurgical aortocoronary bypass status 03/19/2020 Coronary artery disease involving sleetmute coronary artery 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 angina pectoris 03/31/2020 Bronchiectasis without complication (HCC) Bronchiectasis without acute exacerbation 07/20/2020 Simple chronic bronchitis (HCC) Simple chronic bronchitis 07/20/2020 Uncomplicated asthma, unspecified asthma severity, unspecified whether persistent 07/20/2020 Coronary artery disease involving sleetmute coronary artery 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 angina pectoris 07/20/2020 Simple chronic bronchitis (HCC) Simple chronic bronchitis 08/10/2020 Bronchiectasis without complication (HCC) Bronchiectasis without acute exacerbation 08/11/2020 Bronchiectasis without complication (HCC) Bronchiectasis without acute exacerbation 08/22/2020 Centrilobular emphysema (HCC) Other emphysema 08/24/2020 Simple chronic bronchitis (HCC) Simple chronic bronchitis 08/24/2020 Gastroesophageal reflux disease without esophagitis Esophageal reflux 08/24/2020 Apical lung nodule 08/24/2020 Shortness of breath 09/15/2020 Coronary artery disease involving sleetmute coronary artery 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 angina pectoris 09/22/2020 Fatigue, unspecified type 09/28/2020 SOBOE (shortness of breath on exertion) Shortness of breath 09/28/2020 Coronary artery disease involving coronary bypass graft 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 angina pectoris 09/28/2020 Essential hypertension Unspecified essential hypertension 09/28/2020 Pure hypercholesterolemia 09/28/2020 Fatigue, unspecified type 10/19/2020 SOBOE (shortness of breath on exertion) Shortness of breath 10/19/2020 Coronary artery disease involving coronary bypass graft 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 angina pectoris 10/19/2020 Essential hypertension Unspecified essential hypertension 10/19/2020 Pure hypercholesterolemia 10/19/2020 Fatigue, unspecified type 10/20/2020 SOBOE (shortness of breath on exertion) Shortness of breath 10/20/2020 Coronary artery disease involving coronary bypass graft 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 angina pectoris 10/20/2020 Essential hypertension Unspecified essential hypertension 10/20/2020 Pure hypercholesterolemia 10/20/2020 Coronary artery disease involving coronary bypass graft 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 angina pectoris 11/23/2020 Essential hypertension Unspecified essential hypertension 11/23/2020 Pure hypercholesterolemia 11/23/2020 Fatigue, unspecified type 11/23/2020 LV dysfunction Heart disease, unspecified 11/23/2020 Coronary artery disease involving sleetm[place] coronary artery 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 angina pectoris 01/27/2021 Hyperlipidemia, unspecified hyperlipidemia type 03/01/2021 Coronary artery disease involving coronary bypass graft of sleetm[place] heart with other forms of angina pectoris 03/28/2021 SOBOE (shortness of breath on exertion) Shortness of breath 03/28/2021 Fatigue, unspecified type 03/28/2021 Essential hypertension Unspecified essential hypertension 03/28/2021 LV dysfunction Heart disease, unspecified 03/28/2021 Pre-op testing Preoperative examination, unspecified 04/01/2021 Encounter for laboratory testing for COVID-19 virus 04/01/2021 Status post coronary artery bypass graft Postsurgical aortocoronary bypass status 04/05/2021 Shortness of breath 04/05/2021 Other chest pain 04/05/2021 Status post coronary artery bypass graft Postsurgical aortocoronary bypass status 04/05/2021 Shortness of breath 04/05/2021 Other chest pain 04/05/2021 Coronary artery disease involving coronary bypass graft of sle[place] heart with other forms of angina pectoris 04/05/2021 SOBOE (shortness of breath on exertion) Shortness of breath 04/05/2021 Fatigue, unspecified type 04/05/2021 Essential hypertension Unspecified essential hypertension 04/05/2021 LV dysfunction Heart disease, unspecified 04/05/2021 Mixed hyperlipidemia 04/12/2021 Hx of CABG Postsurgical aortocoronary bypass status 04/12/2021 Coronary artery disease involving coronary bypass graft of sleetm[place] heart with other forms of angina pectoris 05/06/2021 Essential hypertension Unspecified essential hypertension 05/06/2021 Pure hypercholesterolemia 05/06/2021 Carotid artery disease, unspecified laterality, unspecified type 05/06/2021 Unsteadiness on feet Abnormality of gait 05/06/2021 Coronary artery disease involving coronary bypass graft of sleetm[place] heart with other forms of angina pectoris 05/25/2021 Essential hypertension Unspecified essential hypertension 05/25/2021 Pure hypercholesterolemia 05/25/2021 Carotid artery disease, unspecified laterality, unspecified type 05/25/2021 Unsteadiness on feet Abnormality of gait 05/25/2021 CAD (coronary artery disease) Coronary atherosclerosis of unspecified type of vessel, sleetm[place] or graft 07/18/2021 Coronary artery disease involving sleetm[place] coronary artery 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 angina pectoris 08/10/2021 Mixed hyperlipidemia 08/10/2021 Hx of CABG Postsurgical aortocoronary bypass status 08/10/2021 ORR (dyspnea on exertion) Other dyspnea and respiratory abnormality 09/02/2021 Lung nodule Solitary pulmonary nodule 09/02/2021 Shortness of breath 09/19/2021 CAD (coronary artery disease) Coronary atherosclerosis of unspecified type of vessel, sleetm[place] or graft 12/07/2021 Hyperlipidemia, unspecified hyperlipidemia type 12/19/2021 Mixed hyperlipidemia 12/19/2021 Hx of CABG Postsurgical aortocoronary bypass status 12/19/2021 Hyperlipidemia, unspecified hyperlipidemia type 12/21/2021 Mixed hyperlipidemia 12/21/2021 Hx of CABG Postsurgical aortocoronary bypass status 12/21/2021 Coronary artery disease involving sleetmute coronary artery 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 angina pectoris 12/26/2021 Mixed hyperlipidemia 12/30/2021 Hx of CABG Postsurgical aortocoronary bypass status 12/30/2021 Mixed hyperlipidemia 01/02/2022 Hx of CABG Postsurgical aortocoronary bypass status 01/02/2022 Mixed hyperlipidemia 01/04/2022 Hx of CABG Postsurgical aortocoronary bypass status 01/04/2022 Coronary artery disease involving coronary bypass graft of sleetm[place] heart with other forms of angina pectoris 03/06/2022 Essential hypertension Unspecified essential hypertension 03/06/2022 Dyslipidemia Other and unspecified hyperlipidemia 03/06/2022 LBBB (left bundle branch block) Other left bundle branch block 03/06/2022 LV dysfunction Heart disease, unspecified 03/06/2022 ORR (dyspnea on exertion) Other dyspnea and respiratory abnormality 05/12/2022 Lung nodule Solitary pulmonary nodule 05/12/2022 Centrilobular emphysema (HCC) Other emphysema 05/12/2022 Bronchiectasis without complication (HCC) Bronchiectasis without acute exacerbation 05/12/2022 Coronary artery disease involving sleetmute coronary artery 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 angina pectoris 06/14/2022 Shortness of breath 07/31/2022 CAD (coronary artery disease) Coronary atherosclerosis of unspecified type of vessel, sleetm[place] or graft 07/31/2022 Hyperlipidemia, unspecified hyperlipidemia type 10/26/2022 Mixed hyperlipidemia 11/02/2022 Hx of CABG Postsurgical aortocoronary bypass status 11/02/2022 Hyperlipidemia, unspecified hyperlipidemia type 11/08/2022 Coronary artery disease involving coronary bypass graft of sleetm[place] heart with other forms of angina pectoris 11/09/2022 Essential hypertension Unspecified essential hypertension 11/09/2022 Dyslipidemia Other and unspecified hyperlipidemia 11/09/2022 LBBB (left bundle branch block) Other left bundle branch block 11/09/2022 LV dysfunction Heart disease, unspecified 11/09/2022 Hyperlipidemia, unspecified hyperlipidemia type 11/10/2022 Mixed hyperlipidemia 02/07/2023 Hx of CABG Postsurgical aortocoronary bypass status 02/07/2023 Mixed hyperlipidemia 02/07/2023 Hx of CABG Postsurgical aortocoronary bypass status 02/07/2023 Hx of CABG Postsurgical aortocoronary bypass status 05/25/2023 LBBB (left bundle branch block) Other left bundle branch block 05/25/2023 Hyperlipidemia, unspecified hyperlipidemia type 05/25/2023 Shortness of breath 05/25/2023 Coronary artery disease involving coronary bypass graft of [place] heart with other forms of angina pectoris 05/25/2023 Simple chronic bronchitis (HCC) Simple chronic bronchitis 07/04/2023 Bronchiectasis without complication (HCC) Bronchiectasis without acute exacerbation 07/04/2023 Apical lung nodule 07/04/2023 Uncomplicated asthma, unspecified asthma severity, unspecified whether persistent 07/04/2023 Mixed hyperlipidemia 07/24/2023 Hx of CABG Postsurgical aortocoronary bypass status 07/24/2023 Bradycardia Other specified cardiac dysrhythmias 08/22/2023 Bradycardia Other specified cardiac dysrhythmias 08/21/2023 PAF (paroxysmal atrial fibrillation) (HCC) Atrial fibrillation 09/05/2023 dual chamber pacemaker Cardiac pacemaker in situ 09/05/2023 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 09/05/2023 LBBB (left bundle branch block) Other left bundle branch block 09/05/2023 Encounter for postoperative wound check Other specified aftercare following surgery 09/05/2023 Adjustment and management of cardiac pacemaker Fitting and adjustment of cardiac pacemaker 09/05/2023 Vector Remote Device 11/21/2023 Mixed hyperlipidemia 11/26/2023 Hyperlipidemia, unspecified hyperlipidemia type 11/26/2023 Dyslipidemia Other and unspecified hyperlipidemia 11/26/2023 LBBB (left bundle branch block) Other left bundle branch block 11/26/2023 Hx of CABG Postsurgical aortocoronary bypass status 11/26/2023 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 12/17/2023 Pacemaker reprogramming/check Fitting and adjustment of cardiac pacemaker 12/17/2023 PAF (paroxysmal atrial fibrillation) (HCC) Atrial fibrillation 12/17/2023 dual chamber pacemaker Cardiac pacemaker in situ 12/17/2023 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 12/17/2023 PVC (premature ventricular contraction) Other premature beats 12/17/2023 LBBB (left bundle branch block) Other left bundle branch block 12/17/2023 Vector Remote Device 01/30/2024 PAF (paroxysmal atrial fibrillation) (HCC) Atrial fibrillation 01/30/2024 Vector Remote Device 02/20/2024 Vector Remote Device 03/08/2024 Mixed hyperlipidemia 05/08/2024 Hx of CABG Postsurgical aortocoronary bypass status 05/08/2024 Vector Remote Device 05/21/2024 Vector Remote Device 08/20/2024 CAD (coronary artery disease) Coronary atherosclerosis of unspecified type of vessel, [place] or graft 12/15/2014 Asthma Unspecified asthma 12/15/2014 Raynaud's disease Raynaud's syndrome 12/15/2014 LBBB (left bundle branch block) Other left bundle branch block 12/15/2014 Hypothyroidism Unspecified hypothyroidism 12/15/2014 Hypertension Unspecified essential hypertension 12/15/2014 Hx of CABG Postsurgical aortocoronary bypass status 12/15/2014 Diabetes mellitus, type 2 (HCC) Type II or unspecified type diabetes mellitus without mention of complication, not stated as uncontrolled 12/15/2014 COPD (chronic obstructive pulmonary disease) (HCC) Chronic airway obstruction, not elsewhere classified 12/15/2014 Near syncope Syncope and collapse 12/15/2014 Ataxia Lack of coordination 12/15/2014 Bilateral inguinal hernia without obstruction or gangrene Inguinal hernia without mention of obstruction or gangrene, bilateral, (not specified as recurrent) 02/08/2015 CAD (coronary artery disease) Coronary atherosclerosis of unspecified type of vessel, [place] or graft 02/07/2017 COPD (chronic obstructive pulmonary disease) (HCC) Chronic airway obstruction, not elsewhere classified 02/07/2017 Diabetes mellitus, type 2 (HCC) Type II or unspecified type diabetes mellitus without mention of complication, not stated as uncontrolled 02/07/2017 Hyperlipidemia Other and unspecified hyperlipidemia 02/07/2017 Hypertension Unspecified essential hypertension 02/07/2017 Hypothyroidism Unspecified hypothyroidism 02/07/2017 COPD exacerbation vs. 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 08/21/2023 COPD (chronic obstructive pulmonary disease) (HCC) Chronic airway obstruction, not elsewhere classified 08/21/2023 Hyperlipidemia Other and unspecified hyperlipidemia 08/21/2023 Essential hypertension Unspecified essential hypertension 08/21/2023 Hypothyroidism Unspecified hypothyroidism 08/21/2023 Hx of CABG Postsurgical aortocoronary bypass status 08/21/2023 S/p nephrectomy Acquired absence of kidney 08/21/2023 Atherosclerosis of coronary artery bypass graft(s), unspecified, with other forms of angina pectoris 08/21/2023 PVC (premature ventricular contraction) Other premature beats 08/21/2023 Bradycardia Other specified cardiac dysrhythmias 08/21/2023 Pacemaker Cardiac pacemaker in situ 08/21/2023 Care Teams Civil Engineering Project Manager Relationship Specialty Start Date End Date Saurabh Soto MD PCP - General Family Medicine 03/23/11
--- OUTSIDE RECORDS SUMMARY | 2024-08-25 10:42 | XMS_ITS | Patient Health Record ---
Author Organization [facility] Address [address] [place] [address] Care Team Providers Care Sugar Reprocess Operator Head Name Role Phone Dr Saurabh Soto Primary Care Provider Migel Crump Unavailable [phone] Allergies No Known Allergies Reason For Referral No Information Medications Medication SIG (Take, Route, Frequency, Duration) Notes Start Date End Date Status Metoprolol Succinate ER 25 MG 1 tablet Orally Once a day Active ProAir HFA Active Repatha 140 MG/ML 1 mL Subcutaneous Active Trelegy Ellipta 100-62.5-25 MCG/ACT 1 puff Inhalation Once a day Active Furosemide 40 MG 1 tablet Orally Once a day Active LORazepam 2 MG Oral; Duration: 90 Not-Taking Clopidogrel Bisulfate 75 MG 1 tablet Orally Once a day PLAVIX Active Gabapentin 100 MG 1 capsule Orally Once a day Not-Taking Voltaren 1 % as directed Externally Active Aspir-81 81 MG 1 tablet Orally Once a day Active Potassium Bicarb-Citric Acid 10 MEQ 1 tablet Orally 2 Times Daily 10 MG TAB BID Active Losartan Potassium 100 MG 1 tablet Orally Once a day Active Levothyroxine Sodium 100 MCG 1 tablet Orally Once a day Active Isosorbide Mononitrate ER 30 MG 1 tablet Orally Once a day Active Social History Tobacco Use: Social History Observation Description Date Details (start date - stop date) Never Smoker NA - NA Tobacco Use/Smoking Question Answer Notes Are you a nonsmoker Problems Problem Type SNOMED Code ICD Code Onset Dates Problem Status W/U Status Risk Notes Problem Displacement of cervical intervertebral disc without myelopathy (76539642) 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 (723.4) Active confirmed Problem Chronic pain syndrome (048005292) Chronic pain syndrome (G89.4) Active confirmed Problem Lumbosacral radiculopathy (8846989) Intervertebral disc disorders with radiculopathy, lumbosacral region (M51.17) Active confirmed Problem Lumbosacral spondylosis without myelopathy (82950252) Lumbosacral spondylosis without myelopathy (M47.817) Active confirmed Problem Localized, primary osteoarthritis of the pelvic region and thigh (626506509) Primary osteoarthritis of right hip (M16.11) Active confirmed Problem Benign essential hypertension (8470253) Benign essential hypertension (I10) Active confirmed Problem Sciatica (77573838) Sciatica, unspecified laterality (M54.30) Active confirmed Problem Sciatica (34964876) Right sided sciatica (M54.31) Active confirmed Problem Sciatica (37891972) Chronic sciatica, 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) Active confirmed Encounters Encounter Location Date Provider Diagnosis [facility] [address] [place] [address] 07/01/2024 Migel Fajardo Plan Of Treatment Pending Test Test Name Order Date MRI : Cervical without Contrast 04/09/19 15 [facility] 01/22/2023 [facility] 02/09/2023 [facility] 06/06/2023 Insurance Providers Payer Name Payer Address Payer Phone Subscriber Number Group Number Insured Name Patient Relationship to Insured Coverage Start Date Coverage End Date [facility] [address] [place] [phone] [id number] Wilfred العلي Self - patient is the insured 3 Medical (General) History Medical History History ICD Code Arthritis asthma emphysema COPD hypertension high cholesterol kidney disease thyroid disease insomnia vision loss Surgical History Surgery Date(Month/Year) Thyroidectomy 1998 Triple bypass 2003 Stent ( one bypass failed) 2004 Stent 2006 Left Knee 2006 [facility] 2013 Colonoscopy 2012 Angiogram 2012 Angiogram 2014 nephrectomy - right 2011
--- OUTSIDE RECORDS SUMMARY | 2024-08-25 10:43 | XMS_ITS | Data Portability ---
Author Organization [facility] Address [address] [place] [address] Care Team Providers Care Arc Welder Name Role Phone [facility] Diversional Therapist'S Assistant Assessment Encounter Date Assessment Date Assessment LastModified by Organization Details LastModified Time 04/15/2024 04/15/2024 Medicare Preventive Services Check List reviewed and printed for patient. [email or web address] Not available 04/09/2024 13:47:25 Plan of Treatment Reminders Order Date Submit Date Provider Last Modified By Organization Details Last Modified Time Details Appointments None recorded. Lab lipid panel, serum 2024 025 [facility], [address], [place] [address], [place], [address], 5 08:38:25 CBC w/ auto diff 2024 025 [facility], [address], [place] [address], [place], [address], 5 08:38:22 CMP, serum or plasma 2024 025 [facility], [address], [place] [address], [place], [address], 5 08:38:24 TSH, ultra-sens itive, serum 2024 025 [facility]Y [facility], [address], [place], [place], [address], 5 08:38:27 PSA, serum or plasma 2024 [facility], [address], [place] [address], [place], [address], 08:38:26 Referral None recorded. Procedures None recorded. Surgeries None recorded. Imaging None recorded. Medication Orders diclofenac 1 % topical gel 2024 [facility], [address] [place] [address], [address], 5 16:53:13 losartan 100 mg tablet [address], [facility] [address] [place] [address], [address], 5 16:54:12 triamcinol one acetonide 0.1 % topical cream 2024 025 [facility], [address] [place] [address], [address], 5 16:53:12 Eliquis 5 mg tablet 2024 025 [facility] - [address], [address], 5 16:53:12 furosemide 20 mg tablet 2024 025 [email or web address] [facility] - [address], [address], 5 16:28:44 prednisone 20 mg tablet 2024 025 [email or web address] [facility] - [address], [address], 5 16:56:25 triamcinol one acetonide 0.1 % topical cream 2024 [address], [place], [address], 15:18:38 Patient TargetsNo targets recorded. Patient Instructions Encounter Date Encounter Id Patient Instructions Last Modified By Organization Details Last Modified Time 03/19/2024 [id number] rash: care instructions [email or web address] Not available 03/19/2024 15:18:22 All questions answered and pt/guardian satisfied with treatment plan. Call with changes RTC or ED if symptoms change or worsen Keep next interval checkup Cont. chronic meds as prescribed Chronic conditions are stable Discussed natural and expected course of this diagnosis and need to alert the office if symptoms do not follow expected course or if any worsens [email or web address] Not available 03/19/2024 21:22:15 04/15/2024 [id number] advance directives: care instructions [email or web address] Not available 04/15/2024 08:31:55 learning about depression [email or web address] Not available 04/15/2024 08:31:55 preventing falls : care instructions [email or web address] Not available 04/15/2024 08:31:55 medicare preventive services guide [email or web address] Not available 04/15/2024 08:31:55 Reason for Referral None Reported. Results Created Date Observation Date Name Description Value Unit Range Abnormal Flag Note LastModifiedBy Organization Detail LastModifiedTime 04/16/1904/16/2024 CBC WITH DIFFE RENTI AL/PL ATELE T WBC 7.7 x10e3 /uL 3.4-10 .8 normal Not Available [facility] ([facility]) [address] [place], [address], 04/16/2024 08:38:22 04/16/19 25 04/16/2024 CBC WITH DIFFE RENTI AL/PL ATELE T RBC 4.94 x10e6 /uL 4.14-5 .80 normal Not Available [facility] ([facility]) [address] [place], [address], 04/16/2024 08:38:22 04/16/19 25 04/16/2024 CBC WITH DIFFE RENTI AL/PL ATELE T hemoglobin 15.2 g/dL 13.0-1 7.7 normal Not Available [facility] ([facility]) [address] [place], [address], 04/16/2024 08:38:22 04/16/19 25 04/16/2024 CBC WITH DIFFE RENTI AL/PL ATELE T hematocrit 46.4 % 37.5-5 1.0 normal Not Available [facility] ([facility]) [address] [place], [address], 04/16/2024 08:38:22 04/16/19 25 04/16/2024 CBC WITH DIFFE RENTI AL/PL ATELE T MCV 94 fL 79-97 normal Not Available [facility] ([facility]) [address] [facility], [place], [address], 04/16/2024 08:38:22 04/16/19 25 04/16/2024 CBC WITH DIFFE RENTI AL/PL ATELE T MCH 30.8 pg 26.6-3 3.0 normal Not Available [facility] ([facility]) [address] [place], [address], 04/16/2024 08:38:22 04/16/19 25 04/16/2024 CBC WITH DIFFE RENTI AL/PL ATELE T MCHC 32.8 g/dL 31.5-3 5.7 normal Not Available [facility] ([facility]) [address] [place], [address], 04/16/2024 08:38:22 04/16/19 25 04/16/2024 CBC WITH DIFFE RENTI AL/PL ATELE T RDW 13.0 % 11.6-1 5.4 Not Available [facility] ([facility]) [address] [place], [address], 04/16/2024 08:38:22 04/16/19 25 04/16/2024 CBC WITH DIFFE RENTI AL/PL ATELE T platelets 364 x10e3 /uL 150-45 0 normal Not Available [facility] ([facility]) [address] [facility], [place], [address], 04/16/2024 08:38:22 04/16/19 25 04/16/2024 CBC WITH DIFFE RENTI AL/PL ATELE T neutrophils 53 % not estab. normal Not Available [facility] ([facility]) [address] [facility], [place], [address], 04/16/2024 08:38:22 04/16/19 25 04/16/2024 CBC WITH DIFFE RENTI AL/PL ATELE T lymphs 31 % not estab. normal Not Available [facility] ([facility]) [address] [facility], [place], [address], 04/16/2024 08:38:22 04/16/19 25 04/16/2024 CBC WITH DIFFE RENTI AL/PL ATELE T monocytes 10 % not estab. normal Not Available [facility] ([facility]) [address] [facility], [place], [address], 04/16/2024 08:38:22 04/16/19 25 04/16/2024 CBC WITH DIFFE RENTI AL/PL ATELE T eos 5 % not estab. normal Not Available [facility] ([facility]) [address] [facility], [place], [address], 04/16/2024 08:38:22 04/16/19 25 04/16/2024 CBC WITH DIFFE RENTI AL/PL ATELE T basos 1 % not estab. normal Not Available [facility] ([facility]) [address] [facility], [place], [address], 04/16/2024 08:38:22 04/16/19 25 04/16/2024 CBC WITH DIFFE RENTI AL/PL ATELE T immature cells NETSUITE DEVELOPER Not Available [facility]) [address] [place], [address], 04/16/2024 08:38:22 04/16/19 25 04/16/2024 CBC WITH DIFFE RENTI AL/PL ATELE T neutrophils (absolute) 4.1 x10e3 /uL 1.4-7. 0 normal Not Available [facility] ([facility]) [address] [place], [address], 04/16/2024 08:38:22 04/16/19 25 04/16/2024 CBC WITH DIFFE RENTI AL/PL ATELE T lymphs (absolute) 2.4 x10e3 /uL 0.7-3. 1 normal Not Available [facility] ([facility]) [address] [place], [address], 04/16/2024 08:38:22 04/16/19 25 04/16/2024 CBC WITH DIFFE RENTI AL/PL ATELE T monocytes(ab solute) 0.7 x10e3 /uL 0.1-0. 9 normal Not Available [facility] ([facility]) [address] [place], [address], 04/16/2024 08:38:22 04/16/19 25 04/16/2024 CBC WITH DIFFE RENTI AL/PL ATELE T eos (absolute) 0.4 x10e3 /uL 0.0-0. 4 normal Not Available [facility] ([facility]) [address] [place], [address], 04/16/2024 08:38:22 04/16/19 25 04/16/2024 CBC WITH DIFFE RENTI AL/PL ATELE T baso (absolute) 0.1 x10e3 /uL 0.0-0. 2 normal Not Available [facility] ([facility]) [address] [place], [address], 04/16/2024 08:38:22 04/16/19 25 04/16/2024 CBC WITH DIFFE RENTI AL/PL ATELE T immature granulocytes 0 % not estab. Not Available [facility] ([facility]) [address] [facility], [place], [address], 04/16/2024 08:38:22 04/16/19 25 04/16/2024 CBC WITH DIFFE RENTI AL/PL ATELE T immature grans (abs) 0.0 x10e3 /uL 0.0-0. 1 Not Available [facility] ([facility]) [address] [facility], [place], [address], 04/16/2024 08:38:22 04/16/19 25 04/16/2024 CBC WITH DIFFE RENTI AL/PL ATELE T NRBC NETSUITE DEVELOPER Not Available [facility] ([facility]) [address] [facility], [place], [address], 04/16/2024 08:38:22 04/16/19 25 04/16/2024 CBC WITH DIFFE RENTI AL/PL ATELE T hematology comments: NETSUITE DEVELOPER Not Available [facility]) [address] [facility], [place], [address], 04/16/2024 08:38:22 04/16/19 25 04/16/2024 COMP. METAB OLIC PANEL (14) glucose 100 mg/dL 70-99 above high normal Not Available [facility] ([facility]) [address] [facility] [place], [address], 04/16/2024 08:38:23 04/16/19 25 04/16/2024 COMP. METAB OLIC PANEL (14) BUN 15 mg/dL 8-27 normal Not Available [facility] ([facility]) [address] [facility] [place], [address], 04/16/2024 08:38:23 04/16/19 25 04/16/2024 COMP. METAB OLIC PANEL (14) creatinine 1.14 mg/dL 0.76-1 .27 normal Not Available [facility] ([facility]) [address] [place], [address], 04/16/2024 08:38:23 04/16/19 25 04/16/2024 COMP. METAB OLIC PANEL (14) eGFR 65 mL/mi n/1.7 3 >59 normal Not Available [facility] ([facility]) [address], [place], [address], 04/16/2024 08:38:23 04/16/19 25 04/16/2024 COMP. METAB OLIC PANEL (14) BUN/creatini ne ratio 13 10-24 normal Not Available [facility]) [address] [place], [address], 04/16/2024 08:38:23 04/16/19 25 04/16/2024 COMP. METAB OLIC PANEL (14) sodium 140 mmol/ L 134-14 4 normal Not Available [facility] ([facility]) [address], [place], [address], 04/16/2024 08:38:23 04/16/19 25 04/16/2024 COMP. METAB OLIC PANEL (14) potassium 3.7 mmol/ L 3.5-5. 2 normal Not Available [facility] ([facility]) [address], [place], [address], 04/16/2024 08:38:23 04/16/19 25 04/16/2024 COMP. METAB OLIC PANEL (14) chloride 101 mmol/ L 96-106 normal Not Available [facility] ([facility]) [address], [place], [address], 04/16/2024 08:38:23 04/16/19 25 04/16/2024 COMP. METAB OLIC PANEL (14) carbon dioxide, total 25 mmol/ L 20-29 normal Not Available [facility] ([facility]) [address] [place], [address], 04/16/2024 08:38:23 04/16/19 25 04/16/2024 COMP. METAB OLIC PANEL (14) calcium 8.8 mg/dL 8.6-10 .2 normal Not Available [facility] ([facility]) [address] [place], [address], 04/16/2024 08:38:23 04/16/19 25 04/16/2024 COMP. METAB OLIC PANEL (14) protein, total 6.2 g/dL 6.0-8. 5 normal Not Available [facility] ([facility]) [address] [place], [address], 04/16/2024 08:38:23 04/16/19 25 04/16/2024 COMP. METAB OLIC PANEL (14) albumin 4.1 g/dL 3.7-4. 7 normal Not Available [facility] ([facility]) [address] [place], [address], 04/16/2024 08:38:23 04/16/19 25 04/16/2024 COMP. METAB OLIC PANEL (14) globulin, total 2.1 g/dL 1.5-4. 5 Not Available [facility] ([facility]) [address] [place], [address], 04/16/2024 08:38:23 04/16/19 25 04/16/2024 COMP. METAB OLIC PANEL (14) bilirubin, total 0.7 mg/dL 0.0-1. 2 normal Not Available [facility] ([facility]) [address] [place], [address], 04/16/2024 08:38:23 04/16/19 25 04/16/2024 COMP. METAB OLIC PANEL (14) alkaline phosphatase 70 IU/L 44-121 normal Not Available [facility]) [address] [place], [address], 04/16/2024 08:38:23 04/16/19 25 04/16/2024 COMP. METAB OLIC PANEL (14) AST (SGOT) 17 IU/L 0-40 normal Not Available [facility] ([facility]) [address] [facility] [place], [address], 04/16/2024 08:38:23 04/16/19 25 04/16/2024 COMP. METAB OLIC PANEL (14) ALT (SGPT) 13 IU/L 0-44 normal Not Available [facility] ([facility]) [address] [facility] [place], [address], 04/16/2024 08:38:23 04/16/19 25 04/16/2024 LIPID PANEL cholesterol, total 135 mg/dL 100-19 9 normal Not Available [facility] ([facility]) [address] [place], [address], 04/16/2024 08:38:25 04/16/19 25 04/16/2024 LIPID PANEL triglyceride s 105 mg/dL 0-149 normal Not Available [facility]) [address] [place], [address], 04/16/2024 08:38:25 04/16/19 25 04/16/2024 LIPID PANEL HDL cholesterol 51 mg/dL >39 normal Not Available [facility] [address] [place], [address], 04/16/2024 08:38:25 04/16/19 25 04/16/2024 LIPID PANEL VLDL cholesterol bertha 19 mg/dL 5-40 Not Available [facility]) [address] [place], [address], 04/16/2024 08:38:25 04/16/19 25 04/16/2024 LIPID PANEL LDL chol calc ([facility]) 65 mg/dL 0-99 Not Available [facility] [address] [place], [address], 04/16/2024 08:38:25 04/16/1904/16/2024 LIPID PANEL LDL calc comment: NETSUITE DEVELOPER Not Available [facility]) [address] [facility], [place], [address], 04/16/2024 08:38:25 04/16/1904/15/2024 PSA TOTAL (REFL EX TO FREE) reflex criteria Commen t The perce nt free PSA is perfo rmed on a refle x basis only when the total PSA is betwe en 4.0 and 10.0 ng/mL . Not Available [facility] ([facility]) [address] [facility], [place], [address], 04/16/2024 08:38:26 04/16/1904/16/2024 PSA TOTAL (REFL EX TO FREE) prostate specific Ag 2.3 NG/mL 0.0-4. 0 normal [place] ECLIA metho dolog y. Accor ding to the Ameri can [employer]rolo g[employer] Ass[employer] iatio n, Serum PSA shoul d decre ase and remai n at undet ectab le level s after radic al prost atect milagros. The AUA defin es bioch emica l recur rence as an initi al PSA value 0.2 ng/mL or great er follo wed by a subse quent confi rmato ry PSA value 0.2 ng/mL or great er. Value s obtai nadir with diffe rent assay metho ds or kits canno t be used inter flores eably . Resul ts canno t be inter prete d as absol koi evide nce of the prese nce or absen ce of janet perez se. Not Available [facility] ([facility]) [address] [facility], [place], [address], 04/16/2024 08:38:26 04/16/1904/16/2024 TSH RFX ON ABNOR MAL TO FREE T4 TSH 3.100 uIU/m L 0.450- 4.500 normal Not Available [facility] ([facility] [address] [facility] [place], [address], 04/16/2024 08:38:27 Result Notes None recorded. Problems Name Problem SNOMED Code Status Onset Date Resolution Date Notes Provider Name and Address Organization Details Recorded Time Insomnia Completed 201705/15/2017 Betzy Almaraz in null, [place] - [facility] 8 13:33:29 Insomnia 466236321 Active 2017 Crystal Wilfredo [place] - [facility] 8 08:40:23 Coronary artery bypass graft Active 2018 Rahel Workman [place], [place] - [facility] 9 10:32:06 Suspecte d COVID-19 705250984 Completed 08/26/2019 Removal Reason: Problem added by user [email or web address] from the EpoqID-19 watch flag Crystal Wilfredo [place], [place] - [facility] 0 10:21:02 Suspecte d COVID-19 971004890 Completed 201909/15/2019 Removal Reason: Problem marked historic al by user [email or web address] from the COVID-19 watch flag Crystal Wilfredo [place] - [facility] 0 10:21:02 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 201512/22/2015 Saurabh Soto [place] - [facility] 6 18:36:54 Chronic vertigo 53545206607 105 Active 2020 Crystal Wilfredo [place] - [facility] 1 13:33:23 Cardiac arrhythm ia 359537434 Active 2015 Crystal Wilfred[place] [facility] 8 08:40:24 Benign hyperten calvin 70608286 Active 2015 Crystal Wilfred[place] [facility] 8 08:40:24 Mixed hyperlip idemia 336779508 Active 2015 Crystal Wilfred[place] [facility] 8 08:40:24 Seasonal allergy 179234524 Active 2015 Crystal Wilfred[place] [facility] 8 08:40:23 Asthma 435990187 Active 2015 Crystal Wilfred[place] [facility] 8 08:40:24 Chronic obstruct jessica pulmonar y disease 68096526 Active 2015 Crystal Wilfred[place] [facility] 8 08:40:23 Gastroes ophageal reflux disease without esophagi tis 278270291 Active 2015 Crystal Wilfred[place] [facility] 8 08:40:24 Coronary arterios clerosis 74389483 Active 2015 Crystal Wilfred[place] [facility] 8 08:40:23 History of malignan t neoplasm of kidney 064004863 Completed 201511/26/2015 Cathleen Velasquezhop [place] - [facility] 6 17:29:08 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 Crystal Wilfredo [place] [facility] 8 08:40:23 Pain of multiple joints 21736253 Completed 201511/14/2018 Rahel Workman [place] - [facility] 9 16:38:41 Acute exacerba tion of chronic obstruct jessica pulmonar y disease 330763434 Active 2024 Samia Crook, RADARMAN [address], [place], [address], [place] - [facility] 5 16:02:28 Eruption 289242484 Active 2024 Oj Fry PA-C [address], [place], [address], [place] [facility] 5 15:08:40 Renewal of prescrip tion Completed 201605/15/2017 Betzy Almaraz in [place] [facility] 8 13:26:04 Delay when starting to pass urine 2428095 Active 2016 Crystal Wilfred[place] [facility] 8 08:40:23 Otitis media 80372782 Completed 201611/14/2018 Rahel Workman [place] [facility] 9 16:38:36 Problem Notes None recorded. Procedures Surgical History Date Name Laterality Status Provider Name and Address Organization Details Recorded Time 04/16/19 25 Advance Care Planning completed Can Stoddardegar [place] - [facility] 04/09/2024 13:47:26 04/16/19 25 Functional Status Assessed completed Can Cohnedegar [place] - [facility] 04/09/2024 13:47:26 02/28/19 25 Cerumen Removal completed Samia Crook, [employer] [address], [place], [address], [place] [facility] 02/29/2024 16:30:26 02/25/19 25 Cerumen Removal completed Samia Crook, [employer] [address], [place], [address], [place] [facility] 02/26/2024 16:04:34 07/27/19 21 Cryosurgery Dermatology completed Tamika Wicho, [employer] [address], [place], [address], [place] - [facility] 07/26/2020 15:22:13 11/25/19 20 Diastolic B/P 80-89 mm Hg completed Crystal Wilfredo [place] [facility] 11/25/2019 16:16:05 11/25/19 20 Systolic B/P greater than or equal to 140 mm Hg completed Crystal Wilfredo [place] [facility] 11/25/2019 16:16:02 09/15/19 20 Advance Care Planning completed Crystal Wilfredo [place] [facility] 09/15/2019 14:40:37 09/15/19 20 Systolic B/P less than 130 mm Hg completed Crystal Wilfredo [place] [facility] 09/15/2019 14:50:08 09/15/19 20 Diastolic B/P less than 80 mm Hg completed Crystal Wilfredo [place] [facility] 09/15/2019 14:50:14 09/15/19 20 Functional Status Assessed completed Crystal Wilfredo [place] [facility] 09/15/2019 14:40:37 06/20/19 20 Diastolic B/P 80-89 mm Hg completed Crystal [place]fredo [place] [facility] 06/20/2019 09:49:10 06/20/19 20 Systolic B/P 130-139 mm Hg completed Crystal Wilfredo [place] [facility] 06/20/2019 09:49:08 06/09/19 20 Systolic B/P less than 130 mm Hg completed Crystal [place]fredo [place] [facility] 06/09/2019 08:45:25 06/09/19 20 Diastolic B/P 80-89 mm Hg completed Crystal [place]fredo [place] [facility] 06/09/2019 08:45:35 05/26/19 20 Systolic B/P less than 130 mm Hg completed Crystal [place]fredo [place] [facility] 05/26/2019 13:13:29 05/26/19 20 Diastolic B/P less than 80 mm Hg completed Crystal [place]fred[place] [facility] 05/26/2019 13:13:31 05/12/19 20 Systolic B/P less than 130 mm Hg completed Crystal [place]fredo [place] [facility] 05/12/2019 09:48:56 05/12/19 20 Diastolic B/P less than 80 mm Hg completed Crystal [place]fredo [place] [facility] 05/12/2019 09:49:02 05/05/19 20 Diastolic B/P 80-89 mm Hg completed Crystal [place]fredo [place] [facility] 05/05/2019 13:36:13 05/05/19 20 Systolic B/P greater than or equal to 140 mm Hg completed Crystal [place]fredo [place] [facility] 05/05/2019 13:36:07 04/28/19 20 Diastolic B/P 80-89 mm Hg completed Crystal [place]fredo [place] [facility] 04/28/2019 10:19:00 04/28/19 20 Systolic B/P greater than or equal to 140 mm Hg completed Crystal [place]fredo [place] [facility] 04/28/2019 10:18:58 02/25/19 20 Systolic B/P less than 130 mm Hg completed Crystal [place]fredo [place] [facility] 02/25/2019 16:51:38 02/25/19 20 Diastolic B/P less than 80 mm Hg completed Crystal [place]fredo [place] [facility] 02/25/2019 16:51:46 02/17/19 20 Systolic B/P less than 130 mm Hg completed Crystal Wilfredo [place] [facility] 02/17/2019 13:56:19 02/17/19 20 Diastolic B/P less than 80 mm Hg completed Crystal Wilfredo [place] [facility] 02/17/2019 13:56:22 02/08/20 17 Nebulizer tx completed Cathleen Smiley [place] - [facility] 01/13 17:00:59 10/14/19 17 Advance Care Planning completed Cathleen Sm[place] [facility] 10/13/2016 15:55:21 Remove kidney open completed Cathleen [place] [facility] 11/26/2015 17:29:46 Thyroidectomy completed Cathleen BOYD - [facility] 11/26/2015 17:29:58 Knee Surgery completed Cathleen BOYD - [facility] 11/26/2015 17:31:01 CABG completed Cathleen BOYD - [facility] 11/26/2015 17:31:57 Imaging Results None recorded. Procedure Notes None recorded. Medical Equipment None Reported. Allergies Allergen ID Allergen Name Allergen Category Reaction Reaction Severity Criticality Documentation Date Start Date Code Code System Note Provider Name and Address Organization Details Recorded Time 20918 Lyrica medicatio n respirato ry distress Not available Not available 11/26/2015 66523 1 RxNorm Cathleen duff, [place] - [facility] 6 17:20:21 Medications Name Sig Start Date Stop Date Status Note LastModified by Organization Details LastModified Time furosemid e 40 mg tablet TAKE ONE (1) TABLET EVERY DAY BY ORAL ROUTE IN THE MORNING FOR 30 DAYS. active Not Available Not Available No t Available albuterol sulfate 0.63 mg/3 mL solution for nebulizat ion Inhale 3 mL every 4 hours by inhalati on route as needed. 09/14 completed Not Available Not Available Not Available Potassium Chloride CR 20 mEq tablet,ex tended release one po every day 05/06 completed Replaced /Retired Drug 20 mEq oral tablet extended release; Recorded Status: Recorded on: 11/16/19 08 10:02PM; Disconti nued Status: Disconti nued on: 05/07/19 11 9:07AM;U ser: micheal Not Available Not Available Not Available prednison e 10 mg tablet take 2 tablets by oral route QD x 4 days and then 1 qd x 4 days 11/14 completed Not Available Not Available Not Available doxycycli ne hyclate 100 mg capsule TAKE 1 CAPSULE BY MOUTH TWICE DAILY FOR 10 DAYS 03/19 completed Not Available Not Available Not Available albuterol sulfate 2.5 mg/3 mL (0.083 %) solution for nebulizat ion INHALE THREE (3) ML (1 VIAL) EVERY 4-6 HOURS NEEDED FOR SHORTNES S OF BREATH OR WHEEZING active Not Available Not Available No t Available cetirizin e 10 mg tablet TAKE ONE (1) TABLET(S ) EVERY DAY BY ORAL ROUTE FOR 90 DAYS. 06/18 completed Not Available Not Available Not Available azithromy lopez 250 mg tablet TAKE 2 TABLETS TODAY THEN TAKE 1 TABLET DAILY FOR THE NEXT 4 DAYS 03/19 completed Not Available Not Available Not Available aspirin 325 mg tablet take 1 tablet (325 mg) by oral route once daily for 30 days 01/05 completed aspirin 325 mg oral tablet;R ecorded Status: Recorded on: 10/08/19 09 9:07AM;D iscontin ued Status: Disconti nued on: 01/06/20 9:16AM;U ser: bakerc;E st. Completi on: 11/07/19 Not Available Not Available Not Available pravastat in 40 mg tablet TAKE 1 TABLET EVERY NIGHT DIRECTED 04/19 completed Not Available Not Available Not Available ranitidin e 300 mg tablet take 1 tablet (300 mg) by oral route once daily at bedtime for 30 days 01/05 completed ranitidi ne HCl 300 mg oral tablet;R ecorded Status: Recorded on: 12/22/19 09 5:36PM;D iscontin ued Status: Disconti nued on: 01/06/20 09 9:16AM;U ser: calv;E st. Completi on: 01/21/20 09;Print ed: 12/22/19 Not Available Not Available Not Available clarithro mycin 500 mg tablet take 1 tablet (500 mg) by oral route 2 times per day for 10 days 06/19 completed Not Available Not Available Not Available hydrocodo ne 5 mg-acetam inophen 325 mg tablet TAKE ONE (1) TABLET BY MOUTH EVERY DAY NEEDED FOR 30 DAYS active Not Available Not Available No t Available Celestone Soluspan 6 mg/mL suspensio n for injection Take 6 mg by injectio n route. 05/10 completed Not Available Not Available Not Available Avelox 400 mg tablet take 1 tablet (400 mg) by oral route once daily for 10 days 02/26 completed Avelox 400 mg oral tablet;R ecorded Status: Recorded on: 02/01/20 11 8:08PM;D iscontin ued Status: Disconti nued on: 02/26/19 12 5:57PM;U ser: bishopk; Est. Completi on: 02/11/20 11;Indic ation: Acute Bacteria l Sinusiti s - (4619 ) Not Available Not Available Not Available prednison e 20 mg tablet TAKE ONE TABLET TWICE DAILY FOR FOUR (4) DAYS, THEN TAKE ONE TABLET ONCE DAILY FOR FOUR (4) DAYS 03/27 completed Not Available Not Available Not Available isosorbid e mononitra te ER 30 mg tablet,ex tended release 24 hr TAKE 1 TABLET EVERY DAY active Not Available Not Available No t Available fluoroura cil 5 % topical cream APPLY A SUFFICIE NT AMOUNT TO COVER THE LESIONS IN THE AFFECTED AREA(S) ON FACE/RIG HT LOWER LIP AREA BY TOPICAL ROUTE TWO (2) TIMES PER DAY FOR TWO (2) WEEKS AND STOP 02/10 completed Not Available Not Available Not Available prednison e 5 mg tablet take 6 tablets by oral route QD for 2 days then 4 tablets daily for 2 days then 2 tablets daily for 2 days then 1 tablet daily for 2 days 12/17 completed predniso ne 5 mg oral tablet;R ecorded Status: Recorded on: 07/29/19 11 4:36PM;D iscontin ued Status: Disconti nued on: 12/18/19 12 3:55PM;U ser: blumc;Es t. Completi on: 08/08/19 11 Not Available Not Available Not Available Debrox 6.5 % ear drops INSTILL FIVE (5) DROPS INTO AFFECTED EAR(S) BY OTIC ROUTE TWO (2) TIMES PER DAY FOR FOUR (4) DAYS 03/27 completed Not Available Not Available Not Available potassium chloride ER 10 mEq tablet,ex tended release take 1 tablet by oral route daily 05/14 completed Not Available Not Available Not Available clopidogr el 75 mg tablet Take 1 tablet every day by oral route for 90 days. active Not Available Not Available No t Available amlodipin e 5 mg tablet Take 1 tablet every day by oral route. 02/14 completed Not Available Not Available Not Available sulfameth oxazole 800 mg-trimet hoprim 160 mg tablet Take 1 tablet every 12 hours by oral route. 10/13 completed Not Available Not Available Not Available aspirin 81 mg tablet,de layed release one po every day 03/25 completed aspirin 81 mg oral tablet,d elayed release (/CHARLES); Recorded Status: Recorded on: 11/16/19 08 10:03PM; Disconti nued Status: Disconti nued on: 03/25/19 09 2:47PM;U ser: bishopk Not Available Not Available Not Available Diovan 320 mg tablet take 1 tablet (320 mg) by oral route once daily 10/07 completed Diovan 320 mg oral tablet;R ecorded Status: Recorded on: 06/16/19 09 12:05PM; Disconti nued Status: Disconti nued on: 10/08/19 09 9:07AM;U ser: bishopk; Indicati on: Hyperten calvin - (4019 00) Not Available Not Available Not Available triamcino lone acetonide 0.1 % topical cream APPLY A THIN LAYER TO AFFECTED AREA TWICE DAILY active Not Available Not Available No t Available Depo-Medr ol 80 mg/mL suspensio n for injection one time only 06/18 completed Not Available Not Available Not Available levothyro xine 100 mcg tablet Take 1 tablet every day by oral route. 12/27 completed Not Available Not Available Not Available oxycodone -acetamin ophen 5 mg-325 mg tablet 11/25 completed Not Available Not Available Not Available ceftriaxo ne 1 gram solution for injection Take 1 g by injectio n route. 05/11 completed LOT [id number] EXP 05/14/19 Not Available Not Available Not Available methocarb karon 750 mg tablet TAKE ONE (1) TABLET TWICE A DAY BY ORAL ROUTE FOR 7 DAYS. 03/27 completed Not Available Not Available Not Available temazepam 15 mg capsule take 1 capsule (15 mg) by oral route once daily at bedtime as needed 04/10 completed temazepa m 15 mg oral capsule; Recorded Status: Recorded on: 06/07/19 11 12:38PM; Disconti nued Status: Disconti nued on: 04/10/19 13 8:37AM;U ser: bishopk; Est. Completi on: 09/05/19 11 Not Available Not Available Not Available tamsulosi n 0.4 mg capsule 11/25 completed Not Available Not Available Not Available lorazepam 2 mg tablet take 0.5-1 tablets by oral route daily 03/08 completed lorazepa m 2 mg oral tablet;R ecorded Status: Recorded on: 05/06/19 15 7:36PM;D iscontin ued Status: Disconti nued on: 03/08/19 16 1:39PM;U ser: chandler;Evelyn bermudez. Completi on: 11/02/19 15 Not Available Not Available Not Available meclizine 25 mg tablet Take 1 tablet every day by oral route as needed for 30 days. 07/03 completed Not Available Not Available Not Available amlodipin e 10 mg tablet TAKE 1 TABLET EVERY DAY active Not Available Not Available No t Available benzonata te 100 mg capsule TAKE ONE (1) CAPSULE THREE (3) TIMES A DAY BY ORAL ROUTE NEEDED FOR 7 DAYS. 03/27 completed Not Available Not Available Not Available hydrocodo ne 7.5 mg-acetam inophen 325 mg tablet 12/09 completed Not Available Not Available Not Available cephalexi n 500 mg capsule Take 1 capsule twice a day by oral route for 10 days. 12/09 completed Not Available Not Available Not Available trazodone 150 mg tablet TAKE 1 TABLET EVERY DAY AT BEDTIME NEEDED 04/19 completed Not Available Not Available Not Available chlorprom azine 25 mg tablet take 1 tablet by oral route every 8 hours for 5 days 09/27 completed chlorpro mazine 25 mg oral tablet;R ecorded Status: Recorded on: 01/05/20 15 12:15PM; Disconti nued Status: Disconti nued on: 09/28/19 16 11:34AM; User: Chayo elizondo Completuche on: 01/10/20 15;Print ed: 01/05/20 15 Not Available Not Available Not Available Cipro 500 mg tablet take 1 tablet (500 mg) by oral route 2 times per day for 10 days 04/10 completed Cipro 500 mg oral tablet;R ecorded Status: Recorded on: 03/13/19 12 5:07PM;D iscontin ued Status: Disconti nued on: 04/10/19 13 8:37AM;U ser: gored;Evelyn Penai on: 03/23/19 12;Print ed: 03/13/19 12 Not Available Not Available Not Available Neva-D 12 Hour 60 mg-120 mg tablet,ex tended release Take 1 tablet twice a day by oral route. 10/13 completed Not Available Not Available Not Available Advair Diskus 250 mcg-50 mcg/dose powder for inhalatio n inhale 1 puff by inhalati on route 2 times per day morning and evening approxim ately 12 hours apart for 30 days 12/21 completed Advair Diskus 250-50 mcg/dose inhalati on blister with device;R ecorded Status: Recorded on: 10/10/19 09 2:30PM;D iscontin ued Status: Disconti nued on: 12/22/19 09 4:59PM;U ser: neuss;Evelyn elizondo Completi on: 11/09/19 09 Not Available Not Available Not Available indometha lopez 50 mg capsule take 1 capsule by oral route Q12-24 PRN 12/17 completed Not Available Not Available Not Available Verelan PM 200 mg capsule, extended release one every am and two every pm 06/15 completed Verelan PM 200 mg oral capsule, [address];Recor ded Status: Recorded on: 11/16/19 08 10:04PM; Disconti nued Status: Disconti nued on: 06/16/19 09 12:05PM; User: micheal Not Available Not Available Not Available Synthroid 75 mcg tablet TAKE 1 TABLET EVERY DAY 07/03 completed Not Available Not Available Not Available Advair Diskus 500 mcg-50 mcg/dose powder for inhalatio n two puffs am and pm 06/08 completed Advair Diskus 500-50 mcg/dose inhalati on blister with device;R ecorded Status: Recorded on: 11/16/19 08 10:03PM; Disconti nued Status: Disconti nued on: 06/09/19 09 1:19PM;U ser: [email or web address] Not Available Not Available Not Available nitroglyc estefany 0.4 mg sublingua l tablet DISSOLVE ONE (1) TABLET UNDER THE TONGUE AT THE FIRST SIGN OF HEART ATTACK. NO MORE THAN THREE (3) TABLETS ARE RECOMMEN DED WITHIN A 15 MINUT active Not Available Not Available No t Available budesonid e 0.25 mg/2 mL suspensio n for nebulizat ion 10/22 completed Not Available Not Available Not Available omeprazol e 20 mg capsule,d elayed release Take 1 capsule every day by oral route as needed for 90 days. active Not Available Not Available No t Available budesonid e 0.5 mg/2 mL suspensio n for nebulizat ion INHALE ONE (1) VIAL (2 ML) INHALED DAILY active Not Available Not Available No t Available verapamil ER (SR) 240 mg tablet,ex tended release TAKE 2 TABLETS DAILY (DOSE INCREASE ) ( SUBSTITU TELLY FOR CALAN SR ) 04/10 completed verapami l 240 mg oral tablet extended release; Recorded Status: Recorded on: 08/23/19 12 2:18PM;D iscontin ued Status: Disconti nued on: 04/10/19 13 8:37AM;U ser: neuss;Es t. Completi on: 11/21/19 12 Not Available Not Available Not Available monteluka st 10 mg tablet TAKE 1 TABLET BY MOUTH EVERY EVENING 07/03 completed Not Available Not Available Not Available allopurin ol 300 mg tablet take 1 tablet (300mg) by oral route once daily for 30 days 05/05 completed allopuri nol 300 mg oral tablet;R ecorded Status: Recorded on: 07/29/19 11 4:36PM;D iscontin ued Status: Disconti nued on: 05/06/19 14 4:19PM;U ser: blumc;Es t. Completi on: 10/27/19 11;Indic ation: Gout - () Not Available Not Available Not Available aspirin 81 mg tablet take 1 tablet (81 mg) by oral route once daily 2008 active Not Available Not Available Not Avai lable hydrochlo rothiazid e 25 mg tablet TAKE 1 TABLET EVERY DAY 04/19 completed Not Available Not Available Not Available Baby Aspirin 81 mg chewable tablet chew 1 tablet by oral route QD for 100 days do not take if you are allergic to aspirin or its componen ts, or have question s of gastroin testinal intolera nce 07/21 completed Baby Aspirin 81 mg oral tablet,angeli hamm; Recorded Status: Recorded on: 02/26/19 12 5:57PM;D iscontin ued Status: Disconti nued on: 07/22/19 15 9:18AM;U ser: neuss;Evelyn Becerra on: 03/02/19 Not Available Not Available Not Available furosemid e 20 mg tablet TAKE ONE (1) TABLET EVERY DAY 07/03 completed Not Available Not Available Not Available metoprolo l succinate ER 25 mg tablet,ex tended release 24 hr Take 1 tablet every day by oral route. active Not Available Not Available No t Available dexametha sone sodium phosphate 4 mg/mL injection solution Inject 8 mg by intramus cular route. 03/19 completed Not Available Not Available Not Available lorazepam 1 mg tablet take 1 tablet by oral route once a day (at bedtime) 09/27 completed lorazepa m 1 mg oral tablet;R ecorded Status: Recorded on: 03/08/19 16 1:39PM;D iscontin ued Status: Disconti nued on: 09/28/19 16 11:34AM; User: Chayo Becerra on: 05/07/19 16 Not Available Not Available Not Available ibuprofen 600 mg tablet take 1 tablet (600 mg) by oral route 3 times per day with food as needed 01/05 completed ibuprofe n 600 mg oral tablet;R ecorded Status: Recorded on: 12/22/19 09 5:35PM;D iscontin ued Status: Disconti nued on: 01/06/20 09 9:16AM;U ser: calvom;Goldy Khan on: 01/01/20 09;Print ed: 12/22/19 Not Available Not Available Not Available levofloxa lopez 500 mg tablet TAKE 1 TABLET BY MOUTH EVERY 24 HOURS 03/19 completed Not Available Not Available Not Available levofloxa lopez 750 mg tablet TAKE ONE (1) TABLET EVERY DAY BY ORAL ROUTE FOR 7 DAYS. 06/18 completed Not Available Not Available Not Available methylpre dnisolone 4 mg tablets in a dose pack TAKE DIRECTED FOR 6 DAYS 03/19 completed Not Available Not Available Not Available albuterol sulfate HFA 90 mcg/actua tion aerosol inhaler INHALE TWO (2) PUFFS FOUR TIMES A DAY NEEDED FOR SHORTNES S OF BREATH OR WHEEZING active Not Available Not Available No t Available ketorolac 60 mg/2 mL intramusc ular solution 60mg now 08/01 completed Not Available Not Available Not Available lisinopri l 40 mg tablet take 1 tablet (40 mg) by oral route bid 02/26 completed lisinopr il 40 mg oral tablet;R ecorded Status: Recorded on: 05/12/19 11 9:27AM;D iscontin ued Status: Disconti nued on: 02/26/19 12 5:57PM;U ser: bishopk; Est. Completi on: 05/06/19 12;Indic ation: Hyperten calvin - (07.4019 00) Not Available Not Available Not Available cefdinir 300 mg capsule TAKE 1 CAPSULE BY MOUTH TWICE DAILY 03/19 completed Not Available Not Available Not Available losartan 100 mg tablet Take 1 tablet every day by oral route. 2024 active Not Available Not Available Not Avai lable Diovan 160 mg tablet po qd 03/25 completed Diovan 160 mg oral tablet;R ecorded Status: Recorded on: 11/16/19 08 10:02PM; Disconti nued Status: Disconti nued on: 03/25/19 09 2:47PM;U ser: bishopk Not Available Not Available Not Available doxycycli ne hyclate 100 mg tablet TAKE 1 TABLET BY MOUTH TWICE DAILY 03/19 completed Not Available Not Available Not Available finasteri de 5 mg tablet 11/25 completed Not Available Not Available Not Available loratadin e 10 mg tablet take 1 tablet (10 mg) by oral route once daily for 30 days 07/21 completed loratadi ne 10 mg oral tablet;R ecorded Status: Recorded on: 05/06/19 15 7:37PM;D iscontin ued Status: Disconti nued on: 07/22/19 15 9:18AM;U ser: neuss;Es t. Completi on: 05/01/19 15 Not Available Not Available Not Available ipratropi um bromide 0.02 % solution for inhalatio n inhale 2.5 millilit ers (500 mcg) via nebulize r by inhalati on route 3-4 times daily as needed for 30 days 09/18 completed ipratrop ium bromide 0.02 % inhalati on solution ;Recorde d Status: Recorded on: 05/22/19 15 8:41AM;U ser: cheryl cardozo;EstMerly Completi on: 09/19/19 15;Print ed: 05/22/19 15 Not Available Not Available Not Available Accolate 20 mg tablet script given po bid 10/07 completed Accolate 20 mg oral tablet;R ecorded Status: Recorded on: 11/16/19 08 10:03PM; Disconti nued Status: Disconti nued on: 10/08/19 09 9:07AM;U ser: bishopk Not Available Not Available Not Available chlorprom azine 50 mg tablet 11/25 completed Not Available Not Available Not Available diazepam 5 mg tablet take 1 tablet by oral route daily as needed 01/05 completed diazepam 5 mg oral tablet;R ecorded Status: Recorded on: 12/29/19 09 5:30PM;D iscontin ued Status: Disconti nued on: 01/06/20 09 9:16AM;U ser: [email or web address]; Indicati on: Anxiety - (053000 00) Not Available Not Available Not Available verapamil ER 240 mg 24 hr capsule,e xtended release take 2 capsules (480 mg) by oral route once daily for 90 days 07/30 completed verapami l 240 mg oral capsule, ext rel. pellets 24 hr;comme nt: cardiolo gy;Presc ribe Status: Prescrib ed on: 06/03/19 14 3:17PM;D iscontin ued Status: Disconti nued on: 07/31/19 14 3:21PM;U ser: neuss;Es t. Completi on: 11/30/19 14;Pharm acyVerif ied: 06/03/19 14 3:17PM Not Available Not Available Not Available amoxicill in 875 mg-potass ium clavulana te 125 mg tablet TAKE ONE (1) TABLET TWICE A DAY BY ORAL ROUTE FOR 7 DAYS. 03/19 completed Not Available Not Available Not Available Benadryl 25 mg capsule take 1 capsule (25 mg) by oral route every 4 hours as needed for 5 days 01/26 completed Benadryl 25 mg oral capsule; Recorded Status: Recorded on: 07/20/19 10 3:57PM;D iscontin ued Status: Disconti nued on: 01/27/20 10 6:44PM;U ser: keefk;Es t. Completi on: 07/25/19 10;Indic ation: Allergic Reaction s - (17.9953 00);Prin telly: 07/20/19 10 Not Available Not Available Not Available neomycin- polymyxin -hydrocor t 3.5 mg-10,000 unit/mL-1 % ear drops,pattie p INSTILL FOUR (4) DROPS INTO THE EAR(S) THREE TIMES A DAY FOR 10 DAYS 03/19 completed Not Available Not Available Not Available meclizine 25 mg chewable tablet TAKE ONE (1) TABLET EVERY DAY BY ORAL ROUTE NEEDED FOR 30 DAYS. 03/27 completed Not Available Not Available Not Available Mucinex 600 mg tablet, extended release TAKE ONE (1) TABLET EVERY 12 HOURS BY ORAL ROUTE FOR 15 DAYS. 06/18 completed Not Available Not Available Not Available azithromy lopez 500 mg tablet TAKE ONE (1) TABLET BY MOUTH DAILY FOR THREE (3) DAYS 03/19 completed Not Available Not Available Not Available Zetia 10 mg tablet Take 1 tablet every day by oral route. 04/27 completed Not Available Not Available Not Available Gabriel For Men tablet one po every day 03/25 completed Gabriel For Men Oral Tablet;R ecorded Status: Recorded on: 11/16/19 08 10:04PM; Disconti nued Status: Disconti nued on: 03/25/19 09 2:47PM;U ser: bishopk Not Available Not Available Not Available cyclobenz aprine 5 mg tablet TAKE ONE (1) TABLET THREE (3) TIMES A DAY BY ORAL ROUTE NEEDED FOR 7 DAYS. 07/03 completed Not Available Not Available Not Available Crestor 5 mg tablet one po every day 03/25 completed Crestor 5 mg oral tablet;R ecorded Status: Recorded on: 11/16/19 08 10:04PM; Disconti nued Status: Disconti nued on: 03/25/19 09 2:47PM;U ser: [email or web address] Not Available Not Available Not Available Klor-Con M10 mEq tablet,ex tended release TAKE 1 TABLET THREE TIMES DAILY active Not Available Not Available No t Available Spiriva with HandiHale r 18 mcg and inhalatio n capsules Inhale 1 capsule every day by inhalati on route. 08/01 completed Not Available Not Available Not Available potassium chloride 10 meq qd bid po 08/01 completed Not Available Not Available Not Available Vicodin 1 q8h prn 02/26 completed vicodin 5mg;Darius rded Status: Recorded on: 11/02/19 10 4:15PM;D iscontin ued Status: Disconti nued on: 02/26/19 12 5:57PM;U ser: mk redmond;Est. Completi on: 12/02/19 10;Indic ation: - (-5);Tashia nted: 11/02/19 10 Not Available Not Available Not Available tramadol one q 4 hrs prn 07/21 completed tramadol 50 mg.;Darius rded Status: Recorded on: 05/19/19 15 9:12AM;D iscontin ued Status: Disconti nued on: 07/22/19 15 9:18AM;U ser: marlon; Est. Completi on: 05/29/19 15;Indic ation: pain - (-5) Not Available Not Available Not Available Tylenol as needed 09/27 completed TYLENOL oral 500mg;Re corded Status: Recorded on: 01/06/20 09 9:16AM;D iscontin ued Status: Disconti nued on: 09/28/19 16 11:34AM; User: angelic Shelley on: - (-5) Not Available Not Available Not Available Indocin po bid prn 07/16 completed Indocin 50 mg;Recor ded Status: Recorded on: 03/11/19 10 10:10AM; Disconti nued Status: Disconti nued on: 07/17/19 10 9:00AM;U ser: [email or web address];Es t. Completi on: 03/18/19 10;Indic ation: gout - (-5);Tashia nted: 03/11/19 10 Not Available Not Available Not Available Phenergan W/Codeine one tsp qid prn 06/16 completed phenerga n with codiene standard ;Recorde d Status: Recorded on: 05/19/19 15 9:12AM;D iscontin ued Status: Disconti nued on: 06/17/19 15 1:52PM;U ser: marlon; Est. Completi on: 05/26/19 15;Indic ation: cough - (-5) Not Available Not Available Not Available Doxycycli ne one bid 07/21 completed doxecycl ine 100 mg.;Darius rded Status: Recorded on: 05/19/19 15 9:12AM;D iscontin ued Status: Disconti nued on: 07/22/19 15 9:18AM;U ser: marlon; Est. Completi on: 05/29/19 15;Indic ation: inf - (-5) Not Available Not Available Not Available Benefiber Clear Sugar Free(dext rin) 3 gram/3.5 gram oral powder packet dissolve as directed 1 packet and take by oral route daily as needed 11/25 completed Benefibe r Clear SF (dextrin ) 3 gram/3.5 gram oral powder in packet;R ecorded Status: Recorded on: 09/28/19 16 11:34AM; User: micheal Not Available Not Available Not Available hydrochlo rothiazid e 12.5 mg tablet take 1 tablet (12.5 mg) by oral route once daily 03/08 completed hydrochl orothiaz jesis 12.5 mg oral tablet;R ecorded Status: Recorded on: 12/19/19 15 5:30PM;D iscontin ued Status: Disconti nued on: 03/08/19 16 2:38PM;U ser: bishopk; Est. Completi on: 03/18/19 16;Indic ation: Hyperten calvin - (401) Not Available Not Available Not Available Tekturna 150 mg tablet take 1 tablet (150 mg) by oral route once daily 02/26 completed Tekturna 150 mg oral tablet;R ecorded Status: Recorded on: 01/28/20 09 10:32AM; Disconti nued Status: Disconti nued on: 02/26/19 10 2:28PM;U ser: [email or web address]; Est. Completi on: 03/13/19 10;Indic ation: Hyperten calvin - () Not Available Not Available Not Available Symbicort 160 mcg-4.5 mcg/actua tion HFA aerosol inhaler inhale 2 puffs by inhalati on route 2 times per day in the morning and evening for 30 days 05/28 completed Not Available Not Available Not Available peg 3350 240 gram-elec trolytes 22.72 gram-6.72 g-5.84 g powdr for soln 11/25 completed Not Available Not Available Not Available Xyzal 5 mg tablet take 1 tablet (5 mg) by oral route once daily in the evening for 30 days 09/27 completed Xyzal 5 mg oral tablet;R ecorded Status: Recorded on: 12/09/19 15 10:07AM; Disconti nued Status: Disconti nued on: 09/28/19 16 11:34AM; User: Chayo t. Completi on: 04/07/19 16;Indic ation: Seasonal Allergic Rhinitis - (4779 05);Prin telly: 12/09/19 15 Not Available Not Available Not Available diclofena c 1 % topical gel APPLY TWO (2) GRAMS TO THE AFFECTED AREA(S) BY TOPICAL ROUTE FOUR (4) TIMES PER DAY active Not Available Not Available No t Available Alvesco 160 mcg/actua tion aerosol inhaler Inhale 1 puff every day by inhalati on route. active Not Available Not Available No t Available Solu-Medr ol (PF) 125 mg/2 mL solution for injection 125mg IVP now 04/04 completed Not Available Not Available Not Available Probiotic 10/13 completed Not Available Not Available Not Available Daliresp 500 mcg tablet take 1 tablet (500 mcg) by oral route once daily 02/10 completed Daliresp 500 mcg oral tablet;c omment: PT. REFUSED; Recorded Status: Recorded on: 02/01/20 11 8:08PM;D iscontin ued Status: Disconti nued on: 02/11/20 11 7:14PM;U ser: k; Est. 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 2024 active Not Available Not Available Not Avai lable Anoro Ellipta 62.5 mcg-25 mcg/actua tion powder for inhalatio n inhale 1 puff by inhalati on route once daily at the same time each day 10/13 completed Anoro Ellipta 62.5-25 mcg/actu ation inhalati on blister with device;R ecorded Status: Recorded on: 10/19/19 16 8:46PM;U ser: neuss;Es tMerly Penai on: 12/18/19 16;Indic ation: Asthma - (493.90) Not Available Not Available Not Available Spiriva Respimat 2.5 mcg/actua tion solution for inhalatio n inhale 2 puffs (5 mcg) by inhalati on route once daily at the same time each day active Not Available Not Available No t Available Stiolto Respimat 2.5 mcg-2.5 mcg/actua tion solution for inhalatio n Inhale 2 puffs every day by inhalati on route. active Not Available Not Available No t Available Repatha SureClick 140 mg/mL subcutane ous pen injector ADMINIST ER 1 ML UNDER THE SKIN EVERY 14 DAYS active Not Available Not Available No t Available Fluzone High-Dose (PF) 180 mcg/0.5 mL intramusc ular syringe 06/27 completed Not Available Not Available Not Available Proctosol HC 2.5 % topical cream perineal applicato r APPLY A THIN LAYER TO THE AFFECTED AREA TWO (2) TO FOUR (4) TIMES DAILY active Not Available Not Available No t Available Flonase Sensimist 27.5 mcg/actua tion nasal spray,pattie pension Take 2 sprays every day by nasal route. 04/27 completed Not Available Not Available Not Available Fluad 65yr up(PF)45 mcg(15 mcgx3)/0. 5 mL intramusc ular syringe 02/14 completed Not Available Not Available Not Available Trelegy Ellipta 100 mcg-62.5 mcg-25 mcg powder for inhalatio n INHALE ONE (1) PUFF(S) EVERY DAY BY INHALATI ON ROUTE. 07/03 completed Not Available Not Available Not Available Fluad 65yr up(PF)45 mcg(15 mcgx3)/0. 5 mL intramusc ular syringe 11/14 completed Not Available Not Available Not Available Fluzone High-Dose Quad (PF) 240 mcg/0.7 mL IM syringe 11/24 completed Not Available Not Available Not Available Trelegy Ellipta 200 mcg-62.5 mcg-25 mcg powder for inhalatio n INHALE ONE (1) PUFF ONCE DAILY active Not Available Not Available No t Available Vitals Date Recorded Body height Body mass index (BMI) Body weight Heart rate Oxygen saturation Oxygen saturation in Arterial blood by Pulse oximetry Body temperature Provider Name and Address Organization Details Last Updated DateTime 5 179.07 cm 26.5 kg/m2 82239.4 7 g 66 /min 96 % 96 % 97.8 [degF] Chula Grace [place] - [facility] 5 14:51:45 Date Recorded Body height Heart rate Oxygen saturation Oxygen saturation in Arterial blood by Pulse oximetry Respiratory rate Systolic And Diastolic Provider Name and Address Organization Details Last Updated DateTime 5 179.07 cm 74 /min 97 % 97 % 18 /min 132/74 mm[Hg] Can Garcia [facility] 5 16:55:39 Date Recorded Body height Body mass index (BMI) Body weight Heart rate Body temperature Oxygen saturation Oxygen saturation in Arterial blood by Pulse oximetry Respiratory rate Systolic And Diastolic Provider Name and Address Organization Details Last Updated DateTime 5 179.07 cm 26.3 kg/m2 94304.8 8 g 62 /min 97.7 [degF] 98 % 98 % 18 /min 140/62 mm[Hg] Chelsie Alberto [facility] 5 08:01:39 Date Recorded Body height Body mass index (BMI) Body weight Heart rate Oxygen saturation Oxygen saturation in Arterial blood by Pulse oximetry Respiratory rate Body temperature Systolic And Diastolic Provider Name and Address Organization Details Last Updated DateTime 5 179.07 cm 26.3 kg/m2 98476.1 8 g 71 /min 96 % 96 % 18 /min 97.9 [degF] 120/70 mm[Hg] Chelsie Alberto [facility] 5 16:50:13 Date Recorded Body height Body mass index (BMI) Body weight Body temperature Heart rate Oxygen saturation Oxygen saturation in Arterial blood by Pulse oximetry Respiratory rate Systolic And Diastolic Provider Name and Address Organization Details Last Updated DateTime 5 179.07 cm 25.9 kg/m2 28820.5 g 97.3 [degF] 76 /min 98 % 98 % 18 /min 142/80 mm[Hg] Cathleen Smiley [place] - [facility] 16:25:26 Social History Question Answer Notes LastModified by Organizat ion Details LastModified Time Tobacco Smoking Status Former Smoker 1970--stopp ed approx. Cathleen Smiley null, [place] - [facility] 02/29/2024 16:09:04 Able To Swim? Yes [email or web address] Information not available 10/13/2016 Do You Have An Advance Directive? No [email or web address] Information not available 10/13/2016 Are You Blind Or Do You Have Difficulty Seeing? No [email or web address] Information not available 06/13/2016 What Is Your Level Of Caffeine Consumption? Moderate [email or web address] Information not available 11/26/2015 Are You Deaf Or Do You Have Serious Difficulty Hearing? No [email or web address] Information not available 06/13/2016 What Type Of Diet Are You Following? REGULAR [email or web address] Information not available 10/13/2016 Which Illicit Or Recreational Drugs Have You Used? Never [email or web address] Information not available 11/26/2015 Swimming/diving Yes [email or web address] Informati on not available 10/13/2016 When Did You Quit Smoking? 16+yearssinc elastcigaret te Information not available 02/29/2024 Hard Of Hearing Or Deaf In One Or Both Ears? No [email or web address] Information not available 10/13/2016 Single Or Multi-level Home/work? Multi Level Home Uses One Level [email or web address] Information not available 10/13/2016 Legally Blind In One Or Both Eyes? No Glasses Ok [email or web address] Information not available 10/13/2016 Live Alone Or With Others? With Others [email or web address] Information not available 11/26/2015 Marital Status [email or web address] Informatio n not available 10/13/2016 What Was The Date Of Your Most Recent Tobacco Screening? 07/03/2024 [email or web address] Information not available 07/03/2024 How Many Children Do You Have? 3 Information not available 11/26/2015 What Is Your Current Pack Years? 30ormorepack years [email or web address] Information not available 02/29/2024 What Is Your Relationship Status? Information not available 11/26/2015 Seat Belts Used Routinely Yes [email or web address] Information not available 10/13/2016 Smoke Alarm In Home Yes Information not available 06/13/2016 At What Age Did You Start Smoking Tobacco? 16 [email or web address] Information not available 02/29/2024 How Much Tobacco Do You Smoke? 3+ PPD [email or web address] Information not available 11/26/2015 Do You Use Sunscreen Routinely? Yes [email or web address] Information not available 10/13/2016 Has Tobacco Cessation Counseling Been Provided? No Information not available 07/12/2021 How Many Years Have You Smoked Tobacco? 25 [email or web address] Information not available 11/26/2015 Do You Have Difficulty Walking Or Climbing Stairs? No [email or web address] Information not available 06/13/2016 Sex: Male Functional Status Question Answer Note LastModified by Organizat ion Details LastModified Time Do you or have you ever used smokeless tobacco? Never used smokeless tobacco Information not available 01/22/2019 Are you currently employed? Yes Information not available 10/13/2016 Urinary incontinence assessment performed? Yes [email or web address] Information not available 10/13/2016 Are you able to care for yourself? Yes [email or web address] Information not available 11/26/2015 Do you have difficulty dressing or bathing? No [email or web address] Information not available 06/13/2016 Do you or have you ever used e-cigarettes or vape? Never used electronic cigarettes Information not available 01/22/2019 What is your exercise level? Occasional [email or web address] Information not available 10/13/2016 Do you use any illicit or recreational drugs? No Information not available 07/12/2021 Do you or have you ever used any other forms of tobacco or nicotine? No Information not available 07/12/2021 What is your level of alcohol consumption? Moderate [email or web address] Information not available 11/26/2015 Are you able to walk? YESWOREST [email or web address] Information not available 06/13/2016 Do you have difficulty doing errands alone? 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 No [email or web address] Information no t available 06/13/2016 Family History Relationship Description Onset Age of this Age Resolved Age Notes LastModified by Organization Details LastModified Time Father Myocardial infarction [email or web address] Not available 11/25 17:27:46 Father Coronary arterioscler osis [email or web address] Not available 2015 17:27:57 Mother Congestive heart failure [email or web address] Not available 2015 17:28:19 Medical History No medical history recorded. Immunizations Vaccine Type Date Status Note Provider Nam e and Address Organization Details Recorded Time Influenza, adjuvanted, trivalent, PF 7 completed Cathleen Smiley null, [facility] 02/29/2024 16:06:38 Influenza, high-dose, quadrivalent, PF 0 completed Cathleen Smiley null, [facility] 02/29/2024 16:06:38 Influenza, high-dose, quadrivalent, PF 3 completed Cathleen Smiley null, [facility] 02/29/2024 16:06:38 Influenza, adjuvanted, quadrivalent, PF 2 completed Cathleen Smiley null, [facility] 02/29/2024 16:06:38 COVID-19, mRNA, LNP-S, PF, 100 mcg/0.5mL dose or 50 mcg/0.25mL dose 1 completed Cathleen Smiley null, [place] - [facility] 02/29/2024 16:06:38 COVID-19, mRNA, LNP-S, PF, 100 mcg/0.5mL dose or 50 mcg/0.25mL dose 1 completed Cathleen Smiley null, [facility] 02/29/2024 16:06:38 COVID-19, mRNA, LNP-S, PF, 100 mcg/0.5mL dose or 50 mcg/0.25mL dose 2 completed Cathleen Sm[place] null[place] - [facility] 02/29/2024 16:06:38 COVID-19, mRNA, LNP-S, PF, 100 mcg/0.5mL dose or 50 mcg/0.25mL dose 1 completed Cathleen [place] - [facility] 02/29/2024 16:06:38 COVID-19, mRNA, LNP-S, bivalent, PF, 50 mcg/0.5 mL or 25mcg/0.25 mL dose 2 completed Cathleen Smiley null, [facility] 02/29/2024 16:06:38 RSV, recombinant, protein subunit RSVpreF, adjuvant reconstituted, 0.5 mL, PF 4 completed Cathleen Smiley null, [facility] 02/29/2024 16:06:38 RSV, recombinant, protein subunit RSVpreF, adjuvant reconstituted, 0.5 mL, PF 3 completed Cathleen Smiley null, [facility] 02/29/2024 16:06:38 COVID-19, mRNA, LNP-S, PF, 50 mcg/0.5 mL 4 completed Cathleen Smiley null, [facility] 02/29/2024 16:06:38 influenza, unspecified formulation 7 completed Cathleen Smiley null, [facility] 02/29/2024 16:06:38 zoster live 9 completed Cathleen Smiley null, [facility] 02/29/2024 16:06:38 Influenza, high-dose, trivalent, PF 4 completed Cathleen Smiley null, [facility] 02/29/2024 16:06:38 Influenza, high-dose, trivalent, PF 6 completed Cathleen Smiley null, [facility] 02/29/2024 16:06:38 Influenza, split virus, trivalent, PF 2 completed Cathleen Smiley null, [facility] 02/29/2024 16:06:38 zoster recombinant 5 completed Leigh Molina null, [facility] 05/06/2024 17:39:00 Pneumococcal conjugate PCV 13 0 completed Jacinda Villalobos null, [facility] 09/15/2019 16:06:04 pneumococcal polysaccharide PPV23 7 completed Not Available [facility] 03/01/2019 03:54:31 Tdap 7 completed Not Available [facility] 03/01/2019 03:54:35 influenza, unspecified formulation 8 completed Not Available [facility] 03/15/2019 02:21:22 influenza, unspecified formulation 9 completed Not Available [facility] 03/15/2019 02:21:23 influenza, unspecified formulation 0 completed Not Available [facility] 03/15/2019 02:21:23 influenza, unspecified formulation 4 completed Not Available [facility] 03/15/2019 02:21:23 influenza, unspecified formulation 5 completed Not Available [facility] 03/15/2019 02:21:23 Influenza, high-dose, quadrivalent, PF 1 completed Mary Chelita null, [place] - [facility] 11/05/2020 13:27:48 Influenza, high-dose, trivalent, PF 8 completed Not Available [facility] 03/15/2019 02:21:59 Influenza, high-dose, trivalent, PF 9 completed Not Available [facility] 03/01/2019 03:56:04 Past Encounters Encounter ID Performer Location Encounter Start Date Encounter Closed Date Diagnosis/Indication Diagnosis SNOMED-CT Code Diagnosis ICD10 Code Diagnosis Note [id number] [facility] [address] [place] [address] 05/31/2007 00:00:00 [id number] [facility] [address] [place] [address] 08/22/2007 00:00:00 [id number] [facility] [address] [address] 10/22/2007 00:00:00 [id number] [facility] [address] [address] 03/25/2008 00:00:00 [id number] [facility] [address] [address] 06/04/2008 00:00:00 [id number] [facility] [address] [address] 07/16/2009 00:00:00 [id number] [facility] [address] [place] [address] 06/08/2008 00:00:00 [id number] [facility] [address] [place] [address] [address] 10/07/2008 00:00:00 [id number] [facility] [address] [place] [address] [address] 07/19/2009 00:00:00 [id number] [facility] [address] [place] [address] 10/07/2008 00:00:00 [id number] [facility] [address] [place] [address] [address] 09/14/2009 00:00:00 [id number] [facility] [address] [place] [address] 10/13/2008 00:00:00 [id number] [facility] [address] [place] [address] 11/01/2009 00:00:00 [id number] [facility] [address] [place] [address] 12/21/2008 00:00:00 [id number] [facility] [address] [place] [address] 01/12/2010 00:00:00 [id number] [facility] [address] [place] [address] 01/01/2009 00:00:00 [id number] [facility] [address] [place] [address] 01/05/2009 00:00:00 [id number] [facility] [address] [place] [address] 01/27/2009 00:00:00 [id number] [facility] [address] [place] [address] 05/06/2007 00:00:00 [id number] [facility] [address] [place] [address] 02/26/2009 00:00:00 [id number] [facility] [address] [place] [address] [address] 03/11/2009 00:00:00 [id number] [facility] [address] [place] [address] 05/31/2007 00:00:00 [id number] [facility] [address] [place] [address] [address] 03/23/2009 00:00:00 [id number] [facility] [address] [address] [address] 01/20/2010 00:00:00 [id number] [facility] [address] [place] [address] 01/26/2010 00:00:00 [id number] [facility] [address] [place] [address] [address] 02/09/2010 00:00:00 [id number] [facility] [address] [address] 02/21/2010 00:00:00 [id number] [facility] [address] [place] [address] 03/21/2010 00:00:00 [id number] [facility] [address] [place] [address] [address] 04/13/2010 00:00:00 [id number] [facility] [address] [place] [address] 05/13/2010 00:00:00 [id number] [facility] [address] [place] [address] [address] 06/07/2010 00:00:00 [id number] [facility] [address] [place] [address] 07/28/2010 00:00:00 [id number] [facility] [address] [place] [address] 10/10/2010 00:00:00 [id number] [facility] [address] [place] [address] 01/31/2011 00:00:00 [id number] [facility] [address] [place] [address] 02/10/2011 00:00:00 [id number] [facility] [address] [place] [address] 02/17/2011 00:00:00 [id number] [facility] [address] [place] [address] 03/13/2011 00:00:00 [id number] [facility] [address] [place] [address] 04/10/2011 00:00:00 [id number] [facility] [address] [place] [address] 05/08/2011 00:00:00 [id number] [facility] [address] [place] [address] 07/17/2011 00:00:00 [id number] [facility] [address] [place] [address] 10/27/2011 00:00:00 [id number] [facility] [address] [place] [address] 12/18/2011 00:00:00 [id number] [facility] [address] [place] [address] 12/18/2011 00:00:00 [id number] [facility] [address] [place] [address] 01/10/2012 00:00:00 [id number] [facility] [address] [place] [address] 02/21/2012 00:00:00 [id number] [facility] [address] [place] [address] 02/28/2012 00:00:00 [id number] [facility] [address] [place] [address] [address] 03/15/2012 00:00:00 [id number] [facility] [address] [place] [address] 03/15/2012 00:00:00 [id number] [facility] [address] [place] [address] [address] 04/10/2012 00:00:00 [id number] [facility] [address] [place] [address] [address] 04/10/2012 00:00:00 [id number] [facility] [address] [place] [address] 5 08/09/2012 00:00:00 [id number] [facility] [address] [place] [address] [address] 09/06/2012 00:00:00 [id number] [facility] [address] [place] [address] 12/25/2012 00:00:00 [id number] [facility] [address] [place] [address] 01/01/2013 00:00:00 [id number] [facility] [address] [place] [address] 05/05/2013 00:00:00 [id number] [facility] [address] [place] [address] 05/13/2013 00:00:00 [id number] [facility] [address] [place] [address] 07/23/2013 00:00:00 [id number] [facility] [address] [place] [address] 07/30/2013 00:00:00 [id number] [facility] [address] [place] [address] 08/20/2013 00:00:00 [id number] [facility] [address] [place] [address] 11/10/2013 00:00:00 [id number] [facility] [address] [place] [address] 01/12/2014 00:00:00 [id number] [facility] [address] [place] [address] 05/05/2014 00:00:00 [id number] [facility] [address] [place] [address] 06/16/2014 00:00:00 [id number] [facility] [address] [place] [address] 07/21/2014 00:00:00 [id number] [facility] [address] [place] [address] 09/21/2014 00:00:00 [id number] [facility] [address] [place] [address] 12/18/2014 00:00:00 [id number] [facility] [address] [place] [address] 01/11/2015 00:00:00 [id number] [facility] [address] [place] [address] 05/05/2014 00:00:00 [id number] [facility] [address] [place] [address] 04/05/2015 00:00:00 [id number] [facility] [address] [place] [address] 05/14/2014 00:00:00 [id number] [facility] [address] [place] [address] 04/05/2015 00:00:00 [id number] [facility] [address] [place] [address] 05/03/2015 00:00:00 [id number] [facility] [address] [place] [address] 05/19/2014 00:00:00 [id number] [facility] [address] [place] [address] 09/06/2015 00:00:00 [id number] [facility] [address] [place] [address] 05/25/2014 00:00:00 [id number] [facility] [address] [place] [address] 09/28/2015 00:00:00 [id number] [facility] [address] [place] [address] 06/02/2014 00:00:00 [id number] [facility] [address] [place] [address] 09/29/2015 00:00:00 [id number] [facility] [address] [place] [address] 06/16/2014 00:00:00 [id number] Saurabh Soto MD [address] [place] [address] 11/26/2015 15:28:02 11/26/2015 18:32:44 Asthma 485564002 J45.909 Dysfunctio n of eustachian tube 05794068 H69.93 [id number] Saurabh Soto MD [address] [place] [address] 12/22/2015 15:51:30 12/27/2015 14:30:14 Pain of multiple joints 10660392 M25.50 Coronary arteriosclerosis 65399493 I25.10 [id number] Saurabh Soto MD [address] [place] [address] 03/07/2016 16:45:58 03/15/2016 15:58:09 Coronary arteriosclerosis 38842120 I25.10 [id number] Saurabh Soto MD [address] [place] [address] 03/21/2016 15:26:39 03/22/2016 10:21:32 Renewal of prescription 450744088 Z76.0 Acute sinusitis 24437591 J01.90 [id number] Saurabh Soto MD [address] [place] [address] 06/13/2016 09:49:41 06/13/2016 11:37:58 Coronary arteriosclerosis 89652170 I25.10 Benign hypertension 1072 5009 I10 Mixed hyperlipidemia 267 872214 E78.2 Renewal of prescription 656300737 Z76.0 Asthma 887643052 J45.90 9 Gastroesop hageal reflux disease without esophagitis 434424252 K21.9 Delay when starting to pass urine 9951546 R39.11 Postoperat jessica hypothyroidism 11430057 E89.0 [id number] Mahad Suggs MD [address] [place] [address] 07/27/2016 15:43:10 07/27/2016 17:15:35 Body mass index 25-29 - overweight 510717591 Z68.26 Otitis media 02843336 H6 5.380 [id number] Saurabh Soto MD [address] [facility] [place] [address] 10/13/2016 14:27:30 10/13/2016 17:06:03 General examination of patient 235636428 Z00.00 Administra tion of pneumococcal vaccine 46461292 Z23 Administra tion of diphtheria, pertussis, and tetanus vaccine 945588084 Z23 Body mass index 25-29 - overweight 994326583 Z68.25 normal for age Renewal of prescription 663716008 Z76.0 [id number] Saurabh Soto MD [address] [place] [address] 02/07/2017 15:59:45 02/07/2017 18:03:28 Dyspnea 289556662 R06.02 Influenza- like symptoms 614415416 R68.89 [id number] Saurabh Soto MD [address] [place] [address] 02/14/2017 10:44:02 02/14/2017 12:50:01 Chronic obstructive pulmonary disease 39277703 J44.9 Cough 02623139 R05 [id number] Saurabh Soto MD [address] [place] [address] 04/04/2017 09:27:14 04/04/2017 10:42:53 Mixed hyperlipidemia 060800204 E78.2 Body mass index 25-29 - overweight 442462795 Z68.25 Z68.27 normal for age [id number] Saurabh Soto MD [address] [place] [address] 05/14/2017 15:12:28 05/14/2017 17:51:03 Coronary arteriosclerosis 31034736 I25.10 Benign hypertension 1072 5009 I10 Low back pain 388935135 M54.5 Asthma 012821009 J45.90 9 Insomnia 551064848 G47.0 0 [id number] Saurabh Soto MD [address] [place] [address] 08/01/2017 09:12:13 08/01/2017 11:14:59 Coronary arteriosclerosis 21447499 I25.10 Cardiac arrhythmia 52737 7007 I49.9 Body mass index 25-29 - overweight 128634825 Z68.26 normal for age Mixed hyperlipidemia 267 948266 E78.2 Screening for malignant neoplasm of prostate 063822178 Z12.5 Postoperat jessica hypothyroidism 67177735 E89.0 [id number] Rahel Workman [employer] [address] [place] [place] [address] 10/22/2017 09:50:50 10/22/2017 10:50:10 Chronic obstructive pulmonary disease 25583461 J44.9 Allergic rhinitis 979815 04 J30.9 Acute exac erbation of chronic obstructive pulmonary disease 685802355 J44.1 [id number] Rahel Workman [employer] [address] [place] [place] [address] 11/14/2018 15:41:38 11/14/2018 17:46:16 Allergic rhinitis 04025593 J30.9 Hemorrhoids 91885408 K64 .9 Body mass index 25-29 - overweight 731289702 Z68.26 Active or passive immunization 632694326 Z23 Chronic ob structive pulmonary disease 41632126 J44.9 Painful re ctal bleeding 441005663 K62.5 Neoplasm o f uncertain behavior of skin 56890968 D48.5 [id number] Rahel Workman [address] [place] [address] 12/09/2018 09:18:14 12/09/2018 10:37:55 Mixed hyperlipidemia 552732744 E78.2 Gastroesop hageal reflux disease without esophagitis 119710625 K21.9 Chronic ob structive pulmonary disease 02914601 J44.9 Benign hypertension 1072 5009 I10 Postoperat jessica hypothyroidism 85382197 E89.0 Upper resp iratory infection 32086441 J06.9 [id number] Tamika Sands [address] [place] [address] 01/22/2019 15:00:47 01/22/2019 15:44:04 [facility] keratosis [id number] L57.0 return for cryo as patient does not want to have blisters on his face for the holidays. Senile hyperkeratosis 39 4735402 L57.0 [id number] Jen Negrete [address] [place] [address] 02/14/2019 09:02:23 02/14/2019 10:17:38 Acute bronchitis 72112456 J20.9 [id number] Rahel Workman RADARMAN [address] [place] [address] 02/17/2019 13:38:34 02/17/2019 14:25:26 Upper respiratory infection 72858344 J06.9 [id number] Rahel Workman RADARMAN [address] [place] [address] 02/25/2019 16:25:24 02/25/2019 17:47:46 Pain in left arm 348152243 M79.580 [id number] Rahel Workman [address] [place] [address] 04/28/2019 09:59:17 04/28/2019 10:51:33 Cough 72476042 R05 Bronchiolitis 0684008 J2 1.9 [id number] Rahel Workman [address] [place] [address] 05/05/2019 13:12:40 05/05/2019 14:20:05 Cough 65395756 R05 Community acquired pneumonia 538664060 J18.9 [id number] Rahel Workman [address] [place] [address] 05/12/2019 09:40:16 05/12/2019 10:33:43 Pneumonia 848290809 J18.9 [id number] Rahel Workman [address] [place] [address] 05/26/2019 12:52:26 05/26/2019 13:50:07 Chronic obstructive pulmonary disease 42896318 J44.9 Dyspnea on exertion 6084 5006 R06.09 Cough 23334234 R05 Upper resp iratory infection 47260162 J06.9 [id number] Rahel Workman [address] [place] [address] 06/09/2019 08:37:55 06/09/2019 09:20:47 Chronic obstructive pulmonary disease 66545702 J44.9 Cough 03823162 R05 Dyspnea 769536355 R06.00 Fatigue 51326376 R53.83 [id number] Rahel Workman [address] [place] [address] 06/12/2019 14:43:23 06/12/2019 15:19:26 Multiple nodules of lung 744616433 R91.8 Pneumonia 820885146 J18. 9 [id number] Rahel Jacinta[address] [place] [address] 06/20/2019 09:34:53 06/20/2019 10:27:45 Chronic obstructive pulmonary disease 92755663 J44.9 Fatigue 09995374 R53.83 Cough 55433901 R05 [id number] Rahel Jacinta [address] [place] [address] 09/15/2019 14:35:04 09/15/2019 15:43:15 Adult health examination 872601835 Z00.00 Depression screening 171 597010 Z13.89 Examinatio n of blood pressure 341588061 Z01.30 Diet education 54823215 Z71.3 Counseling 427374844 Z71 .82 Exercise counseling . Patient encouraged to exercise 30 minutes 5 days a week. At [facility] risk for falls 595214173 Z91.81 STEADI FAST screening score of __0___. Advance care planning 71 7583936 Z71.89 Body mass index 25-29 - overweight 289660184 Z68.26 Active or passive immunization 663209393 Z23 Chronic ob structive pulmonary disease 55787607 J44.9 Benign hypertension 1072 5009 I10 Vertigo 575791102 R42 [id number] Rahel Workman[address] [place] [address] 11/25/2019 15:46:44 11/25/2019 17:01:11 Chronic obstructive pulmonary disease 56418533 J44.9 Benign hypertension 1072 5009 I10 Mixed hyperlipidemia 267 689591 E78.2 Gastroesop hageal reflux disease without esophagitis 899301529 K21.9 [id number] Rahel Workman [address] [place] [address] 04/19/2020 15:19:13 04/19/2020 16:17:10 Chronic vertigo 6999461182 9105 R42 Chronic ob structive pulmonary disease 07884824 J44.9 [id number] Rahel Jacinta [address] [place] [address] 05/28/2020 15:37:59 05/28/2020 16:34:21 Acute exacerbation of chronic obstructive pulmonary disease 933110253 J44.1 [id number] Rahel Workman [address] [place] [address] 06/18/2020 13:09:05 06/18/2020 14:18:35 Chronic obstructive pulmonary disease 47571848 J44.9 Asthma 119489163 J45.90 9 Fatigue 01348519 R53.83 Allergic rhinitis 256899 04 J30.9 Coronary arteriosclerosis 48254320 I25.10 [id number] Tamika Sands [address] [place] [address] 07/26/2020 14:14:22 07/26/2020 15:43:14 Actinic keratosis 065700830 L57.0 cryo today , tolerated well he will return if lesion on right lower lip does not heal post cryo [id number] Yessenia Espinoza [address] [place] [address] 10/20/2020 09:47:49 10/20/2020 12:09:00 Viral screening 849210602 Z11.52 Viral syndrome 880022151 B34.9 treat symptomspt declined medication for nausea states he is much better today than yesterday but he was just worried and wanted to be checked [id number] James Montez [address] [place] [address] 11/05/2020 12:52:09 11/05/2020 13:29:41 Administration of influenza vaccine 85418201 Z23 [id number] Tamika Sands [address] [place] [address] 11/17/2020 10:54:17 11/17/2020 11:33:13 Actinic keratosis 211631902 L57.0 area under right lip primarily resolved. We agreed to complete treatment with topical Efudex as well as several AKs on face [id number] Samia Crook [address] [place] [address] 02/10/2021 10:29:35 02/10/2021 11:23:09 COVID-19 480036061 U07.1 [id number] Rahel Workman [address] [place] [address] 02/21/2021 11:20:21 02/21/2021 12:25:19 Upper respiratory infection 18588254 J06.9 Chronic vertigo 43481330 11 9105 R42 Chronic ob structive pulmonary disease 05016174 J44.9 [id number] Rahel Workman[address] [place] [address] 03/25/2021 08:11:39 03/25/2021 09:31:54 Insomnia 527336516 G47.00 Benign hypertension 1072 5009 I10 stable Chronic ob structive pulmonary disease 69270402 J44.9 stable [id number] Samia Crook [address] [place] [address] 04/19/2021 07:55:05 04/19/2021 08:29:36 Acute bronchitis 27728290 J20.9 Nasal congestion 2699465 0 R09.81 [id number] Taylor Alvares[address] [place] [address] 07/12/2021 09:41:19 07/12/2021 10:45:30 Low back pain 925103411 M54.50 Low back strain 47032605 1 S39.012A [id number] Samia Crook [address] [place] [address] 07/26/2021 16:11:37 07/26/2021 16:48:57 Low back pain 657320747 M54.50 [id number] Samia Crook [address] [place] [address] 02/26/2024 14:37:09 02/26/2024 16:01:39 Acute exacerbation of chronic obstructive pulmonary disease 579074472 J44.1 Advised to drink plenty of fluids, run a cool-mist humidifier in room at night, gargle salt water for sore throat, and get plenty of rest. Patient should avoid over-exert ion and reduce exposure to irritants such as smoke, cold, dry air, and dust. Antihistam ine and decongesta nt usage was discussed and recommenda tions made. Begin prescribed medication s as written. Impacted c erumen of bilateral ears 2401906526 688538 H61.23 Cerumen removal attempted in office today with partial removal of cerumen. Begin prescribed medication as written. RTO in 4 days for repeat cerumen removal. [id number] Samia Crook APRN [place] [address] [place] [address] 02/29/2024 15:43:53 02/29/2024 16:33:35 Body mass index 25-29 - overweight 303181382 Z68.26 Overweight 570188641 E66 .3 Impacted c erumen of bilateral ears 3324857072 634753 H61.23 Cerumen removal completed in office today. Patient tolerated well. [id number] Oj Fry PA-C [place] [address] [place] [address] 03/19/2024 14:45:37 03/19/2024 16:16:45 Eruption 918423597 R21 likely stasis dermatitis component, consider compressio n stocking vs diuresis if no improvemen t [id number] David Garcia MD [place] [address] [place] [address] 03/27/2024 16:48:27 03/27/2024 17:19:44 Eruption 287084831 R21 Peripheral edema 4831189 00 R60.9 rash appears consistent with start of chronic venous stasis [id number] David Garcia MD [address] [place] [address] 04/15/2024 07:49:09 04/15/2024 08:38:34 Adult health examination 478667356 Z00.00 Depression screening 171 419140 Z13.31 A depression screening was completed via a standardiz ed screening tool. 5 minutes were spent discussing depression screening results and risk factors. Examinatio n of blood pressure 605628933 Z01.30 Diet education 61834087 Z71.3 Counseling 272958074 Z71 .82 Exercise counseling . Patient encouraged to exercise 30 minutes 5 days a week. At [facility] for falls 932911852 Z91.81 STEADI FAST screening score of ___4__. Advance care planning 71 1834731 Z71.89 Benign hypertension 1072 5009 I10 Mixed hyperlipidemia 267 594692 E78.2 Screening for malignant neoplasm of prostate 471972889 Z12.5 [id number] David Garcia MD [facility] [address] [place] [address] 05/06/2024 16:28:39 05/06/2024 17:19:23 Vaccination needed 4662685861 46605 Z23 Medication review done 646588881 Z76.89 completed same by Angel Garcia MD [id number] Juan Jose Medrano DO [facility] [address] [place] [address] 07/03/2024 16:15:41 07/03/2024 16:54:43 Coronary arteriosclerosis 28230174 I25.10 CAD s/p CABG, s/p pacemaker, PAFib. Patient will continue follow up with cards as scheduled. Will continue Eliquis, aspirin, losartan, metoprolol , and Repatha as written. Benign hypertension 1072 5009 I10 HTN. Controlled . Patient will continue amlodipine , metoprolol , losartan, and furosemide as written. Will follow labs today. Mixed hyperlipidemia 267 047859 E78.2 Hyperlipid emia. Controlled . Patient will continue Repatha as written per cardiology . Will repeat labs today. Chronic ob structive pulmonary disease 69353116 J44.9 COPD. Patient will continue to follow with pulmonolog y as scheduled. Patient to [facility] Stiolto[facility]co [facility] Postoperat jessica hypothyroidism 46339866 E89.0 Hypothyroi dism. Controlled . Patient will continue off levothyrox ine at this point and we will check TSH at follow-up dex bermudez. Overweight in adulthood with body mass index of 25 or more but less than 30 829062138 Z68.25 bmi--25.9 Eruption 589541729 R21 Low back pain 428936963 M54.50 Health Concerns Section Related Observation LastModified by Organization Detai ls LastModified Time None Recorded Concern Status LastModified by Organization Details LastModified Time None Recorded Advance Directives Directive N: Payers Insurance Date Sequence Insurance Name Policy Number Policy Owens Covered Member ID Owens Member ID Guarantor Name 07/15/2024 1 [place]MEDICARE REPLACEMENT HMO) [id number] Wilfred العلي [id number] Wilfred العلي 03/27/2024 1 [employer] (MEDICARE REPLACEMENT/AD VANTAGE - PPO) Wilfred العلي [id number] Wilfred Rodriguez Esthelaguerita Notes Date Note Type Note Provider Name and Address Organization Details Recorded Time 03/19/2024 text/html Patient presents to office with complaints of rash to bilateral lower extremities. Patient reports rash began approx 1 week ago, described as itching and painful.Reports new medications:elequis BIDmetoprolol increased to BIDdue to recent pacemaker placementNo recent exposure to allergens, no new detergents or hygiene products. Pt denies chest pain, SOA, difficulty eating or drinking, changes in bathroom habits, syncope/presyncope, or any other concerns. -interested in establishing care with PP Oj Fry PA-C [address], [place], [address], [place] - [facility] 03/19/2024 21:27:06 03/27/2024 text/html Pt presents for b/l LE rash, present for weeks or months . Pt seen at off site clinic [id number], Rx'd prednisone and triamcinalone cream with modest response. Pt states only mild itch with this rash. Pt denies new meds or dietary changes, no changes to hygiene products. Pt denies significant allergy hx. David Garcia MD [address], [place], [address], [place] - [facility] 03/27/2024 18:29:07 04/15/2024 text/html Medicare Annual Wellness VisitReported bypatient.Diet and Nutrition:healthy diet Fracture Risk:no history of fractures; no recent explained fracture; no sudden unexplained fractures; no previous musculoskeletal injuries Physical Activity:exercises on a regular basis; recent increase in physical activity; good physical condition Depression Risk:never feels sad, empty, or tearful; no loss of interest in activities; no significant changes in weight; no sleep disturbances or insomnia; no agitation; no loss of energy; no feelings of worthlessness or guilt; no thoughts of suicide; no history of depression; no history of mood disorders Orientation:no disorientation to time; no disorientation to date; no disorientation to place Concentration and Memory:no decreased concentrating ability; no memory lapses or loss; does not forget words Speech/Motor difficulties:no speech difficulties; no difficulty expressing formulated concepts; no difficulty with fine manipulative tasks; no difficulty writing/copying; no slowed reaction time; does not knock things over when trying to pick them up Hearing:no loss of hearing Vision:no vision problems Activities of Daily Living:able to bathe with limited or no assistance; able to contol urination and bowels; able to dress with limited or no assistance; able to feed self with limited or no assistance; able to get out of chair or bed with limited or no assistance; able to groom with limited or no assistance; able to toilet with limited or no assistance Instrumental Activities of Daily Living:able to do house work with limited or no assistance; able to grocery shop with limited or no assistance; able to manage medications with limited or no assistance; able to manage money with limited or no assistance; able to prepare meals with limited or no assistance; able to use the phone with limited or no assistance Falls Risk Assessment:no frequent falls while walking; no fall in the past year; no fall since last visit; no dizziness/vertigo Home Safety:no unsafe luh hazzards; no unsafe stairs; no unsafe gas appliances; working smoke/CO detectors; wears protective head gear for biking/high velocity; use of seatbelts; practicing 'safer sex'; no vision or hearing loss while driving; no fire arms; has hand bars in the bathroom/shower; good lighting in the home Pt presents for annual health examination. Pt states that he is in his usual state of health and has no acute complaints today. He states no significant illnesses over the last year; describes a reasonable diet and takes no exercise. He is not a smoker. He states did get Flu vacc but refuses COVID at this time. He is over due for colorectal cancer screening but refuses at this time. Please see RoS. David Garcia MD [address], [place], [address], [facility] - [facility] 04/15/2024 12:15:18 05/06/2024 text/html Pt presents for f/u recent labs done and shingles vaccination. No concerning findings on labs, reviewed in full with Pt. Pt wished to discuss appropriate OTC vitamin supplementation with Centrum Silver being my recommendation. Pt understanding and agreeable, quite pleased with lab results. David Garcia MD [address], [place], [address], [facility] 05/07/2024 06:40:26 07/03/2024 text/html 83-year-old male seen in the office today to establish care.Patient follows closely with cardiology in regards to his coronary artery disease status post CABG, paroxysmal atrial fibrillation status post pacemaker. Patient continues on Eliquis, aspirin, losartan, metoprolol, and Repatha. Patient is having no side effects of the medication currently. Patient is wondering if Eliquis will be cheaper through our pharmacy so is asking for it to be written by me today.Patient states his blood pressure continue controlled with losartan, metoprolol, amlodipine, and furosemide. Patient also takes potassium chloride secondary to the furosemide. Patient denies side effects of these medications.Patient continues on Repatha for treatment of hyperlipidemia. Patient states he takes it 2 times per month and has been on this for a long time.Patient continues to struggle affording his inhalers for his COPD. Patient does follow with pulmonology and states Trelegy has been too expensive. Patient [facility] able [facility] Alvesco [facility] but states that he now makes too much money to [facility] so is not sure what he is going to do moving forward.Patient states that he is no longer taking levothyroxine for treatment of his hypothyroidism. Patient is unsure if his levels were good or if it was an oversight.Patient does use topical diclofenac for his history of right hip and right back pain with sciatica. Patient states he is followed with pain management as well as surgery and he is unable to have radiofrequency ablation at this point due to his pacemaker. Patient states he does continue to have daily symptoms that awaken him at night.Patient also is asking for refill of triamcinolone to apply to his lower extremities where he occasionally gets bumps that come up that are itchy. Patient states the triamcinolone does continue to work well for him. Juan Jose Medrano, DO [address], [place], [address], [place] - [facility] 07/03/2024 17:09:09
--- OUTSIDE RECORDS SUMMARY | 2024-08-25 10:43 | XMS_ITS | Continuity of Care Document ---
Author Organization [facility] Address [address] [place] [address] Care Team Providers Care Wax Engraver Name Role Phone [facility] Lead Enterprise Architect Assessment No assessment recorded. Plan of Treatment Reminders Order Date Submit Date Provider Last Modified By Organization Details Last Modified Time Details Appointments None recorded. Lab None recorded. Referral None recorded. Procedures None recorded. Surgeries None recorded. Imaging None recorded. Medication Orders diclofenac 1 % topical gel 2024 025 [facility], [address] [place] [address], [address], 16:53:13 losartan 100 mg tablet [address], [facility] [address] [place] [address], [address], 16:54:12 triamcinolo ne acetonide 0.1 % topical cream 2024 025 [facility], [address] [place] [address], [address], 5 16:53:12 Eliquis 5 mg tablet [address], [address], 5 16:53:12 Patient TargetsNo targets recorded. Patient InstructionsNo instructions recorded. Reason for Referral None Reported. Problems Name Problem SNOMED Code Status Onset Date Resolution Date Notes Provider Name and Address Organization Details Recorded Time Insomnia Completed 201705/15/2017 Betzy Almaraz in null, [place] - [facility] 8 13:33:29 Insomnia 981684825 Active 2017 Crystal Wilfredo null, [place] - [facility] 8 08:40:23 Coronary artery bypass graft Active 2018 Rahel Workman null, [place] - [facility] 9 10:32:06 Suspecte d COVID-19 731112650 Completed 08/26/2019 Removal Reason: Problem added by user [email or web address] from the [employer]19 watch flag Crystal Wilfredo null, [place] - [facility] 0 10:21:02 Suspecte d COVID-19 711450678 Completed 201909/15/2019 Removal Reason: Problem marked historic al by user [email or web address] from the [employer]19 watch flag Crystal Wilfredo null, [place] - [facility] 0 10:21:02 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 201512/22/2015 Saurabh Soto [place] - [facility] 6 18:36:54 Chronic vertigo 71666355042 105 Active 2020 Crystal Wilfredo [place], [place] - [facility] 1 13:33:23 Cardiac arrhythm ia 298168257 Active 2015 Crystal Wilfred[place] [facility] 8 08:40:24 Benign hyperten calvin 27578968 Active 2015 Crystal Wilfred[place] [facility] 8 08:40:24 Mixed hyperlip idemia 591171897 Active 2015 Crystal Wilfred[place] [facility] 8 08:40:24 Seasonal allergy 517822558 Active 2015 Crystal Wilfred[place] [facility] 8 08:40:23 Asthma 085936571 Active 2015 Crystal Wilfred[place] [facility] 8 08:40:24 Chronic obstruct jessica pulmonar y disease 87985882 Active 2015 Crystal Wilfred[place] [facility] 8 08:40:23 Gastroes ophageal reflux disease without esophagi tis 601984006 Active 2015 Crystal Wilfred[place] - [facility] 8 08:40:24 Coronary arterios clerosis 93945627 Active 2015 Crystal Wilfred[place] [facility] 8 08:40:23 History of malignan t neoplasm of kidney 711008723 Completed 201511/26/2015 Cathleen Smiley [place] - [facility] 6 17:29:08 Postoper ative hypothyr oidism 82015689 Active 2015 Crystal Wilfred[place] - [facility] 8 08:40:23 Pain of multiple joints 73974679 Completed 201511/14/2018 Rahel Workman [place] - [facility] 9 16:38:41 Acute exacerba tion of chronic obstruct jessica pulmonar y disease 041278710 Active 2024 Samia Crook, [employer] [address], [place], [address], [place] - [facility] 5 16:02:28 Eruption 462167288 Active 2024 Oj Fry PA-C [address], [place], [address], [place] - [facility] 5 15:08:40 Renewal of prescrip tion Completed 201605/15/2017 Betzy Almaraz in [place] - [facility] 8 13:26:04 Delay when starting to pass urine 7825585 Active 2016 Crystal Wilfred[place] - [facility] 8 08:40:23 Otitis media 79840274 Completed 201611/14/2018 Rahel Workman [place] - [facility] 9 16:38:36 Problem Notes None recorded. Procedures Surgical History Date Name Laterality Status Provider Name and Address Organization Details Recorded Time 04/16/19 Advance Care Planning completed Can Garcia [place] - [facility] 04/09/2024 13:47:26 04/16/19 25 Functional Status Assessed completed Can [place] - [facility] 04/09/2024 13:47:26 02/28/19 25 Cerumen Removal completed Samia Crook, [employer] [address], [place], [address], [place] [facility] 02/29/2024 16:30:26 02/25/19 25 Cerumen Removal completed Samia Crook, [employer] [address], [place], [address], [place] [facility] 02/26/2024 16:04:34 07/27/19 21 Cryosurgery Dermatology completed Tamika Sands, [employer] [address], [place], [address], [place] [facility] 07/26/2020 15:22:13 11/25/19 20 [...] - [facility] 11/26/2015 17:29:46 Thyroidectomy completed Cathleen Smiley [place] [facility] 11/26/2015 17:29:58 Knee Surgery completed Cathleen Smiley [place] - [facility] 11/26/2015 17:31:01 CABG completed Cathleen BOYD - [facility] 11/26/2015 17:31:57 Imaging Results None recorded. Procedure Notes None recorded. Medical Equipment None Reported. Allergies Allergen ID Allergen Name Allergen Category Reaction Reaction Severity Criticality Documentation Date Start Date Code Code System Note Provider Name and Address Organization Details Recorded Time 93475 Lyrica medicatio n respirato ry distress Not available Not available 11/26/2015 20378 1 RxNorm Cathleen duff, [place] - [facility] 6 17:20:21 Medications Name Sig [...] Disconti nued on: 01/06/20 09 9:16AM;U ser: bakerc;E st. Completi on: 11/07/19 [...] 09 9:16AM;U ser: calv;E st. Completi on: 01/21/20;Print ed: 12/22/19 Not Available Not Available Not [...] Disconti nued on: 02/26/19 12 5:57PM;U ser: k; Est. Completi on: 02/11/20 11;Indic ation: Acute [...] aspirin 81 mg oral tablet,d elayed release (/EC); Recorded Status: Recorded on: 11/16/19 08 10:03PM; [...] ser: bishopk; Indicati on: Hyperten calvin - () Not Available Not Available Not Available triamcino [...] by injectio n route. 05/11 completed LOT [id number] EXP 05/14/19 Not Available Not Available Not [...] Disconti nued on: 03/08/19 16 1:39PM;U ser: Chayo Becerra on: 11/02/19 15 Not Available Not Available [...] 09/28/19 16 11:34AM; User: Chayo Becerra on: 01/10/20 15;Print ed: 01/05/20 15 Not Available Not Available Not Available Cipro 500 mg tablet take 1 tablet (500 mg) by oral route 2 times per day for 10 days 04/10 completed Cipro 500 mg oral tablet;R ecorded Status: Recorded on: 03/13/19 12 5:07PM;D iscontin ued Status: Disconti nued on: 04/10/19 13 8:37AM;U ser: gored;Evelyn Becerra on: 03/23/19 12;Print ed: 03/13/19 12 Not [...] Disconti nued on: 12/22/19 09 4:59PM;U ser: neussOracio Becerra on: 11/09/19 09 Not Available Not Available [...] TABLETS DAILY (DOSE INCREASE ) ( SUBSTITU MAHAMED FOR CALAN SR ) 04/10 completed verapami [...] 07/21 completed Baby Aspirin 81 mg oral tablet,alanis noris; Recorded Status: Recorded on: 02/26/19 12 5:57PM;D iscontin ued Status: Disconti nued on: 07/22/19 15 9:18AM;U ser: neuss;Evelyn t. Completi on: 03/02/19 Not Available Not Available Not [...] Disconti nued on: 09/28/19 16 11:34AM; User: chandler;Evelyn elizondo Completuche on: 05/07/19 16 Not Available Not Available Not Available ibuprofen 600 mg tablet take 1 tablet (600 mg) by oral route 3 times per day with food as needed 01/05 completed ibuprofe n 600 mg oral tablet;R ecorded Status: Recorded on: 12/22/19 09 5:35PM;D iscontin ued Status: Disconti nued on: 01/06/20 09 9:16AM;U ser: calvom;E . Completuche on: 01/01/20 09;Print ed: 12/22/19 Not Available [...] Recorded on: 05/22/19 15 8:41AM;U ser: cheryl cardozo;Est. Penai on: 09/19/19 15;Print ed: 05/22/19 15 Not Available Not Available Not Available Accolate 20 mg tablet script given po bid 10/07 completed Accolate 20 mg oral tablet;R ecorded Status: Recorded on: 11/16/19 08 10:03PM; Disconti nued Status: Disconti nued on: 10/08/19 09 9:07AM;U ser: k Not Available Not Available Not Available chlorprom [...] ation: Allergic Reaction s - (17.9953 00);Prin mahamed: 07/20/19 10 Not Available Not Available Not [...] bishopk Not Available Not Available Not Available Klor-Con [...] [place];Est. Completi on: 12/02/19 10;Indic ation: - (-5);Tahsia nted: 11/02/19 10 Not Available Not Available [...] Disconti nued on: 09/28/19 16 11:34AM; User: [email or web address]; Indicati on: - (-5) Not Available Not Available Not Available Indocin po bid prn 07/16 completed Indocin 50 mg;Recor ded Status: Recorded on: 03/11/19 10 10:10AM; Disconti nued Status: Disconti nued on: 07/17/19 10 9:00AM;U ser: major;Es t. Completi on: 03/18/19 10;Indic ation: gout [...] Status: Recorded on: 09/28/19 16 11:34AM; User: k Not Available Not Available Not Available hydrochlo rothiazid e 12.5 mg tablet take 1 tablet (12.5 mg) by oral route once daily 03/08 completed hydrochl orothiaz jessi 12.5 mg oral tablet;R ecorded Status: Recorded on: 12/19/19 15 5:30PM;D iscontin ued Status: Disconti nued on: 03/08/19 16 2:38PM;U ser: bishopk; Est. Completi on: 03/18/19 16;Indic ation: Hyperten calvin - () Not Available Not Available Not Available Tekturna 150 mg tablet take 1 tablet (150 mg) by oral route once daily 02/26 completed Tekturna 150 mg oral tablet;R ecorded Status: Recorded on: 01/28/20 09 10:32AM; Disconti nued Status: Disconti nued on: 02/26/19 10 2:28PM;U ser: bishopk; Est. Completi on: 03/13/19 10;Indic ation: Hyperten [...] nued on: 09/28/19 16 11:34AM; User: Chayo tMerly Completi on: 04/07/19 16;Indic ation: Seasonal Allergic Rhinitis - (084779 05);Prin mahamed: 12/09/19 15 Not Available Not Available Not [...] Disconti nued on: 02/11/20 11 7:14PM;U ser: bishopk; Est. Completi on: 05/31/19 12;Indic ation: Symptoms Involvin g Respirat ory System And Chest - (786.9) Not Available Not Available Not Available Tudorza Pressair 400 mcg/actua tion breath activated inhale 1 puff by inhalati on route every 12 hours 08/22 completed Tudorza Pressair 400 mcg/actu ation inhalati on aerosol powdr breath activate d;Record ed Status: Recorded on: 07/24/19 14 11:42AM; User: chandler;Es t. Completi on: 08/23/19 14;Indic ation: Chronic Bronchit [...] Recorded on: 10/19/19 16 8:46PM;U ser: neuss;Es t. Completi on: 12/18/19 16;Indic ation: Asthma - (493.90) [...] Updated DateTime 5 179.07 cm 25.9 kg/m2 25045.5 g 97.3 [degF] 76 /min 98 % 98 % 18 /min 142/80 mm[Hg] Cathleen Smiley [place] - [facility] 5 16:25:26 Social History Question Answer Notes LastModified by Organizat ion Details LastModified Time Tobacco Smoking Status Former Smoker 1969--stopp ed approx. Cathleen Smiley [place], [place] - [facility] 02/29/2024 16:09:04 Able To Swim? Yes [email or web address] Information not available 10/13/2016 Do You Have An Advance Directive? No [email or web address] Information not available 10/13/2016 Are You Blind Or Do You Have Difficulty Seeing? No [email or web address] Information not available 06/13/2016 What Is Your Level Of Caffeine Consumption? Moderate [email or web address] Information not available 11/26/2015 Are You Deaf Or Do You Have Serious Difficulty Hearing? No [email or web address] Information not available 06/13/2016 What Type Of Diet Are You Following? REGULAR [email or web address] Information not available 10/13/2016 Which Illicit Or Recreational Drugs Have You Used? Never [email or web address] Information not available 11/26/2015 Swimming/diving Yes [email or web address] Informati on not available 10/13/2016 When Did You Quit Smoking? 16+yearssinc elastcigaret te [email or web address] Information not available 02/29/2024 Hard Of Hearing Or Deaf In One Or Both Ears? No [email or web address] Information not available 10/13/2016 Single Or Multi-level Home/work? Multi Level Home Uses One Level [email or web address] Information not available 10/13/2016 Legally Blind In One Or Both Eyes? No Glasses Ok Information not available 10/13/2016 Live Alone Or With Others? With Others [email or web address] Information not available 11/26/2015 Marital Status [email or web address] Informatio n not available 10/13/2016 What Was The Date Of Your Most Recent Tobacco Screening? 07/03/2024 [email or web address] Information not available 07/03/2024 How Many Children Do You Have? 3 [email or web address] Information not available 11/26/2015 What Is Your Current Pack Years? 30ormorepack years [email or web address] Information not available 02/29/2024 What Is Your Relationship Status? Information not available 11/26/2015 Seat Belts Used Routinely Yes [email or web address] Information not available 10/13/2016 Smoke Alarm In Home Yes [email or web address] Information not available 06/13/2016 At What Age Did You Start Smoking Tobacco? 16 [email or web address] Information not available 02/29/2024 How Much Tobacco Do You Smoke? 3+ PPD [email or web address] Information not available 11/26/2015 Do You Use Sunscreen Routinely? Yes [email or web address] Information not available 10/13/2016 Has Tobacco Cessation Counseling Been Provided? No Information not available 07/12/2021 How Many Years Have You Smoked Tobacco? 25 [email or web address] Information not available 11/26/2015 Do You Have Difficulty Walking Or Climbing Stairs? No [email or web address] Information not available 06/13/2016 Sex: Male Functional Status Question Answer Note LastModified by Huayiat ion Details LastModified Time Do you or have you ever used smokeless tobacco? Never used smokeless tobacco Information not available 01/22/2019 Are you currently employed? Yes [email or web address] Information not available 10/13/2016 Urinary incontinence assessment performed? Yes [email or web address] Information not available 10/13/2016 Are you able to care for yourself? Yes [email or web address] Information not available 11/26/2015 Do you have difficulty dressing or bathing? No [email or web address] Information not available 06/13/2016 Do you or have you ever used e-cigarettes or vape? Never used electronic cigarettes Information not available 01/22/2019 What is your exercise level? Occasional [email or web address] Information not available 10/13/2016 Do you use any illicit or recreational drugs? No Information not available 07/12/2021 Do you or have you ever used any other forms of tobacco or nicotine? No Information not available 07/12/2021 What is your level of alcohol consumption? Moderate Information not available 11/26/2015 Are you able to walk? YESWOREST [email or web address] Information not available 06/13/2016 Do you have difficulty doing errands alone? 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 No [email or web address] Information no t available 06/13/2016 Family History Relationship Description Onset Age of this Age Resolved Age Notes LastModified by Organization Details LastModified Time Father Myocardial infarction Not available 11/25 17:27:46 Father Coronary arterioscler osis [email or web address] Not available 2015 17:27:57 Mother Congestive heart failure Not available 2015 17:28:19 Medical History No medical history recorded. Immunizations Vaccine Type Date Status Note Provider Nam e and Address Organization Details Recorded Time Influenza, adjuvanted, trivalent, PF 7 completed Cathleen Smiley null, [place] - [facility] 02/29/2024 16:06:38 Influenza, high-dose, quadrivalent, PF 0 completed Cathleen Smiley [place], [place] - [facility] 02/29/2024 16:06:38 Influenza, high-dose, quadrivalent, PF 3 completed Cathleen [place] [facility] 02/29/2024 16:06:38 Influenza, adjuvanted, quadrivalent, PF 2 completed Cathleen [place] [facility] 02/29/2024 16:06:38 COVID-19, mRNA, LNP-S, PF, 100 mcg/0.5mL dose or 50 mcg/0.25mL dose 1 completed Cathleen Sm[place] [facility] 02/29/2024 16:06:38 COVID-19, mRNA, LNP-S, PF, 100 mcg/0.5mL dose or 50 mcg/0.25mL dose 1 completed Cathleen Sm[place] [facility] 02/29/2024 16:06:38 COVID-19, mRNA, LNP-S, PF, 100 mcg/0.5mL dose or 50 mcg/0.25mL dose 2 completed Cathleen Smiley null, [facility] 02/29/2024 16:06:38 COVID-19, mRNA, LNP-S, PF, 100 mcg/0.5mL dose or 50 mcg/0.25mL dose 1 completed Cathleen Smiley null, [facility] 02/29/2024 16:06:38 COVID-19, mRNA, LNP-S, bivalent, PF, 50 mcg/0.5 mL or 25mcg/0.25 mL dose 2 completed Cathleen Smiley null, [facility] 02/29/2024 16:06:38 RSV, recombinant, protein subunit RSVpreF, adjuvant reconstituted, 0.5 mL, PF 4 completed Cathleen Smiley null, [facility] 02/29/2024 16:06:38 RSV, recombinant, protein subunit RSVpreF, adjuvant reconstituted, 0.5 mL, PF 3 completed Cathleen Smiley null, [facility] 02/29/2024 16:06:38 COVID-19, mRNA, LNP-S, PF, 50 mcg/0.5 mL 4 completed Cathleen Smiley null, [facility] 02/29/2024 16:06:38 influenza, unspecified formulation 7 completed Cathleen Smiley null, [facility] 02/29/2024 16:06:38 zoster live 9 completed Cathleen Smiley null, [facility] 02/29/2024 16:06:38 Influenza, high-dose, trivalent, PF 4 completed Cathleen Smiley null, [facility] 02/29/2024 16:06:38 Influenza, high-dose, trivalent, PF 6 completed Cathleen Smiley null, [facility] 02/29/2024 16:06:38 Influenza, split virus, trivalent, PF 2 completed Cathleen Smiley null, [facility] 02/29/2024 16:06:38 zoster recombinant 5 completed Leigh Molina null, [facility] 05/06/2024 17:39:00 Pneumococcal conjugate PCV 13 0 completed Crystal Wilfredo null, [place] - [facility] 09/15/2019 16:06:04 pneumococcal polysaccharide PPV23 7 completed Not Available [facility] 03/01/2019 03:54:31 Tdap 7 completed Not Available [facility] 03/01/2019 03:54:35 influenza, unspecified formulation 8 completed Not Available [facility] 03/15/2019 02:21:22 influenza, unspecified formulation 9 completed Not Available [facility] 03/15/2019 02:21:23 influenza, unspecified formulation 0 completed Not Available [facility] 03/15/2019 02:21:23 influenza, unspecified formulation 4 completed Not Available [facility] 03/15/2019 02:21:23 influenza, unspecified formulation 5 completed Not Available [facility] 03/15/2019 02:21:23 Influenza, high-dose, quadrivalent, PF 1 completed Mary Chelita null, [place] - [facility] 11/05/2020 13:27:48 Influenza, high-dose, trivalent, PF 8 completed Not Available [facility] 03/15/2019 02:21:59 Influenza, high-dose, trivalent, PF 9 completed Not Available [facility] 03/01/2019 03:56:04 Past Encounters Encounter ID Performer Location Encounter Start Date Encounter Closed Date Diagnosis/Indication Diagnosis SNOMED-CT Code Diagnosis ICD10 Code Diagnosis Note [id number] Juan Jose Medrano DO Formerly [facility], [facility] [address] [place] [address] 07/03/2024 16:15:41 07/03/2024 16:54:43 Coronary arteriosclerosis 06713962 I25.10 CAD s/p CABG, s/p pacemaker, PAFib. Patient will continue follow up with cards as scheduled. Will continue Eliquis, aspirin, losartan, metoprolol , and Repatha as written. Benign hypertension 1072 5009 I10 HTN. Controlled . Patient will continue amlodipine , metoprolol , losartan, and furosemide as written. Will follow labs today. Mixed hyperlipidemia 267 518475 E78.2 Hyperlipid emia. Controlled . Patient will continue Repatha as written per cardiology . Will repeat labs today. Chronic ob structive pulmonary disease 68202178 J44.9 COPD. Patient will continue to follow with pulmonolog y as scheduled. Patient to continue Stiolto/[place] [facility]. Postoperat jessica hypothyroidism 11283563 E89.0 Hypothyroi dism. Controlled . Patient will continue off levothyrox ine at this point and we will check TSH at follow-up dex elizondo Overweight in adulthood with body mass index of 25 or more but less than 30 641232848 Z68.25 bmi--25.9 Eruption 290455547 R21 Low back pain 029739585 M54.50 Health Concerns Section Related Observation LastModified by Organization Detai ls LastModified Time None Recorded Concern Status LastModified by Organization Details LastModified Time None Recorded Payers Encounter Date Sequence Insurance Name Policy Number Policy Owens Covered Member ID Owens Member ID Guarantor Name 07/03/2024 1 SHANI-DBE: ANNABELLA MCLEOD OF [employer] - [employer] (MEDICARE REPLACEMENT HMO) [id number] Wilfred العلي [id number] Wilfred العلي Notes Date Note Type Note Provider Name and Address Organization Details Recorded Time 07/03/2024 text/html 83-year-old male seen in the [...] work well for him. Juan Jose Medrano, [address], [place], [address], [place] - [facility] 07/03/2024 17:09:09
== END 2024-08-22 23:59 | disposition home or self-care (01) ==
LOC: LAB.DROPOF 08-25 10:37
PROVIDERS: PCP Family Medicine; Visit Provider Family Medicine
DX: J44.9 Chronic obstructive pulmonary disease, unspecified (principal)
CPT/HCPCS: 80048